=== PATIENT | male | born 1945 | race Caucasian/White ===

== ENCOUNTER → 2017-06-24 07:24 | Outpatient (CLI) | payer OTHER, SELFPAY ==
[2017-06-24 09:30] LABS: Hemoglobin A1c 5.9 % (4.2-6.3)
[2017-06-24 09:31] LABS: AST(SGOT) 21 U/L (15-37); Alanine Aminotransfer ALT/SGPT 24 U/L (16-61); Albumin, Serum 3.6 g/dL (3.2-5.0); Alkaline Phosphatase 69 U/L (45-117); Anion Gap 6 (5-15); BUN 27 mg/dL (7-18); BUN/Creat Ratio 20.6 RATIO (10-20); Calcium,Total 8.6 mg/dL (8.5-10.1); Chloride 108 mmol/L (98-107); Cholesterol 175 mg/dL (200); Creatinine, Serum 1.31 mg/dL (0.70-1.30); EST Glomerular Filtration Rate 57 mL/min (>60); Est Glom Filt Rate - Afr Amer 69 mL/min (>60); Globulin 3.6 g/dL (2.2-4.2); Glucose 92 mg/dL (74-106); High Density Lipoprotein 50 mg/dL; Potassium 3.6 mmol/L (3.5-5.1); Protein, Total 7.2 g/dL (6.4-8.2); Sodium Level 143 mmol/L (136-145); T4 Free Direct 0.94 ng/dL (0.76-1.46); Thyroid Stim Hormone (TSH) 1.84 uIU/mL (0.358-3.74); Triglycerides 101 mg/dL; Very Low Density Lipoprotein 20 mg/dL (5-40)
== END ==
PROVIDERS: Family Provider Family Medicine; PCP Family Medicine; Visit Provider Internal Medicine Endocrinology, Diabetes & Metabolism
DX: E03.9 Hypothyroidism, unspecified (principal); E11.9 Type 2 diabetes mellitus without complications
CPT/HCPCS: 36415; 80053; 80061; 83036; 84439; 84443

== ENCOUNTER → 2017-12-06 06:31 | Outpatient (CLI) | payer OTHER, SELFPAY ==
[2017-12-06 07:33] LABS: Microalbumin:Creatinine Ratio 84.1 mg/g CRE (<30 mg/g CRE)
[2017-12-06 07:38] LABS: Hemoglobin A1c 5.8 % (4.2-6.3)
[2017-12-06 07:45] LABS: ALB/GLOB Ratio 0.9 RATIO (0.9-2.4); AST(SGOT) 24 U/L (15-37); Alanine Aminotransfer ALT/SGPT 26 U/L (16-61); Albumin, Serum 3.4 g/dL (3.2-5.0); Alkaline Phosphatase 65 U/L (45-117); Anion Gap 11 (5-15); BUN 23 mg/dL (7-18); BUN/Creat Ratio 18.4 RATIO (10-20); Calcium,Total 8.8 mg/dL (8.5-10.1); Chloride 106 mmol/L (98-107); Cholesterol 169 mg/dL (200); Creatinine, Serum 1.25 mg/dL (0.70-1.30); EST Glomerular Filtration Rate 60 mL/min (>60); Est Glom Filt Rate - Afr Amer 73 mL/min (>60); Globulin 3.7 g/dL (2.2-4.2); Glucose 113 mg/dL (74-106); High Density Lipoprotein 55 mg/dL; Protein, Total 7.1 g/dL (6.4-8.2); Sodium Level 142 mmol/L (136-145); T4 Total, Thyroxin 10.4 ug/dL (4.5-12.1); Thyroid Stim Hormone (TSH) 2.35 uIU/mL (0.358-3.74); Triglycerides 134 mg/dL; Very Low Density Lipoprotein 27 mg/dL (5-40)
[2017-12-06 09:29] LABS: Vitamin D,25 Hydroxy 39.1 ng/mL (29.95-100.01)
[2017-12-06 19:41] LABS: T4 Free Direct 0.96 ng/dL (0.76-1.46)
== END ==
PROVIDERS: Family Provider Family Medicine; PCP Family Medicine; Visit Provider Internal Medicine Endocrinology, Diabetes & Metabolism
DX: E03.9 Hypothyroidism, unspecified (principal); E55.9 Vitamin D deficiency, unspecified; E11.9 Type 2 diabetes mellitus without complications
CPT/HCPCS: 36415; 80053; 80061; 82043; 82306; 82570; 83036; 84436; 84439; 84443

== ENCOUNTER → 2018-02-11 07:31 | Outpatient (CLI) | payer OTHER, SELFPAY ==
[2018-02-11 08:59] LABS: T4 Free Direct 0.96 ng/dL (0.76-1.46); Thyroid Stim Hormone (TSH) 2.53 uIU/mL (0.358-3.74)
== END ==
PROVIDERS: Family Provider Family Medicine; PCP Family Medicine; Referring Provider Internal Medicine Endocrinology, Diabetes & Metabolism; Visit Provider Internal Medicine Endocrinology, Diabetes & Metabolism
DX: E03.9 Hypothyroidism, unspecified (principal); E11.9 Type 2 diabetes mellitus without complications
CPT/HCPCS: 36415; 84439; 84443

== ENCOUNTER → 2018-04-16 16:48 | Outpatient (CLI) | payer OTHER, SELFPAY ==
[2017-04-26 10:15] VITALS: BMI 32.3
[2018-04-16 19:00] LABS: ALB/GLOB Ratio 0.9 RATIO (0.9-2.4); AST(SGOT) 28 U/L (15-37); Alanine Aminotransfer ALT/SGPT 33 U/L (16-61); Albumin, Serum 3.4 g/dL (3.2-5.0); Alkaline Phosphatase 81 U/L (45-117); Anion Gap 10 (5-15); BUN 25 mg/dL (7-18); BUN/Creat Ratio 21.6 RATIO (10-20); Calcium,Total 8.5 mg/dL (8.5-10.1); Chloride 104 mmol/L (98-107); Creatinine, Serum 1.16 mg/dL (0.70-1.30); EST Glomerular Filtration Rate 66 mL/min (>60); Est Glom Filt Rate - Afr Amer 79 mL/min (>60); Globulin 3.6 g/dL (2.2-4.2); Glucose 83 mg/dL (74-106); Potassium 4.1 mmol/L (3.5-5.1); Sodium Level 139 mmol/L (136-145); Thyroid Stim Hormone (TSH) 3.37 uIU/mL (0.358-3.74)
[2018-04-16 19:03] LABS: Hematocrit 40.1 % (40-54); Hemoglobin 13.1 g/dl (13.0-16.5); Mean Corp Hgb Conc 32.7 g/gl (32-36); Mean Corpuscular Hgb 29.3 pg (27.0-32.0); Mean Corpuscular Volume 89.7 fL (80-94); Mean Platelet Vol. 11.4 fl (6.2-12.0); POSITIVE COUNT NO; POSITIVE DIFFERENTIAL NO; POSITIVE MORPHOLOGY NO; Platelet Count 116 K/mm3 (150-450); RBC Distribution Width CV 13.8 % (11.6-14.6); RBC Distribution Width SD 44.5 fl (35.1-43.9); Red Blood Count 4.47 M/mm3 (4.6-6.2); White Blood Count 3.4 K/mm3 (4.4-11.0)
[2018-04-16 19:04] LABS: Absolute Lymphocyte Count 1.44 X10^3/ul (0.83-4.51); Absolute Neutrophil Count 1.3 X10^3/uL (2.0-7.7); Eosinophil# 0.06 X10^3/uL; Eosinophils% 1.8 % (0-5); Lymphocyte # 1.44 X10^3/ul (4.0); Lymphocyte % 42.7 % (19-41); Monocyte# 0.45 X10^3/uL; Monocyte% 13.4 % (0-10); Neutrophil % 38.5 % (47-70)
[2018-04-19 16:11] LABS: HEPATITIS B SURFACE AG Negative (Negative); Hepatitis B Core Ab Total Negative (Negative); Hepatitis Be Ab Negative (Negative); Hepatitis Be Ag Negative (Negative)
[2018-04-21 08:15] LABS: EBV Acute VCA IgM < 36.0 U/mL (0.0-35.9); EBV Early Antigen IgG <9.0 U/mL (0.0-8.9); EBV Nuclear Antigen IgG < 18.0 U/mL (0.0-17.9); EBV-VCA IgG < 18.0 U/mL (0.0-17.9); Hep B Surface Antibodies Reactive (.); Hep C Antibodies <0.1 s/co ratio (0.0-0.9); Hepatitis B Core AB IgM Negative (Negative)
== END ==
PROVIDERS: Family Provider Family Medicine; PCP Family Medicine; Visit Provider Family Medicine
DX: R53.83 Other fatigue (principal)
CPT/HCPCS: 36415; 80053; 84443; 85025; 86663; 86664; 86665; 86704; 86705; 86706; 86707; 86803; 87340; 87350

== ENCOUNTER → 2018-06-05 06:54 | Outpatient (CLI) | payer OTHER, SELFPAY ==
[2018-06-04 16:09] VITALS: BMI 32.6
[2018-06-05 07:56] LABS: ALB/GLOB Ratio 0.9 RATIO (0.9-2.4); AST(SGOT) 25 U/L (15-37); Alanine Aminotransfer ALT/SGPT 29 U/L (16-61); Albumin, Serum 3.6 g/dL (3.2-5.0); Alkaline Phosphatase 74 U/L (45-117); Anion Gap 7 (5-15); BUN 20 mg/dL (7-18); BUN/Creat Ratio 13.9 RATIO (10-20); Bilirubin, Direct 0.14 mg/dL (0.00-0.30); Calcium,Total 8.6 mg/dL (8.5-10.1); Chloride 106 mmol/L (98-107); Cholesterol 182 mg/dL (200); Creatinine, Serum 1.44 mg/dL (0.70-1.30); EST Glomerular Filtration Rate 51 mL/min (>60); Est Glom Filt Rate - Afr Amer 62 mL/min (>60); Globulin 3.8 g/dL (2.2-4.2); Glucose 111 mg/dL (74-106); High Density Lipoprotein 53 mg/dL; Potassium 4.3 mmol/L (3.5-5.1); Protein, Total 7.4 g/dL (6.4-8.2); Sodium Level 142 mmol/L (136-145); T4 Free Direct 1.02 ng/dL (0.76-1.46); Thyroid Stim Hormone (TSH) 2.18 uIU/mL (0.358-3.74); Triglycerides 139 mg/dL; Very Low Density Lipoprotein 28 mg/dL (5-40)
[2018-06-05 12:18] LABS: Hemoglobin A1c 5.9 % (4.2-6.3)
== END ==
PROVIDERS: Family Provider Family Medicine; PCP Family Medicine; Referring Provider Nurse Practitioner Family; Visit Provider Nurse Practitioner Family
DX: E11.9 Type 2 diabetes mellitus without complications (principal); E03.9 Hypothyroidism, unspecified; E78.5 Hyperlipidemia, unspecified
CPT/HCPCS: 36415; 80053; 80061; 82248; 83036; 84439; 84443

== ENCOUNTER → 2018-07-08 06:46 | Outpatient (CLI) | payer OTHER, SELFPAY ==
[2018-06-04 16:09] VITALS: BMI 32.6
--- NOTE | 2018-07-08 10:29 | STRESSREP_ITS ---
Stress Test Report Date: 07-08-18 Procedure: Pharmacologic stress nuclear imaging study Indications: Chest pain Consent: Per the patient Procedure: The patient underwent pharmacologic (Regadenoson) evaluation with a peak heart rate of 68 beats per minute (46% predicted maximal heart rate) and a peak blood pressure of 190/94 mmHg. The baseline ECG demonstrated is bradycardia; right bundle branch block. The peak pharmacologic ECG demonstrated no obvious ECG changes. There were occasional PVCs pretest, during infusion, and recovery. There was no complaint of chest discomfort during pharmacologic infusion or recovery. The examination was discontinued secondary to completion of protocol. Impression: 1. Pharmacologic (Regadenoson) evaluation 2. Peak pharmacologic ECG with no obvious ECG changes. 3. There were occasional PVCs pretest, during infusion, and recovery. 4. Nuclear images pending Myocardial perfusion imaging study: Technique: The patient was injected with 11.6 millicuries of technetium 99m Cardiolite and subsequently rest SPECT Cardiolite nuclear imaging was obtained in the horizontal long, vertical long, and short axis views. The patient underwent pharmacologic (Regadenoson) evaluation with a peak heart rate of 68 beats per minute (46 % percent predicted maximal heart rate) and a peak blood pressure of 190/94 mmHg. The patient was injected with 34.3 millicuries of technetium 99m Cardiolite and subsequently stress SPECT Cardiolite nuclear imaging was obtained in the horizontal long, vertical long, and short axis views. A gated Cardiolite study at peak stress was obtained. Interpretation: Rest and stress SPECT Cardiolite nuclear imaging status post realignment, normalization, and attenuation correction demonstrate relative uniform tracer uptake and myocardial perfusion appearing within normal limits. There is end systolic thickening and brightening. The gated Cardiolite study demonstrates myocardial thickening and inward wall motion. The reported LVEF is 69 %. Impression: 1. Rest and stress SPECT Cardiolite nuclear imaging demonstrate relative uniform tracer uptake and myocardial perfusion appearing within normal limits. 2. The gated Cardiolite study reports an LVEF of 69 %. This note was generated with [employer] software. It may contain incorrect words, spelling, and punctuation that were not noted in checking the note before signing.
== END ==
PROVIDERS: Family Provider Family Medicine; PCP Family Medicine; Referring Provider Nurse Practitioner Family; Visit Provider Nurse Practitioner Family
DX: R07.9 Chest pain, unspecified (principal); R53.83 Other fatigue; I10 Essential (primary) hypertension
CPT/HCPCS: 78452; 93017; A9500; A4216; J2785

== ENCOUNTER → 2018-08-12 09:53 | Outpatient (CLI) | payer OTHER, SELFPAY ==
[2018-06-04 16:09] VITALS: BMI 32.6
[2018-08-12 12:10] LABS: Absolute Lymphocyte Count 1.26 X10^3/ul (0.83-4.51); Absolute Neutrophil Count 2.9 X10^3/uL (2.0-7.7); Basophil# 0.03 X10^3/uL; Basophil% 0.6 % (0-1); Eosinophil# 0.08 X10^3/uL; Eosinophils% 1.7 % (0-5); Hematocrit 43.6 % (40-54); Hemoglobin 14.1 g/dl (13.0-16.5); Lymphocyte # 1.26 X10^3/ul (4.0); Lymphocyte % 26.3 % (19-41); Mean Corp Hgb Conc 32.3 g/gl (32-36); Mean Corpuscular Hgb 28.6 pg (27.0-32.0); Mean Corpuscular Volume 88.4 fL (80-94); Mean Platelet Vol. 11.7 fl (6.2-12.0); Monocyte# 0.47 X10^3/uL; Monocyte% 9.8 % (0-10); Neutrophil # 2.94 X10^3/uL (2.7-7.7); Neutrophil % 61.4 % (47-70); Platelet Count 154 K/mm3 (150-450); RBC Distribution Width CV 13.9 % (11.6-14.6); RBC Distribution Width SD 44.9 fl (35.1-43.9); Red Blood Count 4.93 M/mm3 (4.6-6.2); White Blood Count 4.8 K/mm3 (4.4-11.0)
[2018-08-12 12:13] LABS: POSITIVE COUNT NO; POSITIVE DIFFERENTIAL NO; POSITIVE MORPHOLOGY NO
[2018-08-12 12:22] LABS: Partial Thromboplast Time 27.2 Seconds (24.1-36.2); Prothrombin Time (Protime)PT. 13.2 SECONDS (11.7-14.9)
== END ==
PROVIDERS: Family Provider Family Medicine; PCP Family Medicine; Referring Provider Family Medicine; Visit Provider Nurse Practitioner Adult Health
DX: S30.1XXA Contusion of abdominal wall, initial encounter (principal); R53.83 Other fatigue
CPT/HCPCS: 36415; 85025; 85610; 85730

== ENCOUNTER → 2018-11-21 10:04 | Outpatient (CLI) | payer OTHER, SELFPAY ==
[2018-08-12 14:46] VITALS: BMI 32.5
--- NOTE | 2018-11-21 10:08 | RAD_ITS ---
STUDY: X-RAY - PELVIS AND RIGHT HIP REASON FOR EXAM: Male, 73 years old. Right hip pain for 2 weeks TECHNIQUE: 3 views of the pelvis and hip. COMPARISON: None. FINDINGS: There is expected appearance of total right hip arthroplasty in place. Hardware is intact with normal bone interface. There is prior ventral hernia repair. 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 The bones of the pelvis are intact and located. There are degenerative changes in the lower lumbar spine. There is no intestinal obstruction. RAD/HIP, UNI W/ Pelvis 2-3 Views IMPRESSION: Expected appearance of right total hip arthroplasty. Electronically Signed: Kush Means, at 20:00 EDT Tel , Service support ,
== END ==
PROVIDERS: Family Provider Family Medicine; PCP Family Medicine; Referring Provider Family Medicine; Visit Provider Family Medicine
DX: M25.551 Pain in right hip (principal); Z96.641 Presence of right artificial hip joint
CPT/HCPCS: 73502

== ENCOUNTER → 2018-11-25 17:50 | Outpatient (CLI) | payer OTHER, SELFPAY ==
[2018-08-12 14:46] VITALS: BMI 32.5
[2018-11-25 19:03] LABS: Vitamin D,25 Hydroxy 38.5 ng/mL (29.95-100.01)
[2018-11-25 19:05] LABS: ALB/GLOB Ratio 0.9 RATIO (0.9-2.4); AST(SGOT) 24 U/L (15-37); Alanine Aminotransfer ALT/SGPT 25 U/L (16-61); Albumin, Serum 3.6 g/dL (3.2-5.0); Alkaline Phosphatase 69 U/L (45-117); Anion Gap 5 (5-15); BUN 26 mg/dL (7-18); BUN/Creat Ratio 21.3 RATIO (10-20); Calcium,Total 8.9 mg/dL (8.5-10.1); Chloride 106 mmol/L (98-107); Creatinine, Serum 1.22 mg/dL (0.70-1.30); EST Glomerular Filtration Rate 62 mL/min (>60); Est Glom Filt Rate - Afr Amer 75 mL/min (>60); Globulin 3.9 g/dL (2.2-4.2); Glucose 91 mg/dL (74-106); Protein, Total 7.5 g/dL (6.4-8.2); Sodium Level 138 mmol/L (136-145); T4 Free Direct 1.08 ng/dL (0.76-1.46); Thyroid Stim Hormone (TSH) 1.47 uIU/mL (0.358-3.74)
== END ==
PROVIDERS: Family Provider Family Medicine; PCP Family Medicine; Referring Provider Internal Medicine Endocrinology, Diabetes & Metabolism; Visit Provider Internal Medicine Endocrinology, Diabetes & Metabolism
DX: E55.9 Vitamin D deficiency, unspecified (principal); E11.9 Type 2 diabetes mellitus without complications; E03.9 Hypothyroidism, unspecified
CPT/HCPCS: 36415; 80053; 82306; 83036; 84439; 84443

== ENCOUNTER 2019-02-01 14:07 | Emergency (ER) | payer OTHER, SELFPAY ==
[2018-08-12 14:46] VITALS: BMI 32.5
[2019-02-01 14:09] VITALS: BP 132/65; PULSE 50; RESP 16; TEMP 36.8; O2SAT 95; BMI 32.6
[2019-02-01 14:12] VITALS: RESP 16
[2019-02-01 15:26] LABS: Absolute Lymphocyte Count 1.29 X10^3/uL (0.83-4.51); Absolute Neutrophil Count 4.1 X10^3/uL (2.0-7.7); Basophil# 0.05 X10^3/uL; Basophil% 0.8 % (0-1); Eosinophil# 0.09 X10^3/uL; Eosinophils% 1.5 % (0-5); Hematocrit 41.9 % (40-54); Hemoglobin 13.4 g/dL (13.0-16.5); Lymphocyte # 1.29 X10^3/ul (4.0); Lymphocyte % 21.1 % (19-41); Mean Corpuscular Hgb 29.9 pg (27.0-32.0); Mean Corpuscular Volume 93.5 fL (80-94); Mean Platelet Vol. 11.3 fl (6.2-12.0); Monocyte# 0.53 X10^3/uL; Monocyte% 8.7 % (0-10); NRBC Flagged by Analyzer 0 % (0-5); Neutrophil # 4.13 X10^3/uL (2.7-7.7); Neutrophil % 67.4 % (47-70); Platelet Count 149 K/mm3 (150-450); RBC Distribution Width CV 12.5 % (11.6-14.6); RBC Distribution Width SD 43.2 fl (35.1-43.9); Red Blood Count 4.48 M/mm3 (4.6-6.2); White Blood Count 6.1 K/mm3 (4.4-11.0)
[2019-02-01] MEDS: Ondansetron 4 MG/2 ML Vial IV (15:30)
[2019-02-01] MEDS: Oxymetazoline 0.05% 1 SPRAY SPRAY.BTL NASAL (15:31)
[2019-02-01] MEDS: Mixture 30 ML Bottle TOPICAL (15:31)
[2019-02-01] MEDS: Morphine 4 MG/ML Syringe IV (15:32)
[2019-02-01 15:34] LABS: International Normalized Ratio 1.1
[2019-02-01 15:35] LABS: Partial Thromboplast Time 28.7 Seconds (24.1-36.2)
[2019-02-01 15:37] LABS: Anion Gap 7 (5-15); BUN 25 mg/dL (7-18); BUN/Creat Ratio 20.7 RATIO (10-20); Calcium,Total 9.1 mg/dL (8.5-10.1); Chloride 108 mmol/L (98-107); Creatinine, Serum 1.21 mg/dL (0.70-1.30); EST Glomerular Filtration Rate 62 mL/min (>60); Est Glom Filt Rate - Afr Amer 75 mL/min (>60); Glucose 84 mg/dL (74-106); Sodium Level 143 mmol/L (136-145)
--- NOTE | 2019-02-01 15:52 | ED.VISSUMM ---
- ER Visit Summary Date of Service: 02/01/19 Chief Complaint: Nosebleed History of Present Illness: The patient is a [address] Kohli. He takes a baby aspirin a day. He reports he had bleeding from the right side of his nose 4 days ago the last approximately 30 minutes. He had another episode 2 days ago lasted 45 minutes. Had an episode yesterday lasted 45 minutes. And states that it began to bleed again today approximately 7 hours ago and has not stopped. He is not on any anticoagulants. He denies any recent injury to his nose. Patient has never had anything like this before. He has seen both Dr. Fiore and Dr. Umer Shields in the distant past. Physical Examination: Vitals: Stable. Afebrile. General: Well-nourished and well-developed. Head: Normocephalic atraumatic. Nose: Active bleeding from the right nare. I am unable to visualize the source of this. Neck: Supple, no lymphadenopathy. No JVD. Nontender. Cardiovascular: Regular rate and rhythm. No murmurs. Respiratory: No respiratory distress. Clear to auscultation bilaterally. Abdominal: Soft, nontender, nondistended, normal bowel sounds. No guarding, rebound, or peritoneal signs. Back: Nontender. Extremities: Nontender, no edema. Skin: Normal color, no rash. Neurologic: Alert and oriented ?3. Cranial nerves II through XII are intact. Normal strength and sensation. Psych: Normal affect. Test Results: CBC shows platelets 149. Chem-7 shows a chloride 108 and BUN of 25. INR is 1.1. PTT is 20.7. Emergency Department Course and Treatment: Patient was given a dose of morphine and Zofran IV. He had Afrin instilled cotton balls placed in his nose. Bleeding actually increased with this. When he was were removed there was significant bleeding coming both anterior and posteriorly. I was unable to visualize a source of this. [place] mix instilled and had a 7.57 m rapid Rhino placed. This did control his bleeding. There is no further bleeding in the oropharynx. There is no clot in the oropharynx. He was able to ambulate without difficulty. Treatment Plan: Patient will be discharged with Keflex. He is also given prescription for 10 [place]. Instructed to follow-up Dr. Macarena in 3 to 5 days for another exam. Return to the emergency department for any worsening symptoms. Disposition: To home in improved and stable condition. Impression: 1. Epistaxis on right. This note was generated with [employer] dictation software. It may contain incorrect words, spelling, and punctuation that were not noted in review of the chart prior to signing ED Disposition - Plan for ED Patient: Instructions: Nosebleed Prescriptions: Cephalexin [Keflex] 500 mg PO TID #21 capsule Hydrocodone Bitart/Apap 5-325 [[place] 5MG-325MG] 1 tablet PO Q4H PRN PRN 2 Days #10 tablet PRN Reason: Pain Referrals: Niranjan Foire MD [STAFF PHYSICIAN] - 3-5 Days
--- NOTE | 2019-02-01 16:50 | RAD_ITS ---
STUDY: X-RAY - LEFT SHOULDER REASON FOR EXAM: Male, 73 years old. Pain. TECHNIQUE: 3 view(s) of the shoulder. COMPARISON: None. FINDINGS: There is moderate degenerative arthrosis of the glenohumeral articulation. There is degenerative arthrosis of the acromioclavicular joint without inferior osseous spur formation. Normal acromion. Normal humeral head and visualized proximal humerus. The soft tissue structures are unremarkable. Normal visualized pulmonary apex. RAD/Shoulder min 2 Views IMPRESSION: Glenohumeral and AC joint arthrosis with no evidence of acute osseous injury. Electronically Signed: Daniel Lambert DO at 17:11 EDT , Service support ,
[2019-02-01 17:32] VITALS: BP 144/61; PULSE 55; RESP 14; O2SAT 97
== END 2019-02-01 17:33 | disposition home or self-care (01) ==
PROVIDERS: Emergency Provider Emergency Medicine; Family Provider Family Medicine; PCP Family Medicine
DX: R04.0 Epistaxis (principal); I10 Essential (primary) hypertension; E03.9 Hypothyroidism, unspecified; I34.1 Nonrheumatic mitral (valve) prolapse; Z79.82 Long term (current) use of aspirin; Z79.899 Other long term (current) drug therapy
CPT/HCPCS: 30905; 73030; 80048; 85025; 85610; 85730; 96374; 96375; 99285; A4216; J2405

== ENCOUNTER → 2019-02-23 17:43 | Outpatient (CLI) | payer OTHER, SELFPAY ==
[2019-02-01 14:09] VITALS: BMI 32.6
[2019-02-23 17:49] LABS: Absolute Lymphocyte Count 1.23 X10^3/uL (0.83-4.51); Absolute Neutrophil Count 3.5 X10^3/uL (2.0-7.7); Basophil# 0.04 X10^3/uL; Basophil% 0.7 % (0-1); Eosinophil# 0.12 X10^3/uL; Eosinophils% 2.2 % (0-5); Hematocrit 40.6 % (40-54); Lymphocyte # 1.23 X10^3/ul (4.0); Lymphocyte % 22.8 % (19-41); Mean Corpuscular Hgb 29.8 pg (27.0-32.0); Mean Corpuscular Volume 93.1 fL (80-94); Mean Platelet Vol. 11.7 fl (6.2-12.0); Monocyte# 0.52 X10^3/uL; Monocyte% 9.6 % (0-10); NRBC Flagged by Analyzer 0 % (0-5); Neutrophil # 3.46 X10^3/uL (2.7-7.7); Neutrophil % 64.3 % (47-70); Platelet Count 154 K/mm3 (150-450); RBC Distribution Width CV 12.6 % (11.6-14.6); RBC Distribution Width SD 42.5 fl (35.1-43.9); Red Blood Count 4.36 M/mm3 (4.6-6.2); White Blood Count 5.4 K/mm3 (4.4-11.0)
[2019-02-23 18:16] LABS: Thyroid Stim Hormone (TSH) 1.94 uIU/mL (0.358-3.74)
== END ==
PROVIDERS: Family Provider Family Medicine; PCP Family Medicine; Referring Provider Family Medicine; Visit Provider Family Medicine
DX: R06.02 Shortness of breath (principal)
CPT/HCPCS: 84443; 85025

== ENCOUNTER → 2019-02-24 09:54 | Outpatient (CLI) | payer OTHER, SELFPAY ==
[2019-02-01 14:09] VITALS: BMI 32.6
--- NOTE | 2019-02-24 09:56 | VDLE_ITS ---
Reason For Study: Hx. DVT/ SOB RIGHT LEFT GSV is normal. GSV is normal. CFV is compressible, spontaneous, phasic, CFV is compressible, spontaneous, phasic, competent and demonstrates normal competent, and demonstrates normal augmentation. augmentation. FV is compressible, spontaneous, phasic, POP V is compressible, spontaneous, phasic, competent and demonstrates normal competent and demonstrates normal augmentation. augmentation. POP V is compressible, spontaneous, phasic, T/P Trunk is compressible. competent and demonstrates normal PTV is compressible. augmentation. Acute deep vein thrombosis is noted in the T/P Trunk is compressible. left FV prox with minimal flow noted. PTV is compressible. Remaining vessel is normal. Acute deep vein thrombosis is noted in the Acute superficial vein thrombosis is noted in right peroneal vein. the SSV with minimal flow noted. Acute deep vein thrombosis is noted in the Acute deep vein thrombosis is noted in the right soleus vein. left peroneal vein. Procedure Exam performed in department. A preliminary report was called and/or faxed to [facility]. Pt sent to ER for CAT scan for lungs. Interpretation Summary Acute deep vein thrombosis is noted in the right peroneal vein. Acute deep vein thrombosis is noted in the right soleus vein. The remainder of the right lower extremity deep venous system is patent and compressible. The proximal right lower extremity deep venous system is competent. Acute deep vein thrombosis is noted in the left proximal femoral vein. Acute deep vein thrombosis is noted in the left peroneal vein. The remainder of the left lower extremity deep venous system is patent and compressible. The left common femoral vein and popliteal vein are competent. The great saphenous veins appear bilaterally patent and compressible segmentally. Acute superficial thrombophlebitis is noted in the left small saphenous vein. Ordering Physician: Deanne Kohli Referring Physician: Deanne Kohli Performed By: Faviola Garcia RVT
== END ==
PROVIDERS: Family Provider Family Medicine; PCP Family Medicine; Referring Provider Family Medicine; Visit Provider Family Medicine
DX: Z86.718 Personal history of other venous thrombosis and embolism (principal)
CPT/HCPCS: 93970

== ENCOUNTER 2019-02-24 10:40 | Emergency (ER) | payer OTHER, SELFPAY ==
[2019-02-24 10:41] VITALS: BP 137/84; PULSE 51; RESP 18; TEMP 36.8; O2SAT 95; BMI 31.6
--- NOTE | 2019-02-24 11:02 | CT_ITS ---
STUDY: CTA CHEST REASON FOR EXAM: Male, 73 years old. RADIATION DOSAGE (If Supplied By Facility): CTDIvol = ( 14.31 ) mGy, DLP = ( 525.21 ) mGycm TECHNIQUE: The examination was performed with the intravenous administration of IV Isovue 300 100CC. Post-processing of the angiographic images was performed, with multiplanar reformation and 3D reconstruction. Individualized dose optimization techniques were used for this CT. COMPARISON: None. FINDINGS: Heterogeneous right thyroid. Normal enhancement of the main pulmonary artery and right and left pulmonary arteries. Normal enhancement of the bilateral peripheral pulmonary arteries. There are several pulmonary emboli within subsegmental branches of the right and left pulmonary arteries including right upper lobe anterior, right lower lobe posterior, left upper lobe anterior and left lower lobe posterior segments. There is atherosclerotic calcification of the aortic arch with tortuosity. There is no demonstrated aortic dissection. There are valvular calcifications. Normal mediastinum. Normal hilar regions. Normal visualized trachea and bronchi. The lungs are well expanded. Density at the left lung base measuring 1.3 cm is favored to represent atelectasis or scarring. No focal consolidation. Normal pleura. Normal chest wall structures. Portions of the left anterior chest wall and abdomen are excluded from the [id number]. There are degenerative changes of thoracic spine. Multiple incompletely characterized hepatic hypodensities most likely represent cysts. CT/CTA Chest W/WO Contrast IMPRESSION: Multiple subsegmental pulmonary emboli as above. Heterogeneous right thyroid. Recommend follow-up thyroid ultrasound. Findings discussed with Physician: Dmitry Burnette via telephone 10:16 AM 02/24/2019. N.B. : The above information has been verbally conveyed by Jacob Harrison to Dmitry Burnette MD, on 02/24/2019 13:19:20 (ET). Electronically Signed: Jacob Harrison, at 13:21 EST Tel , Service support ,
--- NOTE | 2019-02-24 11:02 | EKG12_ITS ---
Test Reason : SOB Blood Pressure : / mmHG Vent. Rate : 046 BPM Atrial Rate : 046 BPM P-R Int : 200 ms QRS Dur : 126 ms QT Int : 486 ms P-R-T Axes : 058 -24 015 degrees QTc Int : 425 ms Sinus bradycardia Right bundle branch block Abnormal ECG Confirmed by LIT STAFFORD ([id number]), development editor STEPHIE TOSCANO ([id number]) on 02/27/2019 11:23:14 AM Referred By: JAMILA Confirmed By:LIT STAFFORD
--- NOTE | 2019-02-24 11:05 | ED.DCSUM_ITS ---
History of Present Illness Chief Complaint: Shortness of Breath Informant: Patient Onset: Weeks - less than 1 Activity at onset: Light Activity Timing: Intermittent Quality: Dyspnea on exertion Current Severity: Gone - at rest Maximum Severity: Moderate Worsened by: Exertion Relieved by: Rest Associated Symptoms: Negative for: Cough, Fever Chest Pain: None Narrative: Patient has a history of a pulmonary embolism 21 years ago. He started having dyspnea with exertion in the past week and saw his doctor and had an outpatient ultrasound of his legs today, showing the following: Acute DVTs right peroneal vein, right soleus vein, left femoral vein proximally, and left peroneal vein. Also acute superficial thrombosis noted in the left SSV. Patient denies any pleuritic chest discomfort, syncope, pain or swelling in his legs. He has active prostate cancer that is being monitored at [facility] for now. No recent travel, immobilization, leg injuries. He did have a spontaneous epistaxis event that he was in the ER for a couple weeks ago, no recurrence since he got that taken care of. He takes baby aspirin daily but no anticoagulants. PE Risk Factors: Cancer, Prior DVT or PE. 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 (5) Nonrheumatic mitral (valve) prolapse Status: Chronic (6) Premature atrial contraction Status: Chronic (7) Premature ventricular contraction Status: Chronic Past Medical History - Allergies and Home Meds Allergies/Adverse Reactions: Allergies fosinopril [From Monopril] Allergy (Severe, Verified 02/24/19 10:41) unknown benazepril [From Lotensin] Adverse Reaction (Severe, Verified 02/24/19 10:41) unknown penicillin G Adverse Reaction (Severe, Verified 02/24/19 10:41) unknown apis mellifera venom Allergy (Severe, Uncoded 02/24/19 10:41) unknown Primary Care Physician: Deanne Kohli MD [Primary Care Provider] - Smoking Status: Former smoker Alcohol: None Drugs: None Review of Systems General: Reports: Malaise. Denies: Chills, Fever, Sweats Eyes: Denies: Visual changes - bilaterally, Diplopia ENT: Denies: Rhinorrhea, Sore throat Cardiovascular: Denies: Chest pain, Palpitations, Heart racing Respiratory: Reports: Dyspnea, Dyspnea on exertion. Denies: Cough, Orthopnea, Paroxysmal nocturnal dyspnea Gastrointestinal: Denies: Abdominal pain, Nausea, Vomiting, Diarrhea, Melena, Hematochezia Genitourinary: Denies: Dysuria, Hematuria, Frequency Musculoskeletal: Denies: Neck pain, Back pain, Swelling, Extremity Pain Skin: Denies: Rash, Wounds Neurological: Denies: Headache, Weakness, Numbness Physical Exam Vital Signs/Narrative: Vital Signs Temp Pulse Resp BP Pulse Ox 02/24/19 10:41 98.2 F 51 L 18 137/84 H 95 Inital Vital Signs reviewed: Yes General: Well nourished, Well developed, No Acute Distress - well-appearing, nad; conversive in full sentences Head: Normocephalic, Atraumatic Eyes: Perrl, EOMI ENT: Moist mucous membranes, No rhinorrhea Neck: Supple, Nontender, No JVD Cardiovascular: Regular rate, Regular rhythm, No murmurs, Normal S1, Normal S2. Negative for: Tachycardia Respiratory: No distress, CTA bilaterally, Chest nontender Abdomen: Soft, Nontender, Nondistended, Normal bowel sounds Back: Nontender, Normal Inspection Extremities: Nontender, Edema - trace BLE pretib distally. Negative for: Calf Tenderness Skin: Normal color, No rash, No Trauma Neurological: Alert, Oriented x3, Cranial nerves II-XII grossly intact, Normal Strength, Normal Sensation Psychological: Normal affect, Normal Mood Diagnostic/Tx/Re-eval Impressions Chest CTA 02/24/19 11:02 IMPRESSION: Multiple subsegmental pulmonary emboli as above. Heterogeneous right thyroid. Recommend follow-up thyroid ultrasound. Findings discussed with Physician: Dmitry Burnette via telephone 10:16 AM 02/24/2019. N.B. : The above information has been verbally conveyed by Jacob Harrison to Dmitry Burnette MD, on 02/24/2019 13:19:20 (ET). Electronically Signed: Jacob Harrison, at 13:21 EST Tel , Service support , ADDENDUM: 02/24/19 1328 IMPRESSION: Multiple subsegmental pulmonary emboli as above. Heterogeneous right thyroid. Recommend follow-up thyroid ultrasound. Findings discussed with Physician: Dmitry Burnette via telephone 10:16 AM 02/24/2019. N.B. : The above information has been verbally conveyed by Jacob Harrison to Dmitry Burnette MD, on 02/24/2019 13:19:20 (ET). Electronically Signed: Jacob Harrison, at 13:21 EST Tel , Service support , 02/24/19 11:02 CTA Chest W/WO Contrast [CT] Stat Laboratory Results 02/24/19 02/24/19 11:36 11:36 WBC 5.5 RBC 4.30 L Hgb 12.7 L Hct 40.0 MCV 93.0 MCH 29.5 MCHC 31.8 L RDW Std Deviation 42.7 RDW Coeff of Kelle 12.6 Plt Count 148 L MPV 11.3 Immature Gran % (Auto) 0.700 Neut % (Auto) 66.6 Lymph % (Auto) 19.0 Cassia % (Auto) 10.8 H Eos % (Auto) 2.0 Baso % (Auto) 0.9 Absolute Neuts (auto) 3.6 Absolute Lymphs (auto) 1.04 Nucleated RBC % 0 Sodium 140 Potassium 3.9 Chloride 106 Carbon Dioxide 29.0 Anion Gap 5 BUN 21 H Creatinine 1.25 Estim Creat Clear Calc 50.92 Est GFR (MDRD) Af Amer 73 Est GFR (MDRD) Non-Af 60 BUN/Creatinine Ratio 16.8 Glucose 110 H Calcium 8.8 Troponin I < 0.015 - Rhythm Strip Rhythm Strip: Sinus Rhythm Rate: 50 Ectopy: None - EKG Initial EKG Interpretation: Sinus Rhythm, No Acute Injury Pattern, RBBB - Medical Decision Making Work-up is as above showing bilateral pulmonary emboli, and subsegmental arteries. He is asymptomatic at rest, not hypoxic, and not tachycardic. He does have a history of cancer. His PESI score is 113, which places him in class IV, technically high risk for mortality/morbidity. However, I feel he can be treated as an outpatient since he only has symptoms with exertion, has had no high risk symptoms such as angina, syncope, dyspnea at rest and has normal resting vital signs. Discussed with his PCP Dr. Kohli who is comfortable with this, he will follow-up as an outpatient and advised to avoid any exertion or exercise until then but I am okay if he walks as long as he does not develop symptoms of dyspnea or chest pain. He was given Lovenox here prior to the CT angiography. He will be covered for 12 hours and advised to start the new Eliquis prescription tonight. We discussed reasons to return. ED Disposition - Plan for ED Patient: Disposition: Home or Assisted Living Diagnosis: DVT, bilateral lower limbs, Pulmonary embolism, bilateral Instructions: Pulmonary Embolism Prescriptions: Apixaban [Eliquis] 5 mg PO BID #60 tab Transmission Status: Pending to [id number] Referrals: Deanne Kohli MD [Primary Care Provider] - 3-5 Days
[2019-02-24] MEDS: Enoxaparin 100 MG/ML Syringe 95 MG SC (11:31)
[2019-02-24 11:42] VITALS: O2SAT 95
[2019-02-24 11:48] LABS: Absolute Lymphocyte Count 1.04 X10^3/uL (0.83-4.51); Absolute Neutrophil Count 3.6 X10^3/uL (2.0-7.7); Basophil# 0.05 X10^3/uL; Basophil% 0.9 % (0-1); Eosinophil# 0.11 X10^3/uL; Hemoglobin 12.7 g/dL (13.0-16.5); Lymphocyte # 1.04 X10^3/ul (4.0); Mean Corp Hgb Conc 31.8 g/dL (32-36); Mean Corpuscular Hgb 29.5 pg (27.0-32.0); Mean Platelet Vol. 11.3 fl (6.2-12.0); Monocyte# 0.59 X10^3/uL; Monocyte% 10.8 % (0-10); NRBC Flagged by Analyzer 0 % (0-5); Neutrophil # 3.64 X10^3/uL (2.7-7.7); Neutrophil % 66.6 % (47-70); Platelet Count 148 K/mm3 (150-450); RBC Distribution Width CV 12.6 % (11.6-14.6); RBC Distribution Width SD 42.7 fl (35.1-43.9); White Blood Count 5.5 K/mm3 (4.4-11.0)
[2019-02-24 12:04] LABS: Anion Gap 5 (5-15); BUN 21 mg/dL (7-18); BUN/Creat Ratio 16.8 RATIO (10-20); Calcium,Total 8.8 mg/dL (8.5-10.1); Chloride 106 mmol/L (98-107); Creatinine, Serum 1.25 mg/dL (0.70-1.30); EST Glomerular Filtration Rate 60 mL/min (>60); Est Glom Filt Rate - Afr Amer 73 mL/min (>60); Estimated Creatinine Clearance 50.92 ml/min; Glucose 110 mg/dL (74-106); Potassium 3.9 mmol/L (3.5-5.1); Sodium Level 140 mmol/L (136-145)
[2019-02-24 13:04] VITALS: BP 167/68; PULSE 48; RESP 20; O2SAT 93
[2019-02-24 15:14] VITALS: BP 138/97; PULSE 58; RESP 12; O2SAT 98
== END 2019-02-24 15:31 | disposition home or self-care (01) ==
PROVIDERS: Emergency Provider Emergency Medicine; Family Provider Family Medicine; PCP Family Medicine
DX: I26.94 Multiple subsegmental thrombotic pulmonary emboli without acute cor pulmonale (principal); I82.461 Acute embolism and thrombosis of right calf muscular vein; I82.411 Acute embolism and thrombosis of right femoral vein; I82.453 Acute embolism and thrombosis of peroneal vein, bilateral; I82.812 Embolism and thrombosis of superficial veins of left lower extremity; C61 Malignant neoplasm of prostate; I10 Essential (primary) hypertension; E78.5 Hyperlipidemia, unspecified; D47.2 Monoclonal gammopathy; I34.1 Nonrheumatic mitral (valve) prolapse; I49.1 Atrial premature depolarization; I49.3 Ventricular premature depolarization; Z86.711 Personal history of pulmonary embolism; Z86.718 Personal history of other venous thrombosis and embolism; Z79.82 Long term (current) use of aspirin; Z79.899 Other long term (current) drug therapy; Z87.891 Personal history of nicotine dependence
CPT/HCPCS: 71275; 80048; 84484; 85025; 93005; 96360; 96361; 96372; 99284; J7030; Q9967; A4216

== ENCOUNTER → 2019-05-16 09:47 | Outpatient (CLI) | payer OTHER, MEDICARE, SELFPAY ==
[2019-03-03 15:59] VITALS: BMI 32.6
[2019-05-16 10:54] LABS: Hemoglobin A1c 6.4 % (4.2-6.3)
[2019-05-16 10:59] LABS: ALB/GLOB Ratio 0.9 RATIO (0.9-2.4); AST(SGOT) 26 U/L (15-37); Alanine Aminotransfer ALT/SGPT 30 U/L (16-61); Albumin, Serum 3.4 g/dL (3.2-5.0); Alkaline Phosphatase 81 U/L (45-117); Anion Gap 3 (5-15); BUN 20 mg/dL (7-18); Calcium,Total 9.3 mg/dL (8.5-10.1); Chloride 107 mmol/L (98-107); Cholesterol 191 mg/dL (200); Creatinine, Serum 1.25 mg/dL (0.70-1.30); EST Glomerular Filtration Rate 60 mL/min (>60); Est Glom Filt Rate - Afr Amer 73 mL/min (>60); Globulin 3.8 g/dL (2.2-4.2); Glucose 109 mg/dL (74-106); High Density Lipoprotein 53 mg/dL; Potassium 4.2 mmol/L (3.5-5.1); Protein, Total 7.2 g/dL (6.4-8.2); Sodium Level 141 mmol/L (136-145); Triglycerides 165 mg/dL; Very Low Density Lipoprotein 33 mg/dL (5-40)
== END ==
LOC: LAB.FUTURE 09:50 → LAB 09:58
PROVIDERS: PCP Family Medicine; Referring Provider Internal Medicine Endocrinology, Diabetes & Metabolism; Visit Provider Internal Medicine Endocrinology, Diabetes & Metabolism
DX: E11.9 Type 2 diabetes mellitus without complications (principal); E03.9 Hypothyroidism, unspecified
CPT/HCPCS: 36415; 80053; 80061; 83036; 84439; 84443

== ENCOUNTER → 2019-11-19 16:15 | Outpatient (CLI) | payer OTHER, MEDICARE, SELFPAY ==
[2019-08-26 15:37] VITALS: BMI 32.9
[2019-11-19 18:37] LABS: Hemoglobin A1c 6.4 % (3.8-5.6)
[2019-11-19 18:40] LABS: Microalbumin:Creatinine Ratio 218.2 mg/g CRE (<30 mg/g CRE)
[2019-11-19 18:51] LABS: ALB/GLOB Ratio 0.9 RATIO (0.9-2.4); AST(SGOT) 20 U/L (15-37); Alanine Aminotransfer ALT/SGPT 27 U/L (16-61); Albumin, Serum 3.4 g/dL (3.2-5.0); Alkaline Phosphatase 88 U/L (45-117); Anion Gap 4 (5-15); BUN 19 mg/dL (7-18); BUN/Creat Ratio 14.3 RATIO (10-20); Calcium,Total 8.9 mg/dL (8.5-10.1); Chloride 107 mmol/L (98-107); Creatinine, Serum 1.33 mg/dL (0.70-1.30); EST Glomerular Filtration Rate 56 mL/min (>60); Est Glom Filt Rate - Afr Amer 68 mL/min (>60); Globulin 3.8 g/dL (2.2-4.2); Glucose 107 mg/dL (74-106); Protein, Total 7.2 g/dL (6.4-8.2); Sodium Level 139 mmol/L (136-145); Thyroid Stim Hormone (TSH) 1.42 uIU/mL (0.358-3.74)
== END ==
PROVIDERS: PCP Family Medicine; Referring Provider Internal Medicine Endocrinology, Diabetes & Metabolism; Visit Provider Internal Medicine Endocrinology, Diabetes & Metabolism
DX: E03.9 Hypothyroidism, unspecified (principal); E11.9 Type 2 diabetes mellitus without complications
CPT/HCPCS: 36415; 80053; 82043; 82570; 83036; 84439; 84443

== ENCOUNTER → 2020-05-20 08:17 | Outpatient (CLI) | payer MEDICARE, SELFPAY ==
[2020-02-17 15:16] VITALS: BMI 32.0
[2020-05-20 09:30] LABS: Hemoglobin A1c 6.6 % (3.8-5.6)
[2020-05-20 09:40] LABS: Vitamin D,25 Hydroxy 42.6 ng/mL
[2020-05-20 09:51] LABS: ALB/GLOB Ratio 0.8 RATIO (0.9-2.4); AST(SGOT) 19 U/L (15-37); Alanine Aminotransfer ALT/SGPT 29 U/L (16-61); Albumin, Serum 2.9 g/dL (3.2-5.0); Alkaline Phosphatase 88 U/L (45-117); Anion Gap 6 (5-15); BUN 18 mg/dL (7-18); BUN/Creat Ratio 14.4 RATIO (10-20); Calcium,Total 8.9 mg/dL (8.5-10.1); Chloride 108 mmol/L (98-107); Creatinine, Serum 1.25 mg/dL (0.70-1.30); EST Glomerular Filtration Rate 60 mL/min (>60); Est Glom Filt Rate - Afr Amer 72 mL/min (>60); Globulin 3.7 g/dL (2.2-4.2); Glucose 113 mg/dL (74-106); Potassium 3.8 mmol/L (3.5-5.1); Protein, Total 6.6 g/dL (6.4-8.2); Sodium Level 140 mmol/L (136-145); T4 Free Direct 0.99 ng/dL (0.76-1.46); Thyroid Stim Hormone (TSH) 2.16 uIU/mL (0.358-3.74)
== END ==
PROVIDERS: PCP Family Medicine; Referring Provider Internal Medicine Endocrinology, Diabetes & Metabolism; Visit Provider Internal Medicine Endocrinology, Diabetes & Metabolism
DX: E11.65 Type 2 diabetes mellitus with hyperglycemia (principal); E78.00 Pure hypercholesterolemia, unspecified; I10 Essential (primary) hypertension; R10.13 Epigastric pain
CPT/HCPCS: 36415; 80053; 82306; 83036; 84439; 84443

== ENCOUNTER 2020-09-22 05:13 | Emergency (ER) | payer MEDICARE, SELFPAY ==
[2020-08-17 15:09] VITALS: BMI 30.6
[2020-09-22 05:13] VITALS: BP 190/80; PULSE 84; RESP 16; TEMP 36.9; O2SAT 96; BMI 29.6
--- NOTE | 2020-09-22 05:29 | EDS_ITS ---
HPI History of Present Illness Chief Complaint: Complaint Informant: patient Narrative Narrative: Patient has acute urinary retention. 3 days ago he had a prostate embolization performed at the [facility] by interventional radiology. He states that he has been urinating fine until last night where he started to dribble urine. He then had complete urinary retention. He does have a history of BPH. He denies any fevers, dysuria or hematuria. [facility] Medical History Basal cell carcinoma (BCC) Essential hypertension GERD (gastroesophageal reflux disease) Graves disease Hepatic cyst History of pulmonary embolism History of thromboembolism Hyperlipidemia Hypertension Hypothyroidism IBS (irritable bowel syndrome) Mitral valve prolapse Nonrheumatic mitral (valve) prolapse NATHAN (obstructive sleep apnea) Other nonrheumatic mitral valve disorders Premature atrial contraction Premature ventricular contraction Prostate CA Renal cyst Sinus bradycardia SOB (shortness of breath) on exertion Venous insufficiency Home Medications ascorbic acid (vitamin C) 500 mg tablet 500 mg PO QDAY 04/25/17 [History Last Taken Unknown] esomeprazole magnesium 40 mg capsule,delayed release 40 mg PO QDAY cap 04/25/17 [History Last Taken Unknown] hydrochlorothiazide 25 mg tablet 12.5 mg PO QDAY 04/25/17 [History Last Taken Unknown] levothyroxine 50 mcg tablet 50 mcg PO QDAY tab 04/25/17 [History Last Taken Unknown] multivitamin 1 tab PO QDAY 04/25/17 [History Last Taken Unknown] oxybutynin chloride 5 mg tablet 10 mg PO QDAY tab 04/25/17 [History Last Taken Unknown] rosuvastatin 20 mg tablet 20 mg PO QDAY 04/25/17 [History Last Taken Unknown] tamsulosin 0.4 mg capsule 0.4 mg PO QDAY 04/25/17 [History Last Taken Unknown] metoprolol tartrate 25 mg tablet 12.5 mg PO BID tab 04/26/17 [History Last Taken Unknown] cholecalciferol (vitamin D3) 1,000 unit PO DAILY 02/01/19 [History Last Taken Unknown] desvenlafaxine succinate 25 mg tablet,extended release 24 hr 25 mg PO DAILY 06/17/19 [History Last Taken Unknown] losartan 25 mg tablet 50 mg PO DAILY tab 06/17/19 [History Last Taken Unknown] apixaban 2.5 mg PO BID #60 tab 02/22/20 [Rx Last Taken Unknown] lactase [Lactaid] 3,000 unit PO DAILY 09/22/20 [History Last Taken Unknown] Allergy/AdvReac Type Severity Reaction Status Date / Time fosinopril [From Monopril] Allergy Severe unknown Verified 09/22/20 05:17 benazepril [From Lotensin] AdvReac Severe unknown Verified 09/22/20 05:17 penicillin G AdvReac Severe unknown Verified 09/22/20 05:17 apis mellifera venom Allergy Severe unknown Uncoded 08/17/20 15:07 Family History Father Myositis Skin cancer Myocardial infarction Mother CVA (cerebral vascular accident) Colon cancer Hypertension Pacemaker Surgical History History of bilateral hip replacements History of endoscopy History of hernia surgery Status post Mohs surgery Social History Smoking Status: Former smoker alcohol intake: never substance use type: does not use ROS ROS ED Constitutional Constitutional ED: Denies chills or fever(s) Eyes Eyes: Denies blurry vision, change in vision or diplopia ENT ENT ED: Denies ear pain, rhinorrhea or sore throat Cardiovascular Cardiovascular: Denies chest pain or palpitations Respiratory/Chest Respiratory/Chest: Denies cough, dyspnea or sputum Gastrointestinal Gastrointestinal: Denies abdominal pain, diarrhea, nausea or vomiting Genitourinary Genitourinary ED: Reports other Details: Urinary retention Musculoskeletal Musculoskeletal: Denies back pain or neck pain Integumentary Denies change in pigmentation or rash Neurologic Neurologic: Denies headache(s), numbness or weakness Psychiatric Psychiatric: Denies anxiety or depression Endocrine Endocrinology: Denies polydipsia or polyuria EXAM Physical Exam Const Vital Signs: 09/22/20 05:13 Temperature 98.5 F Temperature Source Temporal Pulse Rate 84 Respiratory Rate 16 Blood Pressure 190/80 H Blood Pressure Mean 116 Pulse Ox 96 Oxygen Delivery Method Room Air Positive well nourished and well developed General Appearance ED: well developed and NAD HEENT Reports moist mucous membranes normocephalic and atraumatic; Negative for tenderness Eyes PERRL and EOMs intact bilaterally Neck supple and no JVD Chest Wall Chest: Negative for tenderness Resp normal respiratory effort and clear to auscultation bilaterally Effort and Inspection: Negative for respiratory distress Cardio regular rate, regular rhythm and no murmurs Rate: regular rate Rhythm: regular rhythm GI soft to palpation and non-distended Palpation: soft and tender suprapubic Back/Spine no CVA tenderness and no thoracic nor lumbar tenderness Cervical Spine: Negative for cervical spine tenderness Extremity normal to inspection and full ROM General Extremety ED: Negative for tenderness Neuro oriented x3, CN's II-XII intact bilaterally and no sensory deficits noted Sensorium / Orientation: awake and alert Motor Exam: strength 5/5 throughout Psych mental status grossly normal Skin no rashes or lesions noted MDM MDM MDM Narrative Medical decision making narrative: I performed a bedside ultrasound and it does show that the bladder is fairly full of urine. The patient wanted me to call his doctor who performed this procedure. However, it was an interventional radiologist. The phone number just leads to an office number. It is currently 5:30 in the morning. The patient needs a Cash catheter placed to drain his bladder. This was placed and he had almost 1000 mL of urine out. Urinalysis does reveal some nitrites but he tells me that he is on Cipro and he just started taking this. He will continue to take this antibiotic until its completion. He will have a leg bag placed and he will follow-up with his PCP for removal. Lab Data Labs: Laboratory Results - last 24 hr 09/22/20 05:48 Urine Color Yellow Urine Clarity Clear Urine pH 6.0 Ur Specific [place] 1.015 Urine Protein 30 H Urine Glucose (UA) Normal Urine Ketones Negative Urine Occult Blood Negative Urine Nitrite Positive H Urine Bilirubin 1 H Urine Urobilinogen 1 H Ur Leukocyte Esterase 25 H Discharge Plan Triage Chief Complaint: Complaint ED Provider: Mejia Galvan Dx/Rx/DC Orders Clinical Impression: Acute urinary retention Instructions: ED Urinary Retention, Male Prescriptions: No Action levothyroxine 50 mcg tablet 50 mcg PO QDAY RF: 0 oxybutynin chloride 5 mg tablet 10 mg PO QDAY RF: 0 tamsulosin 0.4 mg capsule,extended release 24hr 0.4 mg PO QDAY RF: 0 esomeprazole magnesium [Nexium] 40 mg capsule,delayed release(DR/EC) 40 mg PO QDAY RF: 0 hydrochlorothiazide 25 mg tablet 12.5 mg PO QDAY RF: 0 multivitamin tablet 1 tab PO QDAY RF: 0 ascorbic acid (vitamin C) 500 mg tablet 500 mg PO QDAY RF: 0 rosuvastatin [Crestor] 20 mg tablet 20 mg PO QDAY RF: 0 metoprolol tartrate 25 mg tablet 12.5 mg PO BID RF: 0 desvenlafaxine succinate [Pristiq] 25 mg tablet extended release 24 hr 25 mg PO DAILY RF: 0 losartan 25 mg tablet 50 mg PO DAILY RF: 0 apixaban 2.5 MG tablet 2.5 mg PO BID Qty: 60 RF: 11 cholecalciferol (vitamin D3) 1,000 UNIT capsule 1,000 unit PO DAILY RF: 0 lactase [Lactaid] 3,000 unit Tablet 3,000 unit PO DAILY RF: 0 Primary Care Provider: Deanne Kohli Referrals: Deanne Kohli MD [Primary Care Provider] - Disposition Disposition: Home, self care
[2020-09-22] MEDS: Lidocaine Jelly 2% 20 ML Syringe (URO-JET) 20 APPLIC TOPICAL (05:49)
[2020-09-22 05:54] LABS: Mucous, Urine 0 SEEN /hpf (<or=2+); Red Blood Cells-Urine 0 SEEN /hpf (0-5); Squamous Epithelial Cells - UA 0 SEEN /hpf (0-5)
[2020-09-22 05:55] LABS: Color, Urine Yellow (Yellow); Glucose, Dipstick Normal (Normal); Ketone-Dipstick Negative (Negative); Leukocyte Esterase-Dipstick 25 /ul (Negative); Nitrite-Dipstick Positive (Negative); Occult Blood-Urine Negative /ul (Negative); Protein-Dipstick 30 mg/dl (Negative); Specific Gravity, Urine 1.015 (1.002-1.030); Urine Clarity Clear (Clear); Urine Urobilinogen 1 mg/dl (Normal)
[2020-09-22 05:56] LABS: Urine Bilirubin Dipstick 1 mg/dL (Negative)
[2020-09-22 06:06] LABS: Bacteria RARE /hpf (None Seen); White Blood Cells 0-5 SEEN /hpf (0-5)
== END 2020-09-22 06:33 | disposition home or self-care (01) ==
PROVIDERS: Emergency Provider Emergency Medicine; PCP Family Medicine
DX: R33.9 Retention of urine, unspecified (principal); I10 Essential (primary) hypertension; E78.5 Hyperlipidemia, unspecified; N40.1 Benign prostatic hyperplasia with lower urinary tract symptoms; E03.9 Hypothyroidism, unspecified; Z87.891 Personal history of nicotine dependence; Z86.718 Personal history of other venous thrombosis and embolism; Z86.711 Personal history of pulmonary embolism; Z79.899 Other long term (current) drug therapy
CPT/HCPCS: 51702; 81001; 99285

== ENCOUNTER 2020-09-24 18:49 | Emergency (ER) | payer MEDICARE, SELFPAY ==
[2020-09-24 18:50] VITALS: BP 130/73; PULSE 59; RESP 16; TEMP 37.2; O2SAT 97; BMI 27.9
--- NOTE | 2020-09-24 19:21 | EX.ED.GUMALE ---
HPI History of Present Illness Chief Complaint: Complaint Informant: patient Narrative Narrative: Presents for evaluation concerning blood at the tip of his penis noted today. Cash catheter was placed 2 days ago for urine retention. He had a prostate embolization 5 days ago by IR at [facility]. He is on Eliquis. Currently on Cipro with 4-5 doses left. Denies fever. States he follow-up discussed with IR states Cash catheter to remain for 3 to 4 weeks before follow-up with his urologist at [facility], Dr. Hilton. [facility] Medical History Basal cell carcinoma (BCC) Essential hypertension GERD (gastroesophageal reflux disease) Graves disease Hepatic cyst History of pulmonary embolism History of thromboembolism Hyperlipidemia Hypertension Hypothyroidism IBS (irritable bowel syndrome) Mitral valve prolapse Nonrheumatic mitral (valve) prolapse NATHAN (obstructive sleep apnea) Other nonrheumatic mitral valve disorders Premature atrial contraction Premature ventricular contraction Prostate CA Renal cyst Sinus bradycardia SOB (shortness of breath) on exertion Venous insufficiency Home Medications ascorbic acid (vitamin C) 500 mg tablet 500 mg PO QDAY 04/25/17 [History Last Taken Unknown] esomeprazole magnesium 40 mg capsule,delayed release 40 mg PO QDAY cap 04/25/17 [History Last Taken Unknown] hydrochlorothiazide 25 mg tablet 12.5 mg PO QDAY 04/25/17 [History Last Taken Unknown] levothyroxine 50 mcg tablet 50 mcg PO QDAY tab 04/25/17 [History Last Taken Unknown] multivitamin 1 tab PO QDAY 04/25/17 [History Last Taken Unknown] oxybutynin chloride 5 mg tablet 10 mg PO QDAY tab 04/25/17 [History Last Taken Unknown] rosuvastatin 20 mg tablet 20 mg PO QDAY 04/25/17 [History Last Taken Unknown] tamsulosin 0.4 mg capsule 0.4 mg PO QDAY 04/25/17 [History Last Taken Unknown] metoprolol tartrate 25 mg tablet 12.5 mg PO BID tab 04/26/17 [History Last Taken Unknown] cholecalciferol (vitamin D3) 1,000 unit PO DAILY 02/01/19 [History Last Taken Unknown] desvenlafaxine succinate 25 mg tablet,extended release 24 hr 25 mg PO DAILY 06/17/19 [History Last Taken Unknown] losartan 25 mg tablet 50 mg PO DAILY tab 06/17/19 [History Last Taken Unknown] apixaban 2.5 mg PO BID #60 tab 02/22/20 [Rx Last Taken Unknown] lactase [Lactaid] 3,000 unit PO DAILY 09/22/20 [History Last Taken Unknown] Allergy/AdvReac Type Severity Reaction Status Date / Time fosinopril [From Monopril] Allergy Severe unknown Verified 09/24/20 18:50 benazepril [From Lotensin] AdvReac Severe unknown Verified 09/24/20 18:50 penicillin G AdvReac Severe unknown Verified 09/24/20 18:50 apis mellifera venom Allergy Severe unknown Uncoded 09/24/20 18:50 Family History Father Myositis Skin cancer Myocardial infarction Mother CVA (cerebral vascular accident) Colon cancer Hypertension Pacemaker Surgical History History of bilateral hip replacements History of endoscopy History of hernia surgery Status post Mohs surgery Social History Smoking Status: Former smoker alcohol intake: never substance use type: does not use ROS ROS ED Constitutional Constitutional ED: Denies chills, fever(s) or sweats Eyes Eyes: Denies change in vision ENT ENT ED: Denies dysphagia or sore throat Cardiovascular Cardiovascular: Denies chest pain, leg edema, palpitations or racing heartbeat Respiratory/Chest Respiratory/Chest: Denies cough, dyspnea or dyspnea on exertion Gastrointestinal Gastrointestinal: Denies abdominal pain, diarrhea, nausea or vomiting Genitourinary Genitourinary ED: Reports other Details: Blood noted at the penile tip. ; Denies dysuria, hematuria or urinary frequency Musculoskeletal Musculoskeletal: Denies back pain, extremity pain or neck pain Integumentary Denies rash or wounds Neurologic Neurologic: Denies headache(s), paresthesias or weakness EXAM Physical Exam Const Vital Signs: 09/24/20 18:50 Temperature 98.9 F Temperature Source Temporal Pulse Rate 59 L Respiratory Rate 16 Blood Pressure 130/73 H Blood Pressure Mean 92 Pulse Ox 97 Oxygen Delivery Method Room Air Positive well nourished and well developed General Appearance ED: well developed and NAD HEENT Reports moist mucous membranes normocephalic and atraumatic Eyes PERRL, EOMs intact bilaterally and conjunctivae normal General Eye ED: Yes normal appearance of both eyes Neck no lymphadenopathy and supple General: Negative for tenderness Chest Wall Chest: Negative for tenderness Resp normal respiratory effort and normal air movement Effort and Inspection: symmetric chest movement; Negative for respiratory distress Cardio regular rate, regular rhythm and no murmurs Peripheral Pulses: pulses 2+ throughout GI normal to inspection, nondistended, normoactive bowel sounds and non-tender Palpation: Negative for guarding or rebound tenderness present Narrative: Cash catheter with dark urine, no bloody urine. Examination of the penile tip, noted small ecchymosis noted at the inferior aspect of the os, there was no active bleeding. No clots. Back/Spine no CVA tenderness and no thoracic nor lumbar tenderness Extremity normal to inspection General Extremety ED: Negative for edema or tenderness General Extremity: Negative for edema Neuro oriented x3 and no sensory deficits noted Sensorium / Orientation: awake and alert Skin no rashes or lesions noted and no wounds MDM MDM MDM Narrative Medical decision making narrative: Examination concerns for small penile ecchymosis from friction from the Cash catheter. Cash catheter was adjusted. There is no bleeding from the Cash catheter. Cash care by nursing for patient. Follow-up as an outpatient. Monitor for rebleeding. Discharge Plan Triage Chief Complaint: Complaint ED Provider: Jeffrey Santiago Dx/Rx/DC Orders Clinical Impression: Bruising of penis, Complication of Cash catheter Instructions: ED Cash Catheter, Care Prescriptions: No Action levothyroxine 50 mcg tablet 50 mcg PO QDAY RF: 0 oxybutynin chloride 5 mg tablet 10 mg PO QDAY RF: 0 tamsulosin 0.4 mg capsule,extended release 24hr 0.4 mg PO QDAY RF: 0 esomeprazole magnesium [Nexium] 40 mg capsule,delayed release(DR/EC) 40 mg PO QDAY RF: 0 hydrochlorothiazide 25 mg tablet 12.5 mg PO QDAY RF: 0 multivitamin tablet 1 tab PO QDAY RF: 0 ascorbic acid (vitamin C) 500 mg tablet 500 mg PO QDAY RF: 0 rosuvastatin [Crestor] 20 mg tablet 20 mg PO QDAY RF: 0 metoprolol tartrate 25 mg tablet 12.5 mg PO BID RF: 0 desvenlafaxine succinate [Pristiq] 25 mg tablet extended release 24 hr 25 mg PO DAILY RF: 0 losartan 25 mg tablet 50 mg PO DAILY RF: 0 apixaban 2.5 MG tablet 2.5 mg PO BID Qty: 60 RF: 11 cholecalciferol (vitamin D3) 1,000 UNIT capsule 1,000 unit PO DAILY RF: 0 lactase [Lactaid] 3,000 unit Tablet 3,000 unit PO DAILY RF: 0 Primary Care Provider: Deanne Kohli Referrals: Deanne Kohli MD [Primary Care Provider] - Activity Restrictions/Additional Instructions: Small ecchymosis noted at the inferior os of your penis, likely from friction from Cash catheter. There is no active bleeding. Adjust your Cash to prevent pressure in this area. Follow-up with your urologist.
[2020-09-24 19:46] VITALS: RESP 18
== END 2020-09-24 19:51 | disposition home or self-care (01) ==
LOC: ED 19:21
PROVIDERS: Emergency Provider Emergency Medicine; PCP Family Medicine
DX: S30.21XA Contusion of penis, initial encounter (principal); T83.9XXA Unspecified complication of genitourinary prosthetic device, implant and graft, initial encounter; Z87.891 Personal history of nicotine dependence; X58.XXXA Exposure to other specified factors, initial encounter; Z86.718 Personal history of other venous thrombosis and embolism; Z86.711 Personal history of pulmonary embolism
CPT/HCPCS: 99282

== ENCOUNTER 2020-09-29 16:16 | Emergency (ER) | payer MEDICARE, SELFPAY ==
[2020-09-29 16:16] VITALS: BP 140/81; PULSE 60; RESP 16; TEMP 36.8; O2SAT 95; BMI 30.4
--- NOTE | 2020-09-29 16:48 | EX.ED.GUMALE ---
HPI History of Present Illness Chief Complaint: Complaint Informant: patient Pain Onset: Today Timing: Intermittent Maximum Severity: Mild Appearance Lesion(s): No Genital Edema: No Narrative Narrative: 75-year-old male status post recent prostate embolization procedure done at [facility] about 10 days ago. Patient states that the procedure the next day or so he developed urinary retention and needed a Cash catheter placed which she had done here. States otherwise has been doing well. Today noted that he he felt urine draining around the Cash catheter. He denies any gross hematuria. He denies any fever. He denies any pain. States that there is clear urine in his Cash bag. Prior similar symptoms: No Recent Illness/Hospitalization: No PFSH PFSH Medical History Basal cell carcinoma (BCC) Essential hypertension GERD (gastroesophageal reflux disease) Graves disease Hepatic cyst History of pulmonary embolism History of thromboembolism Hyperlipidemia Hypertension Hypothyroidism IBS (irritable bowel syndrome) Mitral valve prolapse Nonrheumatic mitral (valve) prolapse NATHAN (obstructive sleep apnea) Other nonrheumatic mitral valve disorders Premature atrial contraction Premature ventricular contraction Prostate CA Renal cyst Sinus bradycardia SOB (shortness of breath) on exertion Venous insufficiency Home Medications ascorbic acid (vitamin C) 500 mg tablet 500 mg PO QDAY 04/25/17 [History Last Taken Unknown] esomeprazole magnesium 40 mg capsule,delayed release 40 mg PO QDAY cap 04/25/17 [History Last Taken Unknown] hydrochlorothiazide 25 mg tablet 12.5 mg PO QDAY 04/25/17 [History Last Taken Unknown] levothyroxine 50 mcg tablet 50 mcg PO QDAY tab 04/25/17 [History Last Taken Unknown] multivitamin 1 tab PO QDAY 04/25/17 [History Last Taken Unknown] oxybutynin chloride 5 mg tablet 10 mg PO QDAY tab 04/25/17 [History Last Taken Unknown] rosuvastatin 20 mg tablet 20 mg PO QDAY 04/25/17 [History Last Taken Unknown] tamsulosin 0.4 mg capsule 0.4 mg PO QDAY 04/25/17 [History Last Taken Unknown] metoprolol tartrate 25 mg tablet 12.5 mg PO BID tab 04/26/17 [History Last Taken Unknown] cholecalciferol (vitamin D3) 1,000 unit PO DAILY 02/01/19 [History Last Taken Unknown] desvenlafaxine succinate 25 mg tablet,extended release 24 hr 25 mg PO DAILY 06/17/19 [History Last Taken Unknown] losartan 25 mg tablet 50 mg PO DAILY tab 06/17/19 [History Last Taken Unknown] apixaban 2.5 mg PO BID #60 tab 02/22/20 [Rx Last Taken Unknown] lactase [Lactaid] 3,000 unit PO DAILY 09/22/20 [History Last Taken Unknown] Allergy/AdvReac Type Severity Reaction Status Date / Time fosinopril [From Monopril] Allergy Severe unknown Verified 09/24/20 18:50 benazepril [From Lotensin] AdvReac Severe unknown Verified 09/24/20 18:50 penicillin G AdvReac Severe unknown Verified 09/24/20 18:50 apis mellifera venom Allergy Severe unknown Uncoded 09/24/20 18:50 Family History Father Myositis Skin cancer Myocardial infarction Mother CVA (cerebral vascular accident) Colon cancer Hypertension Pacemaker Surgical History History of bilateral hip replacements History of endoscopy History of hernia surgery Status post Mohs surgery Social History Smoking Status: Former smoker alcohol intake: never substance use type: does not use ROS ROS ED ROS Narrative Denies any recent illness. Review of Systems ROS Unobtainable: Denies due to encephalopathy Constitutional Constitutional ED: Denies chills or fever(s) Eyes Eyes: Denies change in vision ENT ENT ED: Denies ear pain or sore throat Cardiovascular Cardiovascular: Denies chest pain Respiratory/Chest Respiratory/Chest: Denies cough or dyspnea Gastrointestinal Gastrointestinal: Reports constipation; Denies abdominal pain, diarrhea, nausea or vomiting Genitourinary Genitourinary ED: Denies dysuria or hematuria Musculoskeletal Musculoskeletal: Denies myalgias Integumentary Denies rash Neurologic Neurologic: Denies headache(s) Psychiatric Psychiatric: Denies depression Endocrine Endocrinology: Denies polyuria Hematologic/Lymphatic Hematologic/Lymphatic: Denies easy bruising Allergic/Immunologic Allergic/Immunologic ED: Denies urticaria EXAM Physical Exam Narrative Exam Narrative: Older male no acute distress. Vital signs stable afebrile. Exam benign. Circumcised male. Cash catheter in place. Currently there is no leakage of urine. There is no hematuria. He has clear yellow urine in the Cash bag does not appear to be infected. Otherwise exam is unremarkable. There is no edema in the lower extremities. Abdomen is soft and nondistended. Bladder is nontender. Const Vital Signs: 09/29/20 16:16 Temperature 98.3 F Temperature Source Temporal Pulse Rate 60 Respiratory Rate 16 Blood Pressure 140/81 H Blood Pressure Mean 100 Pulse Ox 95 Oxygen Delivery Method Room Air Positive well nourished and well developed General Appearance ED: well developed HEENT Reports moist mucous membranes normocephalic and atraumatic; Negative for tenderness Eyes PERRL and EOMs intact bilaterally Neck no lymphadenopathy and supple Resp normal respiratory effort and clear to auscultation bilaterally Cardio regular rate, regular rhythm and no murmurs GI non-tender, non-distended and no masses Auscultation: normoactive bowel sounds Palpation: soft Rectal Exam: Negative for tenderness no CVA tenderness Penis: normal penis and circumcised; Negative for edematous or erythema Meatus: meatus normal; Negative for blood at meatus Back/Spine no CVA tenderness Extremity normal to inspection General Extremety ED: Negative for edema or tenderness General Extremity: Negative for edema Neuro oriented x3 and moves all extremities Sensorium / Orientation: alert, oriented to person, oriented to place and oriented to time Motor Exam: strength 5/5 throughout Psych mental status grossly normal Skin Rashes: no rashes MDM MDM MDM Narrative Medical decision making narrative: 75-year-old male who has what sounds like leakage of urine around his Cash catheter. Currently it appears to be functioning normally. There is no hematuria. I will have nurses irrigate and check the Cash catheter. We will also do a bladder scan. Nurse irrigated the Cash without any difficulty whatsoever. It seems to be flowing well. We also did a bladder scan it was only 71. Patient be discharged to home. I suspect he had transient obstruction of the Cash which is now resolved. Discharge Plan Triage Chief Complaint: Complaint ED Provider: Kai Welsh Dx/Rx/DC Orders Clinical Impression: Complication of Cash catheter Instructions: ED Cash Catheter, Care Prescriptions: No Action levothyroxine 50 mcg tablet 50 mcg PO QDAY RF: 0 oxybutynin chloride 5 mg tablet 10 mg PO QDAY RF: 0 tamsulosin 0.4 mg capsule,extended release 24hr 0.4 mg PO QDAY RF: 0 esomeprazole magnesium [Nexium] 40 mg capsule,delayed release(DR/EC) 40 mg PO QDAY RF: 0 hydrochlorothiazide 25 mg tablet 12.5 mg PO QDAY RF: 0 multivitamin tablet 1 tab PO QDAY RF: 0 ascorbic acid (vitamin C) 500 mg tablet 500 mg PO QDAY RF: 0 rosuvastatin [Crestor] 20 mg tablet 20 mg PO QDAY RF: 0 metoprolol tartrate 25 mg tablet 12.5 mg PO BID RF: 0 desvenlafaxine succinate [Pristiq] 25 mg tablet extended release 24 hr 25 mg PO DAILY RF: 0 losartan 25 mg tablet 50 mg PO DAILY RF: 0 apixaban 2.5 MG tablet 2.5 mg PO BID Qty: 60 RF: 11 cholecalciferol (vitamin D3) 1,000 UNIT capsule 1,000 unit PO DAILY RF: 0 lactase [Lactaid] 3,000 unit Tablet 3,000 unit PO DAILY RF: 0 Primary Care Provider: Deanne Kohli Referrals: Deanne Kohli MD [Primary Care Provider] - As Needed Activity Restrictions/Additional Instructions: Your Cash catheter seems to be working well now. Empty whenever three quarters full. If any further problems feel free to give us a call. Disposition Disposition: Home, self care
== END 2020-09-29 17:36 | disposition home or self-care (01) ==
PROVIDERS: Emergency Provider Emergency Medicine; PCP Family Medicine
DX: T83.038A Leakage of other urinary catheter, initial encounter (principal); Z87.891 Personal history of nicotine dependence; Z86.718 Personal history of other venous thrombosis and embolism; Z86.711 Personal history of pulmonary embolism
CPT/HCPCS: 99282

== ENCOUNTER 2020-10-04 14:41 | Emergency (ER) | payer MEDICARE, SELFPAY ==
[2020-10-04 14:44] VITALS: BP 157/69; PULSE 53; RESP 22; TEMP 36.9; O2SAT 99; BMI 30.4
[2020-10-04 15:35] LABS: Absolute Lymphocyte Count 0.85 X10^3/uL (0.83-4.51); Absolute Neutrophil Count 7.6 X10^3/uL (2.0-7.7); Basophil# 0.03 X10^3/uL; Basophil% 0.3 % (0-1); Eosinophil# 0.04 X10^3/uL; Eosinophils% 0.4 % (0-5); Hematocrit 40.5 % (40-54); Hemoglobin 12.9 g/dL (13.0-16.5); Lymphocyte # 0.85 X10^3/ul (0.83-4.51); Lymphocyte % 9.3 % (19-41); Mean Corp Hgb Conc 31.9 g/dL (32-36); Mean Corpuscular Hgb 28.2 pg (27.0-32.0); Mean Corpuscular Volume 88.4 fL (80-94); Mean Platelet Vol. 10.2 fl (6.2-12.0); Monocyte% 6.6 % (0-10); NRBC Flagged by Analyzer 0 % (0-5); Neutrophil # 7.59 X10^3/uL (2.7-7.7); Neutrophil % 82.9 % (47-70); Platelet Count 374 K/mm3 (150-450); RBC Distribution Width CV 12.7 % (11.6-14.6); Red Blood Count 4.58 M/mm3 (4.6-6.2); White Blood Count 9.2 K/mm3 (4.4-11.0)
[2020-10-04] MEDS: Morphine 4 MG/ML Syringe IV (15:37)
[2020-10-04 15:45] LABS: International Normalized Ratio 1.2; Prothrombin Time (Protime)PT. 14.5 SECONDS (11.7-14.9)
[2020-10-04 15:46] LABS: Partial Thromboplast Time 30.7 Seconds (24.1-36.2)
[2020-10-04 15:52] LABS: ALB/GLOB Ratio 0.8 RATIO (0.9-2.4); AST(SGOT) 41 U/L (15-37); Alanine Aminotransfer ALT/SGPT 53 U/L (16-61); Albumin, Serum 3.3 g/dL (3.2-5.0); Alkaline Phosphatase 94 U/L (45-117); Anion Gap 7 (5-15); BUN 23 mg/dL (7-18); BUN/Creat Ratio 17.2 RATIO (10-20); Calcium,Total 9.4 mg/dL (8.5-10.1); Chloride 104 mmol/L (98-107); Creatinine, Serum 1.34 mg/dL (0.70-1.30); EST Glomerular Filtration Rate 55 mL/min (>60); Est Glom Filt Rate - Afr Amer 67 mL/min (>60); Estimated Creatinine Clearance 46.08 ml/min; Globulin 4.2 g/dL (2.2-4.2); Glucose 99 mg/dL (74-106); Potassium 3.9 mmol/L (3.5-5.1); Protein, Total 7.5 g/dL (6.4-8.2); Sodium Level 138 mmol/L (136-145)
[2020-10-04 16:04] LABS: Bacteria 0 SEEN /hpf (None Seen); Mucous, Urine 0 SEEN /hpf (<or=2+); Squamous Epithelial Cells - UA 0 SEEN /hpf (0-5)
[2020-10-04 16:08] LABS: Color, Urine Yellow (Yellow); Glucose, Dipstick Normal (Normal); Ketone-Dipstick Negative (Negative); Leukocyte Esterase-Dipstick 100 /ul (Negative); Nitrite-Dipstick Negative (Negative); Occult Blood-Urine 250 /ul (Negative); Protein-Dipstick 30 mg/dl (Negative); Urine Bilirubin Dipstick Negative (Negative); Urine Clarity Sl. Cloudy (Clear); Urine Urobilinogen Normal (Normal)
[2020-10-04] MEDS: Phenazopyridine 95 MG Tablet 190 MG PO (16:14)
[2020-10-04 16:24] LABS: Red Blood Cells-Urine > 100 SEEN /hpf (0-5); White Blood Cells 5-10 SEEN /hpf (0-5)
[2020-10-04] MEDS: Ciprofloxacin 400 MG/200 ML BAG 200 MG IV (17:10)
[2020-10-04] MEDS: HYDROmorphone 0.5 MG/0.5 ML SYRINGE IV (17:10)
[2020-10-04 17:15] VITALS: BP 148/89; PULSE 91; RESP 20; O2SAT 99
[2020-10-04] MEDS: Oxybutynin 5 MG Tablet PO (18:24)
--- NOTE | 2020-10-04 18:34 | EX.ED.DYSGE1 ---
HPI History of Present Illness Chief Complaint: Cash C/O Informant: patient Onset/Context/Timing Onset: Yesterday Context: Gradual Onset Timing: Continuous Quality: Burning, urgency Location: Suprapubic area Worsened by: Urination Relieved by: Nothing Narrative Narrative: Patient presents with hematuria and burning with urination. Patient has an indwelling Cash catheter since his surgery. Patient had prostate embolization on 09 19 at the [facility]. Patient states he has pain whenever he urinates. Patient feels like he has to go frequently. Patient states that whenever he urinates he also feels like he has to have a bowel movement. Patient admits to a fever last week but denies any current fevers or chills. Patient denies any nausea or vomiting. Patient denies any back or flank pain. PFSH [facility] Medical History Basal cell carcinoma (BCC) Essential hypertension GERD (gastroesophageal reflux disease) Graves disease Hepatic cyst History of pulmonary embolism History of thromboembolism Hyperlipidemia Hypertension Hypothyroidism IBS (irritable bowel syndrome) Mitral valve prolapse Nonrheumatic mitral (valve) prolapse NATHAN (obstructive sleep apnea) Other nonrheumatic mitral valve disorders Premature atrial contraction Premature ventricular contraction Prostate CA Renal cyst Sinus bradycardia SOB (shortness of breath) on exertion Venous insufficiency Home Medications ascorbic acid (vitamin C) 500 mg tablet 500 mg PO QDAY 04/25/17 [History Last Taken Unknown] esomeprazole magnesium 40 mg capsule,delayed release 40 mg PO QDAY cap 04/25/17 [History Last Taken Unknown] hydrochlorothiazide 25 mg tablet 12.5 mg PO QDAY 04/25/17 [History Last Taken Unknown] levothyroxine 50 mcg tablet 50 mcg PO QDAY tab 04/25/17 [History Last Taken Unknown] multivitamin 1 tab PO QDAY 04/25/17 [History Last Taken Unknown] oxybutynin chloride 5 mg tablet 10 mg PO QDAY tab 04/25/17 [History Last Taken Unknown] rosuvastatin 20 mg tablet 20 mg PO QDAY 04/25/17 [History Last Taken Unknown] tamsulosin 0.4 mg capsule 0.4 mg PO QDAY 04/25/17 [History Last Taken Unknown] metoprolol tartrate 25 mg tablet 12.5 mg PO BID tab 04/26/17 [History Last Taken Unknown] cholecalciferol (vitamin D3) 1,000 unit PO DAILY 02/01/19 [History Last Taken Unknown] desvenlafaxine succinate 25 mg tablet,extended release 24 hr 25 mg PO DAILY 06/17/19 [History Last Taken Unknown] losartan 25 mg tablet 50 mg PO DAILY tab 06/17/19 [History Last Taken Unknown] apixaban 2.5 mg PO BID #60 tab 02/22/20 [Rx Last Taken Unknown] lactase [Lactaid] 3,000 unit PO DAILY 09/22/20 [History Last Taken Unknown] ciprofloxacin HCl 500 mg PO BID #14 tablet 10/04/20 [Rx Last Taken Unknown] oxycodone-acetaminophen 1 tab PO Q6H PRN PRN 3 Days #12 tablet 10/04/20 [Rx Last Taken Unknown] Allergy/AdvReac Type Severity Reaction Status Date / Time fosinopril [From Monopril] Allergy Severe unknown Verified 09/24/20 18:50 benazepril [From Lotensin] AdvReac Severe unknown Verified 09/24/20 18:50 penicillin G AdvReac Severe unknown Verified 09/24/20 18:50 apis mellifera venom Allergy Severe unknown Uncoded 09/24/20 18:50 Family History Father Myositis Skin cancer Myocardial infarction Mother CVA (cerebral vascular accident) Colon cancer Hypertension Pacemaker Surgical History History of bilateral hip replacements History of endoscopy History of hernia surgery Status post Mohs surgery Social History Smoking Status: Former smoker alcohol intake: never substance use type: does not use ROS ROS ED Constitutional Constitutional ED: Reports fever(s); Denies chills Eyes Eyes: Denies blurry vision or change in vision ENT ENT ED: Denies rhinorrhea or sore throat Cardiovascular Cardiovascular: Denies chest pain or palpitations Respiratory/Chest Respiratory/Chest: Denies cough or dyspnea Gastrointestinal Gastrointestinal: Denies nausea or vomiting Genitourinary Genitourinary ED: Denies dysuria or hematuria Musculoskeletal Musculoskeletal: Denies back pain or neck pain Integumentary Denies abscess or rash Neurologic Neurologic: Reports paresthesias; Denies headache(s) or weakness Allergic/Immunologic Allergic/Immunologic ED: Denies mouth swelling or urticaria EXAM Physical Exam Const Vital Signs: 10/04/20 14:44 10/04/20 17:15 Temperature 98.5 F Temperature Source Oral Pulse Rate 53 L 91 Respiratory Rate 22 H 20 H Blood Pressure 157/69 H 148/89 H Blood Pressure Mean 98 108 Pulse Ox 99 99 Oxygen Delivery Method Room Air Room Air Positive well nourished and well developed General Appearance ED: well developed HEENT Reports moist mucous membranes Neck supple and no JVD Resp normal respiratory effort and clear to auscultation bilaterally Cardio regular rate, regular rhythm and no murmurs GI normal to inspection, nondistended, normoactive bowel sounds Palpation: soft and tender suprapubic; Negative for guarding or rebound tenderness present Extremity normal to inspection General Extremety ED: Negative for edema or tenderness General Extremity: Negative for edema Neuro oriented x3, CN's II-XII intact bilaterally and no sensory deficits noted Sensorium / Orientation: alert Motor Exam: strength 5/5 throughout Psych mental status grossly normal Skin no rashes or lesions noted MDM MDM MDM Narrative Medical decision making narrative: Patient was given morphine initially. Patient was also given a dose of Pyridium. Patient had minimal relief with this. Patient was given a dose of Dilaudid and Ditropan. CBC was within normal limits. PT with INR and PTT were normal. Comprehensive metabolic profile was within normal limits. Urinalysis shows leukocyte esterase of 100 and occult blood of 250 with greater than 100 red blood cells and 5-10 white blood cells. Because of the pain, patient was covered with Cipro. Because of the recent surgery, I do not feel comfortable replacing the patient's Cash catheter at this time. Patient was given prescriptions for Cipro and Percocet. Patient was instructed to continue his other medications as previously prescribed. Patient was instructed to call his urologist tomorrow and schedule his follow-up appointment. Patient understood and was agreeable with the plan. All questions were answered. Lab Data Attestation: I reviewed the patient's lab results. Labs: Laboratory Results - last 24 hr 10/04/20 10/04/20 10/04/20 15:25 15:25 15:25 WBC 9.2 RBC 4.58 L Hgb 12.9 L Hct 40.5 MCV 88.4 MCH 28.2 MCHC 31.9 L RDW Std Deviation 41.0 RDW Coeff of Kelle 12.7 Plt Count 374 MPV 10.2 Immature Gran % (Auto) 0.500 Neut % (Auto) 82.9 H Lymph % (Auto) 9.3 L [place] % (Auto) 6.6 Eos % (Auto) 0.4 Baso % (Auto) 0.3 Absolute Neuts (auto) 7.6 Absolute Lymphs (auto) 0.85 Nucleated RBC % 0 PT 14.5 INR 1.2 APTT 30.7 Sodium 138 Potassium 3.9 Chloride 104 Carbon Dioxide 27.0 Anion Gap 7 BUN 23 H Creatinine 1.34 H Estim Creat Clear Calc 46.08 Est GFR (MDRD) Af Amer 67 Est GFR (MDRD) Non-Af 55 L BUN/Creatinine Ratio 17.2 Glucose 99 Calcium 9.4 Total Bilirubin 0.70 AST 41 H ALT 53 Alkaline Phosphatase 94 Total Protein 7.5 Albumin 3.3 Globulin 4.2 Albumin/Globulin Ratio 0.8 L Urine Color Urine Clarity Urine pH Ur Specific [place] Urine Protein Urine Glucose (UA) Urine Ketones Urine Occult Blood Urine Nitrite Urine Bilirubin Urine Urobilinogen Ur Leukocyte Esterase Urine RBC Urine WBC Ur Squamous Epith Cells Urine Bacteria Urine Mucus 10/04/20 15:58 WBC RBC Hgb Hct MCV MCH MCHC RDW Std Deviation RDW Coeff of Kelle Plt Count MPV Immature Gran % (Auto) Neut % (Auto) Lymph % (Auto) [place] % (Auto) Eos % (Auto) Baso % (Auto) Absolute Neuts (auto) Absolute Lymphs (auto) Nucleated RBC % PT INR APTT Sodium Potassium Chloride Carbon Dioxide Anion Gap BUN Creatinine Estim Creat Clear Calc Est GFR (MDRD) Af Amer Est GFR (MDRD) Non-Af BUN/Creatinine Ratio Glucose Calcium Total Bilirubin AST ALT Alkaline Phosphatase Total Protein Albumin Globulin Albumin/Globulin Ratio Urine Color Yellow Urine Clarity Sl. Cloudy Urine pH 8.0 Ur Specific [place] 1.010 Urine Protein 30 H Urine Glucose (UA) Normal Urine Ketones Negative Urine Occult Blood 250 H Urine Nitrite Negative Urine Bilirubin Negative Urine Urobilinogen Normal Ur Leukocyte Esterase 100 H Urine RBC > 100 SEEN Urine WBC 5-10 SEEN Ur Squamous Epith Cells 0 SEEN Urine Bacteria 0 SEEN Urine Mucus 0 SEEN Discharge Plan Triage Chief Complaint: Cash C/O ED Provider: Taqueria Herrera Dx/Rx/DC Orders Clinical Impression: Hematuria due to acute cystitis Instructions: ED Cash Catheter, Care Prescriptions: New ciprofloxacin HCl [ciprofloxacin HCl] 500 MG tablet 500 mg PO BID Qty: 14 RF: 0 oxycodone-acetaminophen [oxycodone-acetaminophen] 1 TABLET tablet 1 tab PO Q6H PRN PRN (Reason: Pain) 3 Days Qty: 12 RF: 0 No Action levothyroxine 50 mcg tablet 50 mcg PO QDAY RF: 0 oxybutynin chloride 5 mg tablet 10 mg PO QDAY RF: 0 tamsulosin 0.4 mg capsule,extended release 24hr 0.4 mg PO QDAY RF: 0 esomeprazole magnesium [Nexium] 40 mg capsule,delayed release(DR/EC) 40 mg PO QDAY RF: 0 hydrochlorothiazide 25 mg tablet 12.5 mg PO QDAY RF: 0 multivitamin tablet 1 tab PO QDAY RF: 0 ascorbic acid (vitamin C) 500 mg tablet 500 mg PO QDAY RF: 0 rosuvastatin [Crestor] 20 mg tablet 20 mg PO QDAY RF: 0 metoprolol tartrate 25 mg tablet 12.5 mg PO BID RF: 0 desvenlafaxine succinate [Pristiq] 25 mg tablet extended release 24 hr 25 mg PO DAILY RF: 0 losartan 25 mg tablet 50 mg PO DAILY RF: 0 apixaban 2.5 MG tablet 2.5 mg PO BID Qty: 60 RF: 11 cholecalciferol (vitamin D3) 1,000 UNIT capsule 1,000 unit PO DAILY RF: 0 lactase [Lactaid] 3,000 unit Tablet 3,000 unit PO DAILY RF: 0 Primary Care Provider: Deanne Kohli Referrals: Deanne Kohli MD [Primary Care Provider] - 3-5 Days Activity Restrictions/Additional Instructions: Call your urologist tomorrow to schedule follow-up appointment.
== END 2020-10-04 19:32 | disposition home or self-care (01) ==
PROVIDERS: Emergency Provider Emergency Medicine; PCP Family Medicine
DX: N30.01 Acute cystitis with hematuria (principal); Z87.891 Personal history of nicotine dependence
CPT/HCPCS: 80053; 81001; 85025; 85610; 85730; 87077; 87086; 87088; 87186; 96365; 96366; 96375; 99285; J7050; A4216; J0744

== ENCOUNTER 2020-10-17 09:26 | Emergency (ER) | payer MEDICARE, SELFPAY ==
[2020-10-17 09:27] VITALS: BP 143/70; PULSE 72; RESP 16; TEMP 36.6; O2SAT 95; BMI 29.9
--- NOTE | 2020-10-17 09:54 | EDS_ITS ---
HPI History of Present Illness Chief Complaint: Complaint Narrative Narrative: 75-year-old male presenting for evaluation of hematuria. He has a Cash catheter in place since previous surgery about a month ago which he states was a prostate embolization. He states he initially had this because he was having frequent urination. Patient states he was initially sent home without a Cash catheter but has had to use a Cash catheter since because he was unable to urinate. Patient states he was treated for UTI previously when he had hematuria and is concerned for UTI now. He states he does not feel ill. He does not have abdominal pain. Is not had fever or chills. [facility] Medical History Basal cell carcinoma (BCC) Essential hypertension GERD (gastroesophageal reflux disease) Graves disease Hepatic cyst History of pulmonary embolism History of thromboembolism Hyperlipidemia Hypertension Hypothyroidism IBS (irritable bowel syndrome) Mitral valve prolapse Nonrheumatic mitral (valve) prolapse NATHAN (obstructive sleep apnea) Other nonrheumatic mitral valve disorders Premature atrial contraction Premature ventricular contraction Prostate CA Renal cyst Sinus bradycardia SOB (shortness of breath) on exertion Venous insufficiency Home Medications ascorbic acid (vitamin C) 500 mg tablet 500 mg PO QDAY 04/25/17 [History Last Taken Unknown] esomeprazole magnesium 40 mg capsule,delayed release 40 mg PO QDAY cap 04/25/17 [History Last Taken Unknown] hydrochlorothiazide 25 mg tablet 12.5 mg PO QDAY 04/25/17 [History Last Taken Unknown] levothyroxine 50 mcg tablet 50 mcg PO QDAY tab 04/25/17 [History Last Taken Unknown] multivitamin 1 tab PO QDAY 04/25/17 [History Last Taken Unknown] oxybutynin chloride 5 mg tablet 10 mg PO QDAY tab 04/25/17 [History Last Taken Unknown] rosuvastatin 20 mg tablet 20 mg PO QDAY 04/25/17 [History Last Taken Unknown] tamsulosin 0.4 mg capsule 0.4 mg PO QDAY 04/25/17 [History Last Taken Unknown] metoprolol tartrate 25 mg tablet 12.5 mg PO BID tab 04/26/17 [History Last Taken Unknown] cholecalciferol (vitamin D3) 1,000 unit PO DAILY 02/01/19 [History Last Taken Unknown] desvenlafaxine succinate 25 mg tablet,extended release 24 hr 25 mg PO DAILY 06/17/19 [History Last Taken Unknown] losartan 25 mg tablet 50 mg PO DAILY tab 06/17/19 [History Last Taken Unknown] apixaban 2.5 mg PO BID #60 tab 02/22/20 [Rx Last Taken Unknown] lactase [Lactaid] 3,000 unit PO DAILY 09/22/20 [History Last Taken Unknown] ciprofloxacin HCl 500 mg PO BID #14 tablet 10/04/20 [Rx Last Taken Unknown] oxycodone-acetaminophen 1 tab PO Q6H PRN PRN 3 Days #12 tablet 10/04/20 [Rx Last Taken Unknown] ciprofloxacin HCl [Cipro] 500 mg PO Q12H #14 tab 10/17/20 [Rx Last Taken Unknown] Allergy/AdvReac Type Severity Reaction Status Date / Time fosinopril [From Monopril] Allergy Severe unknown Verified 09/24/20 18:50 benazepril [From Lotensin] AdvReac Severe unknown Verified 09/24/20 18:50 penicillin G AdvReac Severe unknown Verified 09/24/20 18:50 apis mellifera venom Allergy Severe unknown Uncoded 09/24/20 18:50 Family History Father Myositis Skin cancer Myocardial infarction Mother CVA (cerebral vascular accident) Colon cancer Hypertension Pacemaker Surgical History History of bilateral hip replacements History of endoscopy History of hernia surgery Status post Mohs surgery Social History Smoking Status: Former smoker alcohol intake: never substance use type: does not use ROS ROS ED Constitutional Constitutional ED: Denies chills, fever(s) or sweats Eyes Eyes: Denies blurry vision or change in vision ENT ENT ED: Denies rhinorrhea or sore throat Cardiovascular Cardiovascular: Denies chest pain or palpitations Respiratory/Chest Respiratory/Chest: Denies cough, dyspnea or sputum Gastrointestinal Gastrointestinal: Denies abdominal pain, nausea or vomiting Genitourinary Genitourinary ED: Reports hematuria; Denies dysuria Musculoskeletal Musculoskeletal: Denies arthralgias or myalgias Integumentary Denies abscess or rash Neurologic Neurologic: Denies headache(s), paresthesias or weakness Psychiatric Psychiatric: Denies anxiety or depression EXAM Physical Exam Const Vital Signs: 10/17/20 09:27 Temperature 98 F Temperature Source Temporal Pulse Rate 72 Respiratory Rate 16 Blood Pressure 143/70 H Blood Pressure Mean 94 Pulse Ox 95 Oxygen Delivery Method Room Air Positive well nourished General Appearance ED: NAD; Negative for pallor HEENT normocephalic and atraumatic Eyes PERRL Cardio regular rate and regular rhythm GI non-tender and non-distended Palpation: soft Neuro oriented x3 Sensorium / Orientation: alert Psych mental status grossly normal Thought Process: normal thought process Skin General Skin Exam: Negative for jaundice or pallor Lesions: no lesions Rashes: no rashes MDM MDM MDM Narrative Medical decision making narrative: Patient presenting with hematuria. He has indwelling Cash catheter. He denies any new pain. He does state that his Cash catheter is leaking. This will be adjusted. Urinalysis is sent for testing and shows leukocyte esterase of 500 with urine RBCs 50-1 101+ bacteria. Patient's urine will be sent for culture. Patient has no leukocytosis. Renal function at baseline. Hemoglobin macular stable. Since he is concerned for UTI I will start him on Cipro. Patient is given return precautions. Patient discharged home in stable condition. Impression: 1 UTI 2. Hematuria Lab Data Attestation: I reviewed the patient's lab results. Labs: Laboratory Results - last 24 hr 10/17/20 10/17/20 10/17/20 10:00 10:00 10:05 WBC 6.5 RBC 4.46 L Hgb 12.9 L Hct 40.1 MCV 89.9 MCH 28.9 MCHC 32.2 RDW Std Deviation 42.1 RDW Coeff of Kelle 12.9 Plt Count 150 MPV 11.3 Immature Gran % (Auto) 0.500 Neut % (Auto) 75.6 H Lymph % (Auto) 12.6 L [place] % (Auto) 8.3 Eos % (Auto) 2.5 Baso % (Auto) 0.5 Absolute Neuts (auto) 4.9 Absolute Lymphs (auto) 0.82 L Nucleated RBC % 0 Sodium 139 Potassium 3.8 Chloride 105 Carbon Dioxide 28.0 Anion Gap 6 BUN 22 H Creatinine 1.39 H Estim Creat Clear Calc 44.42 Est GFR (MDRD) Af Amer 64 Est GFR (MDRD) Non-Af 53 L BUN/Creatinine Ratio 15.8 Glucose 167 H Calcium 8.7 Urine Color [place] Urine Clarity Cloudy Urine pH 7.0 Ur Specific [place] 1.010 Urine Protein 100 H Urine Glucose (UA) Normal Urine Ketones 5 H Urine Occult Blood 250 H Urine Nitrite Negative Urine Bilirubin Negative Urine Urobilinogen Normal Ur Leukocyte Esterase 500 H Urine RBC 50-100 SEEN Urine WBC 5-10 SEEN Ur Squamous Epith Cells 0-5 SEEN Urine Bacteria 1+ Urine Mucus 0 SEEN Discharge Plan Triage Chief Complaint: Complaint ED Provider: Alfonso Arciniega Dx/Rx/DC Orders Instructions: ED Bladder Infection, Male (Adult) Prescriptions: New ciprofloxacin HCl [Cipro] 500 mg tablet 500 mg PO Q12H Qty: 14 RF: 0 No Action levothyroxine 50 mcg tablet 50 mcg PO QDAY RF: 0 oxybutynin chloride 5 mg tablet 10 mg PO QDAY RF: 0 tamsulosin 0.4 mg capsule,extended release 24hr 0.4 mg PO QDAY RF: 0 esomeprazole magnesium [Nexium] 40 mg capsule,delayed release(DR/EC) 40 mg PO QDAY RF: 0 hydrochlorothiazide 25 mg tablet 12.5 mg PO QDAY RF: 0 multivitamin tablet 1 tab PO QDAY RF: 0 ascorbic acid (vitamin C) 500 mg tablet 500 mg PO QDAY RF: 0 rosuvastatin [Crestor] 20 mg tablet 20 mg PO QDAY RF: 0 metoprolol tartrate 25 mg tablet 12.5 mg PO BID RF: 0 desvenlafaxine succinate [Pristiq] 25 mg tablet extended release 24 hr 25 mg PO DAILY RF: 0 losartan 25 mg tablet 50 mg PO DAILY RF: 0 apixaban 2.5 MG tablet 2.5 mg PO BID Qty: 60 RF: 11 cholecalciferol (vitamin D3) 1,000 UNIT capsule 1,000 unit PO DAILY RF: 0 lactase [Lactaid] 3,000 unit Tablet 3,000 unit PO DAILY RF: 0 ciprofloxacin HCl [ciprofloxacin HCl] 500 MG tablet 500 mg PO BID Qty: 14 RF: 0 oxycodone-acetaminophen [oxycodone-acetaminophen] 1 TABLET tablet 1 tab PO Q6H PRN PRN (Reason: Pain) 3 Days Qty: 12 RF: 0 Primary Care Provider: Deanne Kohli Referrals: Deanne Kohli MD [Primary Care Provider] - Disposition Disposition: Home, Self Care
[2020-10-17 10:10] LABS: Absolute Lymphocyte Count 0.82 X10^3/uL (0.83-4.51); Absolute Neutrophil Count 4.9 X10^3/uL (2.0-7.7); Basophil# 0.03 X10^3/uL; Basophil% 0.5 % (0-1); Eosinophil# 0.16 X10^3/uL; Eosinophils% 2.5 % (0-5); Hematocrit 40.1 % (40-54); Hemoglobin 12.9 g/dL (13.0-16.5); Lymphocyte # 0.82 X10^3/ul (0.83-4.51); Lymphocyte % 12.6 % (19-41); Mean Corp Hgb Conc 32.2 g/dL (32-36); Mean Corpuscular Hgb 28.9 pg (27.0-32.0); Mean Corpuscular Volume 89.9 fL (80-94); Mean Platelet Vol. 11.3 fl (6.2-12.0); Monocyte# 0.54 X10^3/uL; Monocyte% 8.3 % (0-10); NRBC Flagged by Analyzer 0 % (0-5); Neutrophil # 4.93 X10^3/uL (2.7-7.7); Neutrophil % 75.6 % (47-70); Platelet Count 150 K/mm3 (150-450); RBC Distribution Width CV 12.9 % (11.6-14.6); RBC Distribution Width SD 42.1 fl (35.1-43.9); Red Blood Count 4.46 M/mm3 (4.6-6.2); White Blood Count 6.5 K/mm3 (4.4-11.0)
[2020-10-17 10:13] LABS: Color, Urine Amber (Yellow); Glucose, Dipstick Normal (Normal); Ketone-Dipstick 5 mg/dl (Negative); Leukocyte Esterase-Dipstick 500 /ul (Negative); Mucous, Urine 0 SEEN /hpf (<or=2+); Nitrite-Dipstick Negative (Negative); Occult Blood-Urine 250 /ul (Negative); Protein-Dipstick 100 mg/dl (Negative); Urine Bilirubin Dipstick Negative (Negative); Urine Clarity Cloudy (Clear); Urine Urobilinogen Normal (Normal)
[2020-10-17 10:23] LABS: Anion Gap 6 (5-15); BUN 22 mg/dL (7-18); BUN/Creat Ratio 15.8 RATIO (10-20); Calcium,Total 8.7 mg/dL (8.5-10.1); Chloride 105 mmol/L (98-107); Creatinine, Serum 1.39 mg/dL (0.70-1.30); EST Glomerular Filtration Rate 53 mL/min (>60); Est Glom Filt Rate - Afr Amer 64 mL/min (>60); Estimated Creatinine Clearance 44.42 ml/min; Glucose 167 mg/dL (74-106); Potassium 3.8 mmol/L (3.5-5.1); Sodium Level 139 mmol/L (136-145)
[2020-10-17 10:26] LABS: Bacteria 1+ /hpf (None Seen); Red Blood Cells-Urine 50-100 SEEN /hpf (0-5); Squamous Epithelial Cells - UA 0-5 SEEN /hpf (0-5); White Blood Cells 5-10 SEEN /hpf (0-5)
[2020-10-17] MEDS: Ciprofloxacin 500 MG Tablet PO (11:28)
== END 2020-10-17 11:40 | disposition home or self-care (01) ==
PROVIDERS: Emergency Provider Student in an Organized Health Care Education/Training Program; PCP Family Medicine
DX: N39.0 Urinary tract infection, site not specified (principal); R31.9 Hematuria, unspecified; Z87.891 Personal history of nicotine dependence; Z87.440 Personal history of urinary (tract) infections; Z86.718 Personal history of other venous thrombosis and embolism; Z86.711 Personal history of pulmonary embolism
CPT/HCPCS: 80048; 81001; 85025; 87077; 87086; 87088; 87186; 99284

== ENCOUNTER 2020-10-18 15:30 | Emergency (ER) | payer MEDICARE, SELFPAY ==
[2020-10-17 09:27] VITALS: BMI 29.9
[2020-10-18 15:30] VITALS: BP 161/82; PULSE 64; RESP 16; TEMP 36.8; O2SAT 96; BMI 29.7
--- NOTE | 2020-10-18 16:55 | EDS_ITS ---
HPI History of Present Illness Chief Complaint: Complaint Narrative Narrative: Patient presents with urinary retention he has a indwelling Cash catheter which is a 16 Dive[address]. He has on Xarelto for anticoagulation for history of DVT. He did notice blood in his urine for the past few days. [facility] Medical History (Updated 10/18/20 @ 15:52 by Fabiana Rodriguez RN) Basal cell carcinoma (BCC) BPH (benign prostatic hyperplasia) Essential hypertension GERD (gastroesophageal reflux disease) Graves disease Hepatic cyst History of pulmonary embolism History of thromboembolism Hyperlipidemia Hypertension Hypothyroidism IBS (irritable bowel syndrome) Mitral valve prolapse Nonrheumatic mitral (valve) prolapse NATHAN (obstructive sleep apnea) Other nonrheumatic mitral valve disorders Premature atrial contraction Premature ventricular contraction Prostate CA Renal cyst Sinus bradycardia SOB (shortness of breath) on exertion Venous insufficiency Home Medications ascorbic acid (vitamin C) 500 mg tablet 500 mg PO QDAY 04/25/17 [History Last Taken Unknown] esomeprazole magnesium 40 mg capsule,delayed release 40 mg PO QDAY cap 04/25/17 [History Last Taken Unknown] hydrochlorothiazide 25 mg tablet 12.5 mg PO QDAY 04/25/17 [History Last Taken Unknown] levothyroxine 50 mcg tablet 50 mcg PO QDAY tab 04/25/17 [History Last Taken Unknown] multivitamin 1 tab PO QDAY 04/25/17 [History Last Taken Unknown] oxybutynin chloride 5 mg tablet 10 mg PO QDAY tab 04/25/17 [History Last Taken Unknown] rosuvastatin 20 mg tablet 20 mg PO QDAY 04/25/17 [History Last Taken Unknown] tamsulosin 0.4 mg capsule 0.4 mg PO QDAY 04/25/17 [History Last Taken Unknown] metoprolol tartrate 25 mg tablet 12.5 mg PO BID tab 04/26/17 [History Last Taken Unknown] cholecalciferol (vitamin D3) 1,000 unit PO DAILY 02/01/19 [History Last Taken Unknown] desvenlafaxine succinate 25 mg tablet,extended release 24 hr 25 mg PO DAILY 06/17/19 [History Last Taken Unknown] losartan 25 mg tablet 50 mg PO DAILY tab 06/17/19 [History Last Taken Unknown] apixaban 2.5 mg PO BID #60 tab 02/22/20 [Rx Last Taken Unknown] lactase [Lactaid] 3,000 unit PO DAILY 09/22/20 [History Last Taken Unknown] ciprofloxacin HCl 500 mg PO BID #14 tablet 10/04/20 [Rx Last Taken Unknown] oxycodone-acetaminophen 1 tab PO Q6H PRN PRN 3 Days #12 tablet 10/04/20 [Rx Last Taken Unknown] ciprofloxacin HCl [Cipro] 500 mg PO Q12H #14 tab 10/17/20 [Rx Last Taken Unknown] Allergy/AdvReac Type Severity Reaction Status Date / Time fosinopril [From Monopril] Allergy Severe unknown Verified 10/18/20 15:32 benazepril [From Lotensin] AdvReac Severe unknown Verified 10/18/20 15:32 penicillin G AdvReac Severe unknown Verified 10/18/20 15:32 apis mellifera venom Allergy Severe unknown Uncoded 10/18/20 15:32 Family History Father Myositis Skin cancer Myocardial infarction Mother CVA (cerebral vascular accident) Colon cancer Hypertension Pacemaker Surgical History History of bilateral hip replacements History of endoscopy History of hernia surgery Status post Mohs surgery Social History Smoking Status: Former smoker alcohol intake: never substance use type: does not use ROS ROS ED ROS Narrative Past medical history: Reviewed Medications: Reviewed, includes anticoagulation with Xarelto Social history: Noncontributory Review of systems: All systems negative except as indicated General: No fever Cardiovascular: No chest pain Respiratory: No shortness of breath or cough Gastrointestinal: Suprapubic pain Genitourinary: As in HPI Musculoskeletal: Denies myalgias no difficulty with ambulation Skin: No rash Neurological: No memory loss, confusion or any focal weakness Psych: No recent behavioral changes Hematologic: He is prone to easy bleeding secondary to Xarelto EXAM Physical Exam Narrative Exam Narrative: Physical exam General: Well nourished, Well developed, No Acute Distress Head: Normocephalic, Atraumatic Cardiovascular: Regular rate, Regular rhythm Respiratory: No distress, CTA bilaterally Abdomen: Soft, suprapubic pain and mass : Cash catheter appears intact is a 16 Divehi no output Back: Nontender, Normal Inspection. Negative for: CVA tenderness Extremities: Nontender, No edema Skin: Normal color, No rash Neurological: Alert, Normal Strength, Normal Sensation Const Vital Signs: 10/18/20 15:30 Temperature 98.2 F Temperature Source Temporal Pulse Rate 64 Respiratory Rate 16 Blood Pressure 161/82 H Blood Pressure Mean 108 Pulse Ox 96 Oxygen Delivery Method Room Air MDM MDM MDM Narrative Medical decision making narrative: Since patient had hematuria and only a 16 Divehi I asked the nurse to put a larger catheter in, urine is free-flowing now and he feels much better we irrigated and it is clearing up. I will discharge him, he has an appointment with [facility] urology tomorrow Discharge Plan Triage Chief Complaint: Complaint ED Provider: Fredy Tesfaye Dx/Rx/DC Orders Prescriptions: No Action levothyroxine 50 mcg tablet 50 mcg PO QDAY RF: 0 oxybutynin chloride 5 mg tablet 10 mg PO QDAY RF: 0 tamsulosin 0.4 mg capsule,extended release 24hr 0.4 mg PO QDAY RF: 0 esomeprazole magnesium [Nexium] 40 mg capsule,delayed release(DR/EC) 40 mg PO QDAY RF: 0 hydrochlorothiazide 25 mg tablet 12.5 mg PO QDAY RF: 0 multivitamin tablet 1 tab PO QDAY RF: 0 ascorbic acid (vitamin C) 500 mg tablet 500 mg PO QDAY RF: 0 rosuvastatin [Crestor] 20 mg tablet 20 mg PO QDAY RF: 0 metoprolol tartrate 25 mg tablet 12.5 mg PO BID RF: 0 desvenlafaxine succinate [Pristiq] 25 mg tablet extended release 24 hr 25 mg PO DAILY RF: 0 losartan 25 mg tablet 50 mg PO DAILY RF: 0 apixaban 2.5 MG tablet 2.5 mg PO BID Qty: 60 RF: 11 cholecalciferol (vitamin D3) 1,000 UNIT capsule 1,000 unit PO DAILY RF: 0 lactase [Lactaid] 3,000 unit Tablet 3,000 unit PO DAILY RF: 0 ciprofloxacin HCl [ciprofloxacin HCl] 500 MG tablet 500 mg PO BID Qty: 14 RF: 0 oxycodone-acetaminophen [oxycodone-acetaminophen] 1 TABLET tablet 1 tab PO Q6H PRN PRN (Reason: Pain) 3 Days Qty: 12 RF: 0 ciprofloxacin HCl [Cipro] 500 mg tablet 500 mg PO Q12H Qty: 14 RF: 0 Primary Care Provider: Deanne Kohli
[2020-10-18 17:21] VITALS: BP 140/89; PULSE 64; RESP 16; O2SAT 97
--- NOTE | 2020-10-18 17:22 | ED.RN ---
PT EDUCATED ON CATHETER CARE AND FOLLOW UP AT HOME. PT VERBALIZES UNDERSTANDING OF INSTRUCTIONS AND DENIES ANY FURTHER QUESTIONS. PT REQUESTS AND IS GIVEN LEGG BAG. PT DRESSES SELF AND AMBULATES OUT OF DEPT WITH SPOUSE.
== END 2020-10-18 17:27 | disposition home or self-care (01) ==
PROVIDERS: Emergency Provider Emergency Medicine; PCP Family Medicine
DX: R33.8 Other retention of urine (principal); Z87.891 Personal history of nicotine dependence; Z86.718 Personal history of other venous thrombosis and embolism; Z86.711 Personal history of pulmonary embolism
CPT/HCPCS: 51702; 99283; A4216

== ENCOUNTER → 2020-12-07 07:54 | Outpatient (CLI) | payer MEDICARE, SELFPAY ==
[2020-12-07 08:46] LABS: Hemoglobin A1c 6.2 % (3.8-5.6)
[2020-12-07 09:21] LABS: ALB/GLOB Ratio 0.9 RATIO (0.9-2.4); AST(SGOT) 20 U/L (15-37); Alanine Aminotransfer ALT/SGPT 27 U/L (16-61); Albumin, Serum 3.4 g/dL (3.2-5.0); Alkaline Phosphatase 78 U/L (45-117); Anion Gap 3 (5-15); BUN 32 mg/dL (7-18); BUN/Creat Ratio 22.1 RATIO (10-20); Calcium,Total 9.3 mg/dL (8.5-10.1); Chloride 109 mmol/L (98-107); Cholesterol 180 mg/dL (200); Creatinine, Serum 1.45 mg/dL (0.70-1.30); EST Glomerular Filtration Rate 50 mL/min (>60); Est Glom Filt Rate - Afr Amer 61 mL/min (>60); Globulin 3.8 g/dL (2.2-4.2); Glucose 108 mg/dL (74-106); High Density Lipoprotein 65 mg/dL; Protein, Total 7.2 g/dL (6.4-8.2); Sodium Level 141 mmol/L (136-145); Thyroid Stim Hormone (TSH) 1.18 uIU/mL (0.358-3.74); Triglycerides 85 mg/dL; Very Low Density Lipoprotein 17 mg/dL (5-40)
== END ==
PROVIDERS: PCP Family Medicine; Referring Provider Internal Medicine Endocrinology, Diabetes & Metabolism; Visit Provider Internal Medicine Endocrinology, Diabetes & Metabolism
DX: E11.65 Type 2 diabetes mellitus with hyperglycemia (principal); R79.89 Other specified abnormal findings of blood chemistry; I10 Essential (primary) hypertension; E78.00 Pure hypercholesterolemia, unspecified; E03.9 Hypothyroidism, unspecified
CPT/HCPCS: 36415; 80053; 80061; 82043; 83036; 84439; 84443

== ENCOUNTER → 2020-12-23 16:42 | Outpatient (CLI) | payer MEDICARE, SELFPAY ==
--- NOTE | 2020-12-23 16:44 | RAD_ITS ---
STUDY: X-RAY - LEFT SHOULDER REASON FOR EXAM: Male, 75 years old. Left shoulder pain following trauma TECHNIQUE: 4 radiographic view(s) of the shoulder. COMPARISON: 02/01/2019 FINDINGS: There is mild degenerative arthrosis of the glenohumeral articulation. There is degenerative arthrosis of the acromioclavicular joint without inferior osseous spur formation. Normal acromion. Normal humeral head and visualized proximal humerus. The soft tissue structures are unremarkable. There is no demonstrated fracture. Normal visualized pulmonary apex. RAD/Shoulder min 2 Views IMPRESSION: No acute fracture or dislocation. Electronically Signed: Fredy Piper MD at 2:57 EDT Tel , Service support ,
== END ==
PROVIDERS: PCP Family Medicine; Referring Provider Family Medicine; Visit Provider Family Medicine
DX: M25.512 Pain in left shoulder (principal)
CPT/HCPCS: 73030

== ENCOUNTER → 2021-04-11 14:48 | Outpatient (CLI) | payer MEDICARE, SELFPAY | PROVIDERS: PCP Family Medicine; Visit Provider Nurse Practitioner Family | DX: J06.9 Acute upper respiratory infection, unspecified (principal) | CPT/HCPCS: 87633; 87635; U0005; U0003 ==

== ENCOUNTER 2021-06-13 07:28 | Outpatient (CLI) | payer MEDICARE, SELFPAY ==
[2021-06-13 08:32] LABS: Vitamin D,25 Hydroxy 41.7 ng/mL
[2021-06-13 08:38] LABS: Hemoglobin A1c 6.2 % (3.8-5.6)
[2021-06-13 08:45] LABS: ALB/GLOB Ratio 0.9 RATIO (0.9-2.4); AST(SGOT) 22 U/L (15-37); Alanine Aminotransfer ALT/SGPT 26 U/L (16-61); Albumin, Serum 3.2 g/dL (3.2-5.0); Alkaline Phosphatase 86 U/L (45-117); Anion Gap 5 (5-15); BUN 18 mg/dL (7-18); BUN/Creat Ratio 11.8 RATIO (10-20); Calcium,Total 9.1 mg/dL (8.5-10.1); Chloride 109 mmol/L (98-107); Cholesterol 181 mg/dL (200); Creatinine, Serum 1.52 mg/dL (0.70-1.30); EST Glomerular Filtration Rate 48 mL/min (>60); Est Glom Filt Rate - Afr Amer 58 mL/min (>60); Globulin 3.7 g/dL (2.2-4.2); Glucose 129 mg/dL (74-106); High Density Lipoprotein 55 mg/dL; Protein, Total 6.9 g/dL (6.4-8.2); Sodium Level 141 mmol/L (136-145); T4 Free Direct 0.91 ng/dL (0.76-1.46); Thyroid Stim Hormone (TSH) 2.03 uIU/mL (0.358-3.74); Triglycerides 158 mg/dL; Very Low Density Lipoprotein 32 mg/dL (5-40)
[2021-06-13 08:49] LABS: Microalbumin:Creatinine Ratio 163.2 mg/g CRE (<30 mg/g CRE)
[2021-06-14 10:27] LABS: Protein, Urine (Random) 68.1 mg/dL (<11.9); Protein:Creat Ratio 339 mg/g CRE (0-200)
== END 2021-06-13 23:59 | disposition home or self-care (01) ==
LOC: LAB 07:31
PROVIDERS: PCP Family Medicine; Referring Provider Internal Medicine Endocrinology, Diabetes & Metabolism; Visit Provider Internal Medicine Endocrinology, Diabetes & Metabolism
DX: E11.65 Type 2 diabetes mellitus with hyperglycemia (principal); E03.9 Hypothyroidism, unspecified; I10 Essential (primary) hypertension; E78.00 Pure hypercholesterolemia, unspecified; R79.89 Other specified abnormal findings of blood chemistry; E55.9 Vitamin D deficiency, unspecified
CPT/HCPCS: 36415; 80053; 80061; 82043; 82306; 82570; 83036; 84156; 84439; 84443

== ENCOUNTER 2021-07-28 15:16 | Outpatient (CLI) | payer MEDICARE, SELFPAY ==
[2021-07-28 17:50] LABS: Absolute Lymphocyte Count 1.11 X10^3/uL (0.83-4.51); Absolute Neutrophil Count 2.7 X10^3/uL (2.0-7.7); Basophil# 0.03 X10^3/uL; Basophil% 0.7 % (0-1); Eosinophil# 0.08 X10^3/uL; Eosinophils% 1.8 % (0-5); Hematocrit 39.6 % (40-54); Hemoglobin 12.9 g/dL (13.0-16.5); Lymphocyte # 1.11 X10^3/ul (0.83-4.51); Lymphocyte % 25.1 % (19-41); Mean Corp Hgb Conc 32.6 g/dL (32-36); Mean Corpuscular Hgb 29.1 pg (27.0-32.0); Mean Corpuscular Volume 89.2 fL (80-94); Mean Platelet Vol. 12.2 fl (6.2-12.0); Monocyte# 0.48 X10^3/uL; Monocyte% 10.9 % (0-10); NRBC Flagged by Analyzer 0 % (0-5); Neutrophil # 2.71 X10^3/uL (2.7-7.7); Neutrophil % 61.3 % (47-70); Platelet Count 173 K/mm3 (150-450); RBC Distribution Width CV 12.7 % (11.6-14.6); RBC Distribution Width SD 41.1 fl (35.1-43.9); Red Blood Count 4.44 M/mm3 (4.6-6.2); White Blood Count 4.4 K/mm3 (4.4-11.0)
[2021-07-28 18:25] LABS: Internal QC Validated? YES +Cl - CLEAR BKGD; Monotest Negative (Negative)
== END 2021-07-28 23:59 | disposition home or self-care (01) ==
LOC: MFPLAB 15:17
PROVIDERS: PCP Family Medicine; Referring Provider Family Medicine; Visit Provider Family Medicine
DX: J32.9 Chronic sinusitis, unspecified (principal); R53.81 Other malaise; R53.83 Other fatigue
CPT/HCPCS: 36415; 85025; 86308

== ENCOUNTER → 2021-08-22 | Outpatient (CLI) | payer MEDICARE, SELFPAY ==
[2021-08-22 15:49] LABS: Troponin-I HS 9 pg/mL (3.0-78.0)
[2021-08-22 15:53] LABS: D-Dimer Quantitative (DVT/PE) 0.75 FEU/ug/m (0.27-0.49)
== END | disposition home or self-care (01) ==
LOC: MTLAB 12:46
PROVIDERS: PCP Family Medicine; Referring Provider Family Medicine; Visit Provider Family Medicine
DX: R00.2 Palpitations (principal)
CPT/HCPCS: 36415; 84484; 85379

== ENCOUNTER → 2021-08-23 | Outpatient (CLI) | payer MEDICARE, SELFPAY ==
--- NOTE | 2021-08-23 12:38 | CT_ITS ---
STUDY: CTA CHEST REASON FOR EXAM: Male, 76 years old. ELEVATED D-DIMER RADIATION DOSAGE (If Supplied By Facility): CTDIvol = ( 14.68 ) mGy, DLP = ( 549.42 ) mGycm TECHNIQUE: The examination was performed with the intravenous administration of IV 100mL Isovue-370. Post-processing of the angiographic images was performed, with multiplanar reformation and 3D reconstruction. Individualized dose optimization techniques were used for this CT. COMPARISON: None. FINDINGS: No filling defect in the pulmonary arteries to suggest pulmonary embolism. Mildly enlarged right and left main pulmonary arteries, compatible with pulmonary hypertension. Atherosclerosis of the thoracic aorta and coronary arteries noted. No adenopathy. No pleural or pericardial effusion. No pneumothorax. No biliary consolidation, mass, or suspicious nodule. Scattered linear scars versus plate like atelectasis in the bilateral lungs. Sections through the upper abdomen demonstrate multiple simple cysts in the liver measuring up to 4.9 cm. There is minimal pericholecystic fat stranding. Acute cholecystitis in the appropriate clinical setting should be considered. Colonic diverticulosis is noted. Multilevel thoracic spondylosis and mild thoracic dextroscoliosis are seen. CT/CTA Chest W/WO Contrast IMPRESSION: No acute finding in the chest with no evidence of pulmonary embolism. Minimal pericholecystic fat stranding. Acute cholecystitis in the appropriate clinical setting should be considered. Colonic diverticulosis. Electronically Signed: Mariano Eid MD at 13:08 EDT ,
== END | disposition home or self-care (01) ==
LOC: CT 12:30
PROVIDERS: PCP Family Medicine; Visit Provider Family Medicine
DX: R79.89 Other specified abnormal findings of blood chemistry (principal)
CPT/HCPCS: 71275; Q9967

== ENCOUNTER → 2021-09-05 | Outpatient (CLI) | payer MEDICARE, SELFPAY ==
--- NOTE | 2021-09-05 08:49 | STRESSREP ---
Stress Test Report Exercise perfusion stress test. 76-year-old male with a history of chest pain. Stress protocol demonstrates normal sinus rhythm with sinus bradycardia with a rate of 48 bpm normal intervals are noted resting blood pressure is 158/86 mmHg. The patient exercised according to regular Wolfgang protocol for total duration of 6 minutes and 31 seconds. The maximum heart rate attained was 129 bpm which was 89% of maximum predicted heart rate the maximum workload was 8.5 metabolic equivalents. At rest there were no ST or T wave changes noted to suggest ischemia and at peak exercise no ST or T wave changes were noted suggest ischemia. Right bundle branch block was noted frequent premature ventricular complexes were present. No chest pain was noted. The peak blood pressure was 174/82 mmHg. Myocardial perfusion protocol. 14.8 mCi of technetium 99m sestamibi was injected at rest. Patient exercised according to regular Wolfgang protocol. At peak exercise 44.5 mCi of technetium 99m sestamibi was injected stress images were obtained stress and rest images were reconstructed and compared in the short axis vertical long and horizontal long axis. Gated images were also obtained. Perfusion SPECT analysis: Review of the stress images demonstrate reduced perfusion noted involving the inferior wall especially the mid and basal inferior wall. There is mild perfusion reduction noted in the apical inferior wall. The resting images demonstrate improvement in the apical and mid inferior wall suggesting mid and apical inferior ischemia. Previous basal infarct is suggested. Gated SPECT analysis: The gated ejection fraction 62%. Conclusion: Abnormal exercise myocardial perfusion stress test with evidence of mid and apical inferior ischemia at a moderate workload. Previous basal inferior infarct noted. Preserved ejection fraction.
== END | disposition home or self-care (01) ==
LOC: CVS 06:45
PROVIDERS: PCP Family Medicine; Referring Provider Family Medicine; Visit Provider Family Medicine
DX: R07.9 Chest pain, unspecified (principal)
CPT/HCPCS: 78452; 93017; A9500; A4216; J2785

== ENCOUNTER → 2021-10-13 | Outpatient (CLI) | payer MEDICARE, SELFPAY ==
--- NOTE | 2021-10-13 10:15 | RAD_ITS ---
STUDY: X-RAY CHEST REASON FOR EXAM: Male, 76 years old. Cardiac Cathterization TECHNIQUE: PA and lateral views of the chest. COMPARISON: 11/19/2014 FINDINGS: The lungs are clear and expanded. There is no demonstrated pleural abnormality. Normal size heart. Normal mediastinum and curt. Normal visualized pulmonary arteries. Normal visualized aortic arch and descending thoracic aorta. There is a dextroscoliosis of the thoracic spine. Normal visualized ribs, clavicles, and shoulders. There is no demonstrated abnormality of the visualized soft tissue structures of the upper abdomen. RAD/Chest PA and Lateral IMPRESSION: Normal x-ray examination of the chest. Electronically Signed: Ritchie De Anda MD at 10:34 EDT ,
[2021-10-13 11:11] LABS: Absolute Lymphocyte Count 0.87 X10^3/uL (0.83-4.51); Absolute Neutrophil Count 2.7 X10^3/uL (2.0-7.7); Basophil# 0.04 X10^3/uL; Eosinophil# 0.11 X10^3/uL; Eosinophils% 2.6 % (0-5); Hematocrit 42.9 % (40-54); Hemoglobin 13.6 g/dL (13.0-16.5); Lymphocyte # 0.87 X10^3/ul (0.83-4.51); Lymphocyte % 20.9 % (19-41); Mean Corp Hgb Conc 31.7 g/dL (32-36); Mean Corpuscular Hgb 29.4 pg (27.0-32.0); Mean Corpuscular Volume 92.9 fL (80-94); Mean Platelet Vol. 11.9 fl (6.2-12.0); Monocyte# 0.45 X10^3/uL; Monocyte% 10.8 % (0-10); NRBC Flagged by Analyzer 0 % (0-5); Neutrophil # 2.67 X10^3/uL (2.7-7.7); Neutrophil % 64.2 % (47-70); Platelet Count 168 K/mm3 (150-450); RBC Distribution Width CV 13.1 % (11.6-14.6); RBC Distribution Width SD 44.3 fl (35.1-43.9); Red Blood Count 4.62 M/mm3 (4.6-6.2); White Blood Count 4.2 K/mm3 (4.4-11.0)
[2021-10-13 11:19] LABS: International Normalized Ratio 1.1; Prothrombin Time (Protime)PT. 14.2 SECONDS (11.7-14.9)
[2021-10-13 11:44] LABS: Anion Gap 3 (5-15); BUN 16 mg/dL (7-18); BUN/Creat Ratio 11.5 RATIO (10-20); Calcium,Total 9.1 mg/dL (8.5-10.1); Chloride 107 mmol/L (98-107); Creatinine, Serum 1.39 mg/dL (0.70-1.30); EST Glomerular Filtration Rate 53 mL/min (>60); Est Glom Filt Rate - Afr Amer 64 mL/min (>60); Glucose 111 mg/dL (74-106); Potassium 4.1 mmol/L (3.5-5.1); Sodium Level 141 mmol/L (136-145)
== END | disposition home or self-care (01) ==
PROVIDERS: PCP Family Medicine; Referring Provider Nurse Practitioner Gerontology; Visit Provider Nurse Practitioner Gerontology
DX: R94.39 Abnormal result of other cardiovascular function study (principal); R06.02 Shortness of breath
CPT/HCPCS: 36415; 71046; 80048; 85025; 85610; 85730

== ENCOUNTER → 2021-10-31 | Outpatient (CLI) | payer MEDICARE, SELFPAY ==
--- NOTE | 2021-10-31 09:57 | ECHOD_ITS ---
Reason For Study: ABNORMAL STRESS TEST Procedure This was a 2D Doppler, Color Flow transthoracic echocardiogram. The exam was of adequate technical quality. Exam performed in department. Left Ventricle Normal LV size. Left ventricular systolic function is normal. The estimated ejection fraction is 65 %. Diastolic function is indeterminate. No regional wall motion abnormalities noted. Right Ventricle Normal RV size. A moderator band is seen in the right ventricle. Normal systolic function. Atria Normal left atrium. Normal right atrium. No doppler evidence for ASD. Mitral Valve There is moderate mitral annular calcification. Moderate focal mitral valve calcification of the anterior leaflet. Trivial mitral valve insufficiency. Tricuspid Valve Normal tricuspid valve. Trivial tricuspid valve insufficiency. Right ventricular systolic pressure estimated to be 25 mmHg. Aortic Valve The aortic valve is not well visualized. Pulmonic Valve The pulmonic valve is not well visualized. Great Vessels Normal sized aortic root. Pericardium/Pleural No pericardial effusion. MMode/2D Measurements & Calculations LVIDd: 4.2 cm IVSd: 0.98 cm Ao root diam: 3.2 cm LVIDs: 2.7 cm LVPWd: 1.0 cm RVDd: 3.4 cm FS: 34.3 % LAV(MOD-bp): 44.2 ml LVAd ap4: 36.5 cm2 SV(MOD-sp4): 80.6 ml LAV(MOD-bp) Indexed: 21.1 ml/m2 LVLd ap4: 9.0 cm LAV(MOD-sp2): 45.5 ml EDV(MOD-sp4): 121.6 ml LAV(MOD-sp4): 43.0 ml EDV(sp4-el): 126.0 ml LVAs ap4: 18.9 cm2 LVLs ap4: 7.5 cm ESV(MOD-sp4): 41.0 ml ESV(sp4-el): 40.6 ml EF(MOD-sp4): 66.3 % EF(sp4-el): 67.8 % SV(sp4-el): 85.5 ml LA A4 area: 16.8 cm2 LA dimension(2D): 3.8 cm RA A4 area: 15.1 cm2 Time Measurements MV dec time: 0.28 sec Doppler Measurements & Calculations MV E max ryan: 99.6 cm/sec Lat Peak E' Ryan: 7.9 cm/sec Med Peak E' Ryan: 6.5 cm/sec MV A max ryan: 130.5 cm/sec E/E' lat: 12.6 E/E' med: 15.2 MV E/A: 0.76 Ao V2 max: 118.8 cm/sec LV V1 max: 120.9 cm/sec PA V2 max: 121.5 cm/sec Ao max P.6 mmHg LV V1 max P.8 mmHg TR max ryan: 232.2 cm/sec TR max P.6 mmHg ECHO/Echo Complete Interpretation Summary Left ventricular systolic function is normal. The estimated ejection fraction is 65 %. A moderator band is seen in the right ventricle. There is moderate mitral annular calcification. Moderate focal mitral valve calcification of the anterior leaflet. Trivial mitral valve insufficiency. Trivial tricuspid valve insufficiency. Right ventricular systolic pressure estimated to be 25 mmHg. Diastolic function is indeterminate. Echolucency c/w an hepatic cyst: consider further evaluation with RUQ U/S if cl inically indicated. Ordering Physician: Liliana Ferrera Referring Physician: LAYTON MATHUR Performed By: Brooke Vaz RDCS
== END | disposition home or self-care (01) ==
LOC: CVS 09:57
PROVIDERS: PCP Family Medicine; Referring Provider Nurse Practitioner Gerontology; Visit Provider Nurse Practitioner Gerontology
DX: I34.1 Nonrheumatic mitral (valve) prolapse (principal); R94.39 Abnormal result of other cardiovascular function study
CPT/HCPCS: 93306

== ENCOUNTER 2021-11-07 08:35 | Day surgery (SDC) | payer MEDICARE, SELFPAY ==
--- NOTE | 2021-11-03 16:40 | HP.PCM_ITS ---
History and Physical Date of Admission: 11/07/21 [facility] [address] [place], [place] [address] OFFICE VISIT Date of Service:? 10/13/21 MR#: [id number] Acct: [id number] Name:KAREN MAR Rep #: [id number] : 1945 ?Provider: ?SHIVANI Ferrera Age/Sex:? 76/M Location: [facility] [place].[facility] Status: Signed HPI HPI History of Present Illness Surgical H&P: Yes Details: KAREN ROBERT, is a 76 year old white male who presents to the office today for cardiovascular outpatient follow-up visit to review his recent stress test results ordered by his PCP. He has a history of sinus bradycardia, PACs, PVCs, mitral valve prolapse, hypertension, hyperlipidemia, NATHAN with CPAP therapy, DVT/PE. 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 His PCP monitors his lipids. His most recent lipid panel from 06/13/2021:? His total cholesterol was 181 with an LDL of 94 and an HDL of 55.? His triglycerides were 158. From a cardiac standpoint, the patient is doing well. He denies any palpitations. He states he had one episode of chest pain while push mowing his lawn a few months ago. He states the pain was across his chest, and described this as a dull sensation. He states this lasted for 15-20 minutes. He states that he also had increased fatigue, shortness of breath, and dizziness. He states since then, he has taken it easy.? His PCP ordered a stress test in August. He does have SOB with exertion.? He denies Orthopnea, and PND. He does not have bleeding issues; no blood in urine, stool or nosebleeds. He states he does have slight decrease in energy level. He denies myalgias, or claudication.? He does not have edema, or sudden weight gain. He states that he has had dizziness with exertion.? He denies? lightheadedness, syncopal or near syncopal episodes, and headaches. Intake Vital Signs ? 08/16/2214:15 10/14/2207:44 10/14/2207:48 Height 5 ft 8 in 5 ft 8 in 5 ft 8 in Weight: ? ? 212 lb 5 oz BMI ? ? 32.3 BP ? ? 122/70 H Blood Pressure Location ? ? Lt brachial Position ? ? Sitting Respiration ? ? 16 Pulse ? ? 64 Pulse Source ? ? 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 Accompanied by: Self Allergies fosinopril [From Monopril] Allergy (Severe, Verified 10/13/21 09:54) unknownbenazepril [From Lotensin] Adverse Reaction (Severe, Verified 10/13/21 09:54) unknownpenicillin G Adverse Reaction (Severe, Verified 10/13/21 09:54) unknownapis mellifera venom Allergy (Severe, Uncoded 10/13/21 09:54) unknown Medications ascorbic acid (vitamin C) 500 mg tablet 500 mg PO QDAY 04/25/17 [History Confirmed 10/13/21] esomeprazole magnesium 40 mg capsule,delayed release (Nexium) 40 mg PO QDAY 04/25/17 [History Confirmed 10/13/21] hydrochlorothiazide 25 mg tablet 12.5 mg PO QDAY 04/25/17 [History Confirmed 10/13/21] levothyroxine 50 mcg tablet 50 mcg PO QDAY 04/25/17 [History Confirmed 10/13/21] multivitamin 1 tab PO QDAY 04/25/17 [History Confirmed 10/13/21] oxybutynin chloride 5 mg tablet 10 mg PO QDAY 04/25/17 [History Confirmed 10/13/21] rosuvastatin 20 mg tablet (Crestor) 20 mg PO QDAY 04/25/17 [History Confirmed 10/13/21] tamsulosin 0.4 mg capsule 0.4 mg PO QDAY 04/25/17 [History Confirmed 10/13/21] metoprolol tartrate 25 mg tablet 12.5 mg PO BID 04/26/17 [History Confirmed 10/13/21] cholecalciferol (vitamin D3) 25 mcg (1,000 unit) capsule 1,000 unit PO DAILY 02/01/19 [History Confirmed 10/13/21] desvenlafaxine succinate 25 mg tablet,extended release 24 hr (Pristiq) 25 mg PO DAILY 06/17/19 [History Confirmed 10/13/21] losartan 25 mg tablet 50 mg PO DAILY 06/17/19 [History Confirmed 10/13/21] lactase 3,000 unit tablet (Lactaid) 3,000 unit PO DAILY 09/22/20 [History Confirmed 10/13/21] pyridoxine (vitamin B6) 50 mg capsule (Vitamin B-6) 50 mg PO DAILY 02/15/21 [History Confirmed 10/13/21] apixaban 2.5 mg tablet 2.5 mg PO BID #60 tabs 02/22/21 [Rx Confirmed 10/13/21] aspirin 81 mg capsule 81 mg PO DAILY #30 caps 10/13/21 [Rx Confirmed 10/13/21] betamethasone, augmented 0.05 % topical cream 1 applic topical DAILY PRN skin irritation 10/13/21 [History Confirmed 10/13/21] PFSH Medical History? Basal cell carcinoma (BCC) BPH (benign prostatic hyperplasia) CKD (chronic kidney disease) stage 3, GFR 30-59 ml/min Essential hypertension GERD (gastroesophageal reflux disease) Graves disease Hepatic cyst History of pulmonary embolism History of thromboembolism Hyperlipidemia Hypertension Hypothyroidism IBS (irritable bowel syndrome) Mitral valve prolapse Nonrheumatic mitral (valve) prolapse NATHAN (obstructive sleep apnea) Other nonrheumatic mitral valve disorders Premature atrial contraction Premature ventricular contraction Prostate CA Renal cyst Sinus bradycardia SOB (shortness of breath) on exertion Venous insufficiency Surgical History? History of bilateral hip replacements History of endoscopy History of hernia surgery Status post Mohs surgery Family History? Father Myositis Skin cancer Myocardial infarctionMother CVA (cerebral vascular accident) Colon cancer Hypertension Pacemaker Social History? Smoking Status:? Former smoker alcohol intake:? never substance use type:? does not use ROS Const Const: Positive for fatigue; Negative for weakness, body ache, fever(s), headache(s), chills, frequent falls, night sweats, daytime sleepiness, difficulty sleeping, excessive sweating, weight gain, weight loss, increased appetite, poor appetite, anorexia or other Eyes Eyes: Negative for blurry vision or double vision ENT ENT: Positive for dizziness (with exertion) and balance problems (slight); Negative for headache(s) Cardio Chest Pain: Yes Character: dull Onset: exercise Location: other (across chest) Duration: minutes Exacerbation: exercise Relieving: rest Palpitations: No Edema: None (wears compression socks) Muscle aches with walking: None Resp Respiratory: Positive for SOB with activity (slight); Negative for SOB at rest, SOB orthopnea\SOB lying down, Cough, Coughing up blood/hemoptysis, chest congestion, pain on inspiration, snoring, stridor, wheezing, crackles, paroxysmal nocturnal dyspnea or other Musc Musc: Positive for balance problems (slight); Negative for muscle aches/ myalgia, muscle weakness or joint pain Neuro Neuro: Positive for dizziness (with exertion); Negative for lightheadedness, near syncope, syncope, orthostatic symptoms, frequent falls, headache(s), weakness, confusion, memory loss, restless legs, blurry vision, double vision, vertigo, seizures, lack of coordination or other Endo Endo: Positive for fatigue; Negative for excessive sweating Cardiology Exam Const Appearance: cooperative and no acute distress Nutritional Appearance: obese Orientation: alert and oriented x3 Head Head: normal to inspection Ears: hearing grossly normal bilaterally Nose: external nose normal Face and Sinus: face symmetric Eyes General: appearance normal, both eyes and all related structures Eyelids: eyelids normal Conjunctivae: conjunctivae normal Pupils: PERRL and pupil size EOM: EOM intact bilaterally Neck Neck: normal visual inspection Carotids: Negative bruit Chest Chest inspection: normal inspection of the chest and normal respiratory effort Auscultation: Bilateral: Clear to Auscultation Cardio Palpation: normal PMI Rate: regular rate Rhythm: regular rhythm Heart sounds: S1 normal and S2 normal; Negative rub, gallop or murmur GI GI: normal to inspection, soft and obese; Negative no hepatosplenomegaly Neuro General: patient alert, patient oriented x3 and CN's II-XI intact bilaterally Skin Skin: no rashes or lesions noted Extremities Pulses: Normal: Right Posterior Tibial Pulse, Left Posterior Tibial Pulse, Right Radial Pulse and Left Radial Pulse Lower Extremity Edema: None: Bilateral Psych Psychological: normal affect Supplemental Info Supplemental Information Stress Test 09/05/2021: Exercise perfusion stress test. 76-year-old male with a history of chest pain. Stress protocol demonstrates normal sinus rhythm with sinus bradycardia with a rate of 48 bpm normal intervals are noted resting blood pressure is 158/86 mmHg.? The patient exercised according to regular Wolfgang protocol for total duration of 6 minutes and 31 seconds.? The maximum heart rate attained was 129 bpm which was 89% of maximum predicted heart rate the maximum workload was 8.5 metabolic equivalents.? At rest there were no ST or T wave changes noted to suggest ischemia and at peak exercise no ST or T wave changes were noted suggest ischemia.? Right bundle branch block was noted frequent premature ventricular complexes were present.? No chest pain was noted.? The peak blood pressure was 174/82 mmHg. Myocardial perfusion protocol. 14.8 mCi of technetium 99m sestamibi was injected at rest.? Patient exercised according to regular Wolfgang protocol.? At peak exercise 44.5 mCi of technetium 99m sestamibi was injected stress images were obtained stress and rest images were reconstructed and compared in the short axis vertical long and horizontal long axis.? Gated images were also obtained. Perfusion SPECT analysis: Review of the stress images demonstrate reduced perfusion noted involving the inferior wall especially the mid and basal inferior wall.? There is mild perfusion reduction noted in the apical inferior wall.? The resting images demonstrate improvement in the apical and mid inferior wall suggesting mid and apical inferior ischemia.? Previous basal infarct is suggested. Gated SPECT analysis: The gated ejection fraction 62%. Conclusion: Abnormal exercise myocardial perfusion stress test with evidence of mid and apical inferior ischemia at a moderate workload. Previous basal inferior infarct noted. Preserved ejection fraction. Echocardiogram from 02/21/17: Left ventricular systolic function is normal. The estimate ejection fraction is 60%. There is mild to moderate mitral annular calcification. Moderate focal mitral valve calcification of the anterior leaflet. Trivial mitral valve insufficiency. Trivial tricuspid valve insufficiency. Mild focal aortic valve thickening. Echolucency consistent with hepatic cyst: Consider further evaluation with right upper quadrant ultrasound if clinically indicated. Stress Test Report Date: 07-08-18 Procedure: Pharmacologic stress nuclear imaging study? Indications: Chest pain Consent: Per the patient Procedure: The patient underwent pharmacologic (Regadenoson) evaluation with a peak heart rate of 68 beats per minute (46% predicted maximal heart rate) and a peak blood pressure of 190/94 mmHg. The baseline ECG demonstrated is bradycardia; right bundle branch block.? The peak pharmacologic ECG demonstrated no obvious ECG changes. There were occasional PVCs pretest, during infusion, and recovery. There was no complaint of chest discomfort during pharmacologic infusion or recovery. The examination was discontinued secondary to completion of protocol. Impression: 1.? Pharmacologic (Regadenoson) evaluation 2.? Peak pharmacologic ECG with no obvious ECG changes. 3.? There were occasional PVCs pretest, during infusion, and recovery. 4.? Nuclear images pending Myocardial perfusion imaging study: Technique: The patient was injected with 11.6 millicuries of technetium 99m Cardiolite and subsequently rest SPECT Cardiolite nuclear imaging was obtained in the horizontal long, vertical long, and short axis views. The patient underwent pharmacologic (Regadenoson) evaluation with a peak heart rate of 68 beats per minute (46 % percent predicted maximal heart rate) and a peak blood pressure of 190/94 mmHg. The patient was injected with 34.3 millicuries of technetium 99m Cardiolite and subsequently stress SPECT Cardiolite nuclear imaging was obtained in the horizontal long, vertical long, and short axis views.? A gated Cardiolite study at peak stress was obtained. Interpretation: Rest and stress SPECT Cardiolite nuclear imaging status post realignment, normalization, and attenuation correction demonstrate relative uniform tracer uptake and myocardial perfusion appearing within normal limits.? There is end systolic thickening and brightening.? The gated Cardiolite study demonstrates myocardial thickening and inward wall motion.? The reported LVEF is 69 %. Impression: 1.? Rest and stress SPECT Cardiolite nuclear imaging demonstrate relative uniform tracer uptake and myocardial perfusion appearing within normal limits. 2.? The gated Cardiolite study reports an LVEF of 69 %. Labs: ?? ? LDL Cholesterol 94 mg/dL (0-130) ?? ? HDL Cholesterol 55 mg/dL (40-) ?? ? Triglycerides 158 mg/dL (-199) ?? ? VLDL Cholesterol 32 mg/dL (5-40) Diagnostics: ?? ? Electrocardiogram ? Stress Test NM ? Stress Test ? Chest X-Ray ? Pulmonary: ?? ? No Data to Display Assessment and Plan Assessment and Plan (1) Abnormal stress test: ?Status:?Acute ?Plan: Patient underwent a stress test in August, the results demonstrated an abnormal exercise myocardial perfusion stress test with evidence of mid and apical inferior ischemia at a moderate workload. He does have complaints of chest pain, fatigue, dyspnea and dizziness with exertion. We will obtain an echocardiogram to evaluate his left ventricular systolic function prior to his cardiac cathterization. He will be scheduled for a left cardiac catheterization on November [address]. Patient is agreeable to this. (2) Sinus bradycardia: ?Status:?Acute ?Plan: Patient has a history of sinus bradycardia. His EKG from today demonstrates sinus bradycardia, right bundle branch block, heart rate 55. He appears stable at this time. He will continue with his current medical therapy, along with monitoring his heart rate at home. (3) Premature ventricular contraction: ?Status:?Chronic ?Plan: Patient has a history of PVC's. He denies any recent symptoms or events. He will continue with his current medical therapy, along with monitoring for any concerning symptoms. (4) Premature atrial contraction: ?Status:?Chronic ?Plan: Patient has a history of PAC's. He denies any recent symptoms or events. He will continue with his current medical therapy, along with monitoring for any concerning symptoms. (5) Nonrheumatic mitral (valve) prolapse: ?Status:?Chronic ?Plan: Patient has a history of nonrheumatic mitral valve prolapse.? We will obtain an echocardiogram to evaluate this. (6) Essential hypertension: ?Status:?Chronic ?Plan: Patient has a history of hypertension.? His blood pressure is well controlled at this time.? He will continue with his current medical therapy, along with monitoring blood pressures at home. (7) Hyperlipidemia: ?Status:?Chronic ?Qualifiers: ?Hyperlipidemia type:?unspecified? Qualified Code(s):?E78.5 - Hyperlipidemia, unspecified ?Plan: Has a history of hyperlipidemia.? His PCP monitors this.? His most recent lipid panel from 06/2021: Cholesterol 181, HDL 55, LDL 94, triglycerides 158.? He will continue with rosuvastatin 20 mg daily, along with aggressive risk factor and lifestyle modifications. (8) History of thromboembolism: ?Status:?Acute ?Plan: Patient has a history of thromboembolism.? 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 He is currently on Eliquis 2.5 mg twice daily.? Patient will have to bridge off of Eliquis to Lovenox prior to his cardiac catheterization.? Patient will come in for a nurse visit on October 24 to review these instructions prior to his cardiac catheterization. ? ? ? Orders: Orders 12 Lead EKG performed by [facility] Today I49.1 - Atrial premature depolarization, I49.3 - Ventricular premature depolarization, R00.1 - Bradycardia, unspecified ? Left Heart Cath/COR/LV Percut 11/07/21 R94.39 - Abnormal result of oth er cardiovascular function study ? Basic Metabolic Profile (BMP) Today R94.39 - Abnormal result of other cardiovascular function study ? Partial Thromboplast Time Today R06.02 - Shortness of breath, R94.39 - Abnormal result of other cardiovascular function study ? Prothrombin Time w/INR Today R06.02 - Shortness of breath, R94.39 - Abnormal result of other cardiovascular function study ? Echo Complete Today I34.1 - Nonrheumatic mitral (valve) prolapse, R94.39 - Abnormal result of other cardiovascular function study ? CBC W/Diff, Automated Today R94.39 - Abnormal result of other cardiovascular fu nction study ? Chest PA and Lateral Today R94.39 - Abnormal result of other cardiovascular function study ? Medications: New aspirin 81 mg PO DAILY 30 caps 0RF ?Patient Instructions: You will be scheduled for a Nurse visit on October 24 to review cardiac catheterization instructions, and bridging instructions from Eliquis to Lovenox. Plan Details Additional Comments: Patient will follow-up in 3 months, or sooner if needed. Thank you for allowing me to participate in the care of your patient. Please don't hesitate to call if any issues arise. This note was generated using a voice recognition system and there may be incorrect words, spelling, or punctuation that were not noted when reviewing the office note prior to saving. Follow Up: ? ? 3 Months ([facility]/PA) ? ? October 24? (Nurse Visit with Kiera García ) JAMILA (Procedure Consent) Procedure Criteria Procedure Criteria: Yes Elective The surgeon/proceduralist and patient have discussed in detail the risk of exposure to and/or potential harm posed by the COVID-19 virus with having a surgery/procedure at this time versus the risk of? delaying the surgery/procedure. It is not possible to know either the risk of delaying the surgery or procedure or chance of getting an infection with perfect accuracy, but a joint decision was made between the patient and the surgeon/proceduralist ?to proceed at this time with the scheduled surgery/procedure as indicated on the consent form. Coding Level of Care Code Off vis,est,level 4 Diagnoses Abnormal stress test? R94.39 Sinus bradycardia? R00.1 Premature ventricular contraction? I49.3 Premature atrial contraction? I49.1 Nonrheumatic mitral (valve) prolapse? I34.1 Essential hypertension? I10 Hyperlipidemia? E78.5 ? ? ? Hyperlipidemia type: unspecified History of thromboembolism? Z86.718 Coding Level of Care Code Off vis,est,level 4 Diagnoses Abnormal stress test? R94.39 Sinus bradycardia? R00.1 Premature ventricular contraction? I49.3 Premature atrial contraction? I49.1 Nonrheumatic mitral (valve) prolapse? I34.1 Essential hypertension? I10 Hyperlipidemia? E78.5 ? ? ? Hyperlipidemia type: unspecified History of thromboembolism? Z86.718 10/13/21 1545 <Electronically signed by Liliana Ferrera NP [facility]> Date Liliana Ferrera NP [facility] 10/13/21 1801<Electronically signed by Fredy Jose MD> Cosigner Signature: Date (if applicable) Fredy Jose MD CC:? Dr. Deanne Kohli MD ~ Assessment & Plan Addt'l Comments The patient has subsequently undergone additional cardiovascular evaluation with a transthoracic echocardiogram on 10-31-2021. The results are noted below. Interpretation Summary Left ventricular systolic function is normal. The estimated ejection fraction is 65 %. A moderator band is seen in the right ventricle. There is moderate mitral annular calcification. Moderate focal mitral valve calcification of the anterior leaflet. Trivial mitral valve insufficiency. Trivial tricuspid valve insufficiency. Right ventricular systolic pressure estimated to be 25 mmHg. Diastolic function is indeterminate. Echolucency c/w an hepatic cyst: consider further evaluation with RUQ U/S if clinically indicated. The patient has subsequently undergone additional gastrointestinal evaluation by without report of cardiovascular compromise. The patient has been without oral anticoagulant therapy but with bridging anticoagulant therapy with enoxaparin/Lovenox for his noncardiac and his cardiovascular procedures (cardiac catheterization). Cardiac catheterization procedure was discussed and reviewed with the patient. He was agreeable to this approach. I have re-examined the patient. There are no clinical changes since date of exam
[2021-11-06 15:46] VITALS: BMI 32.2
--- NOTE | 2021-11-07 11:06 | CL.D_ITS ---
Patient Name: KAREN ROBERT Study Date: 11/07/2021 Performing: Fredy Jose MD Ht: 68.11 inches 173 cm : 1945 Wt: 211.64 lbs 96 kg Age: 76 Gender: male BSA: 2.1 PROCEDURE(S) PERFORMED DC01-(45671)LHC/COR/LV CLINICAL PROFILE AND INDICATIONS Indications: Suspected CAD Heart Failure: None Stress/Imaging Date: 09/05/2021tress Test with SPECT MPI: Positive Intermediate Risk Angina Classification Anginal Classification w/in 2 Weeks: CCS II CAD Presentations: Other: chest pain; abnormal stress nuclear imaging study CONCLUSIONS Elevated Left Ventricular End Diastolic Pressure Normal LV size, wall motion,and systolic function LVEF: by LV gram 60 % RECOMMENDATIONS Risk factor modification Medical therapy DESCRIPTION OF PROCEDURE The patient arrived to the procedure lab. The risks and benefits of the procedure as well as a full d escription of our services here and current unavailability of surgical backup were fully explained to the patient and/or their significant other prior to the catheterization. The Timeout was completed, verifying the correct patient and procedure. The patient's procedural site was prepped and draped in the usual fashion. Local anesthetic was given subcutaneously to right radial region with Lidocaine 2% . Using a modified Seldinger technique, arterial access was obtained via the right radial artery, a 6 Fr sheath was inserted. Right Coronary Artery selective angiography was then performed in multiple v iews using a 5 Fr. 4.0 [place] catheter. Left Coronary Artery selective angiography was performed in mu ltiple views using a 5 Fr. 4.0 [place] catheter. Left Ventriculography was performed in DILLARD projection using a 5 Fr. [place] catheter. LV to AO pullback pressures were then recorded.The arterial sheath was pulled and a TR Band was applied for hemostasis CORONARY ANGIOGRAPHY DOMINANCE: Right Dominant LEFT HEART ASSESSMENT Left Ventricular Ejection Fraction: by LV Gram 60 % Normal LV wall motion Elevated Left Ventricular End Diastolic Pressure LVEDP: 26 mmHg LEFT ANTERIOR DESCENDING ARTERY: Angiographically normal CIRCUMFLEX ARTERY: PROX CIRC: Mild luminal irregularities MID CIRC: Mild luminal irregularities RIGHT CORONARY ARTERY: MID RCA: Mild luminal irregularities AORTIC ROOT: Angiographically normal Angiographically normal COMPLICATIONS No Complications PROCEDURE MEDICATIONS Fentanyl 50 mcg IV Versed 1 mg IV Fentanyl 50 mcg IV Versed 1 mg IV Oxygen: 2 L/min via nasal cannula Heparin given IA 11/07/2021 10:32:49 Verapamil 2.5mg, Ntg 100mcgs, 3000 units of Heparin given IA 11/07/2021 10:32:49 SUMMARY OF HEMODYNAMIC DATA Time AIR REST ECG 09:07:20 Art 162/73 (104) 10:23:48 AO 132/79 (102) SA 10:34:50 LV 144/3, 27 10:43:50 LV 141/3, 26 10:43:58 LV 145/2, 27 10:44:59 LVp 145/2, 27 10:45:03 AOp 134/65 (92) 10:45:10 AO 136/65 (92) 10:45:11 Signed By Fredy Jose MD On 11/07/2021 11:06:03 Fredy Jose MD
== END 2021-11-07 12:35 | disposition home or self-care (01) ==
LOC: CLSP 08:36
PROVIDERS: PCP Family Medicine; Referring Provider Internal Medicine Cardiovascular Disease; Visit Provider Internal Medicine Cardiovascular Disease
DX: I25.118 Atherosclerotic heart disease of native coronary artery with other forms of angina pectoris (principal); N18.30 Chronic kidney disease, stage 3 unspecified; I12.9 Hypertensive chronic kidney disease with stage 1 through stage 4 chronic kidney disease, or unspecified chronic kidney disease; R94.39 Abnormal result of other cardiovascular function study; E78.5 Hyperlipidemia, unspecified; G47.33 Obstructive sleep apnea (adult) (pediatric); E66.9 Obesity, unspecified; N40.0 Benign prostatic hyperplasia without lower urinary tract symptoms; E03.9 Hypothyroidism, unspecified; K21.9 Gastro-esophageal reflux disease without esophagitis; Z79.82 Long term (current) use of aspirin; Z79.899 Other long term (current) drug therapy; Z86.718 Personal history of other venous thrombosis and embolism; Z86.711 Personal history of pulmonary embolism; Z87.891 Personal history of nicotine dependence
CPT/HCPCS: 93458; 99152; 99153; J7040; C1769; C1887; C1894; Q9967

== ENCOUNTER → 2021-12-16 | Outpatient (CLI) | payer MEDICARE, SELFPAY ==
[2021-12-16 09:19] LABS: Hemoglobin A1c 6.3 % (3.8-5.6)
[2021-12-16 09:36] LABS: ALB/GLOB Ratio 0.8 RATIO (0.9-2.4); AST(SGOT) 20 U/L (15-37); Alanine Aminotransfer ALT/SGPT 25 U/L (16-61); Albumin, Serum 3.3 g/dL (3.2-5.0); Alkaline Phosphatase 84 U/L (45-117); Anion Gap 9 (5-15); BUN 23 mg/dL (7-18); BUN/Creat Ratio 14.6 RATIO (10-20); Calcium,Total 8.9 mg/dL (8.5-10.1); Chloride 106 mmol/L (98-107); Creatinine, Serum 1.58 mg/dL (0.70-1.30); EST Glomerular Filtration Rate 46 mL/min (>60); Est Glom Filt Rate - Afr Amer 55 mL/min (>60); Glucose 104 mg/dL (74-106); Potassium 3.8 mmol/L (3.5-5.1); Protein, Total 7.3 g/dL (6.4-8.2); Sodium Level 140 mmol/L (136-145); T4 Free Direct 0.95 ng/dL (0.76-1.46); Thyroid Stim Hormone (TSH) 2.43 uIU/mL (0.358-3.74)
[2021-12-16 09:44] LABS: Microalbumin,Random Urine 86.7 mg/L (NO RANGE EST.); Microalbumin:Creatinine Ratio 61.1 mg/g CRE (<30 mg/g CRE)
== END | disposition home or self-care (01) ==
LOC: LAB 08:00
PROVIDERS: PCP Family Medicine; Referring Provider Internal Medicine Endocrinology, Diabetes & Metabolism; Visit Provider Internal Medicine Endocrinology, Diabetes & Metabolism
DX: E11.65 Type 2 diabetes mellitus with hyperglycemia (principal); E11.22 Type 2 diabetes mellitus with diabetic chronic kidney disease; I12.9 Hypertensive chronic kidney disease with stage 1 through stage 4 chronic kidney disease, or unspecified chronic kidney disease; E03.9 Hypothyroidism, unspecified; E78.00 Pure hypercholesterolemia, unspecified; N18.9 Chronic kidney disease, unspecified
CPT/HCPCS: 36415; 80053; 82043; 82306; 82570; 83036; 84439; 84443

== ENCOUNTER → 2022-06-15 | Outpatient (CLI) | payer MEDICARE, SELFPAY ==
[2022-06-15 09:12] LABS: Vitamin D,25 Hydroxy 47.8 ng/mL
[2022-06-15 09:25] LABS: ALB/GLOB Ratio 0.9 RATIO (0.9-2.4); AST(SGOT) 21 U/L (15-37); Alanine Aminotransfer ALT/SGPT 25 U/L (16-61); Albumin, Serum 3.4 g/dL (3.2-5.0); Alkaline Phosphatase 84 U/L (45-117); Anion Gap 7 (5-15); BUN 21 mg/dL (7-18); BUN/Creat Ratio 13.4 RATIO (10-20); Calcium,Total 9.2 mg/dL (8.5-10.1); Chloride 103 mmol/L (98-107); Cholesterol 176 mg/dL (200); Creatinine, Serum 1.57 mg/dL (0.70-1.30); EST Glomerular Filtration Rate 46 mL/min (>60); Est Glom Filt Rate - Afr Amer 55 mL/min (>60); Globulin 3.7 g/dL (2.2-4.2); Glucose 116 mg/dL (74-106); High Density Lipoprotein 52 mg/dL; Potassium 3.9 mmol/L (3.5-5.1); Protein, Total 7.1 g/dL (6.4-8.2); Sodium Level 140 mmol/L (136-145); T4 Free Direct 0.91 ng/dL (0.76-1.46); Thyroid Stim Hormone (TSH) 2.34 uIU/mL (0.358-3.74); Triglycerides 204 mg/dL; Very Low Density Lipoprotein 41 mg/dL (5-40)
[2022-06-15 10:22] LABS: Hemoglobin A1c 6.2 % (3.8-5.6)
== END | disposition home or self-care (01) ==
PROVIDERS: PCP Family Medicine; Referring Provider Internal Medicine Endocrinology, Diabetes & Metabolism; Visit Provider Internal Medicine Endocrinology, Diabetes & Metabolism
DX: E11.65 Type 2 diabetes mellitus with hyperglycemia (principal); E11.22 Type 2 diabetes mellitus with diabetic chronic kidney disease; N18.30 Chronic kidney disease, stage 3 unspecified; I12.9 Hypertensive chronic kidney disease with stage 1 through stage 4 chronic kidney disease, or unspecified chronic kidney disease; E03.9 Hypothyroidism, unspecified; E78.00 Pure hypercholesterolemia, unspecified
CPT/HCPCS: 36415; 80053; 80061; 82043; 82306; 83036; 84439; 84443

== ENCOUNTER → 2022-07-06 | Outpatient (CLI) | payer MEDICARE, SELFPAY | END | disposition home or self-care (01) | LOC: MFPLAB 14:00 → LABSPEC 14:00 | PROVIDERS: PCP Family Medicine; Visit Provider Family Medicine | DX: R81 Glycosuria (principal) | CPT/HCPCS: 87086; 87088 ==

== ENCOUNTER → 2022-07-27 | Outpatient (CLI) | payer MEDICARE, SELFPAY ==
[2022-07-27 10:25] LABS: Color, Urine Yellow (Yellow); Glucose, Dipstick 1000 mg/dl (Normal); Ketone-Dipstick Negative (Negative); Leukocyte Esterase-Dipstick Negative /ul (Negative); Nitrite-Dipstick Negative (Negative); Occult Blood-Urine Negative /ul (Negative); Protein-Dipstick 15 mg/dl (Negative); Urine Bilirubin Dipstick Negative (Negative); Urine Clarity Clear (Clear); Urine Urobilinogen Normal (Normal)
== END | disposition home or self-care (01) ==
LOC: LAB 10:02
PROVIDERS: PCP Family Medicine; Referring Provider Internal Medicine Endocrinology, Diabetes & Metabolism; Visit Provider Internal Medicine Endocrinology, Diabetes & Metabolism
DX: R30.9 Painful micturition, unspecified (principal)
CPT/HCPCS: 81002; 87086; 87088

== ENCOUNTER → 2022-08-10 | Outpatient (CLI) | payer MEDICARE, SELFPAY ==
--- NOTE | 2022-08-10 14:15 | RAD_ITS ---
STUDY: XR Chest 2 Views 08/10/2022 2:26 PM REASON FOR EXAM: Male, 77 years old. CHEST PAIN SHORTNESS OF BREATH COMPARISON: 7.1.22 TECHNIQUE: XR Chest 2 Views FINDINGS: There is no demonstrated pleural abnormality. Normal heart size. Normal mediastinum. Normal curt. Prominent appearing increased interstitial lung markings. Normal visualized pulmonary arteries. There is atherosclerotic calcification of the aortic arch with tortuosity. There are diffuse degenerative changes of the visualized thoracic spine. There is degenerative osteoarthritis of the bilateral shoulders. There is no demonstrated abnormality of the visualized soft tissue structures of the upper abdomen. RAD/Chest PA and Lateral IMPRESSION: There are no acute findings. Electronically Signed: Bunny Jensen MD at 15:40 EDT ,
[2022-08-10 16:08] LABS: Absolute Lymphocyte Count 1.05 X10^3/uL (0.83-4.51); Absolute Neutrophil Count 3.1 X10^3/uL (2.0-7.7); Basophil# 0.05 X10^3/uL; Eosinophil# 0.12 X10^3/uL; Eosinophils% 2.5 % (0-5); Hematocrit 45.1 % (40-54); Hemoglobin 13.9 g/dL (13.0-16.5); Lymphocyte # 1.05 X10^3/ul (0.83-4.51); Lymphocyte % 21.7 % (19-41); Mean Corp Hgb Conc 30.8 g/dL (32-36); Mean Corpuscular Hgb 28.7 pg (27.0-32.0); Mean Platelet Vol. 12.2 fl (6.2-12.0); Monocyte% 10.4 % (0-10); NRBC Flagged by Analyzer 0 % (0-5); Neutrophil # 3.09 X10^3/uL (2.7-7.7); Platelet Count 170 K/mm3 (150-450); RBC Distribution Width CV 13.9 % (11.6-14.6); Red Blood Count 4.85 M/mm3 (4.6-6.2); White Blood Count 4.8 K/mm3 (4.4-11.0)
[2022-08-10 16:23] LABS: Anion Gap 3 (5-15); BUN 27 mg/dL (7-18); BUN/Creat Ratio 16.5 RATIO (10-20); Calcium,Total 9.4 mg/dL (8.5-10.1); Chloride 106 mmol/L (98-107); Creatinine, Serum 1.64 mg/dL (0.70-1.30); EST Glomerular Filtration Rate 44 mL/min (>60); Est Glom Filt Rate - Afr Amer 53 mL/min (>60); Glucose 108 mg/dL (74-106); Potassium 3.8 mmol/L (3.5-5.1); Sodium Level 137 mmol/L (136-145)
== END | disposition home or self-care (01) ==
LOC: MTLAB 14:04
PROVIDERS: PCP Family Medicine; Referring Provider Family Medicine; Visit Provider Family Medicine
DX: R06.02 Shortness of breath (principal)
CPT/HCPCS: 36415; 71046; 80048; 85025

== ENCOUNTER → 2022-09-18 | Outpatient (CLI) | payer MEDICARE, SELFPAY ==
[2022-09-18 13:06] LABS: Hemoglobin A1c 6.2 % (3.8-5.6)
[2022-09-18 13:07] LABS: ALB/GLOB Ratio 0.9 RATIO (0.9-2.4); AST(SGOT) 31 U/L (15-37); Alanine Aminotransfer ALT/SGPT 28 U/L (16-61); Albumin, Serum 3.5 g/dL (3.2-5.0); Alkaline Phosphatase 86 U/L (45-117); Anion Gap 6 (5-15); BUN 26 mg/dL (7-18); BUN/Creat Ratio 17.6 RATIO (10-20); Calcium,Total 9.1 mg/dL (8.5-10.1); Chloride 108 mmol/L (98-107); Cholesterol 176 mg/dL (200); Creatinine, Serum 1.48 mg/dL (0.70-1.30); EST Glomerular Filtration Rate 49 mL/min (>60); Est Glom Filt Rate - Afr Amer 59 mL/min (>60); Globulin 3.9 g/dL (2.2-4.2); Glucose 114 mg/dL (74-106); High Density Lipoprotein 56 mg/dL; Potassium 3.8 mmol/L (3.5-5.1); Protein, Total 7.4 g/dL (6.4-8.2); Sodium Level 139 mmol/L (136-145); T4 Free Direct 0.99 ng/dL (0.76-1.46); Thyroid Stim Hormone (TSH) 1.39 uIU/mL (0.358-3.74); Triglycerides 217 mg/dL; Very Low Density Lipoprotein 43 mg/dL (5-40)
[2022-09-18 13:11] LABS: Microalbumin,Random Urine 77.5 mg/L (NO RANGE EST.)
== END | disposition home or self-care (01) ==
LOC: LAB 11:32
PROVIDERS: PCP Family Medicine; Referring Provider Internal Medicine Endocrinology, Diabetes & Metabolism; Visit Provider Internal Medicine Endocrinology, Diabetes & Metabolism
DX: E11.65 Type 2 diabetes mellitus with hyperglycemia (principal); E11.22 Type 2 diabetes mellitus with diabetic chronic kidney disease; I12.9 Hypertensive chronic kidney disease with stage 1 through stage 4 chronic kidney disease, or unspecified chronic kidney disease; E78.00 Pure hypercholesterolemia, unspecified; E03.9 Hypothyroidism, unspecified; N18.9 Chronic kidney disease, unspecified
CPT/HCPCS: 36415; 80053; 80061; 82043; 83036; 84439; 84443

== ENCOUNTER 2022-10-03 09:31 | Day surgery (SDC) | payer MEDICARE, SELFPAY ==
[2022-10-03 09:54] VITALS: BP 132/61; PULSE 52; RESP 18; TEMP 35.7; O2SAT 97; BMI 31.5
[2022-10-03] MEDS: Lactated Ringers 1,000 ML 15 ML IV (10:03)
--- NOTE | 2022-10-03 10:17 | HP.PCM_ITS ---
History and Physical Date of Admission: 10/03/22 77 M who presents to the office today to establish care. PCP OV 1.10. with recommendation for colon cancer screening. Due to his age of 76 years he is no eligible for open access screening services.? ? ROS Const Constitutional: No anorexia, fatigue, fever(s), weight change or sleep problems Eyes Eyes: No change in vision ENT ENT: No abnormal hearing, difficulty swallowing, mouth lesions, tongue swelling or throat swelling Resp Respiratory: No cough or shortness of breath Cardio Cardiology: No chest pain at rest, chest pain with exertion, shortness of breath or dyspnea on exertion Gastro GI: No difficulty swallowing Genitourinary Male: No difficulty urinating or burning urination Musc Musculoskeletal: No joint pain, joint swelling, muscle weakness or decreased muscle mass Skin Skin: No hair loss in leg, yellowing of the eye, itchy eyes, rash, skin ulcer or skin swelling Neuro Neurology: No abnormal hearing, abnormal movements, confusion, unsteady gait/balance or memory loss Psych Psychiatric: No anxiety, No confusion and No memory loss Endo Endocrine: No fatigue or weight change Aller/Imm Allergy/Immunologic: No itchy eyes, throat swelling or tongue swelling Wilbert/Lymp Hematologic/Lymphatic: No easy bleeding, easy bruising or enlarged lymph nodes Exam Const General: cooperative and comfortable Nutritional Appearance: average body habitus and well nourished [facility] Head: normal to inspection Ears: hearing grossly normal bilaterally Nose: external nose normal Face and sinus: normal facial exam Mouth: oral mucosae normal Throat: posterior oropharynx normal Eyes General: appearance normal, both eyes and all related structures Neck Neck: normal visual inspection Chest Chest palpation & inspection: normal inspection of the chest and normal palpation of entire chest wall Resp Effort & Inspection: normal respiratory effort Auscultation: Bilateral: Clear to Auscultation Cardio Palpation: normal PMI Rate: regular rate Rhythm: regular rhythm GI Inspection: normal to inspection Auscultation: normal bowel sounds Percussion: normal to percussion Palpation: no hepatosplenomegaly Skin General: no rashes or lesions noted Neuro General: patient alert Extrem General: normal to inspection Psych Affect: normal affect Quality Reporting Tobacco Screening ([facility] 138) Smoking Status: Former smoker Assessment and Plan Assessment and Plan (1) Duodenal adenoma: ?Status:?Acute ?Plan: He has a history of gastroesophageal reflux disease.? Duodenal adenoma.? He will get an upper endoscopy to evaluate his upper GI tract. (2) Colon polyps: ?Status:?Acute ?Plan: ? He has personal history of adenomatous polyps with his last colonoscopy for very poor prep.? SPECT because of his diabetes.? We will give.? MiraLAX solution plus stool softeners.? Hopefully he will be clean For the procedure. I have examined the patient and the H&P has been reviewed. There are no clinical changes since date of exam.
--- NOTE | 2022-10-03 10:30 | COLBX_PTH ---
PATIENT: KAREN ROBERT LOC: EN U#:[id number] AGE/SX: 77/M ROOM: RE10/03/[address]: Dr. Russell Das DO : 1945 BED: DIS: 10/03/2022 SPEC #: [id number] RECD: 10/03/22 13:23 STATUS: TERI REJolene #: [id number] YEIMY: 10/03/22 10:[address]: Russell Das DEPT: SURGICAL PATHOLOGY RECD BY: Yesica Garcia ENTERED: 10/04/22 08:43 SP TYPE: COLON BX OTHR DR: Dr. Deanne Kohli MD Tissues: COLON BIOPSY Procedures: Surgery Specimen Level IV HEADER OPERATION: [place]oscopy with biopsies[place] [place] DIAGNOSIS: Duodenal adenoma, colon polyps TISSUE SUBMITTED: Hepatic flexure MICROSCOPIC DIAGNOSIS Colon at hepatic flexure, biopsy: Fragments of tubular adenoma. AM:jewels 10/05/2022 MICROSCOPIC DESCRIPTION Slides are reviewed. GROSS DESCRIPTION Received in fixative is one container labeled with the patient's name and designated hepatic flexure. The specimen consists of multiple irregular fragments of light bond soft tissue that in aggregate measure 0.6 x 0.5 x 0.1 cm. The specimen is totally submitted in one cassette. / AM:jewels 10/04/2022 TC:5 CPT: 70301
[2022-10-03 11:37] VITALS: BP 118/61; BP 132/61; PULSE 66; RESP 16; TEMP 36.3; O2SAT 100
[2022-10-03 11:38] LABS: Bedside Glucose 106 mg/dL (74-106)
--- NOTE | 2022-10-03 11:40 | OP.EGD_ITS ---
Patient Name: Suleman Vazquez Procedure Date: 10/03/2022 10:54 AM Date of : 1945 Age: 77 Procedure: Upper GI endoscopy Indications: Functional Dyspepsia Providers: Russell Das DO Medicines: Monitored Anesthesia Care Patient Profile: This is a 77 year old male. Refer to note in patient chart for documentation of history and physical. Patient has symptoms of chronic dyspepsia. Complications: No immediate complications. Procedure: Pre-Anesthesia Assessment: - Prior to the procedure, a History and Physical was performed, and patient medications and allergies were reviewed. The patient is competent. The risks and benefits of the procedure and the sedation options and risks were discussed with the patient. All questions were answered and informed consent was obtained. Patient identification and proposed procedure were verified by the physician. Mental Status Examination: normal. Prophylactic Antibiotics: The patient does not require prophylactic antibiotics. Prior Anticoagulants: The patient has taken no previous anticoagulant or antiplatelet agents. ASA Grade Assessment: II - A patient with mild systemic disease. After reviewing the risks and benefits, the patient was deemed in satisfactory condition to undergo the procedure. The anesthesia plan was to use monitored anesthesia care (MAC). Immediately prior to administration of medications, the patient was re-assessed for adequacy to receive sedatives. The heart rate, respiratory rate, oxygen saturations, blood pressure, adequacy of pulmonary ventilation, and response to care were monitored throughout the procedure. The physical status of the patient was re-assessed after the procedure. After obtaining informed consent, the endoscope was passed under direct vision. Throughout the procedure, the patient's blood pressure, pulse, and oxygen saturations were monitored continuously. The pediatric colonoscope was introduced through the mouth, and advanced to the second part of duodenum. The upper GI endoscopy was accomplished without difficulty. The patient tolerated the procedure well. Scope In: 11:03:34 AM Scope Out: 11:06:27 AM Total Procedure Duration Time 0 hours 2 minutes 53 seconds Findings: The examined esophagus was normal. A small hiatal hernia was present. The exam of the stomach was otherwise normal. The second portion of the duodenum was normal. Impression: - Normal esophagus. - Small hiatal hernia. - Normal second portion of the duodenum. - No specimens collected. Recommendation: - Discharge patient to home. - Resume previous diet. - Continue present medications. Procedure Code(s): --- Professional --- 46571, Esophagogastroduodenoscopy, flexible, transoral; diagnostic, including collection of specimen(s) by brushing or washing, when performed (separate procedure) CPT copyright 2017 [employer]. All rights reserved. The codes documented in this report are preliminary and upon butter maker review may be revised to meet current compliance requirements. Russell Das DO 10/03/2022 11:39:50 AM This report has been signed electronically. Number of Addenda: 0 Note Initiated On: 10/03/2022 10:54 AM
--- NOTE | 2022-10-03 11:41 | OP.CCLET_ITS ---
10/03/2022 Deanne Kohli [address] [place] [address] Re : Upper GI endoscopy procedure for Suleman Vazquez Dear Dr. Kohli This procedure was performed on Monday, October 03, 2022. My impressions and recommendations are as follows: Impressions : - Normal esophagus. - Small hiatal hernia. - Normal second portion of the duodenum. - No specimens collected. Recommendations : - Discharge patient to home. - Resume previous diet. - Continue present medications. My findings are described in the full procedure note, which is enclosed. If I can be of further assistance, please feel free to contact me at . Sincerely, Russell Das DO 10/03/2022 11:39:50 AM This report has been signed electronically.
[2022-10-03 11:45] VITALS: BP 118/61; BP 132/61; PULSE 70; RESP 12; O2SAT 99
--- NOTE | 2022-10-03 11:45 | OP.COLON_ITS ---
Patient Name: Suleman Vazquez Procedure Date: 10/03/2022 11:07 AM Date of : 1945 Age: 77 Procedure: Colonoscopy Indications: Screening for colorectal malignant neoplasm Providers: Russell Das DO Medicines: Monitored Anesthesia Care Patient Profile: This is a 77 year old male. Refer to note in patient chart for documentation of history and physical. Patient has symptoms of chronic dyspepsia. Last Colonoscopy: more than 3 years ago. Complications: No immediate complications. Procedure: Pre-Anesthesia Assessment: - Prior to the procedure, a History and Physical was performed, and patient medications and allergies were reviewed. The patient is competent. The risks and benefits of the procedure and the sedation options and risks were discussed with the patient. All questions were answered and informed consent was obtained. Patient identification and proposed procedure were verified by the physician. Mental Status Examination: normal. Prophylactic Antibiotics: The patient does not require prophylactic antibiotics. Prior Anticoagulants: The patient has taken no previous anticoagulant or antiplatelet agents. ASA Grade Assessment: II - A patient with mild systemic disease. After reviewing the risks and benefits, the patient was deemed in satisfactory condition to undergo the procedure. The anesthesia plan was to use monitored anesthesia care (MAC). Immediately prior to administration of medications, the patient was re-assessed for adequacy to receive sedatives. The heart rate, respiratory rate, oxygen saturations, blood pressure, adequacy of pulmonary ventilation, and response to care were monitored throughout the procedure. The physical status of the patient was re-assessed after the procedure. After I obtained informed consent, the scope was passed under direct vision. Throughout the procedure, the patient's blood pressure, pulse, and oxygen saturations were monitored continuously. The pediatric colonoscope was introduced through the anus and advanced to the cecum, identified by appendiceal orifice and ileocecal valve. The colonoscopy was performed without difficulty. The patient tolerated the procedure well. The quality of the bowel preparation was fair. Moderate Sedation: Moderate (conscious) sedation was personally administered by an anesthesia professional. The following parameters were monitored: oxygen saturation, heart rate, blood pressure, respiratory rate, EKG, adequacy of pulmonary ventilation, and response to care. Scope In: 11:09:04 AM Scope Withdrawal Time 0 hours 10 minutes 10 seconds Scope Out: 11:33:17 AM Total Procedure Duration Time 0 hours 24 minutes 13 seconds Findings: The perianal and digital rectal examinations were normal. Multiple large-mouthed diverticula were found in the recto-sigmoid colon, sigmoid colon, descending colon, splenic flexure and hepatic flexure. Stool was found in the rectum, in the recto-sigmoid colon, in the sigmoid colon, in the descending colon and in the cecum. A 7 mm polyp was found in the hepatic flexure. The polyp was sessile. The polyp was removed with a cold snare. Resection and retrieval were complete. Verification of patient identification for the specimen was done. Estimated blood loss was minimal. Impression: - Preparation of the colon was fair. - Diverticulosis in the recto-sigmoid colon, in the sigmoid colon, in the descending colon, at the splenic flexure and at the hepatic flexure. - Stool in the rectum, in the recto-sigmoid colon, in the sigmoid colon, in the descending colon and in the cecum. - One 7 mm polyp at the hepatic flexure, removed with a cold snare. Resected and retrieved. Recommendation: - Repeat colonoscopy in 3 years for surveillance. - Continue present medications. Procedure Code(s): --- Professional --- 53454, Colonoscopy, flexible; with removal of tumor(s), polyp(s), or other lesion(s) by snare technique CPT copyright 2017 [employer]. All rights reserved. The codes documented in this report are preliminary and upon hcc coders review may be revised to meet current compliance requirements. Russell Das DO 10/03/2022 11:44:50 AM This report has been signed electronically. Number of Addenda: 0 Note Initiated On: 10/03/2022 11:07 AM
--- NOTE | 2022-10-03 11:46 | OP.CCLET_ITS ---
10/03/2022 Deanne Kohli [address] [place] [address] Re : Colonoscopy procedure for Suleman Vazquez Dear Dr. Kohli This procedure was performed on Monday, October 03, 2022. My impressions and recommendations are as follows: Impressions : - Preparation of the colon was fair. - Diverticulosis in the recto-sigmoid colon, in the sigmoid colon, in the descending colon, at the splenic flexure and at the hepatic flexure. - Stool in the rectum, in the recto-sigmoid colon, in the sigmoid colon, in the descending colon and in the cecum. - One 7 mm polyp at the hepatic flexure, removed with a cold snare. Resected and retrieved. Recommendations : - Repeat colonoscopy in 3 years for surveillance. - Continue present medications. My findings are described in the full procedure note, which is enclosed. If I can be of further assistance, please feel free to contact me at . Sincerely, Russell Das DO 10/03/2022 11:44:50 AM This report has been signed electronically.
[2022-10-03 11:50] VITALS: BP 124/65; BP 132/61; PULSE 71; RESP 16; O2SAT 100
[2022-10-03 11:55] VITALS: BP 127/74; BP 132/61; PULSE 67; RESP 16; TEMP 36.4; O2SAT 96
[2022-10-03 12:12] VITALS: BP 132/61
== END 2022-10-03 12:38 | disposition home or self-care (01) ==
LOC: EN 09:32 → AC 09:33
PROVIDERS: PCP Family Medicine; Referring Provider Family Medicine; Visit Provider Internal Medicine Gastroenterology
PROC: 0DJD8ZZ Inspection of Lower Intestinal Tract, Via Natural or Artificial Opening Endoscopic (ICD-10-PCS; CPT 45378; principal; 2022-10-03 10:25)
DX: Z12.11 Encounter for screening for malignant neoplasm of colon (principal); E11.22 Type 2 diabetes mellitus with diabetic chronic kidney disease; N18.30 Chronic kidney disease, stage 3 unspecified; D12.3 Benign neoplasm of transverse colon; K44.9 Diaphragmatic hernia without obstruction or gangrene; K57.30 Diverticulosis of large intestine without perforation or abscess without bleeding; I12.9 Hypertensive chronic kidney disease with stage 1 through stage 4 chronic kidney disease, or unspecified chronic kidney disease; K21.9 Gastro-esophageal reflux disease without esophagitis; E03.9 Hypothyroidism, unspecified; Z87.891 Personal history of nicotine dependence; Z86.010 Personal history of colon polyps; Z86.718 Personal history of other venous thrombosis and embolism; Z99.81 Dependence on supplemental oxygen; Z79.899 Other long term (current) drug therapy; Z79.01 Long term (current) use of anticoagulants; Z86.711 Personal history of pulmonary embolism
CPT/HCPCS: 45385; 43235; 82962; 88305; J7120; J2405

== ENCOUNTER → 2022-11-21 | Outpatient (CLI) | payer MEDICARE, SELFPAY ==
[2022-11-21 14:57] LABS: Troponin-I HS 9 pg/mL (3.0-78.0)
== END | disposition home or self-care (01) ==
LOC: LAB 13:50
PROVIDERS: PCP Family Medicine; Referring Provider Family Medicine; Visit Provider Family Medicine
DX: R07.9 Chest pain, unspecified (principal)
CPT/HCPCS: 36415; 84484

== ENCOUNTER → 2023-01-29 | Outpatient (CLI) | payer MEDICARE, SELFPAY ==
[2023-01-29 10:10] LABS: Microalbumin:Creatinine Ratio 58.7 mg/g CRE (<30 mg/g CRE)
[2023-01-29 10:39] LABS: Vitamin D,25 Hydroxy 50.9 ng/mL
[2023-01-29 11:33] LABS: ALB/GLOB Ratio 0.8 RATIO (0.9-2.4); AST(SGOT) 23 U/L (15-37); Alanine Aminotransfer ALT/SGPT 27 U/L (16-61); Albumin, Serum 3.2 g/dL (3.2-5.0); Alkaline Phosphatase 91 U/L (45-117); Anion Gap 5 (5-15); BUN 23 mg/dL (7-18); BUN/Creat Ratio 14.8 RATIO (10-20); Calcium,Total 8.7 mg/dL (8.5-10.1); Chloride 109 mmol/L (98-107); Creatinine, Serum 1.55 mg/dL (0.70-1.30); EST Glomerular Filtration Rate 46 mL/min (>60); Est Glom Filt Rate - Afr Amer 56 mL/min (>60); Globulin 4.1 g/dL (2.2-4.2); Glucose 113 mg/dL (74-106); Potassium 3.9 mmol/L (3.5-5.1); Protein, Total 7.3 g/dL (6.4-8.2); Sodium Level 141 mmol/L (136-145); T4 Free Direct 0.94 ng/dL (0.76-1.46); Thyroid Stim Hormone (TSH) 1.99 uIU/mL (0.358-3.74)
[2023-01-29 11:59] LABS: Hemoglobin A1c 6.3 % (3.8-5.6)
== END | disposition home or self-care (01) ==
PROVIDERS: PCP Family Medicine; Referring Provider Internal Medicine Endocrinology, Diabetes & Metabolism; Visit Provider Internal Medicine Endocrinology, Diabetes & Metabolism
DX: E11.22 Type 2 diabetes mellitus with diabetic chronic kidney disease (principal); E11.65 Type 2 diabetes mellitus with hyperglycemia; I12.9 Hypertensive chronic kidney disease with stage 1 through stage 4 chronic kidney disease, or unspecified chronic kidney disease; E03.9 Hypothyroidism, unspecified; E55.9 Vitamin D deficiency, unspecified; N18.9 Chronic kidney disease, unspecified
CPT/HCPCS: 36415; 80053; 82043; 82306; 82570; 83036; 84439; 84443; 84481

== ENCOUNTER → 2023-04-19 | Outpatient (CLI) | payer MEDICARE, SELFPAY ==
--- OUTSIDE RECORDS SUMMARY | 2023-04-19 08:56 | XMS RPT_ITS | CCD ---
Author Name Unknown Address [address] [place] [address] Organization [facility] Care Team Providers Care Field Health Officer Name Role Phone Deanne Kohli Primary Care Provider KEVAN RUSSELL, DR TRAYLOR Primary Care Physician Deanne Kohli Primary Care Provider DEANNE KOHLI Primary Care Unavailable MADITZ, ARIS Referring Unavailable JOLLADRIEL, DEANNE YUNG Primary Care Unavailable RANDI, EVELIO Referring Unavailable Deanne Kohli Primary Care Provider [phone] MADITZ, ARIS Referring Unavailable MADITZ, ARIS Attending Unavailable JOLLIFF, DEANNE YUNG Primary Care Unavailable RANDI, EVELIO Referring Unavailable JOLLIFF, DEANNE YUNG Primary Care Unavailable JOLLIFF, DEANNE YUNG Primary Care Unavailable RANDI, EVELIO Referring Unavailable RANDI, EVELIO Attending Unavailable JOLLIFF, DEANNE YUNG Primary Care Unavailable RANDI, EVELIO Referring Unavailable JOLLIFF, DEANNE YUNG Primary Care Unavailable Allergies Allergy Classification Reported Allergen(s) Allergy Type Date of Onset Reaction(s) Facility (15 sources) benazepril; Translations: [benazepril] Drug Allergy 7 Unknown [facility] (15 sources) Fosinopril; Translations: [fosinopril] Drug Allergy 7 Unknown [facility] (6 sources) Penicillins; Translations: [PENICILLINS] Drug Allergy 7 Unknown [facility] (14 sources) Bee Venom Protein (Honey Bee); Translations: [BEE VENOM PROTEIN (HONEY BEE)] Drug Allergy 7 Other: See Comments [facility] (8 sources) Penicillins Drug Allergy 7 Unknown [facility] (1 source) Amoxicillin; Translations: [amoxicillin] Drug Allergy [facility] (1 source) Bee/Wasp/Ant venom Allergy to substance [facility] Medications Current Medications Medication Drug Class(es) Dates Sig (Normalized) Sig (Original) apixaban 5 mg oral tablet (13 sources) Factor Xa Inhibitor Start: 10-06-2021 End: 10-06-2022 take 0.5 tablet by mouth twice daily ELIQUIS 5 mg tab(s) Take 0.5 tablets by mouth twice daily. 30 tablet 11 10/06/2021 10/06/2022 Active Completed/Discontinued Medications Medication Drug Class(es) Dates Sig (Normalized) Sig (Original) ascorbic acid 500 mg oral tablet (12 sources) Vitamin C take 1 tablet by prince th once daily ascorbic acid, vitamin C, (VITAMIN C) 500 mg tablet Take 500 mg by mouth once daily. 0 Active Problems Active Problems Problem Classification Problem Date Documented Da te Episodic/Chronic Anxiety disorders (1 source) Anxiety disorder 10-29-2014 Chronic Aortic and peripheral arteri al embolism or thrombosis (1 source) Embolism 10-29-2014 Chronic Past or Other Problems Problem Classification Problem Date Documented Da te Episodic/Chronic Other connective tissue disease (12 sources) Full thickness rotator cuff tear; Translations: [Complete rotator cuff tear or rupture of right shoulder, not specified as traumatic] Onset: 06-16-2018 06-16-2018 Episodic Results Test Name Value Interpretation Reference Range Facil ity Vital Signs Date Time Vital Sign Value Performing Clinician Facility 04-10-2022 14:15-0500 Body height 172.7 cm Conject DO Work Phone: [facility] 04-10-2022 14:15-0500 Body weight 94.8 kg Conject DO Work Phone: [facility] 04-10-2022 14:15-0500 Diastolic blood pressure 75 mm[Hg] Conject DO Work Phone: [facility] 04-10-2022 14:15-0500 Heart rate 65 /min Conject DO Work Phone: [facility] 04-10-2022 14:15-0500 Systolic blood pressure 147 mm[Hg] Conject DO Work Phone: [facility] 11-03-2021 10:51-0400 Diastolic Blood Pressure NBP [address] JV LILLY MD [facility] 11-03-2021 10:51-0400 Heart rate 59 /min DR JV LILLY MD [facility] 11-03-2021 10:51-0400 Respiratory rate 18 /min DR JV LILLY MD [facility] 11-03-2021 10:51-0400 Systolic Blood Pressure NBP [address] JV LILLY MD [facility] 11-03-2021 10:34-0400 Diastolic Blood Pressure NBP [address] JV LILLY MD [facility] 11-03-2021 10:34-0400 Heart rate 60 /min DR JV LILLY MD [facility] 11-03-2021 10:34-0400 Respiratory rate 17 /min DR JV LILLY MD [facility] 11-03-2021 10:34-0400 Systolic Blood Pressure NBP [address] JV LILLY MD [facility] 11-03-2021 10:28-0400 Diastolic Blood Pressure NBP [address] JV LILLY MD [facility] 11-03-2021 10:28-0400 Heart rate 53 /min DR JV LILLY MD [facility] 11-03-2021 10:28-0400 Respiratory rate 18 /min DR JV LILLY MD [facility] 11-03-2021 10:28-0400 Systolic Blood Pressure NBP [address] JV LILLY MD [facility] 11-03-2021 10:11-0400 Body temperature 97.34 [degF] DR JV LILLY MD [facility] 11-03-2021 08:04-0400 Body height 172.[address] JV LILLY MD [facility] 11-03-2021 08:04-0400 Body temperature 97.88 [degF] DR JV LILLY MD [facility] 11-03-2021 08:04-0400 Body weight 92.[address] JV LILLY MD [facility] 11-03-2021 08:04-0400 Heart rate 46 /min DR JV LILLY MD [facility] 10-06-2021 13:17-0400 Body height 172.7 cm Aris Maditz DO Work Phone: [facility] 10-06-2021 13:17-0400 Body weight 94.8 kg Aris Maditz DO Work Phone: [facility] 10-06-2021 13:17-0400 Diastolic blood pressure 79 mm[Hg] Aris Maditz DO Work Phone: [facility] 10-06-2021 13:17-0400 Heart rate 55 /min Aris Maditz DO Work Phone: [facility] 10-06-2021 13:17-0400 Systolic blood pressure 160 mm[Hg] Aris Maditz DO Work Phone: [facility] Encounters Encounter Date Encounter Type Care Provider Facility Start: 04-03-2023 End: 04-04-2023 ambulatory EVELIO BRYAN Facility:[facility] Start: 01-26-2023 End: 01-26-2023 ambulatory DEANNE KOHLI Facility:[facility] Start: 01-26-2023 End: 01-26-2023 ambulatory Immun[facility] Nurse [facility] Work Phone: [facility] Start: 10-02-2022 End: 10-02-2022 ambulatory Evelio Bryan MD Work Phone: Urology Procedures Date Procedure Procedure Detail Performing Clinician Start: 01-26-2023 PFIZER-BIONTECH COVI D-19 VACCINE ( SEASON) AGE 12+ YR Luis Daniel Hankins MD Work Phone: Start: 01-26-2023 INFLUENZA VACCINE, P RSV FREE, AGE 65+ YR, HIGH DOSE, QUADRIVALENT (FLUZONE HIGH-DOSE) Anyg Avitia MD Work Phone: Start: 10-20-2021 Us retroperitoneal r eal time w/image complete Aris Bakari SANCHEZ Work Phone: Start: 04-15-2020 Prostatic structure (body structure) DR JV LILLY MD Plan of Treatment Date Care Activity Detail Author Start: 09-14-2023 DIABETES SCREEN DIABETES SCREEN [facility] Start: 09-14-2023 Diabetes Screening Diabetes Screenin g [facility] Start: 04-10-2023 SERUM CREATININE SERUM CREATININE [facility] Start: 04-03-2023 End: 06-03-2023 Prostate Specific Ag Free [Mass/volume] in Serum or Plasma PSA FREE Lab Routine Malignant neoplasm of prostate (HCC) Expected: 04/03/2023 (Approximate), Expires: 06/03/2023 [facility] Work Phone: Immunizations Immunization Date Immunization Notes Care Provider Fa josué 01-26-2023 COVID-19 vaccine, ag e 12+ yr, season (PFIZER-BIONTECH) Immunization [place] Work Phone: [facility] Work Phone: 01-26-2023 influenza (HD-IIV4) vaccine, age 65+ yr, high dose, quadrivalent, PF (FLUZONE HIGH-DOSE) Immunization [place] Work Phone: [facility] 01-21-2021 influenza, high-dose , quadrivalent vaccine (FLUZONE HIGH DOSE QUADRIVALENT) Evelio Bryan MD Work Phone: [facility] Work Phone: Payers Date Payer Category Payer Medicare MMO MEDICARE MMO MEDADVANTAGE HMO [id number] 2020-Present [phone] [address] [place] [address] HMO [id number] 2020 Medicare MMO MEDICARE MMO MEDADVANTAGE HMO [id number] 2020-Present [phone] [address] [place] [address] HMO [id number] 2020 Unknown [id number] Social History Date Type Detail Facility Start: 10-26-2011 End: 04-10-2022 Tobacco smoking status NHIS Ex-smoker [facility] in Medical Equipment Procedure Code Equipment Code Equipment Origin al Text Equipment Identifier Dates Coil Concerto Latticefx 2mm Helical Nylon Polypropylene 4cm Embolization - [id number] Start: 09-19-2020 Coil Vortx 3mm . 18mm Torres Martinez Fiber 22mm 20.5mm Embolization Occlusion - [id number] Start: 09-19-2020 Coil Tornado 3-2 mm .018in Torres Martinez 2cm Embolization Microcoil Malformation - [id number] Start: 09-19-2020 Coil Concerto Latticefx 2mm Helical Nylon Polypropylene 4cm Embolization - [id number] Start: 09-19-2020 Coil Concerto Latticefx 2mm Helical Nylon Polypropylene 4cm Embolization - [id number] Start: 09-19-2020 Coil Concerto Latticefx 2mm Helical Nylon Polypropylene 4cm Embolization - [id number] Start: 09-19-2020 Sphere Embospher e 100-300um Microsphere Round Yellow Normal Saline - [id number] Start: 09-19-2020 Coil Vortx 3mm . 18mm Torres Martinez Fiber 22mm 20.5mm Embolization Occlusion - [id number] Start: 09-19-2020 Device Angio-Sea l Vip 6fr .035in Collagen 70cm Closure Valuelink Guidewire - [id number] Start: 09-19-2020 Coil Tornado 3-2 mm .018in Torres Martinez 2cm Embolization Microcoil Malformation - [id number] Start: 09-19-2020 Coil Tornado 3-2 mm .018in Torres Martinez 2cm Embolization Microcoil Malformation - [id number] Start: 09-19-2020 See Instructions , onetouch delica lancets, 1 lancet daily and as needed #100 for 90 days 3 refills., # 1 EA, 0 Refill(s), Pharmacy: [facility]/pharmacy #[id number], Diabetes type 2, controlled, 172.7, cm, 06/22/21 8:36:00 EST, Height, 96.8, kg, 06/22/21 8:36:00 ES... Start: 06-22-2021 See Instructions , one touch ultra blue test strips, one strip daily and as needed #150strips/90days, # 1 EA, 3 Refill(s), Pharmacy: [facility]/pharmacy #[id number], Controlled type 2 diabetes mellitus, 172.72, cm, 06/01/19 9:08:00 EST, Height, 94.55, kg, 06/01/19... Start: 11-17-2019 Functional Status Date Assessment Result Facility 11-03-2021 Functional Status Awake [facility] [place] 11-03-2021 [facility] [place] Mental Status Date Assessment Result Facility 11-03-2021 [facility] Clinical Notes 08-01-2021 to 10-02-2022 Evelio Bryan MD - 10/02/2022 8:00 AM EDTTelephone Encounter - Kate Childs Addictions Counselor II - 08/14/2022 12:27 PM EDT Note Date & Type Note Facility 10-02-2022 Note HNO ID: [id number] Author: Evelio Bryan MD Service: ? Author Type: Physician Type: Progress Notes Filed: 10/02/2022 8:40 AM Note Text: VIRTUAL VISIT PROGRESS NOTE This is a virtual visit using Simplesurance video visit. It required patient-provider interaction for the medical decision making as documented below. I have communicated my name and active licensure. The patient's identity and physical location were verified at the time of this visit. Either the patient or their legal major account representative has been informed of the risks and benefits of -- and alternatives to -- treatment through a remote evaluation and consents to proceed with the evaluation remotely. Persons Present: patient Chief Complaint:followup prostate cancer HPI: Karen Vazquez is a 77 year old male seen in follow up for prostate cancer. 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 He has had repeat biopsies in 2011 (GG1), 2013 (GG1), and 2016 (benign) He underwent PAE 09/[address] Quispe MRI 01/23/2022 - PI-RADS 2, volume 152 cc He was last seen 04/03/2022 - plan for PSA 6 months PSA (ng/mL) Date Value 09/26/2022 11.68 03/27/2022 12.23 10/03/2021 9.26 05/30/2021 12.14 04/04/2021 6.84 05/12/2020 22.95 11/19/2019 16.99 Interval hx: No issues since last visit Concerned about PSA trends Started on jardiance in June - was warned to watch for dysuria Reports soreness at tip of penis Stopped jardiance given the soreness but this has not improved. No skin changes or redness. Reports urinalysis was done recently without sign of infection HISTORY REVIEWED (electronic chart updated): PAST MEDICAL HISTORY Diagnosis Date Basal cell carcinoma Nose and Right cheek Depressive disorder, not elsewhere classified DVT (deep venous thrombosis) (HCC) Esophageal reflux Essential hypertension, benign Osteoarthrosis, unspecified whether generalized or localized, other specified sites Other and unspecified hyperlipidemia Pulmonary embolism (HCC) 02/2019 PAST SURGICAL HISTORY Procedure Laterality Date BIOPSY OF SKIN LESION RPR INGUN HERNIA SLIDING ANY AGE No family history on file. Social History Tobacco Use Smoking status: Former Types: Cigarettes Quit date: 04/15/1982 Years since quittin.4 Smokeless tobacco: Never Tobacco comments: pt stopped smoking 35yers ago Substance Use Topics Alcohol use: No Drug use: No Current Outpatient Medications Medication Sig oxybutynin ER (DITROPAN XL) 10 mg 24 hr tablet Take 1 tablet by mouth once daily. tamsulosin (FLOMAX) 0.4 mg Take 1 capsule by mouth once daily. ELIQUIS 5 mg tab(s) Take 0.5 tablets by mouth twice daily. desvenlafaxine ER (PRISTIQ) 50 mg 24 hr tablet Take 50 mg by mouth once daily. losartan (COZAAR) 25 mg tablet 50 mg once daily. multivitamin (MULTIPLE VITAMINS ORAL) MULTIVITAMIN ADULT TABS sildenafil (VIAGRA) 100 mg tablet Take one tablet by mouth 1 hour prior to sexual activity. levothyroxine (SYNTHROID) 25 mcg tablet Take 1 tablet by mouth daily before breakfast. esomeprazole (NEXIUM) 40 mg capsule Take 40 mg by mouth once daily. LACTASE (LACTAID ORAL) Take by mouth once daily. rosuvastatin (CRESTOR) 20 mg tablet Take 20 mg by mouth once daily. Hydrochlorothiazide 12.5 mg ORAL capsule Take 12.5 mg by mouth once daily. metoprolol tartrate, short acting, 50 mg ORAL tablet Take 25 mg by mouth twice daily. ascorbic acid, vitamin C, (VITAMIN C) 500 mg tablet Take 500 mg by mouth once daily. MULTIVITAMIN/IRON/FOLIC ACID (CENTRUM COMPLETE ORAL) Take by mouth once daily. No current facility-administered medications for this visit. ALLERGIES Allergen Reactions Bee Venom Protein (* Other: See Comments Benazepril Unknown Fosinopril Unknown Penicillins Unknown REVIEW OF SYSTEMS: GENERAL: feeling well without fatigue, no recent change in weight : as per HPI ENDOCRINE: recently started on jardiance PHYSICAL EXAMINATION: VIDEO EXAM: (if completed, performed via video enabled technology) GENERAL: alert and appropriate, in no distress and well-hydrated, well nourished SKIN: no rash noted HEAD: normocephalic EYES: anicteric sclerae EARS: normal external ears NOSE: normal external nose RESPIRATORY: breathing non-labored ASSESSMENT: (C61) Malignant neoplasm of prostate (HCC) (primary encounter diagnosis) (N40.1, N13.8) 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 It required patient-provider interaction for the medical decision making as documented below. I have communicated my name and active licensure. The patient's identity and physical location were verified at the time of this visit. Either the patient or their legal major account representative has been informed of the risks and benefits of -- and alternatives to -- treatment through a remote evaluation and consents to proceed with the evaluation remotely. Persons Present: patient Chief Complaint:followup prostate cancer HPI: Karen Vazquez is a 77 year old male seen in follow up for prostate cancer. 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 He has had repeat biopsies in 2011 (GG1), 2013 (GG1), and 2017 (benign) He underwent PAE 09/[address] Quispe MRI 01/23/2022 - PI-RADS 2, volume 152 cc He was last seen 04/03/2022 - plan for PSA 6 months PSA (ng/mL) Date Value 09/26/2022 11.68 03/27/2022 12.23 10/03/2021 9.26 05/30/2021 12.14 04/04/2021 6.84 05/12/2020 22.95 11/19/2019 16.99 Interval hx: No issues since last visit Concerned about PSA trends Started on jardiance in June - was warned to watch for dysuria Reports soreness at tip of penis Stopped jardiance given the soreness but this has not improved. No skin changes or redness. Reports urinalysis was done recently without sign of infection HISTORY REVIEWED (electronic chart updated): PAST MEDICAL HISTORY Diagnosis Date Basal cell carcinoma Nose and Right cheek Depressive disorder, not elsewhere classified DVT (deep venous thrombosis) (HCC) Esophageal reflux Essential hypertension, benign Osteoarthrosis, unspecified whether generalized or localized, other specified sites Other and unspecified hyperlipidemia Pulmonary embolism (HCC) 02/2019 PAST SURGICAL HISTORY Procedure Laterality Date BIOPSY OF SKIN LESION RPR INGUN HERNIA SLIDING ANY AGE No family history on file. Social History Tobacco Use Smoking status: Former Types: Cigarettes Quit date: 04/15/1982 Years since quittin.4 Smokeless tobacco: Never Tobacco comments: pt stopped smoking 35yers ago Substance Use Topics Alcohol use: No Drug use: No Current Outpatient Medications Medication Sig oxybutynin ER (DITROPAN XL) 10 mg 24 hr tablet Take 1 tablet by mouth once daily. tamsulosin (FLOMAX) 0.4 mg Take 1 capsule by mouth once daily. ELIQUIS 5 mg tab(s) Take 0.5 tablets by mouth twice daily. desvenlafaxine ER (PRISTIQ) 50 mg 24 hr tablet Take 50 mg by mouth once daily. losartan (COZAAR) 25 mg tablet 50 mg once daily. multivitamin (MULTIPLE VITAMINS ORAL) MULTIVITAMIN ADULT TABS sildenafil (VIAGRA) 100 mg tablet Take one tablet by mouth 1 hour prior to sexual activity. levothyroxine (SYNTHROID) 25 mcg tablet Take 1 tablet by mouth daily before breakfast. esomeprazole (NEXIUM) 40 mg capsule Take 40 mg by mouth once daily. LACTASE (LACTAID ORAL) Take by mouth once daily. rosuvastatin (CRESTOR) 20 mg tablet Take 20 mg by mouth once daily. Hydrochlorothiazide 12.5 mg ORAL capsule Take 12.5 mg by mouth once daily. metoprolol tartrate, short acting, 50 mg ORAL tablet Take 25 mg by mouth twice daily. ascorbic acid, vitamin C, (VITAMIN C) 500 mg tablet Take 500 mg by mouth once daily. MULTIVITAMIN/IRON/FOLIC ACID (CENTRUM COMPLETE ORAL) Take by mouth once daily. No current facility-administered medications for this visit. ALLERGIES Allergen Reactions Bee Venom Protein (* Other: See Comments Benazepril Unknown Fosinopril Unknown Penicillins Unknown REVIEW OF SYSTEMS: GENERAL: feeling well without fatigue, no recent change in weight : as per HPI ENDOCRINE: recently started on jardiance PHYSICAL EXAMINATION: VIDEO EXAM: (if completed, performed via video enabled technology) GENERAL: alert and appropriate, in no distress and well-hydrated, well nourished SKIN: no rash noted HEAD: normocephalic EYES: anicteric sclerae EARS: normal external ears NOSE: normal external nose RESPIRATORY: breathing non-labored ASSESSMENT: (C61) Malignant neoplasm of prostate (HCC) (primary encounter diagnosis) (N40.1, N13.8) 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 Patient phones requesting refills as follows: Requested Prescriptions Pending Prescriptions Disp Refills oxybutynin ER (DITROPAN XL) 10 mg 24 hr tablet 90 tablet 5 Sig: Take 1 tablet by mouth once daily. Please review and advise. Kate Childs Addictions Counselor II documented in this encounter [facility] documented in this encounter [facility]12-28-2022 Miscellaneous Notes* Addendum Note - Aris Ball DO - 04/11/2022 9:30 AM ESTAddended by: ARIS BALL on: 04/11/2022 09:30 AM Modules accepted: [facility] NoteHNO ID: [id number] Author: Aris Ball DO Service: ? Author Type: Physician Type: Progress Notes Filed: 04/10/2022 2:43 PM Note Text: [facility]PH[facility]YPERTENSION [facility] SERVICE DATE: 04/10/2022 SERVICE TIME: 8:18 AM CHIEF COMPLAINT: Chronic kidney disease stage IIIa HPI: Mr. Vazquez is a 76 year old male with a PMHx of DVT/PE, hypertension, osteoarthrosis, and hyperlipidemia who presents with chronic kidney disease stage IIIa. 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 No labs after last visit. Ultrasound obtained which returned with a tiny right upper pole septated cyst. Duration (when): Years Location (where): Kidneys Severity (ex: creat 4.5, BP 200/100): CKD IIIa Quality (ex: sharp, dull): Chronic Context (ex: activity at onset or related to condition): NSAIDs, surgery Timing (ex: continuous, intermittent): Continuous Modifying factors (ex: medications, interventions): Blood pressure medications Associated signs AND symptoms (ex: edema, SOB): N/A PAST MEDICAL HISTORY: ACTIVE PROBLEM LIST Malignant Neoplasm of Prostate (Hcc) Complete Tear of Right Rotator Cuff Bph With Urinary Obstruction Stage 3a Chronic Kidney Disease (Hcc) MEDICATIONS: tamsulosin (FLOMAX) 0.4 mg Take 1 capsule by mouth once daily. ELIQUIS 5 mg tab(s) Take 0.5 tablets by mouth twice daily. oxybutynin ER (DITROPAN XL) 10 mg 24 hr tablet Take 1 tablet by mouth once daily. desvenlafaxine ER (PRISTIQ) 50 mg 24 hr tablet Take 50 mg by mouth once daily. losartan (COZAAR) 25 mg tablet 50 mg once daily. multivitamin (MULTIPLE VITAMINS ORAL) MULTIVITAMIN ADULT TABS sildenafil (VIAGRA) 100 mg tablet Take one tablet by mouth 1 hour prior to sexual activity. levothyroxine (SYNTHROID) 25 mcg tablet Take 1 tablet by mouth daily before breakfast. esomeprazole (NEXIUM) 40 mg capsule Take 40 mg by mouth once daily. LACTASE (LACTAID ORAL) Take by mouth once daily. rosuvastatin (CRESTOR) 20 mg ORAL tablet Take 20 mg by mouth once daily. Hydrochlorothiazide 12.5 mg ORAL capsule Take 12.5 mg by mouth once daily. metoprolol tartrate, short acting, 50 mg ORAL tablet Take 25 mg by mouth twice daily. ascorbic acid (VITAMIN C) 500 mg ORAL tablet Take 500 mg by mouth once daily. MULTIVITAMIN/IRON/FOLIC ACID (CENTRUM COMPLETE ORAL) Take by mouth once daily. ALLERGIES: ALLERGIES Allergen Reactions Bee Venom Protein (* Other: See Comments Benazepril Unknown Fosinopril Unknown Penicillins Unknown REVIEW OF SYSTEMS: Constitutional: No complaints Cardiovascular: No complaints Genitourinary: No complaints PHYSICAL EXAM: BP 147/75 Pulse 65 Ht 172.7 cm (5' 8 ) Wt 94.8 kg (209 lb) BMI 31.78 kg/m? Constitutional:No acute distress, Responsive, Normal habitus, and Well-nourished Neck:Trachea midline No jugular venous distension Cardiovascular:No peripheral edema Regular rate and ryhthm, normal S1 and S2, no murmurs, rubs, or gallops Respiratory:Normal respiratory effort. Lungs clear bilaterally. Abdomen:Soft, non-tender, non-distended. Normal bowel sounds. No hepatosplenomegaly. Psychiatric: Alert and oriented x self, place, time, and setting Normal mood/affect DATA: Diagnostic tests reviewed for today's visit: Glucose (mg/dL) Date Value 09/13/2020 101 Potassium (mmol/L) Date Value 09/13/2020 4.1 Sodium (mmol/L) Date Value 09/13/2020 140 Chloride (mmol/L) Date Value 09/13/2020 104 CO2 (mmol/L) Date Value 09/13/2020 26 Creatinine (mg/dL) Date Value 09/13/2020 1.23 BUN (mg/dL) Date Value 09/13/2020 16 Anion Gap (mmol/L) Date Value 09/13/2020 10 Calcium (mg/dL) Date Value 09/13/2020 9.4 Protein, Total (g/dL) Date Value 05/30/2021 7.3 Albumin (g/dL) Date Value 05/30/2021 4.2 Bilirubin, Total (mg/dL) Date Value 05/30/2021 0.4 Alkaline Phosphatase (U/L) Date Value 05/30/2021 90 AST (U/L) Date Value 05/30/2021 21 ALT (U/L) Date Value 05/30/2021 19 ASSESSMENT: Mr. Vazquez is a 76 year old male with a PMHx of DVT/PE, hypertension, osteoarthrosis, and hyperlipidemia who presents with chronic kidney disease stage IIIa. Chronic kidney disease stage IIIa - Etiology secondary to NSAID use and hypertensive nephrosclerosis Baseline creatinine 1.2 since 2010 UA with trace protein and otherwise bland (2720-1115) Etodolac prescribed 2021 ultrasound with a tiny right upper pole septated cyst. 2. Persistent proteinuria 3. Primary hypertension: Decent control on losartan 50 mg daily PLAN: - Renal labs today - Avoid NSAIDs - Follow up based on results In addition, I recommend the following: o Goal BP < 130/90 mm Hg o Tight glycemic control with A1C < 7.0 o Treat proteinuria with goal urine protein excretion < 500mg/dl o Treat metabolic a (more content not included)...[facility] 04-10-2022 Instructions* Patient Instructions* Aris Ball DO - 04/10/2022 2:38 PM EST Your renal disease is likely secondary to hypertension. Obtain lab work today. Two options for gastroenterology: [email or web address] [facility] Continue to follow closely with your PCP. You can increase the losartan dose to 100 mg daily if needed for blood pressure control Avoid Advil, Motrin (Ibuprofen), Aleve (Naproxen), Mobic (Meloxicam), Voltaren (Diclofenac) and other pain/arthritis medications called NSAIDS. Tylenol or topical voltaren gel if necessary for pain Lab work today Follow up with Dr. Ball as needed General nephrology recommendations: o Tight glycemic control with A1C < 7.0 o Treat proteinuria with goal urine protein excretion < 500mg/dl o Treat metabolic acidosis and keep serum bicarbonate (CO2) > 20 o Keep serum phosphorus between 3.5-5.5mg/dl o Treat hyperlipidemia with Goal LDL <100mg/dl o Maintain a 2 gram sodium restricted diet o Avoid all nephrotoxic agents including NSAIDs, as above o MRI with gadolinium contrast is safe o Hydration advised prior to CT with iodinated contrast Please bring a complete list of your medications, the dosage and times taken - to every visit. We want to know that ALL of your concerns/needs relevant to this visit- were met today and that we have hopefully exceeded your expectations. You may receive a survey regarding your care today. If you do, please take a few minutes to fill itout and send it back. It will be greatly appreciated. documented in this encounterUniversity Hospitals [facility]12-27-2022 History of Present illness Narrative* Aris Ball DO - 04/10/2022 2:00 PM EST [facility] SERVICE DATE: 04/10/2022 SERVICE TIME: 8:18 AM CHIEF COMPLAINT: Chronic kidney disease stage IIIa HPI: Mr. Vazquez is a 76 year old male with a PMHx of DVT/PE, hypertension, osteoarthrosis, and hyperlipidemia who presents with chronic kidney disease stage IIIa. 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 No labs after last visit. Ultrasound obtained which returned with a tiny right upper pole septated cyst. 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 ELIQUIS 5 mg tab(s) Take 0.5 tablets by mouth twice daily. oxybutynin ER (DITROPAN XL) 10 mg 24 hr tablet Take 1 tablet by mouth once daily. desvenlafaxine ER (PRISTIQ) 50 mg 24 hr tablet Take 50 mg by mouth once daily. losartan (COZAAR) 25 mg tablet 50 mg once daily. multivitamin (MULTIPLE VITAMINS ORAL) MULTIVITAMIN ADULT TABS sildenafil (VIAGRA) 100 mg tablet Take one tablet by mouth 1 hour prior to sexual activity. levothyroxine (SYNTHROID) 25 mcg tablet Take 1 tablet by mouth daily before breakfast. esomeprazole (NEXIUM) 40 mg capsule Take 40 mg by mouth once daily. LACTASE (LACTAID ORAL) Take by mouth once daily. rosuvastatin (CRESTOR) 20 mg ORAL tablet Take 20 mg by mouth once daily. Hydrochlorothiazide 12.5 mg ORAL capsule Take 12.5 mg by mouth once daily. metoprolol tartrate, short acting, 50 mg ORAL tablet Take 25 mg by mouth twice daily. ascorbic acid (VITAMIN C) 500 mg ORAL tablet Take 500 mg by mouth once daily. MULTIVITAMIN/IRON/FOLIC ACID (CENTRUM COMPLETE ORAL) Take by mouth once daily. ALLERGIES: ALLERGIES Allergen Reactions Bee Venom Protein (* Other: See Comments Benazepril Unknown Fosinopril Unknown Penicillins Unknown REVIEW OF SYSTEMS: Constitutional: No complaints Cardiovascular: No complaints Genitourinary: No complaints PHYSICAL EXAM: BP 147/75 Pulse 65 Ht 172.7 cm (5' 8 ) Wt 94.8 kg (209 lb) BMI 31.78 kg/m Constitutional:No acute distress, Responsive, Normal habitus, and Well-nourished Neck:Trachea midline No jugular venous distension Cardiovascular:No peripheral edema Regular rate and ryhthm, normal S1 and S2, no murmurs, rubs, or gallops Respiratory:Normal respiratory effort. Lungs clear bilaterally. Abdomen:Soft, non-tender, non-distended. Normal bowel sounds. No hepatosplenomegaly. Psychiatric: Alert and oriented x self, place, time, and setting Normal mood/affect DATA: Diagnostic tests reviewed for today's visit: Glucose (mg/dL) Date Value 09/13/2020 101 Potassium (mmol/L) Date Value 09/13/2020 4.1 Sodium (mmol/L) Date Value 09/13/2020 140 Chloride (mmol/L) Date Value 09/13/2020 104 CO2 (mmol/L) Date Value 09/13/2020 26 Creatinine (mg/dL) Date Value 09/13/2020 1.23 BUN (mg/dL) Date Value 09/13/2020 16 Anion Gap (mmol/L) Date Value 09/13/2020 10 Calcium (mg/dL) Date Value 09/13/2020 9.4 Protein, Total (g/dL) Date Value 05/30/2021 7.3 Albumin (g/dL) Date Value 05/30/2021 4.2 Bilirubin, Total (mg/dL) Date Value 05/30/2021 0.4 Alkaline Phosphatase (U/L) Date Value 05/30/2021 90 AST (U/L) Date Value 05/30/2021 21 ALT (U/L) Date Value 05/30/2021 19 ASSESSMENT: Mr. Vazquez is a 76 year old male with a PMHx of DVT/PE, hypertension, osteoarthrosis, and hyperlipidemia who presents with chronic kidney disease stage IIIa. Chronic kidney disease stage IIIa - Etiology secondary to NSAID use and hypertensive nephrosclerosis Baseline creatinine 1.2 since 2010 UA with trace protein and otherwise bland (4513-5396) Etodolac prescribed - 2021 ultrasound with a tiny right upper pole septated cyst. 2. Persistent proteinuria 3. Primary hypertension: Decent control on losartan 50 mg daily PLAN: - Renal labs today - Avoid NSAIDs - Follow up based on results In addition, I recommend the following: o Goal BP < 130/90 mm Hg o Tight glycemic control with A1C < 7.0 o Treat proteinuria with goal urine protein excretion < 500mg/dl o Treat metabolic acidosis and keep serum Bicarbonate > 20 o Keep Serum PO4 between 3.5-5.5mg/dl o Treat hyperlipidemia with Goal LDL <100mg/dl o Maintain a 2 gram sodium restricted diet o Avoid all nephrotoxic agents including NSAIDs o MRI with gadolinium contrast is safe o oral hydration advised prior to CT with iodinated contrast SIGNATURE: Aris Ball DO PATIENT NAME: Karen Vazquez DATE: April 10, 2022 TIME: 2:42 PM OFFICE NUMBER: [phone] CC: PRIMARY CARE PHYSICIAN: Deanne Kohli MD documented in this encounterUniversity Hospitals Lake West [facility] Center10-18-2022 History of Present illness Narrative* Evelio Bryan MD - 01/30/2022 3:00 PM EDT DISTANCE HEALTH VISIT This Team Access Model visit is a virtual encounter. It required patient- provider interaction for the medical decision making as documented below. Karen Vazquez is a 76 year old male seen for followup of prostate cancer. Karen Vazquez is a 76 year old male seen for followup prostate cancer. This was diagnosed in 2010 - GG1 CaP. Repeat biopsies in 2011, 2013 - GG1 CaP. Most recent biopsy 2017 - benign He had PAE 09/2020 - Dr. Quispe PSA (ng/mL) Date Value 10/03/2021 9.26 05/30/2021 12.14 04/04/2021 6.84 05/12/2020 22.95 11/19/2019 16.99 MRI Prostate 01/23/2022 IMPRESSION: No focal prostatic lesions concerning for clinically significant prostate cancer (PI-RADS 2). No pelvic david or osseous metastasis. Transition zone hypertrophy with overall decrease in prostate volume since 08/08/2020. Size 152cc Interval Hx: No issues since last visit Overall feeling well Urine stream is good No hematuria or dysuria HISTORY REVIEWED (electronic chart updated): - medical history - medications - allergies REVIEW OF SYSTEMS: GENERAL: feeling well without fatigue, no recent change in weight RESPIRATORY: no cough, no wheezing or shortness of breath CARDIOVASCULAR: no chest pain, no palpitations GI: normal appetite, tolerating PO well, BMs normal, and no abdominal pain : as per HPI PHYSICAL EXAMINATION: VIDEO EXAM: (if done, performed via video enabled technology) GENERAL: alert and appropriate, in no distress and well-hydrated, well nourished SKIN: no rash noted HEAD: normocephalic EYES: anicteric sclerae EARS: normal external ears NOSE: normal external nose RESPIRATORY: breathing non-labored ASSESSMENT: (C61) Malignant neoplasm of prostate (HCC) (primary encounter diagnosis) (N40.1, N13.8) BPH with urinary obstruction PLAN: PSA q6 months - next schedule Mar 2022 Virtual visit March 2022 After March, will plan followup q6 months I spent a total of 15 minutes on the date of the service which included preparing to see the patient, [id number] patient care, and completing clinical documentation. Evelio Bryan MD documented in this encounterUniversity Hospitals Lake West Medical Center10-12-2022 Miscellaneous Notes* Telephone Encounter - Lola Mercedes - 01/24/2022 3:34 PM EDT Patient phones requesting refills as follows: Requested Prescriptions Pending Prescriptions Disp Refills tamsulosin (FLOMAX) 0.4 mg 90 capsule 1 Sig: Take 1 capsule by mouth once daily. Please review and advise. Lola Mercedes documented in this encounterUniversity Hospitals Lake West Medical Center10-11-2022 NoteHNO ID: [id number] Author: JOEL Tavarez Service: Radiology Author Type: Lead Sharepoint Developer Type: Progress Notes Filed: 01/23/2022 10:32 AM Note Text: Radiology Service Progress Note PATIENT NAME: Karen Vazquez DATE OF SERVICE: January 23, 2022 TIME: 10:31 AM PATIENT IDENTITY VERIFICATION COMPLETED USING TWO (2) IDENTIFIERS: Name and Date of confirmed by patient verbally. FALL SCREENING: Has the patient had 2 falls in the last year or 1 fall with injury or currently using an Ambulatory Assistive Device (Walker, Cane, Wheelchair, Crutches, etc.)? No PATIENT GENDER DATA: Male PATIENT RELEVANT IMPLANT DATA REVIEWED: Yes RADIOLOGY DEPARTMENT: MR; Exam(s) Completed: Body: Prostate PERIPHERAL IV DATA: Site assessment: Clean,Dry and Intact, Site disposition Discontinued SIGNED BY: Ollie Jackson Numerate January 23, 2022 10:31 [facility]07-22-2022 Evaluation + Plan note Extracted from: Title:Clinical Document Author:JV LILLY Date:11/03/21 [place] ADMISSION HISTORY AN D PHYSICIAL CHIEF COMPLAINT: HISTORY OF PRESENT ILLNESS: REVIEW OF SYSTEMS: ACTIVE PROBLEMS: (18) Abdominal pain (08530013) Anxiety disorder (962517738) Change in bowel habits (288630432) CKD stage 3 secondary to diabetes (0772615408) Diabetes mellitus type 2, uncontrolled (8092621026) Dyspepsia (453759790) Embolism (2780972199) Epigastric pain (094842014) GERD (gastroesophageal reflux disease) ([id number]) High serum creatine (574730) Hypercholesterolemia ([id number]) Hypertension (52002308) Hypothyroid (32989433) NATHAN (obstructive sleep apnea) ([id number]) PE (pulmonary thromboembolism) (201837486) Prostate cancer (5279319271) Urinary frequency ([id number]) Vitamin D deficiency (87937100) MEDICATIONS: Active Inpt Meds: None Active PRN Meds: None One Time Meds: None Active IV Meds: Lactated Ringers Infusion 1,000 mL (LR 1,000 mL) Start: 11/03/21 8:06:00 EDT, Rate: 50 mL/hr, 11/03/21 8:06:00 EDT ALLERGIES: (4) Amoxil Bee Stings Lotensin Monopril FAMILY HISTORY: SOCIAL HISTORY: PHYSICAL EXAM: VITALS: JukjwvKgjrFNGwmdxQAJfF6MFK8HdqaEi(kg) 11/03 08:0436.6141/45293847XK19/22 92.7 24 Hr Tmax: 36.6 at 11/03 08:04 36 Hr Tmax: 36.6 at 11/03 08:04 Vital Signs are the last 5 in the past 48 hours. Weights display the last 5 within 7 days. Initial Wt: 11/03 92.7 kg 204 lb Current Wt: 11/03 92.7 kg 204 lb GENERAL: HEENT: CARDIOVASCULAR: RESPIRATORY: ABDOMEN: EXREMETIES: NEUROLOGICAL: PSYCHIATRIC: LABS: No 36hr Lab Data DIAGNOSTICS: IMPRESSION: PLAN: History and Physical Update I have examined the patient; reviewed the H&P and there are no changes to the H&P unless noted below. Future Appointments Appointment Date:12/21/2021 08:45:00 AM Scheduled Provider:EMIR COX MD Location:[facility] Appointment Type:[facility] Future Scheduled Tests Laboratory* Thyroid Stimulating Hormone 12/23/21 * Free T4 12/23/21 * A1C Hemoglobin 12/23/21 * Microalbumin Level Urine 12/23/21 * Vitamin D Level 12/23/21 * Complete Metabolic Panel 12/23/21 [facility] 07-22-2022 Hospital Discharge instructions Patient Education 11/03/2021 10:42:47 Monitored Anesthesia Care, Care After Monitored Anesthesia Care, Care After These instructions provide you with information about caring for yourself after your procedure. Your health care provider may also give you more specific instructions. Your treatment has been plannedaccording to current medical practices, but problems sometimes occur. Call your health care provider if you have any problems or questions after your procedure. What can I expect after the procedure? After your procedure, you may: Feel sleepy for several hours. Feel clumsy and have poor balance for several hours. Feel forgetful about what happened after the procedure. Have poor judgment for several hours. Feel nauseous or vomit. Have a sore throat if you had a breathing tube during the procedure. Follow these instructions at home: For at least 24 hours after the procedure: Have a responsible adult stay with you. It is important to have someone help care for you until youare awake and alert. Rest as needed. Do not: ?Participate in activities in which you could fall or become injured. ?Drive. ?Use heavy machinery. ?Drink alcohol. ?Take sleeping pills or medicines that cause drowsiness. ?Make important decisions or sign legal documents. ?Take care of children on your own. Eating and drinking Follow the diet that is recommended by your health care provider. If you vomit, drink water, juice, or soup when you can drink without vomiting. Make sure you have little or no nausea before eating solid foods. General instructions Take xlrt-sba-ajlnbph and prescription medicines only as told by your health care provider. If you have sleep apnea, surgery and certain medicines can increase your risk for breathing problems. Follow instructions from your health care provider about wearing your sleep device: ?Anytime you are sleeping, including during daytime naps. ?While taking prescription pain medicines, sleeping medicines, or medicines that make you drowsy. If you smoke, do not smoke without supervision. Keep all follow-up visits as told by your health care provider. This is important. Contact a health care provider if: You keep feeling nauseous or you keep vomiting. You feel light-headed. You develop a rash. You have a fever. Get help right away if: You have trouble breathing. Summary For several hours after your procedure, you may feel sleepy and have poor judgment. Have a responsible adult stay with you for at least 24 hours or until you are awake and alert. This information is not intended to replace advice given to you by your health care provider. Make sure you discuss any questions you have with your health care provider. Document Released: 07/22/2016 Document Revised: 06/30/2018 Document Reviewed: 07/22/2016 [employer] Patient Education 2020 [employer]. 11/03/2021 10:42:31 9 - AO Minor Esophagogastroduodenoscopy (06/26)(CUSTOM) Esophagogastroduodenoscopy This is an endoscopic procedure (a procedure that uses a device like a flexible telescope) that allows your caregiver to view the upper stomach and small bowel. This test allows your caregiver to look at the esophagus. The esophagus carries food from your mouth to your stomach. They can also look at your duodenum. This is the first part of the small intestine that attaches to the stomach. This melvin t is used to detect problems in the bowel such as ulcers and inflammation. MEANING OF TEST Your caregiver will go over the test results with you and discuss the importance and meaning of your results, as well as treatment options and the need for additional tests if necessary. OBTAINING THE TEST RESULTS Your caregiver s office will call you with the results of the test. POST SEDATION INSTRUCTIONS Rest at home today. Since your coordination may be impaired, be cautious on stairways, do not drive any vehicle or operate any heavy machinery, or use any sharp instruments for the remainder of the day. Do not drink any alcoholic beverages or make any major decisions for 24 hours. POST PROCEDURE INSTRUCTIONS Progress slowly with full liquids then resume previous diet and medications. Belching or passing of gas is to be expected. Notify the physician if you have severe chest pain, fever, or if difficulty when swallowing persists. 06/23/13 Custom Follow Up Care 10/04/2021 09:46:30 With:JV LILLY MD Address: [address] [phone] When: Unknown Comments:YOU WILL BE CALLED BY THE OFFICE WITH YOUR RESULTS. IF YOU GO NOT HEAR FROM THE OFFICE PLEASE CALL THE OFFICE. IF YOU HAVE ANY QUESTIONS PLEASE CALL THE OFFICE. GO TO THE EMERGENCY ROOM WITH ANY URGENT ISSUES. [facility] 07-22-2022 Summary of episode note Discharge Instructions Thank you for allowing [facility] to assist you with your healthcare needs. The following is importantdischarge information regarding your hospital visit. Your Care Team DEANNE KOHLI MD, DR. Your Diagnosis DR LILLY THOUGHTT [facility] MAY HAVE BEEN COMING BACK, SO HE TOOK CARE OF THAT SITE. HE TOOK [facility]. HE WILL CALL YOU WITH THOSE RESUTS ABOUT SATURDAY. IF YOU DO NOT HEAR FROM HIM PLEASE CALLTHE OFFICE. CALL DR LILLY WITH ANY QUESTIONS OR CONCERNS. GO TO THE EMERGENCY ROOM WITH ANY URGENT CONCERNS. What to do next Scheduled Follow-Up Appointments Appointment Type When With Where Contact JON PIZARRO 12/21/2021 08:45 AM EMIR DUGGAN MD AM Endocrinology [place] Follow Up Appointments Follow Up with JV LILLY MD When Why: YOU WILL BE CALLED BY THE OFFICE WITH YOUR RESULTS. IF YOU GO NOT HEAR FROM THE OFFICE PLEASE CALL THE OFFICE. IF YOU HAVE ANY QUESTIONS PLEASE CALL THE OFFICE. GO TO THE EMERGENCY ROOM WITH ANYURGENT ISSUES. Where: [address] [place] [address] [phone] Allergies Amoxil Bee Stings Lotensin Monopril Medications Please ask your primary doctor or pharmacist before taking any other medication not listed, including over the counter drugs, herbal medications, vitamins and or supplements as they may interact withyour home medications. What How Much When Why Instructions Last Dose Unchanged apixaban (Eliquis 2.5 mg oral tablet) TAKE 1 TABLET BY MOUTH TWICE A DAY Unchanged ascorbic acid (Vitamin C 500 mg oral tablet) 1 tab(s) by mouth Once a day Unchanged betamethasone topical (betamethasone dipropionate 0.05% topical lotion) 1 application Topical Two (2) times a day Unchanged cholecalciferol (Vitamin D3 1000 intl units (25 mcg) oral tablet) 1 tab(s) by mouth Once a day Unchanged desvenlafaxine (Pristiq 50 mg oral tablet, extended release) 1 tab(s) by mouth Once a day Unchanged DME (DME MISCellaneous) See instructions Diabetes type 2, controlled onetouch delica lancets, 1 lancet daily and as needed #100 for 90 days 3 refills. Unchanged DME (DME MISCellaneous) See instructions Controlled type 2 diabetes mellitus one touch ultra blue test strips, one strip daily and as needed #150strips/ 90days Unchanged esomeprazole (esomeprazole 40 mg oral delayed release capsule) TAKE 1 CAPSULE BY MOUTH EVERY DAY WITH YOUR MORNING MEAL Unchanged hydrochlorothiazide (hydrochlorothiazide 25 mg oral tablet) 1 tab(s) by mouth Every day Unchanged lactase 500 Milligram by mouth Once Unchanged levothyroxine (levothyroxine 25 mcg (0.025 mg) oral tablet) See instructions TAKE 3 TABS BY MOUTH ON SATURDAY AND SATURDAY THEN 2 TABS ON ALL OTHER DAYS Unchanged losartan (losartan 100 mg oral tablet) TAKE 2 TABLETS BY MOUTH EVERY DAY Unchanged metoprolol (metoprolol tartrate 50 mg oral tablet) 0.5 tab(s) by mouth Two (2) times a day Unchanged multivitamin (Multivitamin) 1 tab(s) by mouth Every day Unchanged oxybutynin (oxybutynin 5 mg/ 24 hours oral tablet, extended release) 1 tab(s) by mouth Once a day Unchanged pyridoxine (Vitamin B6) Once a day Unchanged rosuvastatin (Crestor 20 mg oral tablet (NF)) 1 tab(s) by mouth Every day Unchanged tamsulosin (Flomax 0.4 mg oral capsule) 1 cap by mouth Once a day after a meal Please take this list to your next doctor s visit. Bring all medications you take, including over the counter medications, herbals and other supplements with you to your doctor s visit. Patients and families are reminded to discard old lists and to update any records with all medication providers or retail pharmacies. Education Materials Monitored Anesthesia Care, Care After These instructions provide you with information about caring for yourself after your procedure. Your health care provider may also give you more specific instructions. Your treatment has been plannedaccording to current medical practices, but problems sometimes occur. Call your health care provider if you have any problems or questions after your procedure. What can I expect after the procedure? After your procedure, you may: Feel sleepy for several hours. Feel clumsy and have poor balance for several hours. Feel forgetful about what happened after the procedure. Have poor judgment for several hours. Feel nauseous or vomit. Have a sore throat if you had a breathing tube during the procedure. Follow these instructions at home: For at least 24 hours after the procedure: Have a responsible adult stay with you. It is important to have someone help care for you until youare awake and alert. Rest as needed. Do not: ? Participate in activities in which you could fall or become injured. ? Drive. ? Use heavy machinery. ? Drink alcohol. ? Take sleeping pills or medicines that cause drowsiness. ? Make important decisions or sign legal documents. ? Take care of children on your own. Eating and drinking Follow the diet that is recommended by your health care provider. If you vomit, drink water, juice, or soup when you can drink without vomiting. Make sure you have little or no nausea before eating solid foods. General instructions Take rssz-xqc-cighvqd and prescription medicines only as told by your health care provider. If you have sleep apnea, surgery and certain medicines can increase your risk for breathing problems. Follow instructions from your health care provider about wearing your sleep device: ? Anytime you are sleeping, including during daytime naps. ? While taking prescription pain medicines, sleeping medicines, or medicines that make you drowsy. If you smoke, do not smoke without supervision. Keep all follow-up visits as told by your health care provider. This is important. Contact a health care provider if: You keep feeling nauseous or you keep vomiting. You feel light-headed. You develop a rash. You have a fever. Get help right away if: You have trouble breathing. Summary For several hours after your procedure, you may feel sleepy and have poor judgment. Have a responsible adult stay with you for at least 24 hours or until you are awake and alert. This information is not intended to replace advice given to you by your health care provider. Make sure you discuss any questions you have with your health care provider. Document Released: 07/22/2016 Document Revised: 06/30/2018 Document Reviewed: 07/22/2016 [facility] [facility] Patient Education 2020 [employer]. Esophagogastroduodenoscopy This is an endoscopic procedure (a procedure that uses a device like a flexible telescope) that allows your caregiver to view the upper stomach and small bowel. This test allows your caregiver to look at the esophagus. The esophagus carries food from your mouth to your stomach. They can also look at your duodenum. This is the first part of the small intestine that attaches to the stomach. This melvin t is used to detect problems in the bowel such as ulcers and inflammation. MEANING OF TEST Your caregiver will go over the test results with you and discuss the importance and meaning of your results, as well as treatment options and the need for additional tests if necessary. OBTAINING THE TEST RESULTS Your caregiver s office will call you with the results of the test. POST SEDATION INSTRUCTIONS Rest at home today. Since your coordination may be impaired, be cautious on stairways, do not drive any vehicle or operate any heavy machinery, or use any sharp instruments for the remainder of the day. Do not drink any alcoholic beverages or make any major decisions for 24 hours. POST PROCEDURE INSTRUCTIONS Progress slowly with full liquids then resume previous diet and medications. Belching or passing of gas is to be expected. Notify the physician if you have severe chest pain, fever, or if difficulty when swallowing persists. 06/23/13 Custom Additional Information VACCINATE! IT SAVES LIVES! Members of the community who have not yet received the COVID-19 vaccine and would like to receive it can visit one of [facility] vaccine clinics. There are many vaccine clinic locations within the [facility]. For locations and available times, please visit [email or web address] It is important to note that some COVID mobile vaccine clinics are held outdoors and may be canceled in rainy or stormy conditions. To learn more about pediatric vaccinations (ages 5-11), we invite you to visit the [facility] webpage. [email or web address] [email or web address].htmlTo learn more about the COVID-19 vaccine, we invite you to visit the [employer] website for a list of frequently asked questions. [email or web address].pdf [facility] Patient Portal Access Instructions: Stay connected with your healthcare team and access your personal medical information anytime with the [facility] Patient Portal.If you would like a full copy of your medical records, please contact the [facility] Medical Records Department, Saturday through Saturday between 8a.m. and 4:30p.m. Please follow the directions below to access the portal: 1.Access the email account you provided upon registration to the hospital.2.Look for an invitation email from [facility].3.Open the email and access the invitation link: Accept Invitation to [facility]4.Fill in the required galvan to create your account. Sign into www.[employer] with your username and password that you created in the above steps to stay up to date. You can then view a summary of results, a summary of your visits, and the ability to download your summaries to your computer or send the information securely to a physician. Remember that your healthcare information is confidential, so carefully consider who you will allow to register on the [facility] Patient Portal for access to your information. You can also access the [employer] Patient Portal on the [employer] lindsay. Simply click on Health Records under [employer] and then click on the [facility] logo. HOW TO SAFELY DISPOSE OF PRESCRIPTION MEDICATIONS Please use one of the following methods to safely dispose of your unused medications. 1.Use a drug disposal kit: the drug disposal pouch allows you to safely discard your old and unuseddrugs. Ask your nurse to give you one when you are discharged.2.Visit a local take-back location: Many local pharmacies and police departments have programs that collect old and unwanted prescriptiondrugs. Call your local pharmacy or go to http://[employer].Reply.io/9S4Rb4o to find one close to you.3.Make use of household items: Use cat litter or old coffee grounds to dispose medications if other options arenot available. Mix your drugs with these household products, seal them in an airtight container andthrow it into the garbage. Call [facility]: [phone] to be sure your drugs can be disposed of in this way. Some medicines may require a different approach.4.Never flush your medications down the toilet. IF YOU HAVE BEEN PRESCRIBED AN OPIOID FOR PAIN If you have been prescribed an opioid (such as hydrocodone, oxycodone or morphine), it is critical to understand the possible side effects and risks of opioid pain medications. Even when taken as directed, opioids can have several side effects including: Tolerance, meaning you might need to take more of a medication for the same pain relief. Nausea, vomiting and/or constipation. Sleepiness, dizziness, dry mouth, confusion, depression or itching. Physical dependence, meaning you have withdrawal symptoms when a medication is stopped, can develop within a few days. KNOW YOUR RESPONSIBILITIES It is important to know exactly how much and how often to take the opioid pain medications you are prescribed. Never take opioids in higher amounts or more often than prescribed. Do not combine opioids with alcohol or other drugs that cause drowsiness, such as benzodiazepines, also known as benzos, including diazepam and alprazolam, muscle relaxants or sleep aids. Never sell or share prescription opioids. This is illegal. Store opioids in a secure place and out of reach of others (including children, family, friends and visitors). The last page of this document has been signed and retained as a CHART COPY. Signatures Patient Education Materials Monitored Anesthesia Care, Care After 9 - AO Minor Esophagogastroduodenoscopy (06/26)(CUSTOM) Medication Leaflets My discharge plan and instructions have been reviewed and explained to me and I,KAREN VAZQUEZ understand my current condition and have read and understand these discharge instructions. I have received a written copy of the plan/instructions. If I have questions, I am aware that I should contactmy doctor. Patient/Title Investigator Signature: Date/Time: Relationship to Patient: Witness Name/Signature: Date/Time: [facility]07-22-2022 Anesthesiology Consult note Patient: KAREN VAZQUEZ Age: 76 years Sex: Male : 1945 Associated Diagnoses: None Author: EMILIO RYAN Assessment Postanesthesia assessment Mental status: alert & oriented x 4. Respiratory function: lungs are clear to auscultation. Respiratory support: none. CV function: Normal rate. Cardiovascular support: none. Pain. Nausea status: denies nausea. Postoperative hydration status: within normal limits. Digitally Signed by EMILIO RYAN on 11/03/2021 10:14 AM [facility]07-22-2022 Anesthesiology Consult note Patient: KAREN VAZQUEZ Age: 76 years Sex: Male : 1945 Associated Diagnoses: None Author: EMILIO RYAN Preoperative Information Time of last food or liquid consumption: 11/03/2021 00:00:00 Anesthesia history Patient's history: negative. Family's history: negative. Review of Systems Ear/Nose/Mouth/Throat: Negative. Respiratory: Sleep apnea, hx PE. Cardiovascular: HTN, SB 42. Gastrointestinal: Reflux, obese. Genitourinary: CKD. Endocrine: DM2, hypothyroid. Musculoskeletal: Negative. Integumentary: Negative. Neurologic: Negative. Health Status Allergies: Allergic Reactions (Selected) Severity Not Documented Amoxil- No reactions were documented. Bee Stings- No reactions were documented. Lotensin- No reactions were documented. Monopril- No reactions were documented., Allergies (4) ActiveReaction AmoxilNone Documented Bee StingsNone Documented LotensinNone Documented MonoprilNone Documented Current medications: (Selected) Inpatient Medications Ordered LR 1,000 mL: 50 mL/hr, Intravenous Prescriptions Prescribed DME [facility]: See Instructions, one touch ultra blue test strips, one strip daily and as needed #150strips/90days, 1 EA, 3 Refill(s) DME [employer]: See Instructions, onetouch delica lancets, 1 lancet daily and as needed #100 for90 days 3 refills., 1 EA, 0 Refill(s) levothyroxine 25 mcg (0.025 mg) oral tablet: See Instructions, TAKE 3 TABS BY MOUTH ON SATURDAY AND SATURDAY THEN 2 TABS ON ALL OTHER DAYS, 64 tab(s), 5 Refill(s) Documented Medications Documented Crestor 20 mg oral tablet (NF): 20 mg, 1 tab(s), Oral, Daily Eliquis 2.5 mg oral tablet: TAKE 1 TABLET BY MOUTH TWICE A DAY Flomax 0.4 mg oral capsule: 0.4 mg, 1 cap(s), Oral, qDayPC Multivitamin: 1 tab(s), Oral, Daily, 0 Refill(s) Pristiq 50 mg oral tablet, extended release: 50 mg, 1 tab(s), Oral, qDay Vitamin B6: qDay, 0 Refill(s) Vitamin C 500 mg oral tablet: 500 mg, 1 tab(s), Oral, qDay, 30 tab(s), 0 Refill(s) Vitamin D3 1000 intl units (25 mcg) oral tablet: 1,000 International_Unit, 1 tab(s), Oral, qDay, 30tab(s), 0 Refill(s) betamethasone dipropionate 0.05% topical lotion: 1 lindsay, Topical, BID, 60 mL, 0 Refill(s) esomeprazole 40 mg oral delayed release capsule: TAKE 1 CAPSULE BY MOUTH EVERY DAY WITH YOUR MORNING MEAL hydrochlorothiazide 25 mg oral tablet: 25 mg, 1 tab(s), Oral, Daily lactase: 500 mg, Oral, Once losartan 100 mg oral tablet: TAKE 2 TABLETS BY MOUTH EVERY DAY metoprolol tartrate 50 mg oral tablet: 25 mg, 0.5 tab(s), Oral, BID, 0 Refill(s) oxybutynin 5 mg/24 hours oral tablet, extended release: 5 mg, 1 tab(s), Oral, qDay, 30 tab(s), Medications (1) Active Scheduled: (0) Continuous: (1) Lactated Ringers 1,000 mL 1,000 mL, Intravenous, 50 mL/hr PRN: (0) Problem list: Medical High serum creatine / SNOMED CT 286885 / Confirmed Anxiety disorder / SNOMED CT 827760551 / Confirmed CKD stage 3 secondary to diabetes / SNOMED CT 9289053467 / Confirmed Embolism / SNOMED CT 2514412756 / Confirmed GERD (gastroesophageal reflux disease) / SNOMED CT [id number] / Confirmed Hypercholesterolemia / SNOMED CT [id number] / Confirmed Hypertension / SNOMED CT 55578437 / Confirmed Hypothyroid / SNOMED CT 91234486 / Confirmed Dyspepsia / SNOMED CT 994738951 / Confirmed NATHAN (obstructive sleep apnea) / SNOMED CT [id number] / Confirmed Diabetes mellitus type 2, uncontrolled / SNOMED CT 2050682142 / Confirmed Urinary frequency / SNOMED CT [id number] / Confirmed Vitamin D deficiency / SNOMED CT 48309114 / Confirmed, Active Problems (18) Abdominal pain Anxiety disorder Change in bowel habits CKD stage 3 secondary to diabetes Diabetes mellitus type 2, uncontrolled Dyspepsia Embolism Epigastric pain GERD (gastroesophageal reflux disease) High serum creatine Hypercholesterolemia Hypertension Hypothyroid NATHAN (obstructive sleep apnea) PE (pulmonary thromboembolism) Prostate cancer Urinary frequency Vitamin D deficiency Histories Past Medical History: Active Hypercholesterolemia ([id number]) Urinary frequency ([id number]) Hypertension (02544413) GERD (gastroesophageal reflux disease) ([id number]) Anxiety disorder (312077400) Embolism (2097405839) Comments: 10/29/2014 EDT 12:58 MARIANNE JOSHI RN pulmonary embolism 1998 NATHAN (obstructive sleep apnea) ([id number]) Family History: Heart disease Mother Father Malignant tumor of colon Mother Procedure history: Prostate (44359499) in 2020 at 75 Years. Comments: 11/03/2021 8:28 Vera Cooper RN PROSTATE EMPOLIZATION. Esophagogastroduodenoscopy ([id number]) on 06/01/2019 at 74 Years. Comments: 06/01/2019 9:43 HANSEL BARRAGAN RN with argon plasma coagulation Upper GI endoscopy ([id number]) on 05/09/2015 at 69 Years. Comments: 05/09/2015 9:53 PHIL ARIAS WITH APC AND BIOPSY Hernia, inguinal, bilateral ([id number]). Hip replacement ([id number]). Comments: 10/29/2014 13:00 PHIL JOSHI bilateral Upper gastrointestinal endoscopy (765192848). Colonoscopy (996922745). Social History Social & Psychosocial Habits Alcohol 12/28/2019 Use: Never Substance Abuse 12/28/2019 Use: Never Tobacco 12/28/2019 Tobacco Use: Former smoker, quit more Exposure to Tobacco Smoke Lives in non-smoking home Comment: pt states he quit 37 years ago - 12/28/2019 08:17 - Vera Doshi RN Home/Environment 06/01/2019 Domestic Concerns None Living situation: Home/Independent Marital Status of Patient if Patient Independent Adult: Nutrition/Health 06/01/2019 Type of diet: Regular . Physical Examination Vital Signs 11/03/2021 8:04 EDT Temperature Oral 36.6 DegC Peripheral Pulse Rate 46 bpm Respiratory Rate 18 br/min Systolic Blood Pressure NBP 141 mmHg HI Diastolic Blood Pressure NBP 84 mmHg Vital Signs(last 24 hrs) Last Charted Temp Oral36.6 DegC (NOV 03 08:04) Resp Rate 18 br/min (NOV 03 08:04) SBPH 141mmHg (NOV 03 08:04) DBP84 mmHg (NOV 03 08:04) Measurements from flowsheet : Measurements 11/03/2021 8:04 EDT Height 172.7 cm Admission Weight 92.7 kg Weight Method Stated [place] Body Weight 68.38 kg Admission Body Mass Index 31.08 m2 Pain assessment: Pain Assessment 11/03/2021 8:04 EDT Primary Pain Intensity 0 Pain Scale Type 0-10 Pain scale . General: Alert and oriented. Airway: Normal temporomandibular joint mobility. Mallampati classification: III (soft palate, base of uvula visible). Head: Normocephalic. Dentition Evaluation: Own teeth. Neck: Supple. Respiratory: Lungs are clear to auscultation. Cardiovascular: sb. Heart Sounds: Normal. Gastrointestinal: Soft. Musculoskeletal Normal range of motion. Integumentary: Intact. Neurologic: Alert. Review / Management Results review: No qualifying data available , Lab results 11/03/2021 10:00 EDT SN - Cul - Culture Type Tissue in Formalin SN - Cul - Kind Specimen 11/03/2021 9:53 EDT [place] History and Physical 11/03/2021 9:49 EDT Lactated Ringers Injection Begin Bag 1,000 mL mL 11/03/2021 9:45 EDT SN - Proc - Anesthesia Type MAC SN - Proc - EBL 0 mL SN - Proc - Actual Procedure ESOPHAGOGASTRODUODENOSCOPY 11/03/2021 9:45 EDT SN - PP - Body Position Lateral Right Side-up Standard Intra-op 11/03/2021 9:45 EDT SN - GCD - Post-operative Diagnosis DUODENAL POLYP; CONSTIPATION SN - GCD - Case Level OPD Level 3 11/03/2021 9:45 EDT SN - CAt - Case Attendee SN - CAt - Case Attendee SN - CAt - Case Attendee SN - CAt - Case Attendee SN - CAt - Case Attendee SN - CAt - Case Attendee SN - CAt - Case Attendee SN - CAt - Case Attendee SN - CAt - Role Performed Primary Surgeon SN - CAt - Role Performed GENERAL SCIENCE TEACHER SN - CAt - Role Performed Animal Impersonator 1 SN - CAt - Role Performed Electric Screw Driver Operator 11/03/2021 8:04 EDT Designated Person #1 We May Share NOAH MARIE [phone] Designated Person #1 Relationship Spouse Privacy Restrictions Requested None Height 172.7 cm Admission Weight 92.7 kg Weight Method Stated [place] Body Weight 68.38 kg Admission Body Mass Index 31.08 m2 Temperature Oral 36.6 DegC Peripheral Pulse Rate 46 bpm Respiratory Rate 18 br/min Systolic Blood Pressure NBP 141 mmHg HI Diastolic Blood Pressure NBP 84 mmHg Primary Pain Intensity 0 Pain Scale Type 0-10 Pain scale Nail Bed Color [place] Capillary Refill < 2 seconds All Lobes Breath Sounds Clear Oxygen Therapy Room air Oxygen Saturation 94 % Abdomen Description Rounded Bowel Sounds All Quadrants Hyperactive Urinary Elimination Voiding, no difficulties Status N/A Skin Temperature Warm Skin Description [place], Normal for ethnicity, Dry Skin Moisture General Dry IV Present Present Neurological Symptoms Patient denies Level of Consciousness Alert Strength All Extremities Strong Tone All Extremities Normal Affect/Behavior Appropriate, Calm, Cooperative Orientation Oriented x 4 Sensory Deficits Hearing deficit, left ear, Hearing deficit, right ear Sleep Apnea Age Yes Sleep Apnea Gender Yes Diagnosed With Sleep Apnea Yes Advanced Directives Yes Advance Directive Location Family instructed to bring in copy Infectious Disease Symptoms Patient states no symptoms Infectious Disease Recent Exposure No Alcohol and Drug Use No Employee of Institutional Living No Health Care Employee No History of Exposure to TB No History of Positive Chest X-Ray for TB No History of Positive TB Skin Test No Homeless No Known Immunosuppression No Recent Immigrant No Resident of Institutional Living No Bloody Sputum No Fatigue No Fever No Loss of Appetite No Night Sweats No Persistent Cough > 3 Weeks No Weight Loss No Allergies Yes Placement Secretary On Yes Consent Form Signed Yes Patient Dressed In Hospital gown Pre-op Preparation Glasses removed History & Physical Update On Chart Yes History & Physical On Chart Yes Obstructive Sleep Apnea Assess Completed Yes Arrival Mode Ambulatory Position Supine Glasses Yes Dentures N/A Accompanied By On Arrival Family Orientation Assessment Oriented x 4 Safety Brochure Information Reviewed Unable to complete [facility] Video Viewed No Barriers to Learning None evident Teaching Method Explanation Teaching Evaluation No further teaching needed Preferred Written Language Mosotho Preferred Spoken Language Mosotho Information Given by Patient Patient's Current Physicians Patient's Current Physicians Belongings At Bedside Glasses, Shirt, Shoes, Shorts Discharge To, Anticipated Home with family care Activity Status ADL Ambulating in shafer, Ambulating in room, Awake Standard Safety ID band on, Allergy Band on, Call device within reach, Bed in low position, Wheels locked, Visitor at bedside Prev Test Positive/Diagnosis w/COVID-19 No Current Quarantine/Isolated any Illness No Any Contact with Sick Animals/Birds No Traveled Anywhere in Last 30 Days No Allergy Band on and Verified Yes Patient ID Band on and Verified Yes Implants Verified Yes Pacemaker/AICD Verified Yes Last Fluid Intake 11/02/2021 18:00 Last Food Intake 11/02/2021 18:00 Last Void 11/03/2021 7:00 Lost Weight Unintentionally Recently No Eat Poorly Due to Decreased Appetite No Total MST Score 0 N/A Personal Devices, Patient Valuables Glasses Admission Note-Nursing Same Day Patient History . Assessment and Plan [place] Society of Anesthesiologists (ASA) physical status classification: Class III. Anesthetic Preoperative Plan Anesthetic technique: MAC. Postoperative pain management: Per surgeon. Informed consent: signed by patient. Digitally Signed by EMILIO RYAN on 11/03/2021 10:02 AM [facility]07-22-2022 Note [place] ADMISSION HISTORY AND PHYSICIAL CHIEF COMPLAINT: HISTORY OF PRESENT ILLNESS: REVIEW OF SYSTEMS: ACTIVE PROBLEMS: (18) Abdominal pain (62244080) Anxiety disorder (666612011) Change in bowel habits (017201139) CKD stage 3 secondary to diabetes (0722639657) Diabetes mellitus type 2, uncontrolled (9291221097) Dyspepsia (009740987) Embolism (0513312812) Epigastric pain (952512372) GERD (gastroesophageal reflux disease) ([id number]) High serum creatine (794244) Hypercholesterolemia ([id number]) Hypertension (10761723) Hypothyroid (12275011) NATHAN (obstructive sleep apnea) ([id number]) PE (pulmonary thromboembolism) (141474282) Prostate cancer (1857923519) Urinary frequency ([id number]) Vitamin D deficiency (34342727) MEDICATIONS: Active Inpt Meds: None Active PRN Meds: None One Time Meds: None Active IV Meds: Lactated Ringers Infusion 1,000 mL (LR 1,000 mL) Start: 11/03/21 8:06:00 EDT, Rate: 50 mL/hr, 11/03/21 8:06:00 EDT ALLERGIES: (4) Amoxil Bee Stings Lotensin Monopril FAMILY HISTORY: SOCIAL HISTORY: PHYSICAL EXAM: VITALS: AhrrcfLamhBCEuheqARXaT3QHU0QjlhHy(kg) 11/03 08:0436.6141/76527267MV31/22 92.7 24 Hr Tmax: 36.6 at 11/03 08:04 36 Hr Tmax: 36.6 at 11/03 08:04 Vital Signs are the last 5 in the past 48 hours. Weights display the last 5 within 7 days. Initial Wt: 11/03 92.7 kg 204 lb Current Wt: 11/03 92.7 kg 204 lb GENERAL: HEENT: CARDIOVASCULAR: RESPIRATORY: ABDOMEN: EXREMETIES: NEUROLOGICAL: PSYCHIATRIC: LABS: No 36hr Lab Data DIAGNOSTICS: IMPRESSION: PLAN: History and Physical Update I have examined the patient; reviewed the H&P and there are no changes to the H&P unless noted below. Digitally Signed by JV LILLY MD on 11/03/2021 09:55 AM [facility]07-09-2022 Evaluation note* Diagnosis Stage 3a chronic kidney disease (HCC) documented in this encounter [facility]07-09-2022 Reason for referral (narrative)* Diagnostic Procedure Only (Routine) - Closed Specialty Diagnoses / Procedures Referred By Herson kinney Referred To Contact US IMAGING Diagnoses Stage 3a chronic kidney disease (HCC) Procedures US KIDNEY/BLADDER US RETROPERITONEAL REAL TIME W/IMAGE COMPLETE Aris Ball DO [address] [place] [address] Us Imaging Referral ID Status Reason Start Date Expiration Date V isits Requested Visits Authorized [id number] Closed Auto-Generate d Referral 10/06/2021 11/05/2022 1 1 [facility]07-08-2022 History of Present illness Narrative* RT Vidal(R) - 10/20/2021 10:00 AM EDT Radiology Service Progress Note PATIENT NAME: Karen Vazquez DATE OF SERVICE: October 20, 2021 TIME: 10:32 AM PATIENT IDENTITY VERIFICATION COMPLETED USING TWO (2) IDENTIFIERS: Name and Date of confirmedby patient verbally. FALL SCREENING: Has the patient had 2 falls in the last year or 1 fall with injury or currently using an Ambulatory Assistive Device (Walker, Cane, Wheelchair, Crutches, etc.)? No PATIENT GENDER DATA: Male PATIENT RELEVANT IMPLANT DATA REVIEWED: Not Applicable RADIOLOGY DEPARTMENT: Ultrasound PERIPHERAL IV DATA: Not applicable SIGNED BY: RT Vidal(R) October 20, 2021 10:32 AM [facility] History of Present illness Narrative* Evelio Bryan MD - 10/10/2021 2:53 PM EDT DISTANCE HEALTH VISIT This Team Access Model visit is a virtual encounter. It required patient- provider interaction for the medical decision making as documented below. Karen Vazquez is a 76 year old male seen for followup prostate cancer. This was diagnosed in 2010 - GG1 CaP. Repeat biopsies in 2011, 2013 - GG1 CaP. Most recent biopsy 2017 - benign Last MRI 08/08/2020 He had PAE with Dr. Quispe in 09/2020. PSA (ng/mL) Date Value 10/03/2021 9.26 05/30/2021 12.14 04/04/2021 6.84 05/12/2020 22.95 11/19/2019 16.99 Interval Hx: No issues since last visit. Overall voiding well Urine stream is good Remains on oxybutynin Wakes 1/night to urinate Saw Dr. Ball in nephrology last week for CKD - planned for renal US HISTORY REVIEWED (electronic chart updated): - medical history - medications - allergies REVIEW OF SYSTEMS: GENERAL: feeling well without fatigue, no recent change in weight RESPIRATORY: no cough, no wheezing or shortness of breath CARDIOVASCULAR: no chest pain, no palpitations GI: normal appetite, tolerating PO well, BMs normal and no abdominal pain : as per HPI PHYSICAL EXAMINATION: VIDEO EXAM: (if done, performed via video enabled technology) GENERAL: alert and appropriate, in no distress and well-hydrated, well nourished SKIN: no rash noted HEAD: normocephalic EYES: anicteric sclerae EARS: normal external ears NOSE: normal external nose RESPIRATORY: breathing non-labored ASSESSMENT: (C61) Malignant neoplasm of prostate (HCC) (primary encounter diagnosis) (N40.1, N13.8) BPH with urinary obstruction PLAN: - f/u renal US - Pt requests MRI in 2nd or 3rd week of January. He is very concerned that no biopsy done in several years. Prefers [facility] for location - He is unsure if he needs medication refills - he will call the office if he needs any. I spent a total of 20 minutes on the date of the service which included preparing to see the patient, ahav-ma-rqti patient care and completing clinical documentation. Evelio Bryan MD documented in this encounterUniversity [facility]als [facility]06-24-2022 Instructions* Patient Instructions* Aris Ball DO - 10/06/2021 1:48 PM EDT Avoid Advil, Ibuprofen(Motrin), Aleve(Naproxen), Meloxicam(Mobic) and other pain/arthritis medications called NSAIDS. Tylenol if necessary for pain Follow low salt diet. (1/2 tsp salt) <2 grams Lab work today and in 2 days before next visit Follow up with Dr. Ball in 6 months. Please bring a complete list of your medications, the dosage and times taken - to every visit. We want to know that ALL of your concerns/needs relevant to this visit- were met today and that we have hopefully exceeded your expectations. You may receive a survey regarding your care today. If you do, please take a few minutes to fill itout and send it back. It will be greatly appreciated. documented in this encounterUniversity Hospitals Lake [facility]06-24-2022 History of Present illness Narrative* Aris Ball DO - 10/06/2021 1:00 PM EDT [facility] NEPH[facility]OLOG[facility]YPERTENSION [facility] SERVICE DATE: 10/06/2021 SERVICE TIME: 1:53 PM REASON FOR CONSULT: I am asked to see this patient in consultation for my opinion regarding kidney failure. My recommendations will be communicated by way of shared medical record, fax, or mail. REQUESTING PHYSICIAN: Self PRIMARY CARE PHYSICIAN: Deanne Kohli MD CHIEF COMPLAINT: Kidney failure HPI: Mr. Vazquez is a 76 year old male with a PMHx of DVT/PE, hypertension, osteoarthrosis, and hyperlipidemia who presents with chronic kidney disease stage IIIa. Baseline creatinine 1.2 since 2010 UA with trace protein and otherwise bland ([id number]) No kidney imaging Etodolac prescribed historically NSAIDs in the past Bilateral hip surgery Bilateral hernia surgery Used to wake up 4 times at night to urinate but now only once after ablation Duration (when): Years Location (where): Kidneys Severity (ex: creat 4.5, BP 200/100): CKD IIIa Quality (ex: sharp, dull): Chronic Context (ex: activity at onset or related to condition): NSAIDs, surgery Timing (ex: continuous, intermittent): Continuous Modifying factors (ex: medications, interventions): Blood pressure medications Associated signs & symptoms (ex: edema, SOB): N/A PAST MEDICAL HISTORY: PAST MEDICAL HISTORY Diagnosis Date Basal cell carcinoma Nose and Right cheek Depressive disorder, not elsewhere classified DVT (deep venous thrombosis) (HCC) Esophageal reflux Essential hypertension, benign Osteoarthrosis, unspecified whether generalized or localized, other specified sites Other and unspecified hyperlipidemia Pulmonary embolism (HCC) 02/2019 PAST SURGICAL HISTORY: PAST SURGICAL HISTORY Procedure Laterality Date BIOPSY OF SKIN LESION REPAIR SLIDING INGUINAL HERNIA FAMILY HISTORY: No family history on file. SOCIAL HISTORY: Social History Tobacco Use Smoking status: Former Smoker Quit date: 04/15/1982 Years since quittin.5 Smokeless tobacco: Never Used Tobacco comment: pt stopped smoking 35yers ago Substance Use Topics Alcohol use: No Drug use: No MEDICATIONS: tamsulosin (FLOMAX) 0.4 mg Take 1 capsule by mouth once daily. oxybutynin ER (DITROPAN XL) 10 mg 24 hr tablet Take 1 tablet by mouth once daily. desvenlafaxine ER (PRISTIQ) 50 mg 24 hr tablet Take 50 mg by mouth once daily. ELIQUIS 5 mg tab(s) Take 5 mg by mouth twice daily. losartan (COZAAR) 25 mg tablet 50 mg once daily. SF 1.1 % gel multivitamin (MULTIPLE VITAMINS ORAL) MULTIVITAMIN ADULT TABS sildenafil (VIAGRA) 100 mg tablet Take one tablet by mouth 1 hour prior to sexual activity. levothyroxine (SYNTHROID) 25 mcg tablet Take 1 tablet by mouth daily before breakfast. esomeprazole (NEXIUM) 40 mg capsule Take 40 mg by mouth once daily. LACTASE (LACTAID ORAL) Take by mouth once daily. rosuvastatin (CRESTOR) 20 mg ORAL tablet Take 20 mg by mouth once daily. Hydrochlorothiazide 12.5 mg ORAL capsule Take 12.5 mg by mouth once daily. metoprolol tartrate, short acting, 50 mg ORAL tablet Take 25 mg by mouth twice daily. ascorbic acid (VITAMIN C) 500 mg ORAL tablet Take 500 mg by mouth once daily. MULTIVITAMIN/IRON/FOLIC ACID (CENTRUM COMPLETE ORAL) Take by mouth once daily. ALLERGIES: ALLERGIES Allergen Reactions Bee Venom Protein (* Other: See Comments Benazepril Unknown Fosinopril Unknown Penicillins Unknown REVIEW OF SYSTEMS: Constitutional: No fevers, chills, weight loss Eyes: No loss in vision, photophobia Ear, Nose, and Throat: No epistaxis, nasal congestion Cardiovascular: No chest pain, KULKARNI, SOB, palpitations Respiratory: No cough, hemoptysis Gastrointestinal: No diarrhea, constipation Genitourinary: No dysuria, polyuria Musculoskeletal: No joint pain, morning stiffness Skin: No rash, no ulcers Neurological: No headaches, seizures, paresthesias Psychiatric: No depression, anxiety Endocrine: No hair loss, no heat intolerance Hematologic:No easy bruising, easy bleeding PHYSICAL EXAM: BP 160/79 Pulse (!) 55 Ht 172.7 cm (5' 8 ) Wt 94.8 kg (209 lb) BMI 31.78 kg/m Constitutional: No acute distress, Responsive, Normal habitus and Well-nourished Eyes: Conjunctiva clear and PERRL Ear, Nose, and Throat: Hearing normal, Lips normal and Dentition normal Neck:Trachea midline No jugular venous distension Cardiovascular:No peripheral edema Regular rate and ryhthm, normal S1 and S2, no murmurs, rubs, or gallops Respiratory: Normal respiratory effort. Lungs clear bilaterally. Abdomen:Soft, non-tender, non-distended. Normal bowel sounds. No hepatosplenomegaly. Musculoskeletal: No clubbing or cyanosis of digits., Normocephalic. and No muscle weakness, joint tenderness, or joint effusions. Neurologic:CN II-XII intact and Normal sensation Psychiatric: Alert and oriented x self, place, time, and setting Normal mood/affect DATA: Diagnostic tests reviewed for today's visit: Glucose (mg/dL) Date Value 09/13/2020 101 Potassium (mmol/L) Date Value 09/13/2020 4.1 Sodium (mmol/L) Date Value 09/13/2020 140 Chloride (mmol/L) Date Value 09/13/2020 104 CO2 (mmol/L) Date Value 09/13/2020 26 Creatinine (mg/dL) Date Value 09/13/2020 1.23 BUN (mg/dL) Date Value 09/13/2020 16 Anion Gap (mmol/L) Date Value 09/13/2020 10 Calcium (mg/dL) Date Value 09/13/2020 9.4 Protein, Total (g/dL) Date Value 05/30/2021 7.3 Albumin (g/dL) Date Value 05/30/2021 4.2 Bilirubin, Total (mg/dL) Date Value 05/30/2021 0.4 Alkaline Phosphatase (U/L) Date Value 05/30/2021 90 AST (U/L) Date Value 05/30/2021 21 ALT (U/L) Date Value 05/30/2021 19 ASSESSMENT: Mr. Vazquez is a 76 year old male with a PMHx of DVT/PE, hypertension, osteoarthrosis, and hyperlipidemia who presents with chronic kidney disease stage IIIa. Chronic kidney disease stage IIIa - Etiology secondary to NSAID use vs obstruction vs hypertensive nephrosclerosis Baseline creatinine 1.2 since 2010 UA with trace protein and otherwise bland ([id number]) No kidney imaging Etodolac prescribed historically 2. Persistent proteinuria PLAN: - Renal labs today - US kidney/bladder - Avoid NSAIDs - Follow up based on results SIGNATURE: Aris Ball DO PATIENT NAME: Karen Vazquez DATE: October 06, 2021 TIME: 1:52 PM OFFICE NUMBER: [phone] CC: REFERRING PROVIDER: Self PRIMARY CARE PHYSICIAN: Deanne Kohli MD documented in this encounterUniversity Hospitals Lake [facility]06-24-2022 Evaluation note* Diagnosis Stage 3a chronic kidney disease (HCC)- Primary Persistent proteinuria Proteinuria documented in this encounter [facility]06[facility]22 Reason for referral (narrative)* Diagnostic Procedure Only (Routine) - Authorized Specialty Diagnoses / Procedures Referred By Contac t Referred To Contact US IMAGING Diagnoses Stage 3a chronic kidney disease (HCC) Procedures US KIDNEY/BLADDER US RETROPERITONEAL REAL TIME W/[place] [address] [place] [address] Us Imaging Referral ID Status Reason Start Date Expiration Date Visits Requested Visits Authorized [id number] Authorized Auto-Generat ed Referral 10/06/2021 11/05/2022 1 1 [facility]06-21-2022 Miscellaneous Notes* Telephone Encounter - Marce Sutton PA-C - 10/03/2021 5:14 PM EDT Telephone Encounter~ Person of Contact: Karen Vazquez Reason for Call: follow up s/p PAE 09/19/2020 and successful voiding trial on 10/19/2020 Outcome of Call: Patient reports that he is doing well, needs to follow up for recently diagnosed CKD. He states he has some infrequent urinary leakage however if he empties his bladder completely does not seem to have the problem Preprocedure IPSS score: 15 Post procedure IPSS score today: 2 (4 03/10/21) (4 on 12/05/2020) (8 on 10/28/20) 1. Incomplete Emptying How often have you had the sensation of not emptying your bladder? 0 2. Frequency How often have you had to urinate less than every two hours? 1 3. Intermittency How often have you found you stopped and started again several times when you urinated? 0 4. Urgency How often have you found it difficult to postpone urination? 0 5. Weak Stream How often have you had a weak urinary stream? 0 6. Straining How often have you had to strain to start urination? 0 7. Nocturia How many times did you typically get up at night to urinate? 1 Quality of life due to symptoms ? Pleased Contact Number Given: Yes Number of minutes: A total of (15) minutes was spent on this encounter Marce Sutton PA-C documented in this encounterUniversity Hospitals Lake [facility] Center04-19-2022 Miscellaneous Notes* Telephone Encounter - ADM Royer - 08/01/2021 11:22 AM EDT Patient phones requesting refills as follows: Pending Prescriptions Disp Refills TAMSULOSIN 0.4 MG CAPSULE 90 capsule 1 Sig: Take 1 capsule by mouth once daily. KATE: No Please review and advise. ADM Royer documented in this encounterUniversity Hospitals Lake West Medical CenterEvalutrinity health note* Diagnosis Malignant neoplasm of prostate (HCC)- Primary 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 and other lower urinary tract symptoms (LUTS) documented in this encounter [facility]* Diagnosis Malignant neoplasm of prostate (HCC)- Primary 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 and other lower urinary tract symptoms (LUTS) documented in this encounter [facility]* Diagnosis Malignant neoplasm of prostate (HCC)- Primary 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 and other lower urinary tract symptoms (LUTS) Penile pain Unspecified disorder of penis [facility] N[facility] No data available for this section [facility] Advance Directives No Advanced Directives Records FoundDocuments on File Type Date Recorded Patient Title Investigator Expl anation Advance Directive(s) 09/07/2020 4:10 PM Documents on File Type Date Recorded Patient Title Investigator Expl anation Advance Directive(s) 09/07/2020 4:10 PM Reason for Referral Specialty Diagnoses / Procedures Referred By Contac t Referred To Contact MR IMAGING Diagnoses Malignant neoplasm of prostate (HCC) Procedures MRI PROSTATE WO/W IVCON MRI PELVIS W/O & W/CONTRAST MATERIAL Evelio Bryan MD [address] [place] [address] Mr Imaging Referral ID Status Reason Start Date Expiration Date Visits Requested Visits Authorized [id number] Pending Review Auto-Generat ed Referral 01/10/2022 11/09/2022 1 1 Summary Purpose Family History No Family History Records FoundNo Family History Records FoundNo Family History Records Found Additional Source Comments Source Comments (unrecognize d section and content) In the event this informatio n is protected by the Federal Confidentiality of Alcohol and Drug Abuse Patient Records regulations: The Federal rules restrict any use of the information to criminally investigate or prosecute any alcohol or drug abuse patient.[facility] CenterIn the event this information is protected by the Federal Confidentiality of Alcohol and Drug Abuse Patient Records regulations: The Federal rules restrict any use of the information to criminally investigate or prosecute any alcohol or drug abuse patient.[facility] CenterIn the event this information is protected by the Federal Confidentiality of Alcohol and Drug Abuse Patient Records regulations: The Federal rules restrict any use of the information to criminally investigate or prosecute any alcohol or drug abuse patient.[facility] CenterIn the event this information is protected by the Federal Confidentiality of Alcohol and Drug Abuse Patient Records regulations: The Federal rules restrict any use of the information to criminally investigate or prosecute any alcohol or drug abuse patient.[facility] CenterIn the event this information is protected by the Federal Confidentiality of Alcohol and Drug Abuse Patient Records regulations: The Federal rules restrict any use of the information to criminally investigate or prosecute any alcohol or drug abuse patient.[facility] CenterIn the event this information is protected by the Federal Confidentiality of Alcohol and Drug Abuse Patient Records regulations: The Federal rules restrict any use of the information to criminally investigate or prosecute any alcohol or drug abuse patient.[facility] CenterIn the event this information is protected by the Federal Confidentiality of Alcohol and Drug Abuse Patient Records regulations: The Federal rules restrict any use of the information to criminally investigate or prosecute any alcohol or drug abuse patient.[facility] CenterIn the event this information is protected by the Federal Confidentiality of Alcohol and Drug Abuse Patient Records regulations: The Federal rules restrict any use of the information to criminally investigate or prosecute any alcohol or drug abuse patient.[facility] CenterIn the event this information is protected by the Federal Confidentiality of Alcohol and Drug Abuse Patient Records regulations: The Federal rules restrict any use of the information to criminally investigate or prosecute any alcohol or drug abuse patient.[facility] CenterIn the event this information is protected by the Federal Confidentiality of Alcohol and Drug Abuse Patient Records regulations: The Federal rules restrict any use of the information to criminally investigate or prosecute any alcohol or drug abuse patient.[facility] CenterIn the event this information is protected by the Federal Confidentiality of Alcohol and Drug Abuse Patient Records regulations: The Federal rules restrict any use of the information to criminally investigate or prosecute any alcohol or drug abuse patient.[facility] CenterIn the event this information is protected by the Federal Confidentiality of Alcohol and Drug Abuse Patient Records regulations: The Federal rules restrict any use of the information to criminally investigate or prosecute any alcohol or drug abuse patient.[facility] Reason for Visit (unrecogniz ed section and content) Reason Comments Follow Up Reason Comments New Patient Reason Comments Follow Up Reason Comments Radiology US Specialty Diagnoses / Procedures Referred By Contac t Referred To Contact US IMAGING Diagnoses Stage 3a chronic kidney disease (HCC) Procedures US KIDNEY/BLADDER US RETROPERITONEAL REAL TIME W/IMAGE COMPLETE Aris Ball DO [address] [place] [address] Us Imaging Referral ID Status Reason Start Date Expiration Date V isits Requested Visits Authorized [id number] Closed Auto-Generate d Referral 10/06/2021 11/05/2022 1 1 Reason Onset Date Comments Refill Request 01/24/2022 Reason Onset Date Comments Refill Request 08/14/2022 Care Teams (unrecognized sec tion and content) Field Health Officer Relationship Specialty Start Date End Date Deanne Kohli PCP - General 12/06/04 Field Health Officer Relationship Specialty Start Date End Date Deanne Kohli PCP - General 12/06/04 Field Health Officer Relationship Specialty Start Date End Date Deanne Kohli PCP - General 12/06/04 Field Health Officer Relationship Specialty Start Date End Date Deanne Kohli PCP - General 12/06/04 Field Health Officer Relationship Specialty Start Date End Date Deanne Kohli PCP - General 12/06/04 Field Health Officer Relationship Specialty Start Date End Date Deanne Kohli PCP - General 12/06/04 Field Health Officer Relationship Specialty Start Date End Date Deanne Kohli PCP - General 12/06/04 Field Health Officer Relationship Specialty Start Date End Date Deanne Kohli PCP - General 12/06/04 Field Health Officer Relationship Specialty Start Date End Date Deanne Kohli PCP - General 12/06/04 Field Health Officer Relationship Specialty Start Date End Date Deanne Kohli PCP - General 12/06/04 Care Team (unrecognized sect ion and content) Care Team Personnel Name: DEANNE KOHLI MD Member Role: Primary Care Physician Address: Address: [address] [place] [id number]- Care Team Related Persons Name: CYNTHIA VAZQUEZ Address: Home [address] [place], [place] [id number] (unrecognized sect ion and content) No Status Records FoundNo Status Records FoundNo Status Records Found INFORMATION SOURCE (unrecogn ized section and content) DATE CREATED AUTHOR AUTHOR'S ORGANFIDEL ATION 04/11/2022 [facility] DATE CREATED AUTHOR AUTHOR'S ORGANIZ ATION 04/04/2023 [facility] FOR RECORDS PERTAINING TO PATIENTS WHO ARE OR HAVE BEEN ENROLLED IN A CHEMICAL DEPENDENCY/SUBSTANCEABUSE PROGRAM, SOME INFORMATION MAY BE OMITTED. This clinical summary was aggregated from multiple sources. Caution should be exercised in using it in the provision of clinical care. This summary normalizes information from multiple sources, and as a consequence, information in this document may materially change the coding, format and clinical context of patient data. In addition, data may be omitted in some cases. CLINICAL DECISIONS SHOULD BE BASED ON THE PRIMARY CLINICAL RECORDS. [facility] [employer] provides no warranty or guarantee of the accuracy or completeness of information in this document.
== END | disposition home or self-care (01) ==
LOC: PSN 08:35
PROVIDERS: PCP Family Medicine; Referring Provider Nurse Practitioner Gerontology; Visit Provider Nurse Practitioner Gerontology
DX: R00.1 Bradycardia, unspecified (principal); I49.1 Atrial premature depolarization; I49.3 Ventricular premature depolarization
CPT/HCPCS: 93225; 93226

== ENCOUNTER → 2023-05-14 | Outpatient (CLI) | payer MEDICARE, SELFPAY ==
[2023-05-14 17:05] LABS: Anion Gap 6 (5-15); BUN 35 mg/dL (7-18); BUN/Creat Ratio 18.1 RATIO (10-20); Calcium,Total 9.1 mg/dL (8.5-10.1); Chloride 106 mmol/L (98-107); Creatinine, Serum 1.93 mg/dL (0.70-1.30); EST Glomerular Filtration Rate 36 mL/min (>60); Est Glom Filt Rate - Afr Amer 44 mL/min (>60); Glucose 122 mg/dL (74-106); Potassium 3.7 mmol/L (3.5-5.1); Sodium Level 138 mmol/L (136-145)
== END | disposition home or self-care (01) ==
PROVIDERS: PCP Family Medicine; Referring Provider Nurse Practitioner Gerontology; Visit Provider Nurse Practitioner Gerontology
DX: N18.30 Chronic kidney disease, stage 3 unspecified (principal)
CPT/HCPCS: 36415; 80048

== ENCOUNTER → 2023-05-21 | Outpatient (CLI) | payer MEDICARE, SELFPAY ==
--- OUTSIDE RECORDS SUMMARY | 2023-05-21 11:45 | XMS RPT_ITS | CCD ---
Author Name Unknown Address [address] [place] [address] Organization [facility] Care Team Providers Care Gold Nib Grinder Name Role Phone Deanne Kohli Primary Care Provider [phone] KEVAN RUSSELL, DR TRAYLOR Primary Care Physician [phone] Deanne Kohli Primary Care Provider [phone] DEANNE KOHLI Primary Care Unavailable MADITZ, ARIS Referring Unavailable JOLLADRIEL, DEANNE YUNG Primary Care Unavailable RANDI, EVELIO Referring Unavailable Deanne Kohli Primary Care Provider MADITZ, ARIS Referring Unavailable MADITZ, ARIS Attending [...] benazepril; Translations: [benazepril] Drug Allergy [address] [facility] (15 sources) Fosinopril; Translations: [fosinopril] Drug Allergy [address] [facility] (6 sources) Penicillins; Translations: [PENICILLINS] Drug Allergy [address] [facility] (14 sources) Bee Venom Protein (Honey Bee); Translations: [BEE VENOM PROTEIN (HONEY BEE)] Drug Allergy 7 Other: See Comments [facility] (8 sources) Penicillins Drug Allergy [address] [facility] (1 source) Amoxicillin; Translations: [amoxicillin] Drug Allergy [facility] (1 source) Bee/Wasp/Ant venom Allergy to substance [facility] Medications Current Medications Medication Drug Class(es) Dates [...] Facility 04-10-2022 14:15-0500 Body height 172.7 cm XunLight DO Work Phone: [facility] 04-10-2022 14:15-0500 Body weight 94.8 kg XunLight DO Work Phone: [facility] 04-10-2022 14:15-0500 Diastolic blood pressure 75 mm[Hg] XunLight DO Work Phone: [facility] 04-10-2022 14:15-0500 Heart rate 65 /min XunLight DO Work Phone: [facility] 04-10-2022 14:15-0500 Systolic blood pressure 147 mm[Hg] XunLight DO Work Phone: [facility] 11-03-2021 10:51-0400 Diastolic Blood Pressure NBP [address] JV LILLY MD [facility] 11-03-2021 10:51-0400 Heart rate 59 /min DR JV LILLY MD [facility] 11-03-2021 10:51-0400 Respiratory rate 18 /min DR JV LILLY MD [facility] 11-03-2021 10:51-0400 Systolic Blood Pressure NBP [address] JV LILLY MD [facility] 11-03-2021 10:34-0400 Diastolic Blood Pressure NBP [address] JV LILLY MD [facility] 11-03-2021 10:34-0400 Heart rate 60 /min DR JV LILLY MD [facility] 11-03-2021 10:34-0400 Respiratory rate 17 /min DR JV LILLY MD [facility] 11-03-2021 10:34-0400 Systolic Blood Pressure NBP [address] JV LILLY MD [facility] 11-03-2021 10:28-0400 Diastolic Blood Pressure NBP [address] JV LILLY MD [facility] 11-03-2021 10:28-0400 Heart rate 53 /min DR JV LILLY MD [facility] 11-03-2021 10:28-0400 Respiratory rate 18 /min DR JV LILLY MD [facility] 11-03-2021 10:28-0400 Systolic Blood Pressure NBP [address] JV LILLY MD [facility] 11-03-2021 10:11-0400 Body temperature 97.34 [degF] DR JV LILLY MD [facility] 11-03-2021 08:04-0400 Body height 172.[address] JV LILLY MD [facility] 11-03-2021 08:04-0400 Body temperature 97.88 [degF] DR JV LILLY MD [facility] 11-03-2021 08:04-0400 Body weight 92.[address] JV LILLY MD [facility] 11-03-2021 08:04-0400 Heart rate 46 /min DR JV LILLY MD [facility] 10-06-2021 13:17-0400 Body height 172.7 cm Aris Maditz DO Work Phone: [facility] 10-06-2021 13:17-0400 Body weight 94.8 kg Aris Maditz DO Work Phone: [facility] 10-06-2021 13:17-0400 Diastolic blood pressure 79 mm[Hg] Aris Maditz DO Work Phone: [facility] 10-06-2021 13:17-0400 Heart rate 55 /min Aris Maditz DO Work Phone: [facility] 10-06-2021 13:17-0400 Systolic blood pressure 160 mm[Hg] Aris Maditz DO Work Phone: [facility] Encounters Encounter Date Encounter Type Care Provider Facility Start: 04-03-2023 End: 04-04-2023 ambulatory EVELIO BRYAN Facility:[facility] Start: 01-26-2023 End: 01-26-2023 ambulatory DEANNE KOHLI Facility:[facility] Start: 01-26-2023 End: 01-26-2023 ambulatory Immunization Clinic [...] 65+ YR, HIGH DOSE, QUADRIVALENT (FLUZONE HIGH-DOSE) Angy Avitia MD Work Phone: Start: 10-20-2021 Us retroperitoneal r eal time w/image complete Aris Bakari SANCHEZ Work Phone: Start: 04-15-2020 Prostatic structure (body structure) DR JV LILLY MD Plan of Treatment Date Care Activity Detail Author Start: 09-14-2023 DIABETES SCREEN DIABETES SCREEN [facility] Start: 09-14-2023 Diabetes Screening Diabetes Screenin g [facility] Start: 04-10-2023 SERUM CREATININE SERUM CREATININE [facility] Start: 04-03-2023 End: 06-03-2023 Prostate Specific Ag Free [Mass/volume] in Serum or Plasma PSA FREE Lab Routine Malignant neoplasm of prostate (HCC) Expected: 04/03/2023 (Approximate), Expires: 06/03/2023 [facility] Work Phone: Immunizations Immunization Date Immunization Notes Care Provider Fa josué 01-26-2023 COVID-19 vaccine, ag e 12+ yr, season (PFIZER-BIONTECH) Immunization [place] Work Phone: [facility] Work Phone: 01-26-2023 influenza (HD-IIV4) vaccine, age 65+ yr, high dose, quadrivalent, PF (FLUZONE HIGH-DOSE) Immunization [place] Work Phone: [facility] 01-21-2021 influenza, high-dose , quadrivalent vaccine (FLUZONE HIGH DOSE QUADRIVALENT) Evelio Bryan MD Work Phone: [facility] Work Phone: Payers Date Payer Category Payer Medicare MMO MEDICARE MMO MEDADVANTAGE HMO [id number] 2020-Present [phone] [address] [place] [address] HMO [id number] 2020 Medicare MMO MEDICARE MMO MEDADVANTAGE HMO [id number] 2020-Present [phone] [address] [place] [address] HMO [id number] 2020 Unknown [id number] Social History Date Type Detail Facility Start: 10-26-2011 End: 04-10-2022 Tobacco smoking status NHIS Ex-smoker [facility] in Medical Equipment Procedure Code Equipment Code Equipment Origin al Text Equipment Identifier Dates Coil Concerto Latticefx 2mm Helical Nylon Polypropylene 4cm Embolization - [id number] Start: 09-19-2020 Coil Vortx 3mm . 18mm [place] Fiber 22mm 20.5mm Embolization Occlusion - [id number] Start: 09-19-2020 Coil Tornado 3-2 mm .018in [place] 2cm Embolization Microcoil Malformation - [id number] Start: 09-19-2020 Coil Concerto Latticefx 2mm Helical Nylon Polypropylene 4cm Embolization - [id number] Start: 09-19-2020 Coil Concerto Latticefx 2mm Helical Nylon Polypropylene 4cm Embolization - [id number] Start: 09-19-2020 Coil Concerto Latticefx 2mm Helical Nylon Polypropylene 4cm Embolization - [id number] Start: 09-19-2020 Sphere Embospher e 100-300um Microsphere Round Yellow Normal Saline - [id number] Start: 09-19-2020 Coil Vortx 3mm . 18mm [place] Fiber 22mm 20.5mm Embolization Occlusion - [id number] Start: 09-19-2020 Device Angio-Sea l Vip 6fr .035in Collagen 70cm Closure Valuelink Guidewire - [id number] Start: 09-19-2020 Coil [place]ornado 3-2 mm .018in [place] 2cm Embolization Microcoil Malformation - [id number] Start: 09-19-2020 Coil Tornado 3-2 mm .018in [place] 2cm Embolization Microcoil Malformation - [id number] Start: 09-19-2020 See Instructions , onetouch delica lancets, 1 lancet daily and as needed #100 for 90 days 3 refills., # 1 EA, 0 Refill(s), Pharmacy: [facility]/pharmacy #[id number], Diabetes type 2, controlled, 172.7, cm, 06/22/21 8:36:00 EST, Height, 96.8, kg, 06/22/21 8:36:00 ES... Start: 06-22-2021 See Instructions , one touch ultra blue test strips, one strip daily and as needed #150strips/90days, # 1 EA, 3 Refill(s), Pharmacy: [facility]/pharmacy #[id number], Controlled type 2 diabetes mellitus, 172.72, cm, 06/01/19 9:08:00 EST, Height, 94.55, kg, 06/01/19... Start: 11-17-2019 Functional Status Date Assessment Result Facility 11-03-2021 Functional Status Awake [facility] 11-03-2021 [facility] Mental Status Date Assessment Result Facility 11-03-2021 [facility] Clinical Notes 08-01-2021 to 10-02-2022 Evelio Bryan MD - 10/02/2022 8:00 AM EDTTelephone Encounter - Kate Childs Reactor Fueling Supervisor II - 08/14/2022 12:27 PM EDT Note Date & Type Note Facility 10-02-2022 Note HNO ID: [id number] Author: Evelio Bryan MD Service: ? Author Type: Physician Type: Progress Notes Filed: 10/02/2022 8:40 AM Note Text: VIRTUAL VISIT PROGRESS NOTE This is a virtual visit using DataKraft video visit. It required patient-provider interaction for the medical decision making as documented below. I have communicated my name and active licensure. The patient's identity and physical location were verified at the time of this visit. Either the patient or their legal textile designs sales representative has been informed of the risks [...] which included preparing to see the patient, hffm-cy-jxwf patient care, and completing clinical documentation Evelio Bryan MD [facility] 10-02-2022 History of Presen t illness Narrative VIRTUAL VISIT PROGRESS NOTE This is a virtual visit using DataKraft video visit. It required patient-provider interaction for the medical decision making as documented below. I have communicated my name and active licensure. The patient's identity and physical location were verified at the time of this visit. Either the patient or their legal textile designs sales representative has been informed of the risks [...] which included preparing to see the patient, wzwy-em-tpiz patient care, and completing clinical documentation Evelio Bryan MD documented in this encounter [facility] 08-14-2022 Miscellaneous Notes Formattin g of this note is different from the original. Patient phones requesting refills as follows: Requested Prescriptions Pending Prescriptions Disp Refills oxybutynin ER (DITROPAN XL) 10 mg 24 hr tablet 90 tablet 5 Sig: Take 1 tablet by mouth once daily. Please review and advise. Kate Childs Reactor Fueling Supervisor II documented in this encounter [facility] documented in this encounter [facility]12-28-2022 Miscellaneous Notes* Addendum Note - Aris Ball DO - 04/11/2022 9:30 AM ESTAddended by: ARIS BALL on: 04/11/2022 09:30 AM Modules accepted: [facility] NoteHNO ID: [id number] Author: Aris Ball DO Service: ? Author Type: Physician Type: Progress Notes Filed: 04/10/2022 2:43 PM Note Text: [facility] SERVICE DATE: 04/10/2022 [...] UA with trace protein and otherwise bland (4955-1979) Etodolac prescribed 2021 ultrasound with a tiny [...] o Treat metabolic a (more content not included)...[facility] 04-10-2022 Instructions* Patient Instructions* Aris Ball DO - 04/10/2022 2:38 PM EST Your renal disease is likely secondary to hypertension. Obtain lab work today. Two options for gastroenterology: [email or web address] [facility] Continue to follow closely with [...] will be greatly appreciated. [facility] History of Present illness Narrative* Aris Ball DO - 04/10/2022 2:00 PM EST [facility] SERVICE DATE: 04/10/2022 [...] UA with trace protein and otherwise bland (2901-4144) Etodolac prescribed - 2021 ultrasound with a [...] 10, 2022 TIME: 2:42 PM OFFICE NUMBER: [phone] CC: PRIMARY CARE PHYSICIAN: Deanne Kohli MD [facility] History of Present illness Narrative* Evelio Bryan [...] which included preparing to see the patient, jgsj-we-snmy patient care, and completing clinical documentation. Evelio Bryan MD [facility] Miscellaneous Notes* Telephone Encounter - Lola Mercedes - 01/24/2022 3:34 PM EDT Patient phones requesting refills as follows: Requested Prescriptions Pending Prescriptions Disp Refills tamsulosin (FLOMAX) 0.4 mg 90 capsule 1 Sig: Take 1 capsule by mouth once daily. Please review and advise. Lola Mercedes [facility]22 NoteHNO ID: [id number] Author: JOEL Tavarez Service: Radiology Author Type: Soil Engineer Type: Progress Notes Filed: 01/23/2022 10:32 AM [...] Site disposition Discontinued SIGNED BY: [facility] January 23, 2022 10:31 [facility]07-22-2022 Evaluation + Plan note Extracted from: Title:Clinical Document Author:JV LILLY Date:11/03/21 [place] ADMISSION HISTORY AN D PHYSICIAL CHIEF COMPLAINT: HISTORY OF PRESENT ILLNESS: REVIEW OF SYSTEMS: ACTIVE PROBLEMS: (18) Abdominal pain (88194509) Anxiety disorder (204060159) Change in bowel habits (658736480) CKD stage 3 secondary to diabetes (8893662647) Diabetes mellitus type 2, uncontrolled (0344949894) Dyspepsia (212426734) Embolism (8961117347) Epigastric pain (815978665) GERD (gastroesophageal reflux disease) ([id number]) High serum creatine (943126) Hypercholesterolemia (7SE6RE2N-5VH6-2537-8I3J-97SH8GJWT70V) Hypertension (68880811) Hypothyroid (19926778) NATHAN (obstructive sleep apnea) (0QC09691-[id number]) PE (pulmonary thromboembolism) (533906006) Prostate cancer (2310759580) Urinary frequency ([id number]) Vitamin D deficiency (30362205) MEDICATIONS: Active Inpt Meds: None Active PRN Meds: None One Time Meds: None Active IV Meds: Lactated Ringers Infusion 1,000 mL (LR 1,000 mL) Start: 11/03/21 8:06:00 EDT, Rate: 50 mL/hr, 11/03/21 8:06:00 EDT ALLERGIES: (4) Amoxil Bee Stings Lotensin Monopril FAMILY HISTORY: SOCIAL HISTORY: PHYSICAL EXAM: VITALS: MqvtauUcmtMLUnrvpVQZiJ9WRU8DolmPq(kg) 11/03 08:0436.6141/58440079OL28/22 92.7 24 Hr Tmax: 36.6 at 11/03 [...] Date:12/21/2021 08:45:00 AM Scheduled Provider:EMIR COX MD Location:[facility] Appointment Type:[facility] Future Scheduled Tests Laboratory* Thyroid Stimulating Hormone 12/23/21 * Free T4 12/23/21 * A1C Hemoglobin 12/23/21 * Microalbumin Level Urine 12/23/21 * Vitamin D Level 12/23/21 * Complete Metabolic Panel 12/23/21 [facility] 07-22-2022 Hospital Discharge instructions Patient Education 11/03/2021 [...] before eating solid foods. General instructions Take aiyu-hlg-tjuonyx and prescription medicines only as told by [...] 07/22/2016 Document Revised: 06/30/2018 Document Reviewed: 07/22/2016 [employer] Patient Education 2020 userfox. 11/03/2021 10:42:31 9 - AO Minor Esophagogastroduodenoscopy [...] 09:46:30 With:JV LILLY MD Address: [address] [phone] When: Unknown Comments:YOU WILL BE CALLED BY THE OFFICE WITH YOUR RESULTS. IF YOU GO NOT HEAR FROM THE OFFICE PLEASE CALL THE OFFICE. IF YOU HAVE ANY QUESTIONS PLEASE CALL THE OFFICE. GO TO THE EMERGENCY ROOM WITH ANY URGENT ISSUES. [facility] 07-22-2022 Summary of episode note Discharge Instructions Thank you for allowing [facility] to assist you with your healthcare needs. [...] 08:45 AM EMIR DUGGAN MD AM Endocrinology [facility] Follow Up Appointments Follow Up with JV LILLY MD When Why: YOU WILL BE CALLED BY THE OFFICE WITH YOUR RESULTS. IF YOU GO NOT HEAR FROM THE OFFICE PLEASE CALL THE OFFICE. IF YOU HAVE ANY QUESTIONS PLEASE CALL THE OFFICE. GO TO THE EMERGENCY ROOM WITH ANYURGENT ISSUES. Where: [address] [place] [address]- [phone] Allergies Amoxil Bee Stings Lotensin Monopril Medications [...] before eating solid foods. General instructions Take ynbm-ldy-qhscczi and prescription medicines only as told by [...] 07/22/2016 Document Revised: 06/30/2018 Document Reviewed: 07/22/2016 TrewCap Patient Education 2020 userfox. Esophagogastroduodenoscopy This is an endoscopic procedure (a [...] to receive it can visit one of [facility] vaccine clinics. There are many vaccine clinic locations within the [facility]. For locations and available times, please visit [email or web address] It is important to note that some COVID mobile vaccine clinics are held outdoors and may be canceled in rainy or stormy conditions. To learn more about pediatric vaccinations (ages 5-11), we invite you to visit the [facility] webpage. [email or web address]://[email or web address]/[email or web address] stions.htmlTo learn more about the COVID-19 vaccine, we invite you to visit the [employer] website for a list of frequently asked questions. [email or web address]://[email or web address]-[email or web address]/yvfpk-[email or web address]-Yueedjashu _[email or web address]-Questions.pdf [facility] Patient Portal Access Instructions: Stay connected with your healthcare team and access your personal medical information anytime with the [facility] Patient Portal.If you would like a full copy of your medical records, please contact the [facility] Medical Records Department, Saturday through Saturday between 8a.m. and 4:30p.m. Please follow the directions below to access the portal: 1.Access the email account you provided upon registration to the hospital.2.Look for an invitation email from [facility].3.Open the email and access the invitation link: Accept Invitation to [facility].Fill in the required galvan to create your account. Sign into www.[employer] with your username and password that you [...] you will allow to register on the [facility] Patient Portal for access to your information. You can also access the [facility] Patient Portal on the Tripwire lindsay. Simply click on Health Records under Medium and then click on the [employer] logo. HOW TO SAFELY DISPOSE OF PRESCRIPTION [...] Call your local pharmacy or go to [email or web address] to find one close to you.3.Make use of household items: Use cat litter or old coffee grounds to dispose medications if other options arenot available. Mix your drugs with these household products, seal them in an airtight container andthrow it into the garbage. Call [facility]: [phone] to be sure your drugs can be [...] am aware that I should contactmy doctor. Patient/Hair Salon Manager Signature: Date/Time: Relationship to Patient: Witness Name/Signature: Date/Time: [facility]07-22-2022 Anesthesiology Consult note Patient: KAREN VAZQUEZ Age: [...] by EMILIO RYAN on 11/03/2021 10:14 AM [facility]07-22-2022 Anesthesiology Consult note Patient: KAREN VAZQUEZ Age: [...] Medical High serum creatine / SNOMED CT 374472 / Confirmed Anxiety disorder / SNOMED CT 904686013 / Confirmed CKD stage 3 secondary to diabetes / SNOMED CT 0724940154 / Confirmed Embolism / SNOMED CT 3528791122 / Confirmed GERD (gastroesophageal reflux disease) / SNOMED CT 48GIA8L4-38R9-4419-GP7D-LR084LR24LD2 / Confirmed Hypercholesterolemia / SNOMED CT 6SQ4US4J-[id number]-20KM0MYET53Z / Confirmed Hypertension / SNOMED CT 28925567 / Confirmed Hypothyroid / SNOMED CT 69034005 / Confirmed Dyspepsia / SNOMED CT 330144636 / Confirmed NATHAN (obstructive sleep apnea) / SNOMED CT 2QL21316-[id number] / Confirmed Diabetes mellitus type 2, uncontrolled / SNOMED CT 7185338427 / Confirmed Urinary frequency / SNOMED CT UTRY40T0-[id number] / Confirmed Vitamin D deficiency / SNOMED CT 42999024 / Confirmed, Active Problems (18) Abdominal pain Anxiety disorder Change in bowel habits CKD stage 3 secondary to diabetes Diabetes mellitus type 2, uncontrolled Dyspepsia Embolism Epigastric pain GERD (gastroesophageal reflux disease) High serum creatine Hypercholesterolemia Hypertension Hypothyroid NATHAN (obstructive sleep apnea) PE (pulmonary thromboembolism) Prostate cancer Urinary frequency Vitamin D deficiency Histories Past Medical History: Active Hypercholesterolemia (3EZ5CK5V-4LE7-5963-5E6I-99LY3RGVJ97J) Urinary frequency ([id number]) Hypertension (25854231) GERD (gastroesophageal reflux disease) (98UCA8W6-07A2-0569-NZ1Q-BH681EX79ZC7) Anxiety disorder (742606824) Embolism (7585690093) Comments: 10/29/2014 EDT 12:58 MARIANNE JOSHI RN pulmonary embolism 1998 NATHAN (obstructive sleep apnea) (7MV86166-G8T3-323P-[id number]) Family History: Heart disease Mother Father Malignant tumor of colon Mother Procedure history: Prostate (06699081) in 2020 at 75 Years. Comments: 11/03/2021 8:28 Vera Cooper RN PROSTATE EMPOLIZATION. Esophagogastroduodenoscopy (025404791) on 06/01/2019 at 74 Years. Comments: 06/01/2019 9:43 HANSEL BARRAGAN RN with argon plasma coagulation Upper GI endoscopy (3463107558) on 05/09/2015 at 69 Years. Comments: 05/09/2015 9:53 PHIL ARIAS WITH APC AND BIOPSY Hernia, inguinal, bilateral ([id number]). Hip replacement (9297450088). Comments: 10/29/2014 13:00 PHIL JOSHI bilateral Upper gastrointestinal endoscopy (886240033). Colonoscopy (267309470). Social History Social & Psychosocial Habits Alcohol [...] Admission Weight 92.7 kg Weight Method Stated [place] Body Weight 68.38 kg Admission Body Mass [...] Cul - Kind Specimen 11/03/2021 9:53 EDT [facility] History and Physical 11/03/2021 9:49 EDT Lactated [...] Surgeon SN - CAt - Role Performed HEAD SCHOOL CUSTODIAN SN - CAt - Role Performed Sounding Device Operator 1 SN - CAt - Role Performed Diagrammer And Seamer 11/03/2021 8:04 EDT Designated Person #1 We May Share NOAH MARIE [phone] Designated Person #1 Relationship Spouse Privacy Restrictions Requested None Height 172.7 cm Admission Weight 92.7 kg Weight Method Stated [place] Body Weight 68.38 kg Admission Body Mass Index 31.08 m2 Temperature Oral 36.6 DegC Peripheral Pulse Rate 46 bpm Respiratory Rate 18 br/min Systolic Blood Pressure NBP 141 mmHg HI Diastolic Blood Pressure NBP 84 mmHg Primary Pain Intensity 0 Pain Scale Type 0-10 Pain scale Nail Bed Color [place] Capillary Refill < 2 seconds All Lobes Breath Sounds Clear Oxygen Therapy Room air Oxygen Saturation 94 % Abdomen Description Rounded Bowel Sounds All Quadrants Hyperactive Urinary Elimination Voiding, no difficulties Status N/A Skin Temperature Warm Skin Description [place], Normal for ethnicity, Dry Skin Moisture General [...] Weeks No Weight Loss No Allergies Yes Embossing Machine Operator On Yes Consent Form Signed Yes Patient [...] No further teaching needed Preferred Written Language Cypriot Preferred Spoken Language Cypriot Information Given by Patient Patient's Current Physicians [...] Day Patient History . Assessment and Plan [place] Society of Anesthesiologists (ASA) physical status classification: Class III. Anesthetic Preoperative Plan Anesthetic technique: MAC. Postoperative pain management: Per surgeon. Informed consent: signed by patient. Digitally Signed by EMILIO RYAN on 11/03/2021 10:02 AM [facility]07-22-2022 Note [place] ADMISSION HISTORY AND PHYSICIAL CHIEF COMPLAINT: HISTORY OF PRESENT ILLNESS: REVIEW OF SYSTEMS: ACTIVE PROBLEMS: (18) Abdominal pain (07051846) Anxiety disorder (199731031) Change in bowel habits (779592525) CKD stage 3 secondary to diabetes (0010678750) Diabetes mellitus type 2, uncontrolled (8161719092) Dyspepsia (612490885) Embolism (2911347769) Epigastric pain (765763912) GERD (gastroesophageal reflux disease) (26UFG5D3-38S3-2034-TH2G-YU851TX61CA1) High serum creatine (072070) Hypercholesterolemia (8ON7ZO4Q-[id number]-53ON5ICFT22J) Hypertension (24096286) Hypothyroid (83120470) NATHAN (obstructive sleep apnea) (6CL96312-A4D0-689X-FIWN-9072IYA8Q506) PE (pulmonary thromboembolism) (265548837) Prostate cancer (8657307750) Urinary frequency (GQMD37S9-[id number]) Vitamin D deficiency ([id number]) MEDICATIONS: Active Inpt Meds: None Active PRN Meds: None One Time Meds: None Active IV Meds: Lactated Ringers Infusion 1,000 mL (LR 1,000 mL) Start: 11/03/21 8:06:00 EDT, Rate: 50 mL/hr, 11/03/21 8:06:00 EDT ALLERGIES: (4) Amoxil Bee Stings Lotensin Monopril FAMILY HISTORY: SOCIAL HISTORY: PHYSICAL EXAM: VITALS: [id number](kg) 11/03 08:0436.6141/[id number]/22 92.7 24 Hr Tmax: 36.6 at 11/03 [...] JV LILLY MD on 11/03/2021 09:55 AM [facility]07-09-2022 Evaluation note* Diagnosis Stage 3a chronic kidney disease (HCC) documented in this encounter [facility]07-09-2022 Reason for referral (narrative)* Diagnostic Procedure Only (Routine) - Closed Specialty Diagnoses / Procedures Referred By Herson kinney Referred To Contact US IMAGING Diagnoses Stage 3a chronic kidney disease (HCC) Procedures US KIDNEY/BLADDER US RETROPERITONEAL REAL TIME W/IMAGE COMPLETE Aris Ball DO [address] [place] [address] Us Imaging Referral ID Status Reason Start Date Expiration Date V isits Requested Visits Authorized [id number] Closed Auto-Generate d Referral 10/06/2021 11/05/[address] [facility]07-08-2022 History of Present illness Narrative* RT Vidal(R) [...] 20, 2021 10:32 AM [facility] History of Present illness Narrative* Evelio Bryan [...] which included preparing to see the patient, [id number] patient care and completing clinical documentation. Evelio Bryan MD [facility] Instructions* Patient Instructions* Aris Ball DO - [...] will be greatly appreciated. [facility] History of Present illness Narrative* Aris Ball DO - 10/06/2021 1:00 PM EDT [facility] SERVICE DATE: 10/06/2021 [...] UA with trace protein and otherwise bland ([id number]) No kidney imaging Etodolac prescribed historically NSAIDs [...] UA with trace protein and otherwise bland ([id number]) No kidney imaging Etodolac prescribed historically 2. Persistent proteinuria PLAN: - Renal labs today - US kidney/bladder - Avoid NSAIDs - Follow up based on results SIGNATURE: Aris Ball DO PATIENT NAME: Karen Vazquez DATE: October 06, 2021 TIME: 1:52 PM OFFICE NUMBER: [id number] CC: REFERRING PROVIDER: Self PRIMARY CARE PHYSICIAN: Deanne Kohli MD [facility] note* Diagnosis Stage 3a chronic kidney disease (HCC)- Primary Persistent proteinuria Proteinuria documented in this encounter [facility]06-24-2022 Reason for referral (narrative)* Diagnostic Procedure Only (Routine) - Authorized Specialty Diagnoses / Procedures Referred By Contac t Referred To Contact US IMAGING Diagnoses Stage 3a chronic kidney disease (HCC) Procedures US KIDNEY/BLADDER US RETROPERITONEAL REAL TIME W/[place] [address] [place] [address] Us Imaging Referral ID Status Reason Start Date Expiration Date Visits Requested Visits Authorized [id number] Authorized Auto-Generat ed Referral 10/06/2021 11/05/[address] [facility]06-21-2022 Miscellaneous Notes* Telephone Encounter - Marce Sutton [...] encounter Marce Sutton PA-C [facility] Miscellaneous Notes* Telephone Encounter - ADM Royer - 08/01/2021 11:22 AM EDT Patient phones requesting refills as follows: Pending Prescriptions Disp Refills TAMSULOSIN 0.4 MG CAPSULE 90 capsule 1 Sig: Take 1 capsule by mouth once daily. KATE: No Please review and advise. 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 and other lower urinary tract symptoms (LUTS) [facility] Diagnosis Malignant neoplasm of prostate (HCC)- Primary 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 and other lower urinary tract symptoms (LUTS) Penile pain Unspecified disorder of penis [facility] N[facility] No data available for this section [facility] Advance Directives No Advanced Directives Records FoundDocuments on File Type Date Recorded 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 Advance Directive(s) 09/07/2020 4:10 PM Documents on File Type Date Recorded 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 Advance Directive(s) 09/07/2020 4:10 PM Reason for Referral Specialty Diagnoses / Procedures Referred By Contac t Referred To Contact MR IMAGING Diagnoses Malignant neoplasm of prostate (HCC) Procedures MRI PROSTATE WO/W IVCON MRI PELVIS W/O & W/CONTRAST MATERIAL Evelio Bryan MD [address] [place] [address] Mr Imaging Referral ID Status Reason Start Date Expiration Date Visits Requested Visits Authorized [id number] Pending Review Auto-Generat ed Referral 01/10/2022 11/09/2022 [...] or prosecute any alcohol or drug abuse patient.[facility] the event this information is protected by the Federal Confidentiality of Alcohol and Drug Abuse Patient Records regulations: The Federal rules restrict any use of the information to criminally investigate or prosecute any alcohol or drug abuse patient.[facility] the event this information is protected by the Federal Confidentiality of Alcohol and Drug Abuse Patient Records regulations: The Federal rules restrict any use of the information to criminally investigate or prosecute any alcohol or drug abuse patient.[facility] HospitalIn the event this information is protected by the Federal Confidentiality of Alcohol and Drug Abuse Patient Records regulations: The Federal rules restrict any use of the information to criminally investigate or prosecute any alcohol or drug abuse patient.[facility] HospitalIn the event this information is protected by the Federal Confidentiality of Alcohol and Drug Abuse Patient Records regulations: The Federal rules restrict any use of the information to criminally investigate or prosecute any alcohol or drug abuse patient.[facility] HospitalIn the event this information is protected by the Federal Confidentiality of Alcohol and Drug Abuse Patient Records regulations: The Federal rules restrict any use of the information to criminally investigate or prosecute any alcohol or drug abuse patient.[facility] HospitalIn the event this information is protected by the Federal Confidentiality of Alcohol and Drug Abuse Patient Records regulations: The Federal rules restrict any use of the information to criminally investigate or prosecute any alcohol or drug abuse patient.[facility] HospitalIn the event this information is protected by the Federal Confidentiality of Alcohol and Drug Abuse Patient Records regulations: The Federal rules restrict any use of the information to criminally investigate or prosecute any alcohol or drug abuse patient.[facility] HospitalIn the event this information is protected by the Federal Confidentiality of Alcohol and Drug Abuse Patient Records regulations: The Federal rules restrict any use of the information to criminally investigate or prosecute any alcohol or drug abuse patient.[facility] HospitalIn the event this information is protected by the Federal Confidentiality of Alcohol and Drug Abuse Patient Records regulations: The Federal rules restrict any use of the information to criminally investigate or prosecute any alcohol or drug abuse patient.[facility] HospitalIn the event this information is protected by the Federal Confidentiality of Alcohol and Drug Abuse Patient Records regulations: The Federal rules restrict any use of the information to criminally investigate or prosecute any alcohol or drug abuse patient.[facility] HospitalIn the event this information is protected by the Federal Confidentiality of Alcohol and Drug Abuse Patient Records regulations: The Federal rules restrict any use of the information to criminally investigate or prosecute any alcohol or drug abuse patient.[facility] Reason for Visit (unrecogniz ed section and content) Reason Comments Follow Up Reason Comments New Patient Reason Comments Follow Up Reason Comments Radiology US Specialty Diagnoses / Procedures Referred By Contac t Referred To Contact US IMAGING Diagnoses Stage 3a chronic kidney disease (HCC) Procedures US KIDNEY/BLADDER US RETROPERITONEAL REAL TIME W/IMAGE COMPLETE Aris Ball DO [address] [place] [address] Us Imaging Referral ID Status Reason Start Date Expiration Date V isits Requested Visits Authorized [id number] Closed Auto-Generate d Referral 10/06/2021 11/05/2022 1 1 Reason Onset Date Comments Refill Request 01/24/2022 Reason Onset Date Comments Refill Request 08/14/2022 Care Teams (unrecognized sec tion and content) Gold Nib Grinder Relationship Specialty Start Date End Date Deanne Kohli PCP - General 12/06/04 Gold Nib Grinder Relationship Specialty Start Date End Date Deanne Kohli PCP - General 12/06/04 Gold Nib Grinder Relationship Specialty Start Date End Date Deanne Kohli PCP - General 12/06/04 Gold Nib Grinder Relationship Specialty Start Date End Date Deanne Kohli PCP - General 12/06/04 Gold Nib Grinder Relationship Specialty Start Date End Date Deanne Kohli PCP - General 12/06/04 Gold Nib Grinder Relationship Specialty Start Date End Date Deanne Kohli PCP - General 12/06/04 Gold Nib Grinder Relationship Specialty Start Date End Date Deanne Kohli PCP - General 12/06/04 Gold Nib Grinder Relationship Specialty Start Date End Date Deanne Kohli PCP - General 12/06/04 Gold Nib Grinder Relationship Specialty Start Date End Date Deanne Kohli PCP - General 12/06/04 Gold Nib Grinder Relationship Specialty Start Date End Date Deanne Kohli PCP - General 12/06/04 Care Team (unrecognized sect ion and content) Care Team Personnel Name: DEANNE KOHLI MD Member Role: Primary Care Physician Address: Address: [address] [place] [id number]- Care Team Related Persons Name: CYNTHIA VAQZUEZ Address: Home [address] [place], [place] [id number] (unrecognized sect ion and content) No Status Records FoundNo Status Records FoundNo Status Records Found INFORMATION SOURCE (unrecogn ized section and content) DATE CREATED AUTHOR AUTHOR'S ORGANFIDEL ATION 04/11/2022 [facility] DATE CREATED AUTHOR AUTHOR'S ORGANIZ ATION 04/04/2023 [facility] FOR RECORDS PERTAINING TO PATIENTS WHO ARE [...] BE BASED ON THE PRIMARY CLINICAL RECORDS. [facility] [employer] provides no warranty or guarantee of the accuracy or completeness of information in this document.
[2023-05-21 12:11] LABS: Hemoglobin A1c 6.6 % (3.8-5.6)
[2023-05-21 12:14] LABS: ALB/GLOB Ratio 0.9 RATIO (0.9-2.4); AST(SGOT) 19 U/L (15-37); Alanine Aminotransfer ALT/SGPT 35 U/L (16-61); Albumin, Serum 3.3 g/dL (3.2-5.0); Alkaline Phosphatase 85 U/L (45-117); Anion Gap 0 (5-15); BUN 25 mg/dL (7-18); BUN/Creat Ratio 16.8 RATIO (10-20); Calcium,Total 8.9 mg/dL (8.5-10.1); Chloride 104 mmol/L (98-107); Cholesterol 179 mg/dL (200); Creatinine, Serum 1.49 mg/dL (0.70-1.30); EST Glomerular Filtration Rate 49 mL/min (>60); Est Glom Filt Rate - Afr Amer 59 mL/min (>60); Free T3 1.7 pg/mL (2.18-3.98); Globulin 3.8 g/dL (2.2-4.2); Glucose 108 mg/dL (74-106); High Density Lipoprotein 64 mg/dL; Potassium 4.1 mmol/L (3.5-5.1); Protein, Total 7.1 g/dL (6.4-8.2); Sodium Level 136 mmol/L (136-145); Thyroid Stim Hormone (TSH) 1.07 uIU/mL (0.358-3.74); Triglycerides 111 mg/dL; Very Low Density Lipoprotein 22 mg/dL (5-40)
[2023-05-21 13:35] LABS: Microalbumin:Creatinine Ratio 140.1 mg/g CRE (<30 mg/g CRE)
== END | disposition home or self-care (01) ==
LOC: LAB 10:26
PROVIDERS: PCP Family Medicine; Referring Provider Internal Medicine Endocrinology, Diabetes & Metabolism; Visit Provider Internal Medicine Endocrinology, Diabetes & Metabolism
DX: E11.65 Type 2 diabetes mellitus with hyperglycemia (principal); E11.22 Type 2 diabetes mellitus with diabetic chronic kidney disease; N18.30 Chronic kidney disease, stage 3 unspecified; I12.9 Hypertensive chronic kidney disease with stage 1 through stage 4 chronic kidney disease, or unspecified chronic kidney disease; E03.9 Hypothyroidism, unspecified; E55.9 Vitamin D deficiency, unspecified
CPT/HCPCS: 36415; 80053; 80061; 82043; 82570; 83036; 84439; 84443; 84481

== ENCOUNTER → 2023-10-22 | Outpatient (CLI) | payer MEDICARE, SELFPAY | END | disposition home or self-care (01) | LOC: PSN 09:30 | PROVIDERS: PCP Family Medicine; Referring Provider Internal Medicine Cardiovascular Disease; Visit Provider Internal Medicine Cardiovascular Disease | DX: I49.3 Ventricular premature depolarization (principal) | CPT/HCPCS: 93225; 93226 ==

== ENCOUNTER → 2023-11-08 | Outpatient (CLI) | payer MEDICARE, SELFPAY ==
[2023-11-08 10:53] LABS: Vitamin D,25 Hydroxy 61.9 ng/mL
[2023-11-08 10:58] LABS: Hemoglobin A1c 6.3 % (3.8-5.6)
[2023-11-08 11:00] LABS: ALB/GLOB Ratio 0.9 RATIO (0.9-2.4); AST(SGOT) 21 U/L (15-37); Alanine Aminotransfer ALT/SGPT 23 U/L (16-61); Albumin, Serum 3.3 g/dL (3.2-5.0); Alkaline Phosphatase 83 U/L (45-117); Anion Gap 5 (5-15); BUN 21 mg/dL (7-18); BUN/Creat Ratio 12.5 RATIO (10-20); Calcium,Total 8.9 mg/dL (8.5-10.1); Chloride 107 mmol/L (98-107); Cholesterol 158 mg/dL (200); Creatinine, Serum 1.68 mg/dL (0.70-1.30); EST Glomerular Filtration Rate 42 mL/min (>60); Est Glom Filt Rate - Afr Amer 51 mL/min (>60); Free T3 2.1 pg/mL (2.18-3.98); Globulin 3.8 g/dL (2.2-4.2); Glucose 148 mg/dL (74-106); High Density Lipoprotein 55 mg/dL; Potassium 3.8 mmol/L (3.5-5.1); Protein, Total 7.1 g/dL (6.4-8.2); Sodium Level 140 mmol/L (136-145); T4 Free Direct 1.02 ng/dL (0.76-1.46); Thyroid Stim Hormone (TSH) 2.13 uIU/mL (0.358-3.74); Triglycerides 173 mg/dL; Very Low Density Lipoprotein 35 mg/dL (5-40)
[2023-11-08 11:04] LABS: Microalbumin:Creatinine Ratio 91.6 mg/g CRE (<30 mg/g CRE)
== END | disposition home or self-care (01) ==
LOC: LAB 09:55
PROVIDERS: PCP Family Medicine; Referring Provider Internal Medicine Endocrinology, Diabetes & Metabolism; Visit Provider Internal Medicine Endocrinology, Diabetes & Metabolism
DX: E11.65 Type 2 diabetes mellitus with hyperglycemia (principal); E11.22 Type 2 diabetes mellitus with diabetic chronic kidney disease; I10 Essential (primary) hypertension; E03.9 Hypothyroidism, unspecified; E55.9 Vitamin D deficiency, unspecified
CPT/HCPCS: 36415; 80053; 80061; 82043; 82306; 82570; 83036; 84439; 84443; 84481

== ENCOUNTER → 2024-05-19 | Outpatient (CLI) | payer MEDICARE, SELFPAY ==
[2024-05-19 11:21] LABS: Microalbumin:Creatinine Ratio 117.9 mg/g CRE (<30 mg/g CRE)
[2024-05-19 11:25] LABS: ALB/GLOB Ratio 0.9 RATIO (0.9-2.4); AST(SGOT) 19 U/L (15-37); Alanine Aminotransfer ALT/SGPT 25 U/L (16-61); Albumin, Serum 3.4 g/dL (3.2-5.0); Alkaline Phosphatase 73 U/L (45-117); Anion Gap 8 (5-15); BUN 24 mg/dL (7-18); Calcium,Total 9.6 mg/dL (8.5-10.1); Chloride 107 mmol/L (98-107); Cholesterol 173 mg/dL (200); EST Glomerular Filtration Rate 48 mL/min (>60); Est Glom Filt Rate - Afr Amer 58 mL/min (>60); Free T3 2.3 pg/mL (2.18-3.98); Globulin 3.9 g/dL (2.2-4.2); Glucose 111 mg/dL (74-106); High Density Lipoprotein 65 mg/dL; Potassium 3.8 mmol/L (3.5-5.1); Protein, Total 7.3 g/dL (6.4-8.2); Sodium Level 142 mmol/L (136-145); T4 Free Direct 1.03 ng/dL (0.76-1.46); Triglycerides 126 mg/dL; Very Low Density Lipoprotein 25 mg/dL (5-40)
[2024-05-19 12:04] LABS: Hemoglobin A1c 5.9 % (3.8-5.6)
== END | disposition home or self-care (01) ==
LOC: LAB 09:09
PROVIDERS: PCP Family Medicine; Referring Provider Internal Medicine Endocrinology, Diabetes & Metabolism; Visit Provider Internal Medicine Endocrinology, Diabetes & Metabolism
DX: E11.65 Type 2 diabetes mellitus with hyperglycemia (principal); E11.22 Type 2 diabetes mellitus with diabetic chronic kidney disease; N18.30 Chronic kidney disease, stage 3 unspecified; I12.9 Hypertensive chronic kidney disease with stage 1 through stage 4 chronic kidney disease, or unspecified chronic kidney disease; E03.9 Hypothyroidism, unspecified; E55.9 Vitamin D deficiency, unspecified
CPT/HCPCS: 36415; 80053; 80061; 82043; 82570; 83036; 84439; 84443; 84481

== ENCOUNTER → 2024-06-02 | Outpatient (CLI) | payer MEDICARE, SELFPAY | END | disposition home or self-care (01) | LOC: PSN 11:05 | PROVIDERS: PCP Family Medicine; Referring Provider Nurse Practitioner Family; Visit Provider Nurse Practitioner Family | DX: Z98.890 Other specified postprocedural states (principal); I49.3 Ventricular premature depolarization; I49.1 Atrial premature depolarization; I34.1 Nonrheumatic mitral (valve) prolapse | CPT/HCPCS: 93225; 93226 ==

== ENCOUNTER → 2024-06-26 | Outpatient (CLI) | payer MEDICARE, SELFPAY ==
--- NOTE | 2024-06-26 10:08 | ECHOD_ITS ---
Reason For Study Reason For Study: PVC Procedure This was a 2D Doppler, Color Flow transthoracic echocardiogram. Exam performed in department. Left Ventricle Normal LV size. The estimated ejection fraction is 65 %. No evidence for diastolic dysfunction. No regional wall motion abnormalities noted. Right Ventricle Normal RV size. Normal systolic function. Atria The left and right atria are normal. No doppler evidence for ASD. Mitral Valve There is moderate mitral annular calcification. There is no mitral valve stenosis. No mitral valve insufficiency. Tricuspid Valve There is no tricuspid stenosis. Trivial tricuspid valve insufficiency. Unable to estimate RV systolic pressure due to insufficient tricuspid regurgitant envelope. Aortic Valve Trisinus/trileaflet aortic valve. There is no aortic stenosis. No aortic valve insufficiency. Pulmonic Valve There is no pulmonic valvular stenosis. No pulmonic valve insufficiency. Great Vessels Normal sized aortic root. Pericardium/Pleural No pericardial effusion. MMode/2D Measurements & Calculations LVIDd: 4.8 cm IVSd: 0.99 cm LAV(MOD- bp): 51.2 ml LVIDs: 3.6 cm LVPWd: 1.4 cm LAV(MOD- bp) Indexed: 24.5 ml/m2 RVDd: 3.4 cm FS: 23.6 % LAV(MOD- sp2): 47.2 ml LAV(MOD- sp4): 48.7 ml SV(MOD-sp4): 44.9 ml SV(sp4- el): 50.3 ml LVAd ap4: 26.4 cm2 LVLd ap4: 8.1 cm SI(MOD-sp4): 21.5 ml/m2 EDV(MOD-sp4): 69.1 ml EDV(sp4-el): 73.4 ml LVAs ap4: 13.6 cm2 LVLs ap4: 6.8 cm ESV(MOD-sp4): 24.3 ml ESV(sp4-el): 23.2 ml EF(MOD-sp4): 64.9 % EF(sp4-el): 68.5 % LA A4 area: 18.3 cm2 LA dimension(2D): 3.3 cm RA A4 area: 15.1 cm2 Time Measurements MV dec time: 0.19 sec Doppler Measurements & Calculations MV E max ryan: 114.0 cm/sec Lat Peak E' Ryan: 9.7 cm/sec Med Peak E' Ryan: 9.4 cm/sec MV A max ryan: 118.8 cm/sec E/E' lat: 11.8 E/E' med: 12.2 MV E/A: 0.96 MV V2 max: 132.7 cm/sec MV dec slope: 595.9 cm/sec2 Ao V2 max: 175.6 cm/sec MV max P.0 mmHg Ao max P.3 mmHg MV V2 mean: 79.1 cm/sec Ao V2 mean: 115.4 cm/sec MV mean P.9 mmHg Ao mean P.2 mmHg MV V2 VTI: 42.6 cm Ao V2 VTI: 41.2 cm AV (velocity ratio): 0.64 LV V1 max: 119.1 cm/sec LV V1 max P.7 mmHg LV V1 mean P.7 mmHg LV V1 mean: 71.9 cm/sec LV V1 VTI: 26.3 cm ECHO/Echo Complete Interpretation Summary The estimated ejection fraction is 65 %. No evidence for diastolic dysfunction. Ordering Physician: Blaine Pizarro Referring Physician: Blaine Pizarro Performed By: Jojo Faye RCS
== END | disposition home or self-care (01) ==
LOC: CVS 10:08
PROVIDERS: PCP Family Medicine; Referring Provider Nurse Practitioner Family; Visit Provider Nurse Practitioner Family
DX: I49.3 Ventricular premature depolarization (principal); Z98.890 Other specified postprocedural states
CPT/HCPCS: 93306

== ENCOUNTER → 2024-11-20 | Outpatient (CLI) | payer MEDICARE, SELFPAY | END | disposition home or self-care (01) | LOC: CVS 13:34 | PROVIDERS: PCP Family Medicine; Referring Provider Internal Medicine Cardiovascular Disease; Visit Provider Internal Medicine Cardiovascular Disease | DX: Z00.00 Encounter for general adult medical examination without abnormal findings (principal) | CPT/HCPCS: Q9957; A4216 ==

== ENCOUNTER → 2024-12-18 | Outpatient (CLI) | payer MEDICARE, SELFPAY ==
[2024-12-18 09:19] LABS: Hematocrit 45.1 % (40-54); Hemoglobin 14.5 g/dL (13.0-16.5); Mean Corp Hgb Conc 32.2 g/dL (32-36); Mean Corpuscular Volume 90.4 fL (80-94); Mean Platelet Vol. 11.4 fl (6.2-12.0); Platelet Count 159 K/mm3 (150-450); RBC Distribution Width CV 13.1 % (11.6-14.6); RBC Distribution Width SD 43.2 fl (35.1-43.9); Red Blood Count 4.99 M/mm3 (4.6-6.2); White Blood Count 5.6 K/mm3 (4.4-11.0)
[2024-12-18 09:37] LABS: Creatinine, Urine (random) 131.00 mg/dL (39.00-259.00); Microalbumin,Random Urine 302.0 mg/L (<20 mg/L)
[2024-12-18 09:55] LABS: AST(SGOT) 22 U/L (<=37); Alanine Aminotransfer ALT/SGPT 22 U/L (<=46); Albumin, Serum 3.8 g/dL (3.4-4.8); Alkaline Phosphatase 77 U/L (40-129); Anion Gap 11 (5-15); BUN 25 mg/dL (4-19); BUN/Creat Ratio 17.9 RATIO (10-20); Calcium,Total 9.3 mg/dL (7.6-11.0); Carbon Dioxide 25.6 mmol/L (21.0-32.0); Chloride 104 mmol/L (98-108); Cholesterol 160 mg/dL (<=200); Globulin 3.0 g/dL (2.2-4.2); Glucose 107 mg/dL (70-99); Low Density Lipoprotein Calc. 74 mg/dL; Potassium 4.1 mmol/L (3.3-5.1); Triglycerides 133 mg/dL; Very Low Density Lipoprotein 27 mg/dL (5-40); Vitamin D,25 Hydroxy 43.9 ng/mL (30-100); cholesterol:hdl ratio screen 2.67
== END | disposition home or self-care (01) ==
LOC: LAB 07:43
PROVIDERS: PCP Family Medicine; Referring Provider Internal Medicine Endocrinology, Diabetes & Metabolism; Visit Provider Internal Medicine Endocrinology, Diabetes & Metabolism
DX: E11.65 Type 2 diabetes mellitus with hyperglycemia (principal); E11.22 Type 2 diabetes mellitus with diabetic chronic kidney disease; N18.30 Chronic kidney disease, stage 3 unspecified; I12.9 Hypertensive chronic kidney disease with stage 1 through stage 4 chronic kidney disease, or unspecified chronic kidney disease; E03.9 Hypothyroidism, unspecified; E55.9 Vitamin D deficiency, unspecified
CPT/HCPCS: 36415; 80053; 80061; 82043; 82306; 82570; 84439; 84443; 85027

== ENCOUNTER → 2024-12-23 | Outpatient (CLI) | payer MEDICARE, SELFPAY ==
--- OUTSIDE RECORDS SUMMARY | 2024-12-23 06:49 | XMS RPT_ITS | CCD ---
Author Organization [facility] CliniSyct Care Team Providers Care Boat Master Name Role Phone Deanne Kohli Primary Care Provider Dr. Deanne Kohli Primary Care Provider 1([facility])[phone] Dr. Deanne Kohli Referring Provider 1([facility])[phone] Dr. Paulino Mitchell Attending Provider 1([facility])[phone] Deanne Kohli Other Provider 1([facility])[phone] Dr. Luis Alcazar Attending Provider 1([facility])-[phone] Iban ARNOLD, SHIVANI Ford Attending Provider Dr. Fredy Jose Attending Provider 1([facility])[phone] DR DEANNE KOHLI MD Primary Care Physician ([facility])[phone] Dr. Fredy Jose Referring Provider 1([facility])[phone] Dr. Fredy Jose Other Provider 1([facility])[phone] Deanne Kohli Primary Care Provider 1([facility])[phone] Dr. Deanne Kohli Referring Provider 1([facility])[phone] Deanne Kohli Primary Care Provider 1([facility] )[phone] DEANNE KOHLI Primary Care Unavailable DAISHA VILLEGAS Referring Unavailable DEANNE KOHLI Primary Care Unavailable EVELIO BRYAN Referring Unavailable Deanne Kohli Primary Care Provider [phone] Dr. Deanne Kohli Primary Care Provider Dr. Deanne Kohli Referring Provider 1([facility])[phone] Russell Das Attending Provider 1([facility])[phone] Dr. Paulino Mitchell Attending Provider 1([facility])[phone] Russell Das Other Provider Dr. Deanne Kohli Primary Care Provider Dr. Deanne Kohli Referring Provider Dr. Russell Das Attending Provider Dr. Deanne Kohli Primary Care Provider Kamilla, Dr. Deanne Floyd Referring Provider Pippa, Dr. Wells Attending Provider Dr. Deanne Kohli Primary Care Provider Kamilla, Dr. Deanne Floyd Referring Provider Dr. Paulino Mitchell Attending Provider Iban REPEAT PHOTOCOMPOSING MACHINE OPERATOR, REPEAT PHOTOCOMPOSING MACHINE OPERATOR-C Liliana Attending Provider Denane Kohli Primary Care Provider [phone] Kamilla RUSSELL, Dr. Deanne Floyd Primary Care Provider [phone] Marco RUSSELL, Dr. Lesa Castro Attending Provide r Marco RUSSELL, Dr. Lesa Castro Referring Provide r Kamilla RUSSELL, Dr. Deanne Floyd Referring Provider Moira REPEAT PHOTOCOMPOSING MACHINE OPERATOR-CBlaine Attending Provider Moira REPEAT PHOTOCOMPOSING MACHINE OPERATOR-CBlaine Referring Provider Dr. Obed Scott MD Attending Provider Leida RUSSELL, Dr. Petty Attending Provider EVELIO BRYAN Referring Unavailable KAMILLA, DEANNE YUNG Primary Care Unavailable EVELIO BRYAN Attending Unavailable KAMILLA, DEANNE YUNG Primary Care Unavailable EVELIO BRYAN Attending Unavailable KAMILLA, DEANNE YUNG Primary Care Unavailable NICOLAIFF, DEANNE YUNG Primary Care Unavailable EVELIO BRYAN Referring Unavailable Kamilla RUSSELL, Dr. Deanne Floyd Referring Provider Dr. Obed Scott MD Attending Provider Dr. Dre Martinez MD Primary Care Provider Dr. Obed Scott MD Referring Provider Obed Scott Attending Unavailable Roof REPEAT PHOTOCOMPOSING MACHINE OPERATOR, Blaine Dejesus Referring Unavailable Jolliff, Deanne S Primary Care Unavailable Jolliff, Deanne S Referring Unavailable Jolliff, Deanne S Primary Care Unavailable Paulino Mitchell Attending Unavailable Raghunathan, Lesa Na Referring Unavaila ble Raghunathan, Lesa Na Attending Unavaila ble Michelle, [place] Primary Care Unavailable Roof REPEAT PHOTOCOMPOSING MACHINE OPERATOR, Blaine H Referring Unavailable Roof REPEAT PHOTOCOMPOSING MACHINE OPERATOR, Blaine Dejesus Attending Unavailable Jolliff, Deanne S Primary Care Unavailable Roof REPEAT PHOTOCOMPOSING MACHINE OPERATOR, Blaine H Referring Unavailable Roof REPEAT PHOTOCOMPOSING MACHINE OPERATOR, Blaine Dejesus Attending Unavailable Jolliff, Deanne S Primary Care Unavailable Raghunathan, Lesa Na Referring Unavaila ble Raghunathan, Lesa Na Attending Unavaila ble Jolliff, Deanne S Primary Care Unavailable Obed Scott [facility] Obed Scott Referring Unavailable Obed Scott Attending Unavailable Michelle [place] Primary Care Unavailable Jolliff, Deanne S Referring Unavailable Jolliff, Deanne S Primary Care Unavailable Malinda Casarez Attending Unavailabl e Obed Scott Attending Unavailable Jolliff, Deanne S Primary Care Unavailable Jolliff, Deanne S Referring Unavailable Roof REPEAT PHOTOCOMPOSING MACHINE OPERATOR, Blaine Dejesus Attending Unavailable Jolliff, Deanne S Referring Unavailable Jolliff, Deanne S Primary Care Unavailable Jolliff, Deanne S Referring Unavailable Jolliff, Deanne S Primary Care Unavailable Paulino Mitchell Attending Unavailable Obed Scott [facility] Obed Scott Referring Unavailable Allergies Allergy Classification Reported Allergen(s) Allergy Type Date of Onset Reaction(s) Facility (20 sources) benazepril; Translations: [benazepril] Drug Allergy 7 Unknown [facility] (20 sources) Fosinopril; Translations: [fosinopril] Drug Allergy 7 Unknown [facility] (6 sources) Penicillins; Translations: [PENICILLINS] Drug Allergy 7 Unknown [facility] (20 sources) Bee Venom Protein (Honey Bee); Translations: [BEE VENOM PROTEIN (HONEY BEE)] Drug Allergy 7 Other: See Comments [facility] (13 sources) apis mellifera venom Allergy to substance 1 unknown [facility] (20 sources) Penicillin G Drug Allergy 1 unknown [facility] (12 sources) Penicillins Drug Allergy 7 Unknown [facility] (13 sources) Amoxicillin; Translations: [amoxicillin] Drug Allergy 3 Other [facility] (1 source) Bee/Wasp/Ant venom Allergy to substance [facility] (8 sources) insect venom; Translations: [insect venom] Allergy to substance 3 PT UNSURE OF REACTION [facility] Comment on above: apis mellifera venom (4 sources) Penicillins Drug Allergy 7 Unknown [facility] (1 source) Amoxicillin Drug Allergy 5 [facility] Rep[facility] (1 source) benazepril Drug Allergy 5 [facility] (1 source) Fosinopril Drug Allergy 5 [facility] (1 source) Penicillin Drug Allergy 5 [facility] Repository Medications Current Medications Medication Drug Class(es) Dates Sig (Normalized) Sig (Original) amLODIPine 5 mg oral tablet (15 sources) Dihydropyridine Calcium Channel Herlinda Start: 04-19-2023 End: 12-10-2023 take 1 tablet by mouth once daily Amlodipine 5 mg tablet Active 5 mg PO DAILY 90 3 December 10, 2023 8:07am ascorbic acid 500 mg oral tablet (20 sources) Vitamin C Start: 04-25-2017 take 1 tablet by mouth once daily Ascorbic Acid (Vitamin C) 500 mg tablet Active 500 mg PO daily April 25, 2017 1:00am Comment on above: Take 500 mg by mouth once daily. augmented betamethasone 0.5 mg/ml topical cream (20 sources) Corticosteroid Start: 02-15-2021 End: 10-13-2021 Betamethasone, Augmented 0.05 % cream Active 1 NMA TOPICAL DAILY as needed for skin irritation October 13, 2021 8:48am Start: 12-28-2019 betamethasone dipropionate 0.05% topical lotion Apply 1 ivy, Topical, BID, # 60 mL, 0 Refill(s), Lotion, 90.9 Start Date: 12/28/19 Status: Ordered cholecalciferol 0.025 mg oral capsule (20 sources) Vitamin D Start: 02-01-2019 take 1 capsule by mouth once daily Cholecalciferol (Vitamin D3) 1,000 UNIT capsule Active 1000 U PO DAILY February 01, 2019 12:00am cholecalciferol, vitamin D3, 62.5 mcg (2,500 unit) cap (6 sources) cholecalciferol, vitamin D3, 62.5 mcg (2,500 unit) cap Take by mouth as directed. Active 24 hr desvenlafaxine succinate 25 mg extended release oral tablet (20 sources) Serotonin and Norepinephrine Reuptake Inhibitor Start: 06-17-2019 take 1 tablet by mouth once daily, then take 1 tablet by mouth every twenty-four hours Desvenlafaxine Succinate (Pristiq) 25 mg tablet extended release 24 hr Active 25 mg PO DAILY June 17, 2019 1:00am Start: 11-01-2014 Pristiq 50 mg oral tablet, extended release Dose : 50 mg = 1 tab(s), Oral, qDay, 0 Refill(s) Start Date: 11/01/14 Status: Ordered Comment on above: Take 50 mg by mouth once daily. hydroCHLOROthiazide 25 mg oral tablet (20 sources) Thiazide Diuretic Start: End: take 1 tablet by mouth once daily Hydrochlorothiazide 25 mg tablet Active 25 mg PO DAILY April 19, 2023 1:00am Start: 04-17-2023 End: 04-19-2023 take 1 tablet by mouth once daily Hydrochlorothiazide 50 mg tablet Discontinued 50 mg PO DAILY April 17, 2023 1:00am April 19, 2023 9:54am Start: 04-25-2017 take 12.5 mg by mout h once daily Hydrochlorothiazide Active 12.5 MG PO daily April 25, 2017 1:00am Start: 11-01-2014 End: 04-17-2023 take 1 tablet by mouth once daily Hydrochlorothiazide 25 mg tablet Discontinued 25 mg PO daily April 25, 2017 1:00am April 17, 2023 12:46pm take 1 capsule by mo uth once daily Hydrochlorothiazide 12.5 mg ORAL capsule Take 12.5 mg by mouth once daily. Active Comment on above: Take 12.5 mg by mout h once daily. iv contrast (will be provided with radiology test) (1 source) Start: 10-11-19 End: 10-12-19 iv contrast (will be provided with radiology test) MRI Prostate Inject, intravenously, once for 1 dose. No IV access, insert saline lock prior to the beginning of sedation, infusion, injection of imaging exam. Discontinue saline lock post exam. If Pt. has a central line or IVAD, may access for administration according to line specific nursing protocol. Once exam is complete flush line and de-access according to line specific nursing protocol in the MR contrast administration guidelines link. 1 Each 0 10/10/2021 10/11/2021 Active Comment on above: MRI Prostate Inject, intravenously, once for 1 dose. No IV access, insert saline lock prior to the beginning of sedation, infusion, injection of imaging exam. Discontinue saline lock post exam. If Pt. has a central line or IVAD, may access for administration according to line specific nursing protocol. Once exam is complete flush line and de-access according to line specific nursing protocol in the MR contrast administration guidelines link. lactase 3000 unt chewable tablet (20 sources) Start: 09-23-19 take 1 tablet by mouth once daily Lactase (Lactaid) 3,000 unit Tablet Active 3000 U PO DAILY September 22, 2020 12:00am Start: 09-22-2020 take 1 tablet by prince th once daily Lactase (Lactaid) 3,000 unit Tablet Active 3000 UNIT PO DAILY September 22, 2020 12:00am Start: 11-01-2014 take 1 dose by mouth once lact ase Dose : 500 mg =, Oral, Once, 0 Refill(s) Start Date: 11/01/14 Status: Ordered LACTASE (LACTAID ORAL) Take by mouth once daily. Active LACTASE (LACTAID ORAL) Take by mouth once daily. 0 Active Comment on above: Take by mouth once d aily. levothyroxine sodium 0.025 mg oral tablet (20 sources) l-Thyroxine Start: 07-17-2021 levothyroxine 25 mcg (0.025 mg) oral tablet See Instructions, TAKE 3 TABS BY MOUTH ON SATURDAY AND SATURDAY THEN 2 TABS ON ALL OTHER DAYS, # 64 tab(s), 5 Refill(s), Pharmacy: [facility]/pharmacy #[id number], 172.7, cm, 06/22/21 8:36:00 EST, Height, kg, 06/22/21 8:36:00 EST, Dosing Weight Start Date: 07/17/21 Status: Ordered Start: 08-07-2017 take 1 tablet by prince th once daily before breakfast levothyroxine (SYNTHROID) 25 mcg tablet Indications: Malignant neoplasm of prostate (HCC) Take 1 tablet by mouth daily before breakfast. 08/07/2017 Active Start: 04-25-2017 take 1 tablet by prince th once daily Levothyroxine 50 mcg tablet Active 50 ug PO daily 0 April 25, 2017 1:00am Comment on above: Take 1 tablet by prince th daily before breakfast. metoprolol tartrate 25 mg oral tablet (20 sources) beta-Adrenergic Herlinda Start: 08-15-2023 End: 10-06-2024 Metoprolol Tartrate 25 mg tablet Active 12.5 mg PO TWICE A DAY 45 October 06, 2024 10:11am Start: 04-22-2023 End: 08-15-2023 take 1 tablet by mouth twice daily Metoprolol Tartrate 25 mg tablet Discontinued 25 mg PO TWICE A DAY 60 April 22, 2023 2:29pm August 15, 2023 8:57am Start: 04-26-2017 End: 07-27-2022 Metoprolol Tartrate 25 mg ta blet Discontinued 12.5 mg PO TWICE A DAY April 26, 2017 11:17am July 27, 2022 9:07am Start: 04-26-2017 End: 07-27-2022 take 12.5 mg by mouth twice daily Metoprolol Tartrate Discontinued 12.5 MG PO TWICE A DAY April 26, 2017 10:17am July 27, 2022 8:07am Start: 04-25-2017 End: 04-26-2017 take 1 tablet by mouth twice daily Metoprolol Tartrate 25 mg tablet Discontinued 25 mg PO TWICE A DAY April 25, 2017 1:00am April 26, 2017 11:17am Start: 11-01-2014 metoprolol tar trate 50 mg oral tablet Dose : 25 mg = 0.5 tab(s), Oral, BID, 0 Refill(s) Start Date: 11/01/14 Status: Ordered metoprolol tartr ate, short acting, 50 mg ORAL tablet Take 25 mg by mouth twice daily. Active Comment on above: Take 25 mg by mouth twice daily. Multivitamin preparation (20 sources) Start: 11-26-2019 take 1 tablet by mouth once daily Multivitamin Dose = 1 tab(s), Oral, Daily, 0 Refill(s) Start Date: 11/26/19 Status: Ordered Start: 04-25-2017 take 1 tablet by prince th once daily Multivitamin Active 1 TABLET PO daily April 25, 2017 9:10am Start: 04-25-2017 take 1 tablet by prince th once daily Multivitamin Active 1 TABLET PO daily April 25, 2017 12:00am Start: 04-25-2017 take 1 tablet by prince th once daily Multivitamin Active 1 TABLET PO daily April 25, 2017 1:00am Start: 12-28-2016 multivitamin ( MULTIPLE VITAMINS ORAL) MULTIVITAMIN ADULT TABS 12/28/2016 Active Start: 12-28-2016 multivitamin ( MULTIPLE VITAMINS ORAL) MULTIVITAMIN ADULT TABS 0 12/28/2016 Active Comment on above: MULTIVITAMIN ADULT T ABS Multivitamin tablet (3 sources) Start: 04-25-2017 Multivitamin tablet Active 1 {tbl} PO daily April 25, 2017 1:00am MULTIVITAMIN/IRON/FOLIC ACID (CENTRUM COMPLETE ORAL) (20 sources) Start: 05-21-2014 MULTIVITAMIN/IRON/FOLIC ACID (CENTRUM COMPLETE ORAL) Take by mouth once daily. 05/21/2014 Active Start: 05-21-2014 MULTIVITAMIN/I LISA/FOLIC ACID (CENTRUM COMPLETE ORAL) Take by mouth once daily. 0 05/21/2014 Active Comment on above: Take by mouth once d aily. oxybutynin chloride 5 mg oral tablet (20 sources) Cholinergic Muscarinic Antagonist Start: take 3 tablets by mouth once daily Oxybutynin Chloride 5 mg tablet Active 15 mg PO daily October 27, 2024 11:05am Start: 08-25-2024 take 1 tablet by prince th once daily oxybutynin ER (DITROPAN XL) 15 mg 24 hr Extended Rel Tab Take 1 tablet by mouth once daily. 90 tablet 3 08/25/2024 Active Start: 06-07-2021 End: 08-25-2024 take 1 tablet by mouth once daily oxybutynin ER (DITROPAN XL) 10 mg 24 hr tablet Take 1 tablet by mouth once daily. 90 tablet 5 11/19/2023 08/25/2024 Discontinued Start: 04-25-2017 End: 10-27-2024 take 2 tablets by mouth once daily Oxybutynin Chloride 5 mg tablet Discontinued 10 mg PO daily April 25, 2017 1:00am October 27, 2024 11:06am Start: 04-25-2017 take 10 mg by mouth once daily Oxybutynin Chloride Active 10 MG PO daily April 25, 2017 12:00am Start: 11-01-2014 take 1 tablet by prince th every hour, then take 1 tablet by mouth once daily oxybutynin 5 mg/24 hours oral tablet, extended release Dose : 5 mg = 1 tab(s), Oral, qDay, # 30 tab(s), 0 Refill(s) Start Date: 11/01/14 Status: Ordered Comment on above: Take 1 tablet by prince once daily. pyridoxine HCl, vitamin B6, (VITAMIN B-6 ORAL) (6 sources) pyridoxine HCl, vitamin B6, (VITAMIN B-6 ORAL) Take by mouth. Active rosuvastatin calcium 20 mg oral tablet (20 sources) HMG-CoA Reductase Inhibitor Start: take 1 tablet by mouth once daily Rosuvastatin (Crestor) 20 mg tablet Active 20 mg PO daily April 25, 2017 1:00am Comment on above: Take 20 mg by mouth once daily. sildenafil 100 mg oral tablet (20 sources) Phosphodiesterase 5 Inhibitor Start: take 1 tablet by mouth every hour sildenafil (VIAGRA) 100 mg tablet Take one tablet by mouth 1 hour prior to sexual activity. 3 tablet 5 05/14/2018 Active Comment on above: Take one tablet by [facility] 1 hour prior to sexual activity. tamsulosin hydrochloride 0.4 mg oral capsule (20 sources) alpha-Adrenergic Herlinda Start: End: take 1 capsule by mouth once daily Tamsulosin 0.4 mg capsule,extended release 24hr Active 0.4 mg PO daily April 25, 2017 1:00am Comment on above: Take 1 capsule by mo [facility] once daily. vitamin b6 50 mg oral capsule (20 sources) Start: take 1 capsule by mouth once daily Pyridoxine (Vitamin B6) (Vitamin B-6) 50 mg capsule Active 50 mg PO DAILY February 15, 2021 12:00am Start: 12-15-2020 Vitamin B6 qDa y, 0 Refill(s) Start Date: 12/15/20 Status: Ordered Vitamin C 500 mg oral tablet (1 source) Start: 11-26-2019 Vitamin C 500 mg oral tablet Dose : 500 mg = 1 tab(s), Oral, qDay, # 30 tab(s), 0 Refill(s) Start Date: 11/26/19 Status: Ordered Vitamin D3 1000 intl units ( 25 mcg) oral tablet (1 source) Start: 11-26-2019 Vitamin D3 100 0 intl units (25 mcg) oral tablet Dose : 1,000 International_Unit = 1 tab(s), Oral, qDay, # 30 tab(s), 0 Refill(s) Start Date: 11/26/19 Status: Ordered Completed/Discontinued Medications Medication Drug Class(es) Dates Sig (Normalized) Sig (Original) acetaminophen 325 mg / HYDROcodone bitartrate 5 mg oral tablet (20 sources) Opioid Agonist Start: 02-01-2019 End: 02-12-2019 Hydrocodone-Acetami nophen 1 TABLET tablet Discontinued 1 {tbl} PO EVERY 4 HOURS NEEDED as needed for Pain 10 2 0 February 01, 2019 February 02, 2019 12:00am February 12, 2019 12:09am Biceps strain Start: 02-01-2019 End: 02-12-2019 take 1 tablet by mouth every four hours as needed Hydrocodone-Acetaminophen Discontinued 1 TABLET PO EVERY 4 HOURS NEEDED 10 2 February 01, 2019 February 11, 2019 11:09pm acetaminophen 325 mg / oxyCODONE hydrochloride 5 mg oral tablet (20 sources) Opioid Agonist Start: 10-04-2020 End: 10-13-2021 Oxycodone-Acetaminophen 1 TABLET tablet Discontinued 1 {tbl} PO EVERY 6 HOURS NEEDED as needed for Pain 12 3 0 October 04, 2020 October 13, 2021 8:50am Complication of Cash catheter Start: 10-04-2020 End: 10-13-2021 take 1 tablet by mouth every six hours as needed Oxycodone-Acetaminophen Discontinued 1 TABLET PO EVERY 6 HOURS NEEDED 12 3 October 04, 2020 October 13, 2021 7:50am apixaban 2.5 mg oral tablet (20 sources) Factor Xa Inhibitor Start: 10-06-2021 End: 10-06-2022 take 0.5 tablet by mouth twice daily ELIQUIS 5 mg tab(s) Take 0.5 tablets by mouth twice daily. 30 tablet 11 10/06/2021 10/06/2022 Active Start: 02-22-2020 End: 02-18-2024 take 1 tablet by mouth twice daily Apixaban (Eliquis) 2.5 mg tablet Discontinued 2.5 mg PO TWICE A DAY 60 30 March 25, 2023 12:55pm February 18, 2024 3:58pm Start: 02-17-2020 End: 02-17-2020 take 1 tablet by mouth twice daily Apixaban 2.5 MG tablet Discontinued 2.5 mg PO TWICE A DAY 60 February 17, 2020 1:00am February 17, 2020 4:36pm Start: 03-25-2019 End: 10-06-2021 take 1 tablet by mouth twice daily ELIQUIS 5 mg tab(s) Take 5 mg by mouth twice daily. 0 03/25/2019 10/06/2021 Discontinued Comment on above: Take 5 mg by mouth t wice daily. Take 0.5 tablets by mouth twice daily. aspirin 81 mg oral tablet (20 sources) Platelet Aggregation Inhibitor, Nonsteroidal Anti-inflammatory Drug Start: End: take 1 capsule by mouth once daily Aspirin 81 mg capsule Discontinued 81 mg PO DAILY 30 October 13, 2021 12:00am August 15, 2022 3:51pm Start: 04-25-2017 End: 06-17-2019 Aspirin (Ecotrin) 325 mg tab let,delayed release (DR/EC) Discontinued 81 mg PO daily April 25, 2017 1:00am June 17, 2019 5:11pm ciprofloxacin 500 mg oral tablet (20 sources) Quinolone Antimicrobial Start: 10-17-2020 End: 10-13-2021 take 1 tablet by mouth every twelve hours Ciprofloxacin Hcl (Cipro) 500 mg tablet Discontinued 500 mg PO Q12H 14 October 17, 2020 12:00am October 13, 2021 8:49am Start: 10-04-2020 End: 10-13-2021 take 1 tablet by mouth twice daily Ciprofloxacin Hcl 500 MG tablet Discontinued 500 mg PO TWICE A DAY 14 October 04, 2020 12:00am October 13, 2021 8:49am citalopram 40 mg oral tablet (20 sources) Serotonin Reuptake Inhibitor Start: 04-25-2017 End: 06-17-2019 take 1 tablet by mouth once daily Citalopram 40 mg tablet Discontinued 40 mg PO daily April 25, 2017 1:00am June 17, 2019 5:12pm empagliflozin 10 mg oral tablet (13 sources) Sodium-Glucose Cotransporter 2 Inhibitor Start: 10-15-2023 End: 05-29-2024 take 1 tablet by mouth once daily Empagliflozin (Jardiance) 10 mg tablet Discontinued 10 mg PO daily October 15, 2023 12:00am May 29, 2024 10:45am Start: 07-27-2022 End: 02-20-2023 take 1 tablet by mouth once daily Empagliflozin (Jardiance) 10 mg tablet Discontinued 10 mg PO DAILY July 27, 2022 12:00am February 20, 2023 4:56pm 0.8 ml enoxaparin sodium 100 mg/ml prefilled syringe (20 sources) Low Molecular Weight Heparin Start: 10-17-2021 End: 11-09-2021 Enoxaparin (Lovenox) 80 mg/0.8 mL syringe Discontinued 80 mg SC Q12H 8 0 October 24, 2021 9:45am November 09, 2021 10:22am For cardiac cath bridging esomeprazole 40 mg delayed release oral capsule (20 sources) Proton Pump Inhibitor Start: 04-25-2017 End: 08-25-2024 take 1 capsule by mouth once daily Esomeprazole Magnesium (Nexium) 40 mg capsule,delayed release(DR/EC) Discontinued 40 mg PO daily 90 3 October 24, 2022 1:14pm April 23, 2023 3:49pm Comment on above: Take 40 mg by mouth once daily. losartan potassium 100 mg oral tablet (20 sources) Angiotensin 2 Receptor Herlinda Start: 04-19-2023 End: 04-19-2023 take 1 tablet by mouth once daily Losartan 100 mg tablet Discontinued 100 mg PO DAILY 90 3 April 19, 2023 9:55am April 19, 2023 10:33am this is a dose DECREASE, pt was on 200 mg daily Start: 04-17-2023 End: 04-19-2023 take 1 tablet by mouth twice daily Losartan 100 mg tablet Discontinued 100 mg PO TWICE A DAY April 17, 2023 1:00am April 19, 2023 9:54am Start: 11-26-2019 take 2 tablets by mo [facility] once daily losartan 100 mg oral tablet TAKE 2 TABLETS BY MOUTH EVERY DAY Start Date: 11/26/19 Status: Ordered Start: 06-17-2019 End: 04-17-2023 Losartan 25 mg tablet Discon tinued 200 mg PO DAILY June 17, 2019 5:13pm April 17, 2023 12:45pm Start: 06-17-2019 End: 04-17-2023 take 200 mg by mouth once daily Losartan Discontinued 200 MG PO DAILY June 17, 2019 4:13pm April 17, 2023 11:45am Start: 06-17-2019 take 50 mg by mouth once daily Losartan Active 50 MG PO DAILY June 17, 2019 5:13pm Start: 04-29-2018 End: 06-17-2019 take 1 tablet by mouth once daily Losartan 25 mg tablet Discontinued 25 mg PO DAILY 90 3 June 04, 2018 5:36pm June 17, 2019 5:13pm Start: 04-04-2018 losartan (COZA AR) 25 mg tablet 50 mg once daily. 04/04/2018 Active Comment on above: 50 mg once daily. omega-3 acid ethyl esters (fdc) 1000 mg oral capsule (20 sources) Start: 8 End: 0 [place] 2-Ogj-Smv-Fish Oil (Fish Oil) 1,000 mg (120 mg-180 mg) capsule Discontinued 1 NMA PO TWICE A DAY 0 April 25, 2017 1:00am June 17, 2019 5:13pm pantoprazole 40 mg delayed release oral tablet (11 sources) Proton Pump Inhibitor Start: 4 End: 5 take 1 tablet by mouth once daily Pantoprazole 40 mg tablet,delayed release (DR/EC) Discontinued 40 mg PO DAILY 90 3 September 02, 2023 7:47am September 17, 2024 9:35am sodium fluoride 0.011 mg/mg toothpaste (4 sources) Start: 9 End: 2 SF 1.1 % gel Problems Active Problems Problem Classification Problem Date Documented Da te Episodic/Chronic Anxiety disorders (1 source) Anxiety disorder 10-29-2014 Chronic Aortic and peripheral arterial embolism or thrombosis (1 source) Embolism 10-29-2014 Chronic Comment on above: pulmonary embolism 1 998 Cancer of prostate (20 sources) Malignant tumor of prostate; Translations: [Malignant neoplasm of prostate] Onset: 2 04-25-2011 Chronic Cardiac dysrhythmias (20 sources) Ventricular premature beats; Translations: [Ventricular premature depolarization] Onset: 5 Chronic Cardiac dysrhythmias (20 sources) Sinus bradycardia; Translations: [Bradycardia, unspecified] Onset: 5 Episodic Chronic kidney disease (20 sources) Chronic kidney disease stage 3A ; Translations: [Stage 3a chronic kidney disease (HCC)] Onset: 2 Chronic Chronic kidney disease (1 source) Chronic kidney disease; Translations: [Stage 3a chronic kidney disease (HCC)] Onset: 2 Coagulation and hemorrhagic disorders (17 sources) Factor V deficiency; 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-2021 Chronic Complication of device; implant or graft (20 sources) Complication of urinary catheter; Translations: [Unspecified complication of genitourinary prosthetic device, implant and graft, initial encounter] 09-29-2020 Episodic Diabetes mellitus with complications (4 sources) Type II diabetes mellitus uncontrolled; Translations: [Type 2 diabetes mellitus with diabetic chronic kidney disease] Onset: 5 11-26-2019 Chronic Diseases of white blood cells (20 sources) Leukopenia; Translations: [Decreased white blood cell count, unspecified] Chronic Disorders of lipid metabolism (20 sources) Hyperlipidemia; Translations: [Hyperlipidemia, unspecified] Chronic Esophageal disorders (4 sources) Gastroesophageal reflux disease; Translations: [Gastro-esophageal reflux disease without esophagitis] 10-29-2014 Chronic Essential hypertension (20 sources) Essential hypertension; Translations: [Essential (primary) hypertension] Onset: 5 Chronic Comment on above: CONTROLLED ON MED Genitourinary symptoms and ill-defined conditions (20 sources) Acute retention of urine ; Translations: [Other retention of urine] Onset: 5 Episodic Heart valve disorders (20 sources) Mitral valve prolapse; Translations: [Nonrheumatic mitral (valve) prolapse] Onset: 5 Chronic Hyperplasia of prostate (20 sources) Benign prostatic hypertrophy with outflow obstruction; Translations: [Benign prostatic hyperplasia with lower urinary tract symptoms] Onset: 0 07-09-2019 Chronic Neoplasms of unspecified nature or uncertain behavior (20 sources) Monoclonal gammopathy of uncertain significance; Translations: [Monoclonal gammopathy] Chronic Nonspecific chest pain (20 sources) Chest pain; Translations: [Chest pain, unspecified] Onset: 5 08-12-2018 Episodic Nutritional deficiencies (2 sources) Vitamin D deficiency; Translations: [Vitamin D deficiency, unspecified] Onset: 5 05-26-2020 Chronic Other and unspecified benign neoplasm (10 sources) Adenoma of duodenum; Translations: [Benign neoplasm of duodenum] 07-27-2022 Episodic Other and unspecified benign neoplasm (10 sources) Polyp of colon; Translations: [Polyp of colon] 07-27-2022 Episodic Other and unspecified benign neoplasm (4 sources) Polyp of colon; Translations: [Benign neoplasm of colon] 07-27-2022 Episodic Other and unspecified benign neoplasm (2 sources) Benign neoplasm of duodenum; Translations: [Benign neoplasm of duodenum, jejunum, and ileum] 07-27-2022 Episodic Other disorders of stomach and duodenum (1 source) Indigestion 11-26-2019 Episodic Other gastrointestinal disorders (3 sources) Constipation; Translations: [Constipation, unspecified] 10-25-2023 Episodic Other lower respiratory disease (20 sources) Dyspnea on exertion; Translations: [Shortness of breath] 08-12-2018 Episodic Other lower respiratory disease (9 sources) Dyspnea; Translations: [Shortness of breath] 08-15-2022 Episodic Comment on above: On exertion when he is mowing grass. Other lower respiratory disease (2 sources) Shortness of breath; Translations: [Shortness of breath] 08-15-2022 Episodic Other male genital disorders (3 sources) Pain in penis; Translations: [Other specified disorders of penis] Chronic Other male genital disorders (1 source) Other specified disorders of penis; Translations: [Penile pain] Onset: 5 Chronic Other screening for suspected conditions (not mental disorders or infectious disease) (20 sources) Cardiovascular stress test abnormal; Translations: [Abnormal result of other cardiovascular function study] Onset: 5 Episodic Pulmonary heart disease (20 sources) Pulmonary embolism; Translations: [Other pulmonary embolism without acute cor pulmonale] Episodic Residual codes; unclassified (1 source) Obstructive sleep apnea syndrome 11-01-2014 Chronic Superficial injury; contusion (20 sources) Contusion of penis; Translations: [Contusion of penis, initial encounter] 09-24-2020 Episodic Thyroid disorders (2 sources) Hypothyroidism; Translations: [Hypothyroidism, unspecified] Onset: 5 11-26-2019 Chronic Urinary tract infections (20 sources) Hematuria co-occurrent and due to acute cystitis; Translations: [Acute cystitis with hematuria] 10-04-2020 Episodic Past or Other Problems Problem Classification Problem Date Documented Da te Episodic/Chronic Malaise and fatigue (17 sources) Fatigue; Translations: [Other fatigue] Onset: 5 10-17-2021 Episodic Other connective tissue disease (20 sources) Full thickness rotator cuff tear; Translations: [Complete rotator cuff tear or rupture of right shoulder, not specified as traumatic] Onset: 9 06-16-2018 Episodic Other diseases of kidney and ureters (1 source) Other obstructive and reflux uropathy; Translations: [BPH with urinary obstruction] Onset: 0 Episodic Phlebitis; thrombophlebitis and thromboembolism (20 sources) History of thromboembolism of vein; Translations: [Personal history of other venous thrombosis and embolism] Onset: 4 Episodic Comment on above: clinically stable, n o new episodes. Residual codes; unclassified (14 sources) History of cardiac catheterization; Translations: [Other specified postprocedural states] Onset: 2 11-09-2021 Episodic Comment on above: LEFT ANTERIOR DESCEN DING ARTERY: Angiographically normal; CIRCUMFLEX ARTERY:PROX CIRC: Mild luminal irregularities, MID CIRC: Mild luminal irregularities; RIGHT CORONARY ARTERY: MID RCA: Mild luminal irregularities; AORTIC ROOT:Angiographically normal per cardiac cath Dr. Jose 11/07/21 Residual codes; unclassified (1 source) Other specified postprocedural states; Translations: [Other specified postprocedural states] Onset: 5 Episodic Unclassified (20 sources) Other nonrheumatic mitral valve disorders 08-12-2018 Results Test Name Value Interpretation Reference Range Facility CBC-Complete Blood Cnt No Di ffon 12-18-2024 Erythrocyte distribution width (RBC) [Ratio] 13.1 % Normal 11.6-14.6 [facility] Comment on above: Performed By: #### L 506.1001, L100.0500, L500.4050, L500.4100, L501.9520, L502.0250, L506.0400 #### [facility] Laboratory [address] [place], [address] Hematocrit (Bld) [Volume fraction] 45.1 % Normal 40-54 [facility] Comment on above: Performed By: #### L 506.1001, L100.0500, L500.4050, L500.4100, L501.9520, L502.0250, L506.0400 #### [facility] [address] [place], [address] Hemoglobin (Bld) [Mass/Vol] 14.5 g/dL Normal 13.0-16.5 [facility] Comment on above: Performed By: #### L 506.1001, L100.0500, L500.4050, L500.4100, L501.9520, L502.0250, L506.0400 #### [facility] [address] [place], [address] MCH (RBC) [Entitic mass] 29.1 pg Normal 27.0-32.0 [facility] Comment on above: Performed By: #### L 506.1001, L100.0500, L500.4050, L500.4100, L501.9520, L502.0250, L506.0400 #### [facility] [address] [place], [address] MCHC (RBC) [Mass/Vol] 32.2 g/dL Normal 32-36 [facility] Comment on above: Performed By: #### L 506.1001, L100.0500, L500.4050, L500.4100, L501.9520, L502.0250, L506.0400 #### [facility] [address] [place], [address] MCV (RBC) [Entitic vol] 90.4 fL Normal 80-94 [facility] Comment on above: Performed By: #### L 506.1001, L100.0500, L500.4050, L500.4100, L501.9520, L502.0250, L506.0400 #### [facility] [address] [place], [address] Platelet mean volume (Bld) [Entitic vol] 11.4 fL Normal 6.2-12.0 [facility] Comment on above: Performed By: #### L 506.1001, L100.0500, L500.4050, L500.4100, L501.9520, L502.0250, L506.0400 #### [facility] [address] [place], [address] Platelets (Bld) [#/Vol] 159 10*3/uL Normal 150-450 [facility] Comment on above: Performed By: #### L 506.1001, L100.0500, L500.4050, L500.4100, L501.9520, L502.0250, L506.0400 #### [facility] [address] [place], [address] RBC (Bld) [#/Vol] 4.99 10*6/uL Normal 4.6-6.[address] [facility] Comment on above: Performed By: #### L 506.1001, L100.0500, L500.4050, L500.4100, L501.9520, L502.0250, L506.0400 #### [facility] [address] [place], [address] RDW SD 43.2 fl Normal 35.1-43.9 [facility] Comment on above: Performed By: #### L 506.1001, L100.0500, L500.4050, L500.4100, L501.9520, L502.0250, L506.0400 #### [facility] [address] [place], [address] WBC (Bld) [#/Vol] 5.6 10*3/uL Normal 4.4-11.0 [facility] Comment on above: Performed By: #### L 506.1001, L100.0500, L500.4050, L500.4100, L501.9520, L502.0250, L506.0400 #### [facility] [address] [place], [address] Comprehensive Metabolic Prof okon 12-18-2024 Albumin [Mass/Vol] 3.8 g/dL Normal 3.4-4.8 [facility] Comment on above: Performed By: #### L 506.1001, L100.0500, L500.4050, L500.4100, L501.9520, L502.0250, L506.0400 ####[facility] [address] [place], [address] Albumin/Globulin [Mass ratio] 1.3 {ratio} Normal 0.9-2.4 [facility] Comment on above: Performed By: #### L 506.1001, L100.0500, L500.4050, L500.4100, L501.9520, L502.0250, L506.0400 ####[facility] [address] [place], [address] ALK PHOS 77 U/L Normal 40-129 [facility] Comment on above: Performed By: #### L 506.1001, L100.0500, L500.4050, L500.4100, L501.9520, L502.0250, L506.0400 ####[facility] [address] [place], [address] ALT [Catalytic activity/Vol] 22 U/L Normal <=46 [facility] Comment on above: Performed By: #### L 506.1001, L100.0500, L500.4050, L500.4100, L501.9520, L502.0250, L506.0400 ####[facility] [address] [place], [address] AST [Catalytic activity/Vol] 22 U/L Normal <=37 [facility] Comment on above: Performed By: #### L 506.1001, L100.0500, L500.4050, L500.4100, L501.9520, L502.0250, L506.0400 ####[facility] [address] [place], [address] Bilirubin [Mass/Vol] 0.52 mg/dL Normal 0.00-1.30 [facility] Comment on above: Performed By: #### L 506.1001, L100.0500, L500.4050, L500.4100, L501.9520, L502.0250, L506.0400 ####[facility] [address] [place], [address] BUN/CRE 17.9 RATIO Normal 10-20 [facility] Comment on above: Performed By: #### L 506.1001, L100.0500, L500.4050, L500.4100, L501.9520, L502.0250, L506.0400 ####[facility] [address] [place], [address] Calcium [Mass/Vol] 9.3 mg/dL Normal 7.6-11.0 [facility] Comment on above: Performed By: #### L 506.1001, L100.0500, L500.4050, L500.4100, L501.9520, L502.0250, L506.0400 ####[facility] [address] [place], [address] Chloride [Moles/Vol] 104 mmol/L Normal 98-108 [facility] Comment on above: Performed By: #### L 506.1001, L100.0500, L500.4050, L500.4100, L501.9520, L502.0250, L506.0400 ####[facility] [address] [place], [address] CO2 [Moles/Vol] 25.6 mmol/L Normal 21.0-32.0 [facility] Comment on above: Performed By: #### L 506.1001, L100.0500, L500.4050, L500.4100, L501.9520, L502.0250, L506.0400 ####[facility] [address] [place], [address] Creatinine [Mass/Vol] 1.41 mg/dL High 0.70-1.20 [facility] Comment on above: Performed By: #### L 506.1001, L100.0500, L500.4050, L500.4100, L501.9520, L502.0250, L506.0400 ####[facility] [address] [place], [address] GAP 11 Normal 5-15 [facility] Comment on above: Performed By: #### L 506.1001, L100.0500, L500.4050, L500.4100, L501.9520, L502.0250, L506.0400 ####[facility] [address] [place], [address] GFR/1.73 sq M.predicted among non-blacks MDRD (S/P/Bld) [Vol rate/Area] 51 mL/min/{1.73_m2} Low >60 [facility] Comment on above: Result Comment: mL/m in/1.73m2 CKD-EPI Creatinine Equation (2020) Performed By: #### L 506.1001, L100.0500, L500.4050, L500.4100, L501.9520, L502.0250, L506.0400 ####[facility] [address] [place], [address] Globulin (S) [Mass/Vol] 3.0 g/dL Normal 2.2-4.2 [facility] Comment on above: Performed By: #### L 506.1001, L100.0500, L500.4050, L500.4100, L501.9520, L502.0250, L506.0400 ####[facility] [address] [place], [address] Glucose [Mass/Vol] 107 mg/dL High 70-99 [facility] Comment on above: Performed By: #### L 506.1001, L100.0500, L500.4050, L500.4100, L501.9520, L502.0250, L506.0400 ####[facility] [address] [place], [address] Potassium [Moles/Vol] 4.1 mmol/L Normal 3.3-5.1 [facility] Comment on above: Performed By: #### L 506.1001, L100.0500, L500.4050, L500.4100, L501.9520, L502.0250, L506.0400 ####[facility] [address] [place], [address] Sodium [Moles/Vol] 141 mmol/L Normal 133-145 [facility] Comment on above: Performed By: #### L 506.1001, L100.0500, L500.4050, L500.4100, L501.9520, L502.0250, L506.0400 ####[facility] [address] [place], [address] T PROT 6.8 g/dL Normal 5.9-8.4 [facility] Comment on above: Performed By: #### L 506.1001, L100.0500, L500.4050, L500.4100, L501.9520, L502.0250, L506.0400 ####[facility] [address] [place], [address] Urea nitrogen [Mass/Vol] 25 mg/dL High 4-19 [facility] Comment on above: Performed By: #### L 506.1001, L100.0500, L500.4050, L500.4100, L501.9520, L502.0250, L506.0400 ####[facility] [address] [place], [place], [id number] Lipid Profileon 12-18-2024 CHOL:HDL 2.67 Normal [facility] Comment on above: Performed By: #### L 506.1001, L100.0500, L500.4050, L500.4100, L501.9520, L502.0250, L506.0400 ####[facility] [address] [place], [place], [phone] Cholesterol [Mass/Vol] 160 mg/dL Normal <=200 [facility] Comment on above: Result Comment: Chol esterol level, Desirable <200 mg/dL Borderline high cholesterol 200-239 mg/dL High cholesterol >=240 mg/dL Recommendations of the NCEP Adult Treatment Panel for the following risk-cutoff thresholds for the [place] population. Performed By: #### L 506.1001, L100.0500, L500.4050, L500.4100, L501.9520, L502.0250, L506.0400 ####[facility] [address] [place], [place], [id number] Cholesterol in HDL [Mass/Vol] 60 mg/dL Normal [facility] Comment on above: Result Comment: Zamzam onal Cholesterol Education Program (NCEP) guidelines: <40 mg/dL: Low HDL-cholesterol (major risk factor for CHD) >= 60 mg/dL: High HDL-cholesterol (negative risk factor for CHD) HDL-cholesterol is affected by a number of factors, e.g. smoking, exercise, hormones, sex and age. Performed By: #### L 506.1001, L100.0500, L500.4050, L500.4100, L501.9520, L502.0250, L506.0400 ####[facility] [address] [place], [address] Cholesterol in LDL [Mass/Vol] 74 mg/dL Normal [facility] Comment on above: Result Comment: Bord ugeoyu=493-719 mg/dL Higher Hlcc=512 mg/dL or greater Friedwald Equation for LDL-C Performed By: #### L 506.1001, L100.0500, L500.4050, L500.4100, L501.9520, L502.0250, L506.0400 ####[facility] [address] [place], [address] Cholesterol in VLDL [Mass/Vol] 27 mg/dL Normal 5-40 [facility] Comment on above: Performed By: #### L 506.1001, L100.0500, L500.4050, L500.4100, L501.9520, L502.0250, L506.0400 ####[facility] [address] [place], [address] Triglyceride [Mass/Vol] 133 mg/dL Normal [facility] Comment on above: Result Comment: The drugs N-Acetylcysteine and Metamizole may falsely depress this assay. Normal range: <150 mg/dL Borderline High: 150-199 mg/dL High: 200-499 mg/dL Very High: >500 mg/dL Performed By: #### L 506.1001, L100.0500, L500.4050, L500.4100, L501.9520, L502.0250, L506.0400 ####[facility] [address] [place], [address] Microalb:Creat Ratio,Random URon 12-18-2024 Creatinine [Mass/Vol] 131.00 mg/dL Normal 39.00- 259. 00 [facility] Comment on above: Performed By: #### L 506.1001, L100.0500, L500.4050, L500.4100, L501.9520, L502.0250, L506.0400 #### [facility] Laboratory [address] [place], [address] MALB:CREAT 230.5 mg/g CRE High <30 mg/g CRE [facility] Comment on above: Performed By: #### L 506.1001, L100.0500, L500.4050, L500.4100, L501.9520, L502.0250, L506.0400 #### [facility] [address] [place], [place], [id number] MICROALBUMIN,UR 302.0 mg/L Normal <20 mg/L [facility] Comment on above: Performed By: #### L 506.1001, L100.0500, L500.4050, L500.4100, L501.9520, L502.0250, L506.0400 #### [facility] [address] [place], [address] T4 Free Directon 12-18-2024 T4 FREE DIRECT 1.40 ng/dL Normal 0.76-1.46 [facility] Comment on above: Performed By: #### L 506.1001, L100.0500, L500.4050, L500.4100, L501.9520, L502.0250, L506.0400 ####[facility] [address] [place], [address] Thyroid Stim Hormone (TSH)on 12-18-2024 TSH 1.240 uIU/mL Normal 0.300-4.20 0 [facility] Comment on above: Performed By: #### L 506.1001, L100.0500, L500.4050, L500.4100, L501.9520, L502.0250, L506.0400 ####[facility] [address] [place], [address] Vitamin D,25 Hydroxyon 12-18 Vitamin D 25-OH 43.9 ng/mL Normal 30-100 [facility] Comment on above: Result Comment: Angi min D Status Deficiency: <20 ng/mL (50nmol/L) Insufficiency: 20-30 ng/mL (50-75 nmol/L) Sufficiency: 30-100 ng/mL (75-250 nmol/L) Toxicity: >100 ng/mL (>250 nmol/L) Performed By: #### L 506.1001, L100.0500, L500.4050, L500.4100, L501.9520, L502.0250, L506.0400 ####[facility] [address] [place], [address] Cardiology Visit Reporton Cardiology Visit Report [facility] [address] [place], [place] [address] OFFICE VISIT Date of Service: 10/27/24 MR#: [id number] Acct: [id number] Name: SULEMAN VAZQUEZ Rep #: [id number] 1 : 1945 Provider: Dr. Obed chung MD Age/Sex: 79/M Location: [facility] [place] Status: Signed with Addenda ADDENDUM by Dr. Obed Scott MD on 10/27/24 at 1142 HPI History of Present Illness Details: ECG in the office shows sinus rhythm at 65 bpm with frequent premature ventricular complexes right bundle branch block and is abnormal. The patient's right bundle branch block is chronic. Assessment and Plan Assessment and Plan (1) Chest pain: Status: Acute Qualifiers: Chest pain type: unspecified Qualified Code(s): R07.9 - Chest pain, unspecified (2) Premature ventricular contraction: Status: Chronic (3) Factor V deficiency: Status: Acute (4) Nonrheumatic mitral (valve) prolapse: Status: Chronic (5) Essential hypertension: Status: Chronic (6) Hyperlipidemia: Status: Chronic Qualifiers: Hyperlipidemia type: unspecified Qualified Code(s): E78.5 - Hyperlipidemia, unspecified (7) Sinus bradycardia: Status: Acute Orders: Orders 12 Lead EKG performed by [facility] Today R00.1 - Bradycardia, unspecified Stress Test Echo w/o Contrast 2 Weeks I49.3 - Ventricular premature depolarization, R07.9 - Chest pain, unspecified Plan Details Follow Up: 6 Months (With IVY and as needed) 10/27/24 1142 Date Obed Scott MD cc: Dr. Dre Martinez MD * Signed HPI HPI History of Present Illness Details: Patient 79-year-old white male that comes in today for monitoring of his cardiovascular status. Patient gives a history of sinus bradycardia with frequent PVCs. Initial Holter monitor showed that he had 33% PVCs in October 2023. He was placed on metoprolol 50 mg twice daily and was intolerant of it and was decreased to 12.5 mg twice daily. Repeat Holter monitor done May 2024 showed a minimum heart rate of 41 maximum heart rate of 92 and an average heart rate of 58. His ventricular ectopy had decreased to 4% there were no ventricular runs or short burst of VT as noted on his old monitor. A subsequent echocardiogram showed an EF of 65% with no evidence of diastolic dysfunction and no significant valve disease. The patient has historically undergone a catheterization in 2021 where he had normal LV function EF of 60% and minimal luminal irregularities in his circumflex and right coronary artery the LAD was normal. This was done after an abnormal nuclear treadmill stress test which had showed evidence of mid and apical and Fery or ischemia at a moderate workload and a basal inferior infarct that turned out to be a false positive. Patient also has a history of hypertension which is well-controlled today in the office he has a history of hyperlipidemia on rosuvastatin 20 mg daily he has a history of obstructive sleep apnea treated with his CPAP religiously. The patient also has factor V Leiden deficiency with multiple DVTs and is maintained on Eliquis 2.5 mg twice daily. Patient reports that his heart rate has been as low as 30s at home on his blood pressure machine but EKG in the office today shows frequent premature ventricular ectopy with a right bundle branch block and sinus rhythm at 65 bpm. But given the ventricular ectopy I suspect his blood pressure machine is not picking up every beat. The patient denies any syncope or near syncope. He does report that for the last 2 weeks he has had almost a constant left upper chest left upper arm soreness. This does not change with activity he cuts his grass with a push mower and riding lawn more. He has been careful to stay hydrated. 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 Accompanied by: Self Is patient in pain?: No Allergies fosinopril (From Monopril) Allergy (Severe, Verified 10/27/24 11:01) unknown insect venom Allergy (Severe, Verified 10/27/24 11:01) PT UNSURE OF REACTION amoxicillin Allergy (Intermediate, Verified 10/27/24 11:01) Other benazepril (From Lotensin) Adverse Reaction (Severe, Verified 10/27/24 11:01) unknown penicillin G Adverse Reaction (Severe, Verified 10/27/24 11:01) unknown Medications ???Medication ???Instructions ???Recorded ???Confirmed ???Type ascorbic acid (vitamin C) 500 mg 500 mg PO QDAY 04/25/17 10/27/24 H istory tablet levothyroxine 50 mcg tablet 50 mcg PO QDAY 04/25/17 10/27/24 H (more content not included)... Normal [facility] [facility] 08-25-2024 [facility] Office Visit (URON ) ----- SULEMAN VAZQUEZ ([id number]) 1945 M Date Time Provider Department 08/25/24 11:15 AM EVELIO BRYAN During your visit today, we recorded the following information about you: Pulse Blood pressure Weight Height 59/minute 126/65 99 kg 1.715 m Evelio Bryan MD 08/25/2024 11:55 AM Signed [facility] MALE PATIENT - FOLLOWUP EXAMINATION PATIENT: Suleman Vazquez (79 year old) PCP: Deanne Kohli MD CHIEF COMPLAINT: f/u prostate cancer and penile pain HISTORY OF PRESENT ILLNESS: Suleman Vazquez is a 69 year old male who presents in follow up for prostate cancer He was diagnosed in 2010 with GG1 CaP. He has had repeat biopsies in 2011 (GG1), 2013 (GG1), and 2016 (benign) He underwent PAE 09/[address] Quispe (prostate 229 g) MRI 01/23/2022 - PI-RADS 2, volume 152 cc Notably, he has c/o penile pain for at least 2-3 years Has previously been recommended bacitracin ointement and fluconazole He was last seen PSA (ng/mL) Date Value 01/29/2024 11.22 04/03/2023 11.72 09/26/2022 11.68 03/27/2022 12.23 05/30/2021 12.14 04/04/2021 6.84 05/12/2020 22.95 11/19/2019 16.99 Interval hx: Patient overall feeling well today. He endorses weekly intermittent soreness at tip of the penis, not specific to urination. Endorses recent increase of urgency with occasional small amount of incontinence that he is concerned about. Continues to take oxybutynin and flomax REVIEW OF SYSTEMS: CONSTITUTIONAL: no recent illnesses, normal energy levels, endorses penile pain, see HPI GASTROINTESTINAL: no constipation, no diarrhea, no bloody stool GENITOURINARY: see history of present illness [place] RN UROLOGY ATTENDING ATTESTATION: The patient was personally seen and evaluated. The nurse's history and ROS were reviewed. I repeated the significant and relevant portions of the examination and formulated the final plan for management. HISTORY: PAST MEDICAL HISTORY Diagnosis Date Basal cell carcinoma Nose and Right cheek Depressive disorder, not elsewhere classified DVT (deep venous thrombosis) (HCC) Esophageal reflux Essential hypertension, benign Osteoarthrosis, unspecified whether generalized or localized, other specified sites Other and unspecified hyperlipidemia Pulmonary embolism (HCC) 02/2019 PAST SURGICAL HISTORY Procedure Laterality Date BIOPSY OF SKIN LESION RPR INGUN HERNIA SLIDING ANY AGE Social History Tobacco Use Smoking status: Former Current packs/day: 0.00 Types: Cigarettes Quit date: 04/15/1982 Years since quittin.3 Smokeless tobacco: Never Tobacco comments: pt stopped smoking 35yers ago Substance Use Topics Alcohol use: No Drug use: No No family history on file. MEDICATIONS: Current Outpatient Medications Medication Sig amLODIPine (NORVASC) 5 mg tablet Take 5 mg by mouth once daily. losartan (COZAAR) 100 mg tablet Take 100 mg by mouth once daily. cholecalciferol, vitamin D3, 62.5 mcg (2,500 unit) cap Take by mouth as directed. pyridoxine HCl, vitamin B6, (VITAMIN B-6 ORAL) Take by mouth. tamsulosin (FLOMAX) 0.4 mg Take 1 capsule by mouth once daily. oxybutynin ER (DITROPAN XL) 10 mg 24 hr tablet Take 1 tablet by mouth once daily. desvenlafaxine ER (PRISTIQ) 50 mg 24 hr tablet Take 50 mg by mouth once daily. losartan (COZAAR) 25 mg tablet 50 mg once daily. (Patient not taking: Reported on 02/04/2024) multivitamin (MULTIPLE VITAMINS ORAL) MULTIVITAMIN ADULT TABS [...] No current facility-administered medications for this visit. PHYSICAL EXAMINATION: VITALS: There were no vitals taken for this visit. GENERAL: alert, no distress, normal affect RESPIRATORY: normal effort, regular rate, no audible wheeze ABDOMEN: obese, soft, non-tender, non-distended GENITOURINARY: no flank tenderness HARI: deferred given PSA today INCISION/WOUND: none DRAINS/LINES: none OFFICE DATA: URINALYSIS: large blood, 100 protein OTHER DATA: Creatinine Date Value Ref Range Status 04/10/2022 1.53 (H) 0.73 - 1.22 mg/dL Final 09/13/2020 1.23 (H) 0.7 (more content not included)... Normal [facility] Free PSA [Mass/Vol]on 2024 Free PSA/Total PSA [Mass fraction] 23 % [facility] Comment on above: Total and free PSA t est methodology used is the Electrochemiluminescence Immunoassay by [employer]. Total or free PSA values by differing methodologies cannot be interchanged. The below table lists the probability of finding prostate cancer upon needle biopsy, for men 50 years or older and total PSA concentrations from 4.0-10.0 ng/mL. Results should be interpreted within the broader clinical context. Free PSA(%) 50-59 years 60-69 years >69 years <11 49.2% 57.5% 64.5% 11-18 26.9% 33.9% 40.8% 19-25 18.3% 23.9% 29.7% >25 9.1% 12.2% 15.8% Interpretation and review of laboratory results Abnormal [facility] Prostate specific Ag [Mass/Vol] 11.92 ng/mL High NINF - 2.60 ng/mL [facility] Comment on above: Total PSA test metho dology used is the Electrochemiluminescence Immunoassay by [employer]. Total PSA values by differing methodologies cannot be interchanged. For an individual patient, the significance of a PSA level should be interpreted in a broad clinical context, including age, race, family history, digital rectal exam, prostate size, results of prior testing (prostate biopsy, free PSA, PCA3), and use of 5-alpha reductase inhibitors. Considering the high incidence of asymptomatic cancer in the general population that may not pose an ultimate risk to a patient, the decision to recommend urological evaluation or prostate biopsy should be individualized after consideration of all these factors. REFERENCE: Princess Lowry M.D., M.P.H., Ranjan Sanchez M.D., Ph.D., Russel Graves M.D., Anaid Garay, M.P.H., Swati Vazquez Sc.D. Effect of Verification Bias on Screening for Prostate Cancer by Measurement of Prostatic Specific Antigen. N Engl J Med 2003,349:335-42. [facility] Free PSA/Total PSA [Mass fraction] 23 % Normal [facility] Comment on above: Order Comment: Speci men Type: BLOOD SPECIMEN Ordering Facility: [facility] Address: [address] [place] [address] Result Comment: Tota l and free PSA test methodology used is the Electrochemiluminescence Immunoassay by [employer]. Total or free PSA values by differing methodologies cannot be interchanged. The below table lists the probability of finding prostate cancer upon needle biopsy, for men 50 years or older and total PSA concentrations from 4.0-10.0 ng/mL. Results should be interpreted within the broader clinical context. Free PSA(%) 50-59 years 60-69 years >69 years <11 49.2% 57.5% 64.5% 11-18 26.9% 33.9% 40.8% 19-25 18.3% 23.9% 29.7% >25 9.1% 12.2% 15.8% Performed By: #### 1 0886-0 #### [facility] CLIA [id number] [address] [place], [place] [address] [place] [address] [place] Prostate specific Ag [Mass/Vol] 11.92 ng/mL High <2.60 [facility] Comment on above: Order Comment: Speci men Type: BLOOD SPECIMEN Ordering Facility: [facility] Address: [address] [place] [address] Result Comment: Moshe mathias PSA test methodology used is the Electrochemiluminescence Immunoassay by [employer]. Total PSA values by differing methodologies cannot be interchanged. For an individual patient, the significance of a PSA level should be interpreted in a broad clinical context, including age, race, family history, digital rectal exam, prostate size, results of prior testing (prostate biopsy, free PSA, PCA3), and use of 5-alpha reductase inhibitors. Considering the high incidence of asymptomatic cancer in the general population that may not pose an ultimate risk to a patient, the decision to recommend urological evaluation or prostate biopsy should be individualized after consideration of all these factors. REFERENCE: Princess Lowry M.D., M.P.H., Ranjan Sanchez M.D., Ph.D., Russel Graves M.D., Anaid Garay, M.P.H., Swati Vazquez, Sc.Georgi. Effect of Verification Bias on Screening for Prostate Cancer by Measurement of Prostatic Specific Antigen. N Engl J Med 2003,349:335-42. Performed By: #### 1 0886-0 #### [facility] CLIA [id number] [address] [place] [address] [place] Laboratory - Hematology and Cell countson 08-25-2024 Hemoglobin Ql (U) Large Abnormal Negative [facility] - Urinalysison Protein Ql (U) 100 mg/dL Abnormal Negative [facility] No Panel Informationon 08-25 BILIRUBIN UA (POCT) Negative Negative [facility] CLARITY UA (POCT) Clear [facility] COLOR UA (POCT) Yellow [facility] GLUCOSE UA (POCT) Negative Negative mg/dL [facility] Interpretation and review of laboratory results Abnormal [facility] KETONE UA (POCT) Negative Negative mg/dL [facility] LEUKOCYTES UA (POCT) Negative Negative [facility] NITRITE UA (POCT) Negative Negative [facility] PH UA (POCT) 5.5 4.5 - 8.0 [facility] SPECIFIC GRAVITY UA (POCT) 1.015 1.005 - 1.030 [facility] UROBILINOGEN UA (POCT) 0.2 Mariana l E.U./dL [facility] Location:[facility], [address] [place] [address], [address] [place] [address] POINT OF CARE [facility] Urinalysis complete panel (U )on 08-25-2024 Bacteria LM.HPF (Urine sed) [#/Area] Negative Negative /HPF [facility] Bilirubin Ql (U) Negative Negative [facility] Clarity (Unsp spec) Clear Clear [facility] Color (U) Yellow Yellow [facility] Epithelial cells LM.HPF (Urine sed) [#/Area] Few /HPF [facility] Glucose Test strip (U) [Mass/Vol] Negative Negative [facility] Hemoglobin Ql (U) 2+ Abnormal Negative [facility] Hyaline casts (Urine sed) [#/Area] 1-3 /LPF Abnormal 0 /LPF [facility] Interpretation and review of laboratory results Abnormal [facility] Ketones Ql (U) Negative Negative [facility] Leukocyte esterase Test strip Ql (U) Trace Abnormal Negative [facility] Nitrite Ql (U) Negative Negative [facility] pH (U) 6 [pH] NINF - 8.5 [facility] Protein (U) [Mass/Vol] 2+ Abnormal Negative [facility] RBC LM.HPF (Urine sed) [#/Area] /[HPF] Abnormal 0-2 /HPF [facility] Specific gravity (U) [Rel density] 1.018 1.005 - 1.030 [facility] Urobilinogen Ql (U) 0.2 EU/dL 0.2-1.0 EU/dL [facility] WBC LM.HPF (Urine sed) [#/Area] 6-10 /HPF Abnormal 0-5 /HPF [facility] This test was devnaboro ped and its performance characteristics determined by [facility]'s [facility] [place] ([facility]). It has not been cleared or approved by the FDA. [facility] is regulated under CLIA as qualified to perform high-complexity testing. This test is used for clinical purposes. It should not be regarded as investigational or for research. [facility] Bacteria LM.HPF (Urine sed) [#/Area] Negative Normal Negative [facility] Comment on above: Order Comment: Speci men Type: URINE SPECIMEN Ordering Facility: [facility] Address: [address] [place] [address] Performed By: #### 2 4356-8 #### [facility] CLIA [id number] [address] [place] [address] [place] Bilirubin Ql (U) Negative Normal Negative [facility] Comment on above: Order Comment: Speci men Type: URINE SPECIMEN Ordering Facility: [facility] Address: [address] [place] [address] Performed By: #### 2 4356-8 #### [facility] CLIA [id number] [address] [place] [address] [place] Clarity (Unsp spec) Clear Normal Clear [facility] Comment on above: Order Comment: Speci men Type: URINE SPECIMEN Ordering Facility[facility] Address: [address] [place] [address] Performed By: #### 2 4356-8 #### [facility] CLIA [id number] [address] [place] [address] [place] Color (U) Yellow Normal Yellow [facility] Comment on above: Order Comment: Speci men Type: URINE SPECIMEN Ordering Facility[facility] Address: [address] [place] [address] Performed By: #### 2 4356-8 #### [facility] CLIA [id number] [address] [place] [address] [place] Epithelial cells LM.HPF (Urine sed) [#/Area] Few Normal [facility] Comment on above: Order Comment: Speci men Type: URINE SPECIMEN Ordering Facility[facility] Address: [address] [place] [address] Performed By: #### 2 4356-8 #### [facility] CLIA [id number] [address] [place] [address] [place] Glucose Test strip (U) [Mass/Vol] Negative Normal Negative [facility] Comment on above: Order Comment: Speci men Type: URINE SPECIMEN Ordering Facility[facility] Address: [address] [place] [address] Performed By: #### 2 4356-8 #### [facility] CLIA [id number] [address] [place] [address] [place] Hemoglobin Ql (U) 2+ Abnormal Negative [facility] Comment on above: Order Comment: Speci men Type: URINE SPECIMEN Ordering [facility] Address: [address] [place] [address] Performed By: #### 2 4356-8 #### [facility] CLIA [id number] [address] [place] [address] [place] Hyaline casts (Urine sed) [#/Area] 1-3 /LPF Abnormal 0 /LPF [facility] Comment on above: Order Comment: Speci men Type: URINE SPECIMEN Ordering [facility] Address: [address] [place] [address] Performed By: #### 2 4356-8 #### [facility] CLIA [id number] [address] [place] [address] [place] Ketones Ql (U) Negative Normal Negative [facility] Comment on above: Order Comment: Speci men Type: URINE SPECIMEN Ordering [facility] Address: [address] [place] [address] Performed By: #### 2 4356-8 #### [facility] CLIA [id number] [address] [place] [address] [place] Leukocyte esterase Test strip Ql (U) Trace Abnormal Negative [facility] Comment on above: Order Comment: Speci men Type: URINE SPECIMEN Ordering [facility] Address: [address] [place] [address] Performed By: #### 2 4356-8 #### [facility] CLIA [id number] [address] [place] [address] [place] Nitrite Ql (U) Negative Normal Negative [facility] Comment on above: Order Comment: Speci men Type: URINE SPECIMEN Ordering [facility] Address: [address] [place] [address] Performed By: #### 2 4356-8 #### [facility] CLIA [id number] [address] [place] [address] [place] pH (U) 6.0 [pH] Normal <8.5 [facility] Comment on above: Order Comment: Speci men Type: URINE SPECIMEN Ordering Facility[facility] Address: [address] [place] [address] Performed By: #### 2 4356-8 #### [facility] CLIA [id number] [address] [place] [address] [place] Protein (U) [Mass/Vol] 2+ Abnormal Negative [facility] Comment on above: Order Comment: Speci men Type: URINE SPECIMEN Ordering [facility] Address: [address] [place] [address] Performed By: #### 2 4356-8 #### [facility] CLIA [id number] [address] [place] [address] [place] RBC LM.HPF (Urine sed) [#/Area] /[HPF] Abnormal 0-2 /HPF [facility] Comment on above: Order Comment: Speci men Type: URINE SPECIMEN Ordering [facility] Address: [address] [place] [address] Performed By: #### 2 4356-8 #### [facility] CLIA [id number] [address] [place] [address] [place] Specific gravity (U) [Rel density] 1.018 Normal 1.005-1.03 0 [facility] Comment on above: Order Comment: Speci men Type: URINE SPECIMEN Ordering [facility] Address: [address] [place] [address] Performed By: #### 2 4356-8 #### [facility] CLIA [id number] [address] [place] [address] [place] Urobilinogen Ql (U) 0.2 EU/dL Normal 0.2-1.0 EU/dL [facility] Comment on above: Order Comment: Speci men Type: URINE SPECIMEN Ordering [facility] Address: [address] [place] [address] Performed By: #### 2 4356-8 #### [facility] CLIA [id number] [address] [place] [address] [place] WBC LM.HPF (Urine sed) [#/Area] 6-10 /HPF Abnormal 0-5 /HPF [facility] Comment on above: Order Comment: Speci men Type: URINE SPECIMEN Ordering [facility] Address: [address] [place] [address] Performed By: #### 2 4356-8 #### [facility] CLIA [id number] [address] [place] [address] [place] Echo Completeon 06-26-[address] [facility] [address] 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 Exam performed in department. Left Ventricle Normal LV size. The estimated ejection fraction is 65 %. No evidence for diastolic dysfunction. No regional wall motion abnormalities noted. Right Ventricle Normal RV size. Normal systolic function. Atria The left and right atria are normal. No doppler evidence for ASD. Mitral Valve There is moderate mitral annular calcification. There is no mitral valve stenosis. No mitral valve insufficiency. Tricuspid Valve There is no tricuspid stenosis. Trivial tricuspid valve insufficiency. Unable to estimate RV systolic pressure due to insufficient tricuspid regurgitant envelope. Aortic Valve Trisinus/trileaflet aortic valve. There is no aortic stenosis. No aortic valve insufficiency. Pulmonic Valve There is no pulmonic valvular stenosis. No pulmonic valve insufficiency. Great Vessels Normal sized aortic root. Pericardium/Pleural No pericardial effusion. MMode/2D Measurements Calculations LVIDd: 4.8 cm IVSd: 0.99 cm LAV(MOD-bp): 51.2 ml LVIDs: 3.6 cm LVPWd: 1.4 cm LAV(MOD-bp) Indexed: 24.5 ml/m2 RVDd: 3.4 cm FS: 23.6 % LAV(MOD-sp2): 47.2 ml LAV(MOD-sp4): 48.7 ml SV(MOD-sp4): 44.9 ml SV(sp4-el): 50.3 ml LVAd ap4: 26.4 cm2 LVLd ap4: 8.1 cm SI(MOD-sp4): 21.5 ml/m2 EDV(MOD-sp4): 69.1 ml EDV(sp4-el): 73.4 ml LVAs ap4: 13.6 cm2 LVLs ap4: 6.8 cm ESV(MOD-sp4): 24.3 ml ESV(sp4-el): 23.2 ml EF(MOD-sp4): 64.9 % EF(sp4-el): 68.5 % LA A4 area: 18.3 cm2 LA dimension(2D): 3.3 cm RA A4 area: 15.1 cm2 Time Measurements MV dec time: 0.19 sec Doppler Measurements Calculations MV E max connie: 114.0 cm/sec Lat Peak E' Connie: 9.7 cm/sec Med Peak E' Connie: 9.4 cm/sec MV A max connie: 118.8 cm/sec E/E' lat: 11.8 E/E' med: 12.2 MV E/A: 0.96 MV V2 max: 132.7 cm/sec MV dec slope: 595.9 cm/sec2 Ao V2 max: 175.6 cm/sec MV max P.0 mmHg Ao max P.3 mmHg MV V2 mean: 79.1 cm/sec Ao V2 mean: 115.4 cm/sec MV mean P.9 mmHg Ao mean P.2 mmHg MV V2 VTI: 42.6 cm Ao V2 VTI: 41.2 cm AV (velocity ratio): 0.64 LV V1 max: 119.1 cm/sec LV V1 max P.7 mmHg LV V1 mean P.7 mmHg LV V1 mean: 71.9 cm/sec LV V1 VTI: 26.3 cm ECHO/Echo Complete Interpretation Summary The estimated ejection fraction is 65 %. No evidence for diastolic dysfunction. ___ Ordering Physician: Blaine Pizarro Referring Physician: Blaine Pizarro Performed By: Jojo Faye RCS 06/26/24 1246 Date Malinda Casarez MD CC: REPEAT PHOTOCOMPOSING MACHINE OPERATOR-C Blaine Pizarro; Dr. Deanne Kohli MD Date Dictated: 06/26/24 1010 Date Transcribed: 06/26/24 1246 Environmental Studies Professor: Signed Normal [facility] Echocardiogram study reportO rdered By: Malinda Casarez on 06-26-[address] [facility] [address] [place] [address] Echo Complete 06/26/24 1010 MR#: [id number] Acct: [id number] Name: SULEMAN VAZQUEZ Rep #:[id number] : 1945 79 From: Malinda bradley MD Attending Dr: SHIVANI Crowder Sta tus: REG CLI Ordering Dr: Blaine Pizarro NP Date: 06/26/24 Location: [facility] Sex: M C Admitted: Reason For Study Reason For Study: PVC Procedure This was a 2D Doppler, Color Flow transthoracic echocardiogram. Exam performed in department. Left Ventricle Normal LV size. The estimated ejection fraction is 65 %. No evidence for diastolic dysfunction. No regional wall motion abnormalities noted. Right Ventricle Normal RV size. Normal systolic function. Atria The left and right atria are normal. No doppler evidence for ASD. Mitral Valve There is moderate mitral annular calcification. There is no mitral valve stenosis. No mitral valve insufficiency. Tricuspid Valve There is no tricuspid stenosis. Trivial tricuspid valve insufficiency. Unable toestimate RV systolic pressure due to insufficient tricuspid regurgitant envelope. Aortic Valve Trisinus/trileaflet aortic valve. There is no aortic stenosis. No aortic valve insufficiency. Pulmonic Valve There is no pulmonic valvular stenosis. No pulmonic valve insufficiency. Great Vessels Normal sized aortic root. Pericardium/Pleural No pericardial effusion. MMode/2D Measurements & Calculations LVIDd: 4.8 cm IVSd: 0.99 cm LAV(MOD-bp): 51.2 ml LVIDs: 3.6 cm LVPWd: 1.4 cm LAV(MOD-bp) Indexed: 24.5 ml/m2 RVDd: 3.4 cm FS: 23.6 % LAV(MOD-sp2): 47.2 ml LAV(MOD-sp4): 48.7 ml SV(MOD-sp4): 44.9 ml SV(sp4-el): 50.3 ml LVAd ap4: 26.4 cm2 LVLd ap4: 8.1 cm SI(MOD-sp4): 21.5 ml/m2 EDV(MOD-sp4): 69.1 ml EDV(sp4-el): 73.4 ml LVAs ap4: 13.6 cm2 LVLs ap4: 6.8 cm ESV(MOD-sp4): 24.3 ml ESV(sp4-el): 23.2 ml EF(MOD-sp4): 64.9 % EF(sp4-el): 68.5 % LA A4 area: 18.3 cm2 LA dimension(2D): 3.3 cm RA A4 area: 15.1 cm2 Time Measurements MV dec time: 0.19 sec Doppler Measurements & Calculations MV E max connie: 114.0 cm/sec Lat Peak E' Connie: 9.7 cm/sec Med Peak E' Connie: 9.4 cm/sec MV A max connie: 118.8 cm/sec E/E' lat: 11.8 E/E' med: 12.2 MV E/A: 0.96 MV V2 max: 132.7 cm/sec MV dec slope: 595.9 cm/sec2 Ao V2 max: 175.6 cm/sec MV max P.0 mmHg Ao max P.3 mmHg MV V2 mean: 79.1 cm/sec Ao V2 mean: 115.4 cm/sec MV mean P.9 mmHg Ao mean P.2 mmHg MV V2 VTI: 42.6 cm Ao V2 VTI: 41.2 cm AV (velocity ratio): 0.64 LV V1 max: 119.1 cm/sec LV V1 max P.7 mmHg LV V1 mean P.7 mmHg LV V1 mean: 71.9 cm/sec LV V1 VTI: 26.3 cm ECHO/Echo Complete Interpretation Summary The estimated ejection fraction is 65 %. No evidence for diastolic dysfunction. 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 Deanne Kohli MD ~ Date Dictated: 06/26/24 1010 Date Transcribed: 06/26/24 1246 Environmental Studies Professor: Signed [facility] Work Phone: 12 Lead EKG performed by [facility] on 06-17-2024 12 Lead EKG performed by [facility] [address] [place] [id number] 12 Lead EKG performed by [facility] 06/17/24 1022 MR#: [id number] Acct: [id number] Name: SULEMAN VAZQUEZ Rep #: [id number] : 1945 79 From: Obed Scott MD Attending Dr: Dr. Obed Scott MD Status: DE P REINA Ordering Dr: Obed Scott MD Date: 06/17/24 Location: [facility] [place] [facility] Sex: M C Admitted: BMS/12 Lead EKG performed by [facility] ECG Report Interpretation -Sinus Rhythm - frequent ectopic ventricular beat s # VECs = 4-Right bundle branch block. ABNORMAL Electronically signed on 06/17/2024 at 11:[address] Obed Tello Software Version [id number] 06/17/24 1128 Date Obed Scott MD CC: Dr. Deanne Kohli MD Date Dictated: 06/17/24 1022 Date Transcribed: 06/17/24 102 Environmental Studies Professor: Signed Normal [facility] Cardiology Visit Reporton Cardiology Visit Report [facility] [address] [place] [address] OFFICE VISIT Date of Service: 05/29/24 MR#: [id number] Acct: [id number] Name: SULEMAN VAZQUEZ Rep #: [id number] : 1945 Provider: SHIVANI kohler Age/Sex: 79/M Location: [facility] Status: Signed HPI HPI History of Present Illness Details: SULEMAN VAZQUEZ, is a 79 year old white male who presents to the office today for cardiovascular outpatient follow-up visit. He has a history of sinus bradycardia, PACs, PVCs, mitral valve prolapse, hypertension, hyperlipidemia, NATHAN with CPAP therapy, DVT/PE with factor V Leiden abnormality. He underwent left heart catheterization in October 2021 which showed minimal coronary artery disease. He had a Holter monitor done April 2023 which showed 33% PVCs. He was subsequent placed on metoprolol 25 mg twice daily but this was decreased to 12.5 mg twice daily due to bradycardia. He is totally asymptomatic and does not feel any palpitations. The patient is on Eliquis at 2.5 mg twice daily for his factor V Leiden. He acknowledges intermittent chest soreness. This is worse with palpation. He denies ongoing palpitations, bilateral lower extremity BRIANA, or claudication. He acknowledges shortness of breath with activity such as walking on a treadmill. He feels that his endurance is reduced compared to previous. He denies shortness of breath at rest, orthopnea, or cough. He denies lightheadedness, dizziness, near-syncope, or syncope. He denies fatigue. 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 Accompanied by: Self Is patient in pain?: No Allergies fosinopril (From Monopril) Allergy (Severe, Verified 05/29/24 09:44) unknown insect venom Allergy (Severe, Verified 05/29/24 09:44) PT UNSURE OF REACTION amoxicillin Allergy (Intermediate, Verified 05/29/24 09:44) Other benazepril (From Lotensin) Adverse Reaction (Severe, Verified 05/29/24 09:44) unknown penicillin G Adverse Reaction (Severe, Verified 05/29/24 09:44) unknown Medications ???Medication ???Instructions ???Recorded ???Confirmed ???Type ascorbic acid (vitamin C) 500 mg 500 mg PO QDAY 04/25/17 05/29/24 H istory tablet levothyroxine 50 mcg tablet 50 mcg PO QDAY 04/25/17 05/29/24 H istory multivitamin 1 tab PO QDAY 04/25/17 05/29/24 Hi story oxybutynin chloride 5 mg tablet 10 mg PO QDAY 04/25/17 05/29/24 Hi story rosuvastatin 20 mg tablet (Crestor) 20 mg PO QDAY 04/25/17 05/29/24 History tamsulosin 0.4 mg capsule 0.4 mg PO QDAY 04/25/17 05/29/24 H istory cholecalciferol (vitamin D3) 25 1,000 unit PO DAILY 02/01/1905/29 History mcg (1,000 unit) capsule desvenlafaxine succinate 25 mg 25 mg PO DAILY 06/17/19 05/29/24 H istory tablet,extended release 24 hr (Pristiq) lactase 3,000 unit tablet (Lactaid) 3,000 unit PO DAILY 09/22/20 History pyridoxine (vitamin B6) 50 mg 50 mg PO DAILY 02/15/21 05/29/24 H istory capsule (Vitamin B-6) betamethasone, augmented 0.05 % 1 applic topical DAILY PRN skin 05/29/24 History topical cream irritation hydrochlorothiazide 25 mg tablet 25 mg PO DAILY 04/19/23 05/29/24 H istory losartan 100 mg tablet 100 mg PO DAILY 04/19/23 05/29/24 History metoprolol tartrate 25 mg tablet 12.5 mg (1/2 x 25 mg) PO BID #60 0 08/15/23 05/29/24 Rx tabs pantoprazole 40 mg tablet,delayed 40 mg PO DAILY #90 TABLETS 05/29/24 Rx release amlodipine 5 mg tablet 5 mg PO DAILY #90 tabs 12/10/23 Rx apixaban 2.5 mg tablet (Eliquis) 2.5 mg PO BID 30 days #60 tabs 09/0505/29/24 Rx Ejection fraction %: 65 Have you fallen in the past year?: No PFSH Medical History Anxiety Cancer History of steroid therapy Diabetes Thyroid disease Arthritis History of renal disease High cholesterol Excessive bleeding DVT (deep venous thrombosis) Back pain Dietary restriction Gastric reflux Former smoker CPAP (continuous positive airway pressure) dependence Sleep apnea On home oxygen therapy History of edema History of echocardiogram History of stress test Cardiology follow-up encounter Colon polyps History of left heart catheterization (LHC) ( 11/07/21) Factor V deficiency Fatigue CKD (chronic kidney disease) stage 3, GFR 30-59 ml/min BPH (benign prostatic hyperplasia) History of thromboembolism IBS (irritable bowel syndrome) Basal cell carcinoma (BC (more content not included)... Normal [facility] Albumin to globulin ratioOrd ered By: Lesa Lara on 05-19-2024 Albumin/Globulin [Mass ratio] 0.9 {ratio} 0.9-2.4 [facility] Bilirubin, totalOrdered By: Lesa Lara on 05-19-2024 Bilirubin [Mass/Vol] 0.70 mg/dL 0.20-1.00 [facility] Comment on above: For patients on eltr ombopag therapy, use of Dimension Ideal TBIL is not recommended. Blood urea nitrogen (BUN)/cr eatinine ratioOrdered By: Lesa Lara on 05-19-2024 Urea nitrogen/Creatinine [Mass ratio] 16.0 mg/mg 10-20 [facility] Carbon dioxide measurementOr dered By: Lesa Lara on 05-19-2024 CO2 [Moles/Vol] 26.0 mmol/L 21.0-32.0 [facility] Chloride measurementOrdered By: Lesa Ragcharlotte on 05-19-2024 Chloride [Moles/Vol] 107 mmol/L 98-107 [facility] Comprehensive Metabolic Prof ilon 05-19-2024 Albumin [Mass/Vol] 3.4 g/dL Normal 3.2-5.0 [facility] Comment on above: Performed By: #### L 502.0250, L501.9520, L506.0400, L500.4050, L500.4100, L501.74517, L501.9985 ####[facility] [address] [place], [address] Albumin/Globulin [Mass ratio] 0.9 {ratio} Normal 0.9-2.4 [facility] Comment on above: Performed By: #### L 502.0250, L501.9520, L506.0400, L500.4050, L500.4100, L501.91840, L501.9985 ####[facility] [address] [place], [address] ALK P 73 U/L Normal 45-117 [facility] Comment on above: Performed By: #### L 502.0250, L501.9520, L506.0400, L500.4050, L500.4100, L501.29660, L501.9985 ####[facility] [address] [place], [address] ALT [Catalytic activity/Vol] 25 U/L Normal 16-61 [facility] Comment on above: Performed By: #### L 502.0250, L501.9520, L506.0400, L500.4050, L500.4100, L501.28156, L501.9985 ####[facility] [address] [place], [place], [phone] AST [Catalytic activity/Vol] 19 U/L Normal 15-37 [facility] Comment on above: Performed By: #### L 502.0250, L501.9520, L506.0400, L500.4050, L500.4100, L501.00850, L501.9985 ####[facility] [address] [place], [phone] Bilirubin [Mass/Vol] 0.70 mg/dL Normal 0.20-1.00 [facility] Comment on above: Result Comment: For patients on eltrombopag therapy, use of Dimension Ideal TBIL is not recommended. Performed By: #### L 502.0250, L501.9520, L506.0400, L500.4050, L500.4100, L501.67368, L501.9985 ####[facility] [address] [place], [place], [phone] BUN/CRE 16.0 RATIO Normal 10-20 [facility] Comment on above: Performed By: #### L 502.0250, L501.9520, L506.0400, L500.4050, L500.4100, L501.56581, L501.9985 ####[facility] [address] [place], [address] CA,Total 9.6 mg/dL Normal 8.5-10.1 [facility] Comment on above: Performed By: #### L 502.0250, L501.9520, L506.0400, L500.4050, L500.4100, L501.50562, L501.9985 ####[facility] [address] [place], [address] Chloride [Moles/Vol] 107 mmol/L Normal 98-107 [facility] Comment on above: Performed By: #### L 502.0250, L501.9520, L506.0400, L500.4050, L500.4100, L501.76851, L501.9985 ####[facility] [address] [place], [address] CO2 [Moles/Vol] 26.0 mmol/L Normal 21.0-32.0 [facility] Comment on above: Performed By: #### L 502.0250, L501.9520, L506.0400, L500.4050, L500.4100, L501.51801, L501.9985 ####[facility] [address] [place], [address] Creatinine [Mass/Vol] 1.50 mg/dL High 0.70-1.30 [facility] Comment on above: Result Comment: The validity of the calculated GFR GFRAA in patients over 70 years has not been determined. Clinical correlation is essential. Performed By: #### L 502.0250, L501.9520, L506.0400, L500.4050, L500.4100, L501.31238, L501.9985 ####[facility] [address] [place], [address] EST GFR - AA 58 mL/min Low >60 [facility] Comment on above: Result Comment: Afri can Citizen Of [place] GFR Calc Performed By: #### L 502.0250, L501.9520, L506.0400, L500.4050, L500.4100, L501.75872, L501.9985 ####[facility] [address] [place], [address] GAP 8 Normal 5-15 [facility] Comment on above: Performed By: #### L 502.0250, L501.9520, L506.0400, L500.4050, L500.4100, L501.07854, L501.9985 ####[facility] [address] [place], [address] GFR/1.73 sq M.predicted among non-blacks MDRD (S/P/Bld) [Vol rate/Area] 48 mL/min/{1.73_m2} Low >60 [facility] Comment on above: Result Comment: Non- GFR Calc Performed By: #### L 502.0250, L501.9520, L506.0400, L500.4050, L500.4100, L501.34833, L501.9985 ####[facility] [address] [place], [address] Globulin (S) [Mass/Vol] 3.9 g/dL Normal 2.2-4.2 [facility] Comment on above: Performed By: #### L 502.0250, L501.9520, L506.0400, L500.4050, L500.4100, L501.89904, L501.9985 ####[facility] [address] [place], [address] Glucose [Mass/Vol] 111 mg/dL High 74-106 [facility] Comment on above: Result Comment: Fast ing Glucose result from 100 to 125 mg/dL suggests IMPAIRED HOMEOSTASIS per A.D.A. criteria. Performed By: #### L 502.0250, L501.9520, L506.0400, L500.4050, L500.4100, L501.77271, L501.9985 ####[facility] [address] [place], [address] Potassium [Moles/Vol] 3.8 mmol/L Normal 3.5-5.1 [facility] Comment on above: Performed By: #### L 502.0250, L501.9520, L506.0400, L500.4050, L500.4100, L501.71465, L501.9985 ####[facility] [address] [place], [address] Sodium [Moles/Vol] 142 mmol/L Normal 136-145 [facility] Comment on above: Performed By: #### L 502.0250, L501.9520, L506.0400, L500.4050, L500.4100, L501.27859, L501.9985 ####[facility] [address] [place], [address] T PROT 7.3 g/dL Normal 6.4-8.2 [facility] Comment on above: Performed By: #### L 502.0250, L501.9520, L506.0400, L500.4050, L500.4100, L501.53545, L501.9985 ####[facility] [address] [place], [address] Urea nitrogen [Mass/Vol] 24 mg/dL High 7-18 [facility] Comment on above: Performed By: #### L 502.0250, L501.9520, L506.0400, L500.4050, L500.4100, L501.35243, L501.9985 ####[facility] [address] [place], [address] Direct serum free thyroxine (FT4) measurementOrdered By: Lesa Lara on 05-19-2024 Free T4 [Mass/Vol] 1.03 ng/dL 0.76-1.46 [facility] Estimated glomerular filtrat ion rate (GFR) AmericanOrdered By: Lesa Lara on 05-19-2024 Estimated GFR (MDRD) Amer 58 mL/min Low >60 [facility] Comment on above: GFR Calc Free T3on 05-19-2024 Free T3 [Mass/Vol] 2.3 pg/mL Normal 2.18-3.98 [facility] Comment on above: Order Comment: N Performed By: #### L 502.0250, L501.9520, L506.0400, L500.4050, L500.4100, L501.05963, L501.9985 ####[facility] [address] [place], [place], [phone] Free C2Zeorxud By: Lesa buck on 05-19-2024 Free Triiodothyronine (T3) pg/dL 2.3 pg/mL 2.18-3.98 [facility] Glomerular filtration rate ( GFR) estimationOrdered By: Lesa Lara on 05-19-2024 Estimated GFR (MDRD) Non-Af Amer 48 mL/min Low >60 [facility] Comment on above: Non- GFR Calc Glucose measurementOrdered B y: Lesa Lara on 05-19-2024 Glucose [Mass/Vol] 111 mg/dL High 74-106 [facility] Comment on above: Fasting Glucose resu lt from 100 to 125 mg/dL suggests IMPAIRED HOMEOSTASIS per A.D.A. criteria. Hemoglobin A1con 05-19-2024 HbA1c (Bld) [Mass fraction] 5.9 % High 3.8-5.6 [facility] Comment on above: Result Comment: Norm al < 5.7 % Prediabetic 5.7 - 6.4 % Diabetic >or= 6.5 % Please note range changes. Performed By: #### L 502.0250, L501.9520, L506.0400, L500.4050, L500.4100, L501.87114, L501.9985 ####[facility] [address] [place], [place], [phone] Hemoglobin A1c percentageOrd ered By: Lesa Lara on 05-19-2024 HbA1c (Bld) [Mass fraction] 5.9 % High 3.8-5.6 [facility] Comment on above: Normal < 5.7 % Predi abetic 5.7 - 6.4 % Diabetic >or= 6.5 % Please note range changes. High density lipoprotein (HD L) measurementOrdered By: Lesa Lara on 05-19-2024 Cholesterol in HDL [Mass/Vol] 65 mg/dL >40 [facility] Comment on above: The drugs N-Acetylcy steine and Metamizole may falsely depress this assay. Reference Range HDL <40 mg/dL Low HDL Cholesterol HDL >or= 60 mg/dL High HDL Cholesterol Laboratory - Chemistry and C hemistry - challengeOrdered By: Lesa Lara on 05-19-2024 AST [Catalytic activity/Vol] 19 U/L 15-37 [facility] Lipid Profileon 05-19-2024 Cholesterol [Mass/Vol] 173 mg/dL Normal 200 [facility] Comment on above: Result Comment: <200 mg/dL Desirable 200-240 mg/dL Borderline >240 mg/dL High Risk Performed By: #### L 502.0250, L501.9520, L506.0400, L500.4050, L500.4100, L501.07387, L501.9985 ####[facility] [address] [place], [address] Cholesterol in HDL [Mass/Vol] 65 mg/dL Normal [facility] Comment on above: Result Comment: The drugs N-Acetylcysteine and Metamizole may falsely depress this assay. Reference Range HDL <40 mg/dL Low HDL Cholesterol HDL >or= 60 mg/dL High HDL Cholesterol Performed By: #### L 502.0250, L501.9520, L506.0400, L500.4050, L500.4100, L501.41868, L501.9985 ####[facility] [address] [place], [address] Cholesterol in LDL [Mass/Vol] 83 mg/dL Normal 0-130 [facility] Comment on above: Performed By: #### L 502.0250, L501.9520, L506.0400, L500.4050, L500.4100, L501.26450, L501.9985 ####[facility] [address] [place], [place], [phone] Cholesterol in VLDL [Mass/Vol] 25 mg/dL Normal 5-40 [facility] Comment on above: Performed By: #### L 502.0250, L501.9520, L506.0400, L500.4050, L500.4100, L501.18931, L501.9985 ####[facility] [address] [place], [address](974) Triglyceride [Mass/Vol] 126 mg/dL Normal [facility] Comment on above: Result Comment: The drugs N-Acetylcysteine and Metamizole may falsely depress this assay. Serum Triglycerides Reference Interval Normal <150 mg/dL Borderline high 150 - 199 mg/dL High 200 - 499 mg/dL Very High > or = 500 mg/dL Performed By: #### L 502.0250, L501.9520, L506.0400, L500.4050, L500.4100, L501.62889, L501.9985 ####[facility] [address] [place], [place], [phone] Low density lipoprotein (LDL ) cholesterol measurementOrdered By: Lesa Lara on 05-19-2024 Cholesterol in LDL [Mass/Vol] 83 mg/dL 0-130 [facility] Microalb:Creat Ratio,Random URon 05-19-2024 Creatinine [Mass/Vol] 117.00 mg/dL Normal NO RAN GE EST. [facility] Comment on above: Performed By: #### L 502.0250, L501.9520, L506.0400, L500.4050, L500.4100, L501.39309, L501.9985 ####[facility] [address] [place], [address] MALB:CRE 117.9 mg/g CRE High <30 mg/g CRE [facility] Comment on above: Performed By: #### L 502.0250, L501.9520, L506.0400, L500.4050, L500.4100, L501.63438, L501.9985 ####[facility] [address] [place], [address] MICROALBUMIN,UR 138.0 mg/L Normal NO RANGE EST. [facility] Comment on above: Performed By: #### L 502.0250, L501.9520, L506.0400, L500.4050, L500.4100, L501.60821, L501.9985 ####[facility] [address] [place], [place], [phone] Potassium measurementOrdered By: Lesa Lara on 05-19-2024 Potassium [Moles/Vol] 3.8 mmol/L 3.5-5.1 [facility] Random urine microalbumin me asurementOrdered By: Lesa Lara on 05-19-2024 Urine Random Microalbumin 138.0 mg/L NO RANGE EST. [facility] Serum anion gap measurementO rdered By: Lesa Lara on 05-19-2024 Anion gap [Moles/Vol] 8 mmol/L 5-15 [facility] Serum globulin measurementOr dered By: Lesa Lara on 05-19-2024 Globulin (S) [Mass/Vol] 3.9 g/dL 2.2-4.2 [facility] Serum or plasma alanine urena otransferase (ALT) measurementOrdered By: Lesa Lara on 05-19-2024 ALT [Catalytic activity/Vol] 25 U/L 16-61 [facility] Serum or plasma albumin shannon urement (mass/volume)Ordered By: Lesa Lara on 05-19-2024 Albumin [Mass/Vol] 3.4 g/dL 3.2-5.0 [facility] Serum or plasma alkaline ivette sphatase measurementOrdered By: Lsea Lara on 05-19-2024 ALP [Catalytic activity/Vol] 73 U/L 45-117 [facility] Serum or plasma calcium shannon urement (mass/volume)Ordered By: Lesa Lara on 05-19-2024 Calcium [Mass/Vol] 9.6 mg/dL 8.5-10.1 [facility] Serum or plasma cholesterol measurement (mass/volume)Ordered By: Lesa Lara on 05-19-2024 Cholesterol [Mass/Vol] 173 mg/dL <200 [facility] Comment on above: <200 mg/dL Desirable 200-240 mg/dL Borderline >240 mg/dL High Risk Serum or plasma creatinine m easurement (mass/volume)Ordered By: Lesa Lara on 05-19-2024 Creatinine [Mass/Vol] 1.50 mg/dL High 0.70-1.30 [facility] Comment on above: The validity of the calculated GFR & GFRAA in patients over 70 years has not been determined. Clinical correlation is essential. Serum or plasma urea nitroge n measurement (mass/volume)Ordered By: Lesa Lara on 05-19-2024 Urea nitrogen [Mass/Vol] 24 mg/dL High 7-18 [facility] Sodium levelOrdered By: Samira Lara on 05-19-2024 Sodium [Moles/Vol] 142 mmol/L 136-145 [facility] T4 Free Directon 05-19-2024 T4 FREE DIRECT 1.03 ng/dL Normal 0.76-1.46 [facility] Comment on above: Order Comment: N Performed By: #### L 502.0250, L501.9520, L506.0400, L500.4050, L500.4100, L501.38494, L501.9985 ####[facility] [address] [place], [place], [phone] TSH QnOrdered By: Lesa cormier on 05-19-2024 Thyroid Stimulating Hormone (TSH) 2.000 uIU/mL 0.358-3.74 0 [facility] Thyroid Stim Hormone (TSH)on 05-19-2024 TSH 2.000 uIU/mL Normal 0.358-3.74 0 [facility] Comment on above: Performed By: #### L 502.0250, L501.9520, L506.0400, L500.4050, L500.4100, L501.60310, L501.9985 ####[facility] [address] [place], [address] Total proteinOrdered By: Sterling Lara on 05-19-2024 Protein [Mass/Vol] 7.3 g/dL 6.4-8.2 [facility] Triglycerides measurementOrd ered By: Lesa Lara on 05-19-2024 Triglyceride [Mass/Vol] 126 mg/dL <199 [facility] Comment on above: The drugs N-Acetylcy steine and Metamizole may falsely depress this assay.Serum Triglycerides Reference Interval Normal <150 mg/dL Borderline high 150 - 199 mg/dL High 200 - 499 mg/dL Very High > or = 500 mg/dL Urine albumin/creatinine rat io for detection of microalbuminuriaOrdered By: Lesa Lara on 05-19-2024 Urine Microalbumin/Creatinine Ratio 117.9 mg/g CRE High <30 [facility] Urine creatinine measurement (mass/volume)Ordered By: Lesa Lara on 05-19-2024 Creatinine (U) [Mass/Vol] 117.00 mg/dL NO RANGE EST. [facility] Very low density lipoprotein (VLDL) cholesterol measurementOrdered By: Lesa Lara on 05-19-2024 VLDL Cholesterol 25 mg/dL 5-40 [facility] CBC W/Diff, Automatedon 11-0 Absolute Lymph 0.97 X10 3/uL Normal 0.83-4.51 [facility] Comment on above: Performed By: #### L 504.2610, L100.0100, L500.4050 #### [facility] [address] [place], [address] Absolute Neut 3.5 X10 3/uL Normal 2.0-7.7 [facility] Comment on above: Performed By: #### L 504.2610, L100.0100, L500.4050 #### [facility] [address] [place], [address] Basophils/100 WBC (Bld) 0.8 % Normal 0-1 [facility] Comment on above: Performed By: #### L 504.2610, L100.0100, L500.4050 #### [facility] [address] [place], [address] Eosinophils/100 WBC (Bld) 1.7 % Normal 0-5 [facility] Comment on above: Performed By: #### L 504.2610, L100.0100, L500.4050 #### [facility] [address] [place], [address] Erythrocyte distribution width (RBC) [Ratio] 13.3 % Normal 11.6-14.6 [facility] Comment on above: Performed By: #### L 504.2610, L100.0100, L500.4050 #### [facility] [address] [place], [address] Hematocrit (Bld) [Volume fraction] 43.9 % Normal 40-54 [facility] Comment on above: Performed By: #### L 504.2610, L100.0100, L500.4050 #### [facility] [address] [place], [address] Hemoglobin (Bld) [Mass/Vol] 13.9 g/dL Normal 13.0-16.5 [facility] Comment on above: Performed By: #### L 504.2610, L100.0100, L500.4050 #### [facility] [address] [place], [address] IG% 0.400 Normal 0.0-0.9 [facility] Comment on above: Result Comment: IG% - Immature Granulocytes (promyelocytes, myelocytes and metamyelocytes) > 1% indicates that a LEFT SHIFT is Present. Performed By: #### L 504.2610, L100.0100, L500.4050 #### [facility] [address] [place], [address] Lymphocytes/100 WBC (Bld) 18.8 % Low 19-41 [facility] Comment on above: Performed By: #### L 504.2610, L100.0100, L500.4050 #### [facility] [address] [place], [address] MCH (RBC) [Entitic mass] 29.3 pg Normal 27.0-32.0 [facility] Comment on above: Performed By: #### L 504.2610, L100.0100, L500.4050 #### [facility] [address] [place], [address] MCHC (RBC) [Mass/Vol] 31.7 g/dL Low 32-36 [facility] Comment on above: Performed By: #### L 504.2610, L100.0100, L500.4050 #### [facility] [address] [place], [address] MCV (RBC) [Entitic vol] 92.6 fL Normal 80-94 [facility] Comment on above: Performed By: #### L 504.2610, L100.0100, L500.4050 #### [facility] [address] [place], [address] Monocytes/100 WBC (Bld) 10.9 % High 0-10 [facility] Comment on above: Performed By: #### L 504.2610, L100.0100, L500.4050 #### [facility] [address] [place], [address] Neutrophils/100 WBC (Bld) 67.4 % Normal 47-70 [facility] Comment on above: Performed By: #### L 504.2610, L100.0100, L500.4050 #### [facility] [address] [place], [address] Nucleated RBC (Bld) [#/Vol] 0 10*3/uL Normal 0-5 [facility] Comment on above: Performed By: #### L 504.2610, L100.0100, L500.4050 #### [facility] [address] [place], [address] Platelet mean volume (Bld) [Entitic vol] 11.7 fL Normal 6.2-12.0 [facility] Comment on above: Performed By: #### L 504.2610, L100.0100, L500.4050 #### [facility] [address] [place], [address] Platelets (Bld) [#/Vol] 175 10*3/uL Normal 150-450 [facility] Comment on above: Performed By: #### L 504.2610, L100.0100, L500.4050 #### [facility] [address] [place], [address] RBC (Bld) [#/Vol] 4.74 10*6/uL Normal 4.6-6.[address] [facility] Comment on above: Performed By: #### L 504.2610, L100.0100, L500.4050 #### [facility] [address] [place], [address] RDW SD 45.2 fl High 35.1-43.9 [facility] Comment on above: Performed By: #### L 504.2610, L100.0100, L500.4050 #### [facility] [address] [place], [address] WBC (Bld) [#/Vol] 5.2 10*3/uL Normal 4.4-11.0 [facility] Comment on above: Performed By: #### L 504.2610, L100.0100, L500.4050 #### [facility] [address] [place], [address] Comprehensive Metabolic Prof khurram 02-18-2024 Albumin [Mass/Vol] 3.6 g/dL Normal 3.2-5.0 [facility] Comment on above: Order Comment: 1 Performed By: #### L 504.2610, L100.0100, L500.4050 #### [facility] [address] [place], [address] Albumin/Globulin [Mass ratio] 0.9 {ratio} Normal 0.9-2.4 [facility] Comment on above: Order Comment: 1 Performed By: #### L 504.2610, L100.0100, L500.4050 #### [facility] [address] [place], [address] ALK P 83 U/L Normal 45-117 [facility] Comment on above: Order Comment: 1 Performed By: #### L 504.2610, L100.0100, L500.4050 #### [facility] [address] [place], [address] ALT [Catalytic activity/Vol] 37 U/L Normal 16-61 [facility] Comment on above: Order Comment: 1 Performed By: #### L 504.2610, L100.0100, L500.4050 #### [facility] [address] [place], [address] AST [Catalytic activity/Vol] 38 U/L High 15-37 [facility] Comment on above: Order Comment: 1 Performed By: #### L 504.2610, L100.0100, L500.4050 #### [facility] [address] [place], [address] Bilirubin [Mass/Vol] 0.50 mg/dL Normal 0.20-1.00 [facility] Comment on above: Order Comment: 1 Result Comment: For patients on eltrombopag therapy, use of Dimension Ideal TBIL is not recommended. Performed By: #### L 504.2610, L100.0100, L500.4050 #### [facility] [address] [place], [address] BUN/CRE 18.5 RATIO Normal 10-20 [facility] Comment on above: Order Comment: 1 Performed By: #### L 504.2610, L100.0100, L500.4050 #### [facility] [address] [place], [address] CA,Total 9.3 mg/dL Normal 8.5-10.1 [facility] Comment on above: Order Comment: 1 Performed By: #### L 504.2610, L100.0100, L500.4050 #### [facility] [address] [place], [address] Chloride [Moles/Vol] 107 mmol/L Normal 98-107 [facility] Comment on above: Order Comment: 1 Performed By: #### L 504.2610, L100.0100, L500.4050 #### [facility] [address] [place], [address] CO2 [Moles/Vol] 28.0 mmol/L Normal 21.0-32.0 [facility] Comment on above: Order Comment: 1 Performed By: #### L 504.2610, L100.0100, L500.4050 #### [facility] [address] [place], [address] Creatinine [Mass/Vol] 1.51 mg/dL High 0.70-1.30 [facility] Comment on above: Order Comment: 1 Result Comment: The validity of the calculated GFR GFRAA in patients over 70 years has not been determined. Clinical correlation is essential. Performed By: #### L 504.2610, L100.0100, L500.4050 #### [facility] [address] [place], [address] ECRCL 45.57 ml/min Normal [facility] Comment on above: Order Comment: 1 Performed By: #### L 504.2610, L100.0100, L500.4050 #### [facility] [address] [place], [address] EST GFR - AA 58 mL/min Low >60 [facility] Comment on above: Order Comment: 1 Result Comment: Afri can Citizen [place] GFR Calc Performed By: #### L 504.2610, L100.0100, L500.4050 #### [facility] [address] [place], [address] GAP 6 Normal 5-15 [facility] Comment on above: Order Comment: 1 Performed By: #### L 504.2610, L100.0100, L500.4050 #### [facility] [address] [place], [address] GFR/1.73 sq M.predicted among non-blacks MDRD (S/P/Bld) [Vol rate/Area] 48 mL/min/{1.73_m2} Low >60 [facility] Comment on above: Order Comment: 1 Result Comment: Non- GFR Calc Performed By: #### L 504.2610, L100.0100, L500.4050 #### [facility] [address] [place], [address] Globulin (S) [Mass/Vol] 3.9 g/dL Normal 2.2-4.2 [facility] Comment on above: Order Comment: 1 Performed By: #### L 504.2610, L100.0100, L500.4050 #### [facility] [address] [place], [address] Glucose [Mass/Vol] 114 mg/dL High 74-106 [facility] Comment on above: Order Comment: 1 Result Comment: Fast ing Glucose result from 100 to 125 mg/dL suggests IMPAIRED HOMEOSTASIS per A.D.A. criteria. Performed By: #### L 504.2610, L100.0100, L500.4050 #### [facility] [address] [place], [address] Potassium [Moles/Vol] 3.9 mmol/L Normal 3.5-5.1 [facility] Comment on above: Order Comment: 1 Performed By: #### L 504.2610, L100.0100, L500.4050 #### [facility] [address] [place], [address] Sodium [Moles/Vol] 141 mmol/L Normal 136-145 [facility] Comment on above: Order Comment: 1 Performed By: #### L 504.2610, L100.0100, L500.4050 #### [facility] [address] [place], [address] T PROT 7.5 g/dL Normal 6.4-8.2 [facility] Comment on above: Order Comment: 1 Performed By: #### L 504.2610, L100.0100, L500.4050 #### [facility] [address] [place], [address] Urea nitrogen [Mass/Vol] 28 mg/dL High 7-18 [facility] Comment on above: Order Comment: 1 Performed By: #### L 504.2610, L100.0100, L500.4050 #### [facility] [address] [place], [address] LDHon 02-18-2024 LDH 224 U/L Normal 87-241 [facility] Comment on above: Order Comment: 1 Performed By: #### L 504.2610, L100.0100, L500.4050 #### [facility] [address] [place], [address] Oncology Visit Reporton Oncology Visit Report [facility] [place] [facility] [address] [place] [address] OFFICE VISIT Date of Service: 02/18/24 1435 MR#: [id number] Acct: [id number] Name: SULEMAN VAZQUEZ Rep #: [id number] : 1945 From: Paulino iMtchell MD Age/Sex: 78/M Location: [facility] Status: Signed HPI Subjective Date of Service 02/18/24 Chief Complaint F/U for DVT and PE. History of Present Illness 78y.o.man was found Leukopenia and referred for evaluation. On 04/16/2018, WBC was 3.4, Hgb 13.1, Plt 116, Monocytes 13%, Basophils 3%, ANC 1.3. He thinks he has had a viral illness with general weakness for about 2-3 weeks. He was thought to have a viral syndrome. He developed DVT L leg and PE on 02/24/2019, Doppler showed Distal DVT R lower extremity, L proximal femoral vein DVT. CTA showed multisegment PE also on 02/24/2019. He was started on Eliquis 5mg bid for his 2nd episode. 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 Remains on Eliquis, now on 2.5mg bid. Comes for follow up. Feels well. [facility] Medical History Anxiety Cancer History of steroid therapy Diabetes Thyroid disease Arthritis History of renal disease High cholesterol Excessive bleeding DVT (deep venous thrombosis) Back pain Dietary restriction Gastric reflux Former smoker CPAP (continuous positive airway pressure) dependence Sleep apnea On home oxygen therapy History of edema History of echocardiogram History of stress test Cardiology follow-up encounter Colon polyps History of left heart catheterization (LHC) ( 11/07/21) Factor V deficiency Fatigue CKD (chronic kidney disease) stage 3, GFR 30-59 ml/min BPH (benign prostatic hyperplasia) History of thromboembolism IBS (irritable bowel syndrome) Basal cell carcinoma (BCC) History of pulmonary embolism Renal cyst Nonrheumatic mitral (valve) prolapse Premature ventricular contraction Premature atrial contraction Essential hypertension SOB (shortness of breath) on exertion Venous insufficiency GERD (gastroesophageal reflux disease) Mitral valve prolapse Graves disease Prostate CA Hyperlipidemia Hypertension NATHAN (obstructive sleep apnea) Sinus bradycardia Hypothyroidism Other nonrheumatic mitral valve disorders Hepatic cyst Surgical History History of cardiac catheterization History of endoscopy Status post Mohs surgery History of hernia surgery History of bilateral hip replacements Family History Father Myositis Skin cancer Myocardial infarction Mother CVA (cerebral vascular accident) Colon cancer Hypertension Pacemaker Social History Smoking Status: Former smoker alcohol intake: never substance use type: does not use Intake Vital Signs 10/15/23 13:16 02/18/24 14:35 Height 5 ft 8 in 5 ft 8 in Weight: 97.154 kg BMI 32.5 BP 132/68 H Blood Pressure Location Lt brachial Position Sitting Respiration 18 Pulse 56 L Pulse Source Monitor Temp 98.5 F Temperature Source Temporal Artery Pulse Oximetry (%) 97 Oxygen Delivery Method room air Intake Is patient in pain?: No Allergies fosinopril (From Monopril) Allergy (Severe, Verified 02/18/24 14:41) unknown insect venom Allergy (Severe, Verified 02/18/24 14:41) PT UNSURE OF REACTION amoxicillin Allergy (Intermediate, Verified 02/18/24 14:41) Other benazepril (From Lotensin) Adverse Reaction (Severe, Verified 02/18/24 14:41) unknown penicillin G Adverse Reaction (Severe, Verified 02/18/24 14:41) unknown Medications ???Medication ???Instructions ???Recorded ???Confirmed ???Type ascorbic acid (vitamin C) 500 mg 500 mg PO QDAY 04/25/17 02/18/24 History tablet levothyroxine 50 mcg tablet 50 mcg PO QDAY 04/25/17 02/18/24 History multivitamin 1 tab PO QDAY 04/25/17 02/18/24 History oxybutynin chloride 5 mg tablet 10 mg PO QDAY 04/25/17 02/18/24 History rosuvastatin 20 mg tablet (Crestor) 20 mg PO QDAY 04/25/17 02/18/24 History tamsulosin 0.4 mg capsule 0.4 mg PO QDAY 04/25/17 02/18/24 History cholecalciferol (vitamin D3) 25 1,000 unit PO DAILY 02/01/19 02/18/24 History mcg (1,000 unit) capsule desvenlafaxine succinate 25 mg 25 mg PO DAILY 06/17/19 02/18/24 History tablet,extended release 24 hr (Pristiq) lactase 3,000 unit tablet (Lactaid) 3,000 unit PO DAILY 09/22/20 02/18/24 History pyridoxine (vitamin B6) 50 mg 50 mg PO DAILY 02/15/21 02/18/24 History capsule (Vitamin B-6) betamethasone, augmented 0.05 % 1 applic topical DAILY PRN skin 10/13/21 02/18/24 (more content not included)... Normal [facility] CNOVon 02-04-2024 CNOV Office Visit (UROLMN ) ----- SULEMAN VAZQUEZ ([id number]) 1945 M Date Time Provider Department 02/04/24 10:45 AM EVELIO BRYAN During your visit today, we recorded the following information about you: Evelio Bryan MD 02/04/2024 11:30 AM Signed [facility] MALE PATIENT - FOLLOWUP EXAMINATION PATIENT: Suleman Vazquez (78 year old) PCP: Deanne Kohli MD CHIEF COMPLAINT: prostate cancer HISTORY OF PRESENT ILLNESS: Suleamn Vazquez is a 78 year old male presenting today for follow up of prostate cancer. 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 He has had repeat biopsies in 2011 (GG1), 2013 (GG1), and 2016 (benign) He underwent PAE 09/[address] Quispe (prostate 229 g) MRI 01/23/2022 - PI-RADS 2, volume 152 cc PSA (ng/mL) Date Value 01/29/2024 11.22 04/03/2023 11.72 09/26/2022 11.68 03/27/2022 12.23 05/30/2021 12.14 04/04/2021 6.84 05/12/2020 22.95 11/19/2019 16.99 Interval Hx: No longer taking Jardiance Denies gross hematuria or dysuria. Content with urinary symptoms on Flomax. He is also taking Oxybutinin, on this for years, has not tried to discontinue. Reports soreness on the tip of his penis ongoing for 2 months. Fluconazole for 10 days without improvement. Per records, at last office visit 09/2022 he mentioned this as well. Recommended to try Vaseline or come in person for office visit. REVIEW OF SYSTEMS: CONSTITUTIONAL: no recent illnesses, normal energy levels, no pain GASTROINTESTINAL: no constipation, no diarrhea, no bloody stool GENITOURINARY: see history of present illness HISTORY: PAST MEDICAL HISTORY Diagnosis Date Basal cell carcinoma Nose and Right cheek Depressive disorder, not elsewhere classified DVT (deep venous thrombosis) (HCC) Esophageal reflux Essential hypertension, benign Osteoarthrosis, unspecified whether generalized or localized, other specified sites Other and unspecified hyperlipidemia Pulmonary embolism (HCC) 02/2019 PAST SURGICAL HISTORY Procedure Laterality Date BIOPSY OF SKIN LESION RPR INGUN HERNIA SLIDING ANY AGE Social History Tobacco Use Smoking status: Former Current packs/day: 0.00 Types: Cigarettes Quit date: 04/15/1982 Years since quittin.8 Smokeless tobacco: Never Tobacco comments: pt stopped smoking 35yers ago Substance Use Topics Alcohol use: No Drug use: No No family history on file. MEDICATIONS: Current Outpatient Medications Medication Sig amLODIPine (NORVASC) 5 mg tablet Take 5 mg by mouth once daily. losartan (COZAAR) 100 mg tablet Take 100 mg by mouth once daily. cholecalciferol, vitamin D3, 62.5 mcg (2,500 unit) cap Take by mouth as directed. oxybutynin ER (DITROPAN XL) 10 mg 24 hr tablet Take 1 tablet by mouth once daily. tamsulosin (FLOMAX) 0.4 mg Take 1 capsule by mouth once daily. desvenlafaxine ER (PRISTIQ) 50 mg 24 hr tablet Take 50 mg by mouth once daily. multivitamin (MULTIPLE VITAMINS ORAL) MULTIVITAMIN ADULT TABS levothyroxine (SYNTHROID) 25 mcg tablet Take 1 tablet by mouth daily before breakfast. LACTASE (LACTAID ORAL) Take by mouth once daily. rosuvastatin (CRESTOR) 20 mg tablet Take 20 mg by mouth once daily. metoprolol tartrate, short acting, 50 mg ORAL tablet Take 25 mg by mouth twice daily. ascorbic acid, vitamin C, (VITAMIN C) 500 mg tablet Take 500 mg by mouth once daily. MULTIVITAMIN/IRON/FOLIC ACID (CENTRUM COMPLETE ORAL) Take by mouth once daily. pyridoxine HCl, vitamin B6, (VITAMIN B-6 ORAL) Take by mouth. losartan (COZAAR) 25 mg tablet 50 mg once daily. (Patient not taking: Reported on 02/04/2024) sildenafil (VIAGRA) 100 mg tablet Take one tablet by mouth 1 hour prior to sexual activity. esomeprazole (NEXIUM) 40 mg capsule Take 40 mg by mouth once daily. Hydrochlorothiazide 12.5 mg ORAL capsule Take 12.5 mg by mouth once daily. No current facility-administered medications for this visit. PHYSICAL EXAMINATION: VITALS: There were no vitals taken for this visit. GENERAL: alert, no distress, normal affect RESPIRATORY: normal effort, regular rate, no audible wheeze ABDOMEN: soft, non-tender, non-distended GENITOURINARY: - PENIS: circumcised, no penile plaques, no skin lesions - HARI: no nodules, non-tender, enlarged prostate OFFICE DATA: URINALYSIS: in process OTHER DATA: Creatinine Date Value Ref Range Status 04/10/2022 1.53 (H) 0.73 - 1.22 mg/dL Final 09/13/2020 1.23 (H) 0.73 - 1.22 mg/dL Final 06/24/2019 1.31 (H) 0.73 - 1.22 mg/dL Final Creatinine (POCT) Date Value Ref Range Status 09/06/2017 1.30 0.7 - 1.4 mg/dL Final PSA (ng/mL) Date Value 01/29/2024 11.22 04/03/2023 11.72 09/26/2022 11.68 03/27/2022 12.23 05/30/2021 12.14 04/04/2021 6.84 05/12/2020 22.95 11/19/2019 16.99 Maria Luisa Triplett APRN.[facility] ATTENDING (more content not included)... Normal [facility] URINALYSIS, REFLEX MICROSCOP ICon 02-04-2024 Bilirubin Ql (U) Negative Negative [facility] Clarity (Unsp spec) Clear Clear [facility] Color (U) Yellow Yellow [facility] Glucose Test strip (U) [Mass/Vol] Negative Negative [facility] Hemoglobin Ql (U) Negative Negative [facility] Interpretation and review of laboratory results Abnormal [facility] Ketones Ql (U) Negative Negative [facility] Leukocyte esterase Test strip Ql (U) Trace Abnormal Negative [facility] Nitrite Ql (U) Negative Negative [facility] pH (U) 5.5 [pH] NINF - 8.5 [facility] Protein (U) [Mass/Vol] 1+ Abnormal Negative [facility] Specific gravity (U) [Rel density] 1.017 1.005 - 1.030 [facility] Urobilinogen Ql (U) 0.2 EU/dL 0.2-1.0 EU/dL [facility] Bilirubin Ql (U) Negative Normal Negative [facility] Comment on above: Order Comment: Speci men Type: URINE SPECIMEN Ordering Facility: [facility] Address: [address] [place] [address] Performed By: #### L [id number] #### [facility] CLIA [id number] [address] [place] [address] [place] Clarity (Unsp spec) Clear Normal Clear [facility] Comment on above: Order Comment: Speci men Type: URINE SPECIMEN Ordering Facility: [facility] Address: [address] [place] [address] Performed By: #### L [id number] #### [facility] CLIA [id number] [address] [id number] [place] Color (U) Yellow Normal Yellow [facility] Comment on above: Order Comment: Speci men Type: URINE SPECIMEN Ordering Facility: [facility] Address: [address] [id number] Performed By: #### L [id number] #### [facility] CLIA [id number] [address] [id number] [place] Glucose Test strip (U) [Mass/Vol] Negative Normal Negative [facility] Comment on above: Order Comment: Speci men Type: URINE SPECIMEN Ordering Facility: [facility] Address: [address] [place], [place] [address] Performed By: #### L [id number] #### [facility] CLIA [id number] [address] [place], [place] [id number] [place] Hemoglobin Ql (U) Negative Normal Negative [facility] Comment on above: Order Comment: Speci men Type: URINE SPECIMEN Ordering Facility: [facility] Address: [address] [place], [place] [address] Performed By: #### L [id number] #### [facility] CLIA [id number] [address] [place] [address] [place] Ketones Ql (U) Negative Normal Negative [facility] Comment on above: Order Comment: Speci men Type: URINE SPECIMEN Ordering Facility: [facility] Address: [address] [place], [place] [address] Performed By: #### L [id number] #### [facility] CLIA [id number] [address] [id number] [place] Leukocyte esterase Test strip Ql (U) Trace Abnormal Negative [facility] Comment on above: Order Comment: Speci men Type: URINE SPECIMEN Ordering Facility: [facility] Address: [address] [id number] Performed By: #### L [id number] #### [facility] CLIA [id number] [address] [place] [address] [place] Nitrite Ql (U) Negative Normal Negative [facility] Comment on above: Order Comment: Speci men Type: URINE SPECIMEN Ordering Facility: [facility] Address: [address] [place] [address] Performed By: #### L [id number] #### [facility] CLIA [id number] [address] [place] [address] [place] pH (U) 5.5 [pH] Normal <8.5 [facility] Comment on above: Order Comment: Speci men Type: URINE SPECIMEN Ordering Facility: [facility] Address: [address] [place] [address] Performed By: #### L [id number] #### [facility] CLIA [id number] [address] [place] [address] [place] Protein (U) [Mass/Vol] 1+ Abnormal Negative [facility] Comment on above: Order Comment: Speci men Type: URINE SPECIMEN Ordering Facility: [facility] Address: [address] [place] [address] Performed By: #### L [id number] #### [facility] CLIA [id number] [address] [place] [address] [place] Specific gravity (U) [Rel density] 1.017 Normal 1.005-1.03 0 [facility] Comment on above: Order Comment: Speci men Type: URINE SPECIMEN Ordering Facility: [facility] Address: [address] [place] [address] Performed By: #### L [id number] #### [facility] CLIA [id number] [address] [place] [address] [place] Urobilinogen Ql (U) 0.2 EU/dL Normal 0.2-1.0 EU/dL [facility] Comment on above: Order Comment: Speci men Type: URINE SPECIMEN Ordering Facility: [facility] Address: [address] [place] [address] Performed By: #### L [id number] #### [facility] CLIA [id number] [address] [place] [address] [place] PSA SerPl-mCncon 01-29-2024 Prostate specific Ag [Mass/Vol] 11.22 ng/mL High <2.60 [facility] Comment on above: Order Comment: Speci men Type: BLOOD SPECIMEN Ordering Facility: [facility] Address: [address] [place] [address] Result Comment: Moshe mathias PSA test methodology used is the Electrochemiluminescence Immunoassay by [employer]. Total PSA values by differing methodologies cannot be interchanged. For an individual patient, the significance of a PSA level should be interpreted in a broad clinical context, including age, race, family history, digital rectal exam, prostate size, results of prior testing (prostate biopsy, free PSA, PCA3), and use of 5-alpha reductase inhibitors. Considering the high incidence of asymptomatic cancer in the general population that may not pose an ultimate risk to a patient, the decision to recommend urological evaluation or prostate biopsy should be individualized after consideration of all these factors. REFERENCE: Princess Lowry M.D., M.P.H., Ranjan Sanchez M.D., Ph.D., Russel Graves M.D., Anaid Garay, M.P.H., Swati Vazquez, Sc.D. Effect of Verification Bias on Screening for Prostate Cancer by Measurement of Prostatic Specific Antigen. N Engl J Med 2003,349:335-42. Performed By: #### [id number] #### [facility] CLIA [id number] [address] [place] [address] [place] Basophil percentageOrdered B y: Lesa Lara on 05-21-2023 Bilirubin [Mass/Vol] 0.50 mg/dL 0.20-1.00 [facility] Comment on above: For patients on eltr ombopag therapy, use of Dimension Ideal TBIL is not recommended. Chloride [Moles/Vol] 104 mmol/L 98-107 [facility] Cholesterol [Mass/Vol] 179 mg/dL <200 [facility] Comment on above: <200 mg/dL Desirable 200-240 mg/dL Borderline >240 mg/dL High Risk Glucose [Mass/Vol] 108 mg/dL 74-106 [facility] Comment on above: Fasting Glucose resu lt from 100 to 125 mg/dL suggests IMPAIRED HOMEOSTASIS per A.D.A. criteria. Potassium [Moles/Vol] 4.1 mmol/L 3.5-5.1 [facility] Protein [Mass/Vol] 7.1 g/dL 6.4-8.2 [facility] Sodium [Moles/Vol] 136 mmol/L 136-145 [facility] Triglyceride [Mass/Vol] 111 mg/dL <199 [facility] Comment on above: The drugs N-Acetylcy steine and Metamizole may falsely depress this assay.Serum Triglycerides Reference Interval Normal <150 mg/dL Borderline high 150 - 199 mg/dL High 200 - 499 mg/dL Very High > or = 500 mg/dL Laboratory - Chemistry and C hemistry - challengeOrdered By: Lesa Lara on 05-21-2023 Albumin/Globulin [Mass ratio] 0.9 {ratio} 0.9-2.4 [facility] ALP [Catalytic activity/Vol] 85 U/L 45-117 [facility] ALT [Catalytic activity/Vol] 35 U/L 16-61 [facility] Cholesterol in HDL [Mass/Vol] 64 mg/dL >40 [facility] Comment on above: The drugs N-Acetylcy steine and Metamizole may falsely depress this assay. Reference Range HDL <40 mg/dL Low HDL Cholesterol HDL >or= 60 mg/dL High HDL Cholesterol Cholesterol in LDL [Mass/Vol] 93 mg/dL 0-130 [facility] CO2 [Moles/Vol] 32.0 mmol/L 21.0-32.0 [facility] Globulin (S) [Mass/Vol] 3.8 g/dL 2.2-4.2 [facility] Urea nitrogen/Creatinine [Mass ratio] 16.8 mg/mg 10-20 [facility] No Panel InformationOrdered By: Lesa Lara on 05-21-2023 Estimated GFR (MDRD) Amer 59 mL/min >60 [facility] Comment on above: GFR Calc Estimated GFR (MDRD) Non-Af Amer 49 mL/min >60 [facility] Comment on above: Non- GFR Calc Free Triiodothyronine (T3) pg/dL 1.7 pg/mL 2.18-3.98 [facility] Urine Microalbumin/Creatinine Ratio 140.1 mg/g CRE <30 [facility] VLDL Cholesterol 22 mg/dL 5-40 [facility] Serum or plasma calcium shannon urement (mass/volume)Ordered By: Lesaeunice Lara on 05-21-2023 Calcium [Mass/Vol] 8.9 mg/dL 8.5-10.1 [facility] Serum or plasma creatinine m easurement (mass/volume)Ordered By: Lesa Lara on 05-21-2023 Creatinine [Mass/Vol] 1.49 mg/dL 0.70-1.30 [facility] Comment on above: The validity of the calculated GFR & GFRAA in patients over 70 years has not been determined. Clinical correlation is essential. Serum or plasma thyroid stim ulating hormone (TSH) measurement (units/volume)Ordered By: Lesaeunice Lara on 05-21-2023 TSH Qn 1.07 uIU/mL 0.358-3.74 [facility] Serum or plasma urea nitroge n measurement (mass/volume)Ordered By: Lesa Lara on 05-21-2023 Urea nitrogen [Mass/Vol] 25 mg/dL 7-18 [facility] Thin prep Papanicolaou smear with manual screeningOrdered By: Lesaeunice Lara on 05-21-2023 Thin prep Papanicolaou smear with manual screening 3.3 g/dL 3.2-5.0 [facility] Thin prep Papanicolaou smear with manual screening 19 U/L 15-37 [facility] Thin prep Papanicolaou smear with manual screening 0 5-15 [facility] Thin prep Papanicolaou smear with manual screening 234.0 mg/L NO RANGE EST. [facility] Thin prep Papanicolaou smear with manual screening 1.10 ng/dL 0.76-1.46 [facility] Urine creatinine measurement (mass/volume)Ordered By: Lesa Lara on 05-21-2023 Creatinine (U) [Mass/Vol] 167.00 mg/dL NO RANGE EST. [facility] Whole blood hemoglobin A1c/t otal hemoglobin ratio (mass fraction)Ordered By: Lesa Lara on 05-21-2023 HbA1c (Bld) [Mass fraction] 6.6 % 3.8-5.6 [facility] Comment on above: Normal < 5.7 % Predi abetic 5.7 - 6.4 % Diabetic >or= 6.5 % Please note range changes. Basophil percentageOrdered B y: Liliana Ferrera on 05-14-2023 Chloride [Moles/Vol] 106 mmol/L 98-107 [facility] Glucose [Mass/Vol] 122 mg/dL 74-106 [facility] Comment on above: Fasting Glucose resu lt from 100 to 125 mg/dL suggests IMPAIRED HOMEOSTASIS per A.D.A. criteria. Potassium [Moles/Vol] 3.7 mmol/L 3.5-5.1 [facility] Sodium [Moles/Vol] 138 mmol/L 136-145 [facility] Laboratory - Chemistry and C hemistry - challengeOrdered By: Liliana Ferrera on 05-14-2023 CO2 [Moles/Vol] 26.0 mmol/L 21.0-32.0 [facility] Urea nitrogen/Creatinine [Mass ratio] 18.1 mg/mg 10-20 [facility] No Panel InformationOrdered By: Liliana Ferrera on 05-14-2023 Estimated GFR (MDRD) Amer 44 mL/min >60 [facility] Comment on above: GFR Calc Estimated GFR (MDRD) Non-Af Amer 36 mL/min >60 [facility] Comment on above: Non- GFR Calc Serum or plasma calcium shannon urement (mass/volume)Ordered By: Liliana Ferrera on 05-14-2023 Calcium [Mass/Vol] 9.1 mg/dL 8.5-10.1 [facility] Serum or plasma creatinine m easurement (mass/volume)Ordered By: Liliana Ferrera on 05-14-2023 Creatinine [Mass/Vol] 1.93 mg/dL 0.70-1.30 [facility] Comment on above: The validity of the calculated GFR & GFRAA in patients over 70 years has not been determined. Clinical correlation is essential. Serum or plasma urea nitroge n measurement (mass/volume)Ordered By: Liliana Ferrera on 05-14-2023 Urea nitrogen [Mass/Vol] 35 mg/dL 7-18 [facility] Thin prep Papanicolaou smear with manual screeningOrdered By: Liliana Ferrera on 05-14-2023 Thin prep Papanicolaou smear with manual screening 6 5-15 [facility] Absolute lymphocyte countOrd ered By: Paulino Mitchell on 02-20-2023 Lymphocytes Auto (Unsp spec) [#/Vol] 1.14 10*3/uL 0.83-4.51 [facility] Basophil percentageOrdered B y: Paulino Mitchell on 02-20-2023 Basophils/100 WBC (Bld) 0.8 % 0-1 [facility] Bilirubin [Mass/Vol] 0.40 mg/dL 0.20-1.00 [facility] Comment on above: For patients on eltr ombopag therapy, use of Dimension Ideal TBIL is not recommended. Chloride [Moles/Vol] 106 mmol/L 98-107 [facility] Eosinophils/100 WBC (Bld) 1.4 % 0-5 [facility] Glucose [Mass/Vol] 130 mg/dL 74-106 [facility] Comment on above: Fasting Glucose resu lt greater than or equal to 126 mg/dL suggests DIABETES MELLITUS per A.D.A. criteria. LDH [Catalytic activity/Vol] 194 U/L 87-241 [facility] Neutrophils (Bld) [#/Vol] 4.3 10*3/uL 2.0-7.7 [facility] Neutrophils/100 WBC (Bld) 68.4 % 47-70 [facility] Potassium [Moles/Vol] 4.0 mmol/L 3.5-5.1 [facility] Protein [Mass/Vol] 7.3 g/dL 6.4-8.2 [facility] Sodium [Moles/Vol] 140 mmol/L 136-145 [facility] WBC (Bld) [#/Vol] 6.3 10*3/uL 4.4-11.0 [facility] Blood erythrocytes count (nu mber/volume)Ordered By: Paulino Mitchell on 02-20-2023 RBC (Bld) [#/Vol] 4.86 10*6/uL 4.6-6.[address] [facility] Blood hemoglobin measurement (mass/volume)Ordered By: Paulino Mitchell on 02-20-2023 Hemoglobin (Bld) [Mass/Vol] 13.8 g/dL 13.0-16.5 [facility] Blood lymphocytes/100 leukoc ytesOrdered By: Paulino Mitchell on 02-20-2023 Lymphocytes/100 WBC (Bld) 18.2 % 19-41 [facility] Blood monocytes/100 leukocyt esOrdered By: Paulino Mitchell on 02-20-2023 Monocytes/100 WBC (Bld) 10.7 % 0-10 [facility] Blood platelet mean volumeOr dered By: Paulino Mitchell on 02-20-2023 Platelet mean volume (Bld) [Entitic vol] 11.2 fL 6.2-12.0 [facility] Determination of erythrocyte mean corpuscular volume (MCV)Ordered By: Paulino Mitchell on 02-20-2023 MCV (RBC) [Entitic vol] 92.2 fL 80-94 [facility] Hematocrit Auto (Bld) [Volum e fraction]Ordered By: Paulino Mitchell on 02-20-2023 Hematocrit (Bld) [Volume fraction] 44.8 % 40-54 [facility] Laboratory - Chemistry and C hemistry - challengeOrdered By: Paulino Mitchell on 02-20-2023 ALP [Catalytic activity/Vol] 88 U/L 45-117 [facility] ALT [Catalytic activity/Vol] 28 U/L 16-61 [facility] CO2 [Moles/Vol] 30.0 mmol/L 21.0-32.0 [facility] Globulin (S) [Mass/Vol] 4.0 g/dL 2.2-4.2 [facility] Urea nitrogen/Creatinine [Mass ratio] 14.5 mg/mg 10-20 [facility] Laboratory - Hematology and Cell countsOrdered By: Paulino Mitchell on 02-20-2023 Erythrocyte distribution width (RBC) [Entitic vol] 46.0 fL 35.1-43.9 [facility] Erythrocyte distribution width (RBC) [Ratio] 13.6 % 11.6-14.6 [facility] Immature granulocytes/100 WBC (Bld) 0.500 % 0.0-0.9 [facility] Comment on above: IG% - Immature Granu locytes (promyelocytes, myelocytes and metamyelocytes) > 1% indicates that a LEFT SHIFT is Present. MCH (RBC) [Entitic mass] 28.4 pg 27.0-32.0 [facility] Nucleated RBC/100 WBC (Bld) [Ratio] 0 % 0-5 [facility] MCHC Auto (RBC) [Mass/Vol]Or dered By: Paulino Mitchell on 02-20-2023 MCHC (RBC) [Mass/Vol] 30.8 g/dL 32-36 [facility] No Panel InformationOrdered By: Paulino Mitchell on 02-20-2023 Estimated Creatinine Clearance Calc 37.64 ml/min [facility] Estimated GFR (MDRD) Amer 55 mL/min >60 [facility] Comment on above: GFR Calc Estimated GFR (MDRD) Non-Af Amer 45 mL/min >60 [facility] Comment on above: Non- GFR Calc Platelets bldOrdered By: Richie Mitchell on 02-20-2023 Platelets (Bld) [#/Vol] 174 10*3/uL 150-450 [facility] Serum or plasma albumin shannon urement (mass/volume)Ordered By: Paulino Mitchell on 02-20-2023 Albumin [Mass/Vol] 3.3 g/dL 3.2-5.0 [facility] Serum or plasma albumin/glob ulin mass ratioOrdered By: Paulino Mitchell on 02-20-2023 Albumin/Globulin [Mass ratio] 0.8 {ratio} 0.9-2.4 [facility] Serum or plasma calcium shannon urement (mass/volume)Ordered By: Paulino Mitchell on 02-20-2023 Calcium [Mass/Vol] 8.7 mg/dL 8.5-10.1 [facility] Serum or plasma creatinine m easurement (mass/volume)Ordered By: Paulino Mitchell on 02-20-2023 Creatinine [Mass/Vol] 1.59 mg/dL 0.70-1.30 [facility] Comment on above: The validity of the calculated GFR & GFRAA in patients over 70 years has not been determined. Clinical correlation is essential. Serum or plasma urea nitroge n measurement (mass/volume)Ordered By: Paulino Mitchell on 02-20-2023 Urea nitrogen [Mass/Vol] 23 mg/dL 7-18 [facility] Thin prep Papanicolaou smear with manual screeningOrdered By: Paulino Mitchell on 02-20-2023 Thin prep Papanicolaou smear with manual screening 21 U/L 15-37 [facility] Thin prep Papanicolaou smear with manual screening 4 5-15 [facility] Basophil percentageOrdered B y: Lesa Lara on 01-29-2023 Bilirubin [Mass/Vol] 0.40 mg/dL 0.20-1.00 [facility] Comment on above: For patients on eltr ombopag therapy, use of Dimension Ideal TBIL is not recommended. Chloride [Moles/Vol] 109 mmol/L 98-107 [facility] Glucose [Mass/Vol] 113 mg/dL 74-106 [facility] Comment on above: Fasting Glucose resu lt from 100 to 125 mg/dL suggests IMPAIRED HOMEOSTASIS per A.D.A. criteria. Potassium [Moles/Vol] 3.9 mmol/L 3.5-5.1 [facility] Protein [Mass/Vol] 7.3 g/dL 6.4-8.2 [facility] Sodium [Moles/Vol] 141 mmol/L 136-145 [facility] Laboratory - Chemistry and C hemistry - challengeOrdered By: eLsa Lara on 01-29-2023 ALP [Catalytic activity/Vol] 91 U/L 45-117 [facility] ALT [Catalytic activity/Vol] 27 U/L 16-61 [facility] CO2 [Moles/Vol] 27.0 mmol/L 21.0-32.0 [facility] Free T4 [Mass/Vol] 0.94 ng/dL 0.76-1.46 [facility] Globulin (S) [Mass/Vol] 4.1 g/dL 2.2-4.2 [facility] Urea nitrogen/Creatinine [Mass ratio] 14.8 mg/mg 10-20 [facility] No Panel InformationOrdered By: Lesa Lara on 01-29-2023 Estimated GFR (MDRD) Amer 56 mL/min >60 [facility] Comment on above: GFR Calc Estimated GFR (MDRD) Non-Af Amer 46 mL/min >60 [facility] Comment on above: Non- GFR Calc Free Triiodothyronine (T3) pg/dL 2.0 pg/mL 2.18-3.98 [facility] Thyroid Stimulating Hormone (TSH) 1.99 uIU/mL 0.358-3.74 [facility] Urine Microalbumin/Creatinine Ratio 58.7 mg/g CRE <30 [facility] Vitamin D 25-Hydroxy 50.9 ng/mL [facility] Comment on above: Vitamin D 25(OH) Sta tus Range Deficiency <20 ng/mL (50nmol/L) Insufficiency 20 - 30 ng/mL (50 - 75 nmol/L) Sufficiency 30 - 100 ng/mL (75 - 250 nmol/L) Toxicity >100 ng/mL (>250 nmol/L) Serum or plasma albumin shannon urement (mass/volume)Ordered By: Lesaeunice Lara on 01-29-2023 Albumin [Mass/Vol] 3.2 g/dL 3.2-5.0 [facility] Serum or plasma albumin/glob ulin mass ratioOrdered By: Lesaeunice Lara on 01-29-2023 Albumin/Globulin [Mass ratio] 0.8 {ratio} 0.9-2.4 [facility] Serum or plasma calcium shannon urement (mass/volume)Ordered By: Lesa Lara on 01-29-2023 Calcium [Mass/Vol] 8.7 mg/dL 8.5-10.1 [facility] Serum or plasma creatinine m easurement (mass/volume)Ordered By: Lesa Lara on 01-29-2023 Creatinine [Mass/Vol] 1.55 mg/dL 0.70-1.30 [facility] Comment on above: The validity of the calculated GFR & GFRAA in patients over 70 years has not been determined. Clinical correlation is essential. Serum or plasma urea nitroge n measurement (mass/volume)Ordered By: Lesa Lara on 01-29-2023 Urea nitrogen [Mass/Vol] 23 mg/dL 7-18 [facility] Thin prep Papanicolaou smear with manual screeningOrdered By: Lesa Lara on 01-29-2023 Thin prep Papanicolaou smear with manual screening 23 U/L 15-37 [facility] Thin prep Papanicolaou smear with manual screening 5 5-15 [facility] Thin prep Papanicolaou smear with manual screening 74.0 mg/L NO RANGE EST. [facility] Urine creatinine measurement (mass/volume)Ordered By: Lesa aLra on 01-29-2023 Creatinine (U) [Mass/Vol] 126.00 mg/dL NO RANGE EST. [facility] Whole blood hemoglobin A1c/t otal hemoglobin ratio (mass fraction)Ordered By: Lesa Lara on 01-29-2023 HbA1c (Bld) [Mass fraction] 6.3 % 3.8-5.6 [facility] Comment on above: Normal < 5.7 % Predi abetic 5.7 - 6.4 % Diabetic >or= 6.5 % Please note range changes. No Panel InformationOrdered By: Jude Baptiste on 11-21-2022 Troponin I High Sensitivity 9 pg/mL 3.0-78.0 [facility] Comment on above: Please Note: New Melvin t Units and Gender Specific Reference Ranges. For more information see Policy Stat Procedure Ideal High Sensitivity Troponin (TNIH) and attachments. Glucose Glucometer (BldC) [M ass/Vol]Ordered By: Russell Das on 10-03-2022 Glucose [Mass/Vol] 106 mg/dL 74-106 [facility] Comment on above: MANAGEMENT OF PATIEN T CARE PER NURSING PROTOCOL Basophil percentageOrdered B y: Dr. Lara on 09-18-2022 Bilirubin [Mass/Vol] 0.50 mg/dL 0.20-1.00 [facility] Comment on above: For patients on eltr ombopag therapy, use of Dimension Ideal TBIL is not recommended. Chloride [Moles/Vol] 108 mmol/L 98-107 [facility] Cholesterol [Mass/Vol] 176 mg/dL <200 [facility] Comment on above: <200 mg/dL Desirable 200-240 mg/dL Borderline >240 mg/dL High Risk Glucose [Mass/Vol] 114 mg/dL 74-106 [facility] Comment on above: Fasting Glucose resu lt from 100 to 125 mg/dL suggests IMPAIRED HOMEOSTASIS per A.D.A. criteria. Potassium [Moles/Vol] 3.8 mmol/L 3.5-5.1 [facility] Protein [Mass/Vol] 7.4 g/dL 6.4-8.2 [facility] Sodium [Moles/Vol] 139 mmol/L 136-145 [facility] Triglyceride [Mass/Vol] 217 mg/dL <199 [facility] Comment on above: The drugs N-Acetylcy steine and Metamizole may falsely depress this assay.Serum Triglycerides Reference Interval Normal <150 mg/dL Borderline high 150 - 199 mg/dL High 200 - 499 mg/dL Very High > or = 500 mg/dL Laboratory - Chemistry and C hemistry - challengeOrdered By: Dr. Lara on 09-18-2022 ALP [Catalytic activity/Vol] 86 U/L 45-117 [facility] ALT [Catalytic activity/Vol] 28 U/L 16-61 [facility] CO2 [Moles/Vol] 25.0 mmol/L 21.0-32.0 [facility] Free T4 [Mass/Vol] 0.99 ng/dL 0.76-1.46 [facility] Globulin (S) [Mass/Vol] 3.9 g/dL 2.2-4.2 [facility] Urea nitrogen/Creatinine [Mass ratio] 17.6 mg/mg 10-20 [facility] No Panel InformationOrdered By: Dr. Lara on 09-18-2022 Estimated GFR (MDRD) Amer 59 mL/min >60 [facility] Comment on above: GFR Calc Estimated GFR (MDRD) Non-Af Amer 49 mL/min >60 [facility] Comment on above: Non- GFR Calc Thyroid Stimulating Hormone (TSH) 1.39 uIU/mL 0.358-3.74 [facility] Serum or plasma albumin shannon urement (mass/volume)Ordered By: Dr. Lara on 09-18-2022 Albumin [Mass/Vol] 3.5 g/dL 3.2-5.0 [facility] Serum or plasma albumin/glob ulin mass ratioOrdered By: Dr. Lara on 09-18-2022 Albumin/Globulin [Mass ratio] 0.9 {ratio} 0.9-2.4 [facility] Serum or plasma calcium shannon urement (mass/volume)Ordered By: Dr. Lara on 09-18-2022 Calcium [Mass/Vol] 9.1 mg/dL 8.5-10.1 [facility] Serum or plasma cholesterol in HDL measurement (mass/volume)Ordered By: Dr. Lara on 09-18-2022 Cholesterol in HDL [Mass/Vol] 56 mg/dL >40 [facility] Comment on above: The drugs N-Acetylcy steine and Metamizole may falsely depress this assay. Reference Range HDL <40 mg/dL Low HDL Cholesterol HDL >or= 60 mg/dL High HDL Cholesterol Serum or plasma cholesterol in VLDL measurement (mass/volume)Ordered By: Dr. Lara on 09-18-2022 Cholesterol in VLDL [Mass/Vol] 43 mg/dL 5-40 [facility] Serum or plasma creatinine m easurement (mass/volume)Ordered By: Dr. Lara on 09-18-2022 Creatinine [Mass/Vol] 1.48 mg/dL 0.70-1.30 [facility] Comment on above: The validity of the calculated GFR & GFRAA in patients over 70 years has not been determined. Clinical correlation is essential. Serum or plasma low density lipoprotein (LDL) cholesterol measurement (mass/volume)Ordered By: Dr. Lara on 09-18-2022 Cholesterol in LDL [Mass/Vol] 77 mg/dL 0-130 [facility] Serum or plasma urea nitroge n measurement (mass/volume)Ordered By: Dr. Lara on 09-18-2022 Urea nitrogen [Mass/Vol] 26 mg/dL 7-18 [facility] Thin prep Papanicolaou smear with manual screeningOrdered By: Dr. Lara on 09-18-2022 Thin prep Papanicolaou smear with manual screening 31 U/L 15-37 [facility] Thin prep Papanicolaou smear with manual screening 6 5-15 [facility] Thin prep Papanicolaou smear with manual screening 77.5 mg/L NO RANGE EST. [facility] Whole blood hemoglobin A1c/t otal hemoglobin ratio (mass fraction)Ordered By: Dr. Lara on 09-18-2022 HbA1c (Bld) [Mass fraction] 6.2 % 3.8-5.6 [facility] Comment on above: Normal < 5.7 % Predi abetic 5.7 - 6.4 % Diabetic >or= 6.5 % Please note range changes. Absolute lymphocyte countOrd ered By: Dr. Mitchell on 08-15-2022 Lymphocytes Auto (Unsp spec) [#/Vol] 1.06 10*3/uL 0.83-4.51 [facility] Basophil percentageOrdered B y: Dr. Mitchell on 08-15-2022 Basophils/100 WBC (Bld) 0.8 % 0-1 [facility] Bilirubin [Mass/Vol] 0.40 mg/dL 0.20-1.00 [facility] Comment on above: For patients on eltr ombopag therapy, use of Dimension Ideal TBIL is not recommended. Chloride [Moles/Vol] 106 mmol/L 98-107 [facility] Eosinophils/100 WBC (Bld) 1.8 % 0-5 [facility] Glucose [Mass/Vol] 123 mg/dL 74-106 [facility] Comment on above: Fasting Glucose resu lt from 100 to 125 mg/dL suggests IMPAIRED HOMEOSTASIS per A.D.A. criteria. LDH [Catalytic activity/Vol] 222 U/L 87-241 [facility] Neutrophils (Bld) [#/Vol] 3.3 10*3/uL 2.0-7.7 [facility] Neutrophils/100 WBC (Bld) 66.2 % 47-70 [facility] Potassium [Moles/Vol] 3.7 mmol/L 3.5-5.1 [facility] Protein [Mass/Vol] 7.8 g/dL 6.4-8.2 [facility] Sodium [Moles/Vol] 141 mmol/L 136-145 [facility] WBC (Bld) [#/Vol] 5.0 10*3/uL 4.4-11.0 [facility] Blood erythrocytes count (nu mber/volume)Ordered By: Dr. Mitchell on 08-15-2022 RBC (Bld) [#/Vol] 4.81 10*6/uL 4.6-6.[address] [facility] Blood hemoglobin measurement (mass/volume)Ordered By: Dr. Mitchell on 08-15-2022 Hemoglobin (Bld) [Mass/Vol] 14.2 g/dL 13.0-16.5 [facility] Blood lymphocytes/100 leukoc ytesOrdered By: Dr. Mitchell on 08-15-2022 Lymphocytes/100 WBC (Bld) 21.1 % 19-41 [facility] Blood monocytes/100 leukocyt esOrdered By: Dr. Mitchell on 08-15-2022 Monocytes/100 WBC (Bld) 9.9 % 0-10 [facility] Blood platelet mean volumeOr dered By: Dr. Mitchell on 08-15-2022 Platelet mean volume (Bld) [Entitic vol] 11.5 fL 6.2-12.0 [facility] Determination of erythrocyte mean corpuscular volume (MCV)Ordered By: Dr. Mitchell on 08-15-2022 MCV (RBC) [Entitic vol] 92.1 fL 80-94 [facility] Hematocrit Auto (Bld) [Volum e fraction]Ordered By: Dr. Mitchell on 08-15-2022 Hematocrit (Bld) [Volume fraction] 44.3 % 40-54 [facility] INR in Blood by Coagulation assayOrdered By: Dr. Mitchell on 08-15-2022 INR Coag (Bld) [Relative time] 1.1 {INR} [facility] Laboratory - Chemistry and C hemistry - challengeOrdered By: Dr. Mitchell on 08-15-2022 ALP [Catalytic activity/Vol] 94 U/L 45-117 [facility] ALT [Catalytic activity/Vol] 33 U/L 16-61 [facility] CO2 [Moles/Vol] 28.0 mmol/L 21.0-32.0 [facility] Globulin (S) [Mass/Vol] 4.2 g/dL 2.2-4.2 [facility] Urea nitrogen/Creatinine [Mass ratio] 10.7 mg/mg 10-20 [facility] Laboratory - CoagulationOrde red By: Dr. Mitchell on 08-15-2022 aPTT Coag (Bld) [Time] 30.7 s 24.1-36.2 [facility] PT Coag (PPP) [Time] 14.3 s 11.7-14.9 [facility] Laboratory - Hematology and Cell countsOrdered By: Dr. Mitchell on 08-15-2022 Erythrocyte distribution width (RBC) [Entitic vol] 47.1 fL 35.1-43.9 [facility] Erythrocyte distribution width (RBC) [Ratio] 13.9 % 11.6-14.6 [facility] Immature granulocytes/100 WBC (Bld) 0.200 % 0.0-0.9 [facility] Comment on above: IG% - Immature Granu locytes (promyelocytes, myelocytes and metamyelocytes) > 1% indicates that a LEFT SHIFT is Present. MCH (RBC) [Entitic mass] 29.5 pg 27.0-32.0 [facility] Nucleated RBC/100 WBC (Bld) [Ratio] 0 % 0-5 [facility] MCHC Auto (RBC) [Mass/Vol]Or dered By: Dr. Mitchell on 08-15-2022 MCHC (RBC) [Mass/Vol] 32.1 g/dL 32-36 [facility] No Panel InformationOrdered By: Dr. Mitchell on 08-15-2022 D-Dimer Quantitative (PE/DVT) 0.62 FEU/ug/m 0.27-0.49 [facility] Comment on above: D-Dimer ELEVATED (>0 .49): Additional studies and clinicalassessments are indicated to conclude diagnosis of:Deep Vein Thrombosis (DVT) or Pulmonary Embolism (PE)CRITICAL VALUE VERIFIED. CALLED TO [id number] Alma Kerr.RESULTS READ BACK BY SAME . Estimated Creatinine Clearance Calc 33.81 ml/min [facility] Estimated GFR (MDRD) Amer 48 mL/min >60 [facility] Comment on above: GFR Calc Estimated GFR (MDRD) Non-Af Amer 40 mL/min >60 [facility] Comment on above: Non- GFR Calc Platelets bldOrdered By: Dr. Mitchell on 08-15-2022 Platelets (Bld) [#/Vol] 175 10*3/uL 150-450 [facility] Serum or plasma albumin shannon urement (mass/volume)Ordered By: Dr. Mitchell on 08-15-2022 Albumin [Mass/Vol] 3.6 g/dL 3.2-5.0 [facility] Serum or plasma albumin/glob ulin mass ratioOrdered By: Dr. Mitchell on 08-15-2022 Albumin/Globulin [Mass ratio] 0.9 {ratio} 0.9-2.4 [facility] Serum or plasma calcium shannon urement (mass/volume)Ordered By: Dr. Mitchell on 08-15-2022 Calcium [Mass/Vol] 9.1 mg/dL 8.5-10.1 [facility] Serum or plasma creatinine m easurement (mass/volume)Ordered By: Dr. Mitchell on 08-15-2022 Creatinine [Mass/Vol] 1.77 mg/dL 0.70-1.30 [facility] Comment on above: The validity of the calculated GFR & GFRAA in patients over 70 years has not been determined. Clinical correlation is essential. Serum or plasma urea nitroge n measurement (mass/volume)Ordered By: Dr. Mitchell on 08-15-2022 Urea nitrogen [Mass/Vol] 19 mg/dL 7-18 [facility] Thin prep Papanicolaou smear with manual screeningOrdered By: Dr. Mitchell on 08-15-2022 Thin prep Papanicolaou smear with manual screening 31 U/L 15-37 [facility] Thin prep Papanicolaou smear with manual screening 7 5-15 [facility] Absolute lymphocyte countOrd ered By: Dr. Fishman on 08-10-2022 Lymphocytes Auto (Unsp spec) [#/Vol] 1.05 10*3/uL 0.83-4.51 [facility] Basophil percentageOrdered B y: Dr. Fishman on 08-10-2022 Basophils/100 WBC (Bld) 1.0 % 0-1 [facility] Chloride [Moles/Vol] 106 mmol/L 98-107 [facility] Eosinophils/100 WBC (Bld) 2.5 % 0-5 [facility] Glucose [Mass/Vol] 108 mg/dL 74-106 [facility] Comment on above: Fasting Glucose resu lt from 100 to 125 mg/dL suggests IMPAIRED HOMEOSTASIS per A.D.A. criteria. Neutrophils (Bld) [#/Vol] 3.1 10*3/uL 2.0-7.7 [facility] Neutrophils/100 WBC (Bld) 64.0 % 47-70 [facility] Potassium [Moles/Vol] 3.8 mmol/L 3.5-5.1 [facility] Sodium [Moles/Vol] 137 mmol/L 136-145 [facility] WBC (Bld) [#/Vol] 4.8 10*3/uL 4.4-11.0 [facility] Blood erythrocytes count (nu mber/volume)Ordered By: Dr. Fishman on 08-10-2022 RBC (Bld) [#/Vol] 4.85 10*6/uL 4.6-6.[address] [facility] Blood hemoglobin measurement (mass/volume)Ordered By: Dr. Fishman on 08-10-2022 Hemoglobin (Bld) [Mass/Vol] 13.9 g/dL 13.0-16.5 [facility] Blood lymphocytes/100 leukoc ytesOrdered By: Dr. Fishman on 08-10-2022 Lymphocytes/100 WBC (Bld) 21.7 % 19-41 [facility] Blood monocytes/100 leukocyt esOrdered By: Dr. Fishman on 08-10-2022 Monocytes/100 WBC (Bld) 10.4 % 0-10 [facility] Blood platelet mean volumeOr dered By: Dr. Fishman on 08-10-2022 Platelet mean volume (Bld) [Entitic vol] 12.2 fL 6.2-12.0 [facility] Determination of erythrocyte mean corpuscular volume (MCV)Ordered By: Dr. Fishman on 08-10-2022 MCV (RBC) [Entitic vol] 93.0 fL 80-94 [facility] Hematocrit Auto (Bld) [Volum e fraction]Ordered By: Dr. Fishman on 08-10-2022 Hematocrit (Bld) [Volume fraction] 45.1 % 40-54 [facility] Laboratory - Chemistry and C hemistry - challengeOrdered By: Dr. Fishman on 08-10-2022 CO2 [Moles/Vol] 28.0 mmol/L 21.0-32.0 [facility] Urea nitrogen/Creatinine [Mass ratio] 16.5 mg/mg 10-20 [facility] Laboratory - Hematology and Cell countsOrdered By: Dr. Fishman on 08-10-2022 Erythrocyte distribution width (RBC) [Entitic vol] 47.0 fL 35.1-43.9 [facility] Erythrocyte distribution width (RBC) [Ratio] 13.9 % 11.6-14.6 [facility] Immature granulocytes/100 WBC (Bld) 0.400 % 0.0-0.9 [facility] Comment on above: IG% - Immature Granu locytes (promyelocytes, myelocytes and metamyelocytes) > 1% indicates that a LEFT SHIFT is Present. MCH (RBC) [Entitic mass] 28.7 pg 27.0-32.0 [facility] Nucleated RBC/100 WBC (Bld) [Ratio] 0 % 0-5 [facility] MCHC Auto (RBC) [Mass/Vol]Or dered By: Dr. Fishman on 08-10-2022 MCHC (RBC) [Mass/Vol] 30.8 g/dL 32-36 [facility] No Panel InformationOrdered By: Dr. Fishman on 08-10-2022 Estimated GFR (MDRD) Amer 53 mL/min >60 [facility] Comment on above: GFR Calc Estimated GFR (MDRD) Non-Af Amer 44 mL/min >60 [facility] Comment on above: Non- GFR Calc Platelets bldOrdered By: Dr. Fishman on 08-10-2022 Platelets (Bld) [#/Vol] 170 10*3/uL 150-450 [facility] Serum or plasma calcium shannon urement (mass/volume)Ordered By: Dr. Fishman on 08-10-2022 Calcium [Mass/Vol] 9.4 mg/dL 8.5-10.1 [facility] Serum or plasma creatinine m easurement (mass/volume)Ordered By: Dr. Fishman on 08-10-2022 Creatinine [Mass/Vol] 1.64 mg/dL 0.70-1.30 [facility] Comment on above: The validity of the calculated GFR & GFRAA in patients over 70 years has not been determined. Clinical correlation is essential. Serum or plasma urea nitroge n measurement (mass/volume)Ordered By: Dr. Fishman on 08-10-2022 Urea nitrogen [Mass/Vol] 27 mg/dL 7-18 [facility] Thin prep Papanicolaou smear with manual screeningOrdered By: Dr. Fishman on 08-10-2022 Thin prep Papanicolaou smear with manual screening 3 5-15 [facility] Culture, urineOrdered By: Dr Denise Lara on 07-29-2022 Bacteria identified Cx Nom (U) Positive [facility] Bilirubin Test strip Ql (U)O rdered By: Dr. Lara on 07-27-2022 Bilirubin Ql (U) Negative Negative [facility] Ketones Test strip Ql (U)Ord ered By: Dr. Lara on 07-27-2022 Ketones Ql (U) Negative Negative [facility] Nitrite Test strip Ql (U)Ord ered By: Dr. Laar on 07-27-2022 Nitrite Ql (U) Negative Negative [facility] Protein Test strip Ql (U)Ord ered By: Dr. Lara on 07-27-2022 Protein Ql (U) 15 mg/dl Negative [facility] Urine blood detectionOrdered By: Dr. Lara on 07-27-2022 RBC Ql (U) Negative Negative [facility] Urine clarityOrdered By: Dr. Lara on 07-27-2022 Clarity (U) Clear Clear [facility] Urine color determinationOrd ered By: Dr. Lara on 07-27-2022 Color (U) Yellow Yellow [facility] Urine glucose detectionOrder ed By: Dr. Lara on 07-27-2022 Glucose Ql (U) 1000 mg/dl Normal [facility] Urine leukocyte esterase det ection by dipstickOrdered By: Dr. Lara on 07-27-2022 Leukocyte esterase Test strip Ql (U) Negative Negative [facility] Urine pHOrdered By: Dr. Yasmeen murdock on 07-27-2022 pH (U) 5.0 [pH] 5.0 - 8.0 [facility] Urine specific gravity measu rementOrdered By: Dr. Lara on 07-27-2022 Specific gravity (U) [Rel density] 1.010 1.002-1.03 0 [facility] Urobilinogen Auto test strip Ql (U)Ordered By: Dr. Lara on 07-27-2022 Urobilinogen Ql (U) Normal mg/dl Normal [facility] Culture, urineOrdered By: Dr Denise Singh on 07-08-2022 Bacteria identified Cx Nom (U) Positive [facility] Basophil percentageOrdered B y: Dr. Lara on 06-15-2022 Bilirubin [Mass/Vol] 0.50 mg/dL 0.20-1.00 [facility] Comment on above: For patients on eltr ombopag therapy, use of Dimension Ideal TBIL is not recommended. Chloride [Moles/Vol] 103 mmol/L 98-107 [facility] Cholesterol [Mass/Vol] 176 mg/dL <200 [facility] Comment on above: <200 mg/dL Desirable 200-240 mg/dL Borderline >240 mg/dL High Risk Glucose [Mass/Vol] 116 mg/dL 74-106 [facility] Comment on above: Fasting Glucose resu lt from 100 to 125 mg/dL suggests IMPAIRED HOMEOSTASIS per A.D.A. criteria. Potassium [Moles/Vol] 3.9 mmol/L 3.5-5.1 [facility] Protein [Mass/Vol] 7.1 g/dL 6.4-8.2 [facility] Sodium [Moles/Vol] 140 mmol/L 136-145 [facility] Triglyceride [Mass/Vol] 204 mg/dL <199 [facility] Comment on above: The drugs N-Acetylcy steine and Metamizole may falsely depress this assay.Serum Triglycerides Reference Interval Normal <150 mg/dL Borderline high 150 - 199 mg/dL High 200 - 499 mg/dL Very High > or = 500 mg/dL Laboratory - Chemistry and C hemistry - challengeOrdered By: Dr. Lara on 06-15-2022 ALP [Catalytic activity/Vol] 84 U/L 45-117 [facility] ALT [Catalytic activity/Vol] 25 U/L 16-61 [facility] CO2 [Moles/Vol] 30.0 mmol/L 21.0-32.0 [facility] Free T4 [Mass/Vol] 0.91 ng/dL 0.76-1.46 [facility] Globulin (S) [Mass/Vol] 3.7 g/dL 2.2-4.2 [facility] Urea nitrogen/Creatinine [Mass ratio] 13.4 mg/mg 10-20 [facility] No Panel InformationOrdered By: Dr. Lara on 06-15-2022 Estimated GFR (MDRD) Amer 55 mL/min >60 [facility] Comment on above: GFR Calc Estimated GFR (MDRD) Non-Af Amer 46 mL/min >60 [facility] Comment on above: Non- GFR Calc Thyroid Stimulating Hormone (TSH) 2.34 uIU/mL 0.358-3.74 [facility] Vitamin D 25-Hydroxy 47.8 ng/mL [facility] Comment on above: Vitamin D 25(OH) Sta tus Range Deficiency <20 ng/mL (50nmol/L) Insufficiency 20 - 30 ng/mL (50 - 75 nmol/L) Sufficiency 30 - 100 ng/mL (75 - 250 nmol/L) Toxicity >100 ng/mL (>250 nmol/L) Serum or plasma albumin shannon urement (mass/volume)Ordered By: Dr. Lara on 06-15-2022 Albumin [Mass/Vol] 3.4 g/dL 3.2-5.0 [facility] Serum or plasma albumin/glob ulin mass ratioOrdered By: Dr. Lara on 06-15-2022 Albumin/Globulin [Mass ratio] 0.9 {ratio} 0.9-2.4 [facility] Serum or plasma calcium shannon urement (mass/volume)Ordered By: Dr. Lara on 06-15-2022 Calcium [Mass/Vol] 9.2 mg/dL 8.5-10.1 [facility] Serum or plasma cholesterol in HDL measurement (mass/volume)Ordered By: Dr. Lara on 06-15-2022 Cholesterol in HDL [Mass/Vol] 52 mg/dL >40 [facility] Comment on above: The drugs N-Acetylcy steine and Metamizole may falsely depress this assay. Reference Range HDL <40 mg/dL Low HDL Cholesterol HDL >or= 60 mg/dL High HDL Cholesterol Serum or plasma cholesterol in VLDL measurement (mass/volume)Ordered By: Dr. Lara on 06-15-2022 Cholesterol in VLDL [Mass/Vol] 41 mg/dL 5-40 [facility] Serum or plasma creatinine m easurement (mass/volume)Ordered By: Dr. Lara on 06-15-2022 Creatinine [Mass/Vol] 1.57 mg/dL 0.70-1.30 [facility] Comment on above: The validity of the calculated GFR & GFRAA in patients over 70 years has not been determined. Clinical correlation is essential. Serum or plasma low density lipoprotein (LDL) cholesterol measurement (mass/volume)Ordered By: Dr. Lara on 06-15-2022 Cholesterol in LDL [Mass/Vol] 83 mg/dL 0-130 [facility] Serum or plasma urea nitroge n measurement (mass/volume)Ordered By: Dr. Lara on 06-15-2022 Urea nitrogen [Mass/Vol] 21 mg/dL 7-18 [facility] Thin prep Papanicolaou smear with manual screeningOrdered By: Dr. Lara on 06-15-2022 Thin prep Papanicolaou smear with manual screening 21 U/L 15-37 [facility] Thin prep Papanicolaou smear with manual screening 7 5-15 [facility] Thin prep Papanicolaou smear with manual screening 277.0 mg/L NO RANGE EST. [facility] Whole blood hemoglobin A1c/t otal hemoglobin ratio (mass fraction)Ordered By: Dr. Lara on 06-15-2022 HbA1c (Bld) [Mass fraction] 6.2 % 3.8-5.6 [facility] Comment on above: Normal < 5.7 % Predi abetic 5.7 - 6.4 % Diabetic >or= 6.5 % Please note range changes. PROTEIN CREATININE RATIOon 1 06-11-2021 Protein/Creatinine (U) [Mass ratio] 0.22 mg/mg High <0.15 mg/mg [facility] Prot/Creat Uron 04-10-2022 Protein/Creatinine (U) [Mass ratio] 0.22 mg/mg High <0.15 [facility] Comment on above: Order Comment: Speci men Type: URINE SPECIMEN Ordering Facility: [facility] Address: [address] [place] [address] Result Comment: Adul t Proteinuria Categories: <0.15 mg/mg is considered normal to mildly increased 0.15 - 0.50 mg/mg is considered moderately increased >0.50 mg/mg is considered severely increased KDIGO. (2013). KDIGO 2012 Clinical Practice Guideline for the Evaluation and Management of Chronic Kidney Disease. Official Journal of the International Society of Nephrology, 3(1), 1-150. Performed By: #### 2 890-2 #### [facility] CLIA [id number] [address] [place] [address] [place] Protein/Creatinine (U) [Mass ratio]on 04-10-2022 Creatinine (U) [Mass/Vol] 92.9 mg/dL 20.0 - 300.0 mg/dL [facility] Protein (U) [Mass/Vol] 20 mg/dL 0 - 2 0 mg/dL [facility] Creatinine (U) [Mass/Vol] 92.9 mg/dL Normal 20.0-300.0 [facility] Comment on above: Order Comment: Speci men Type: URINE SPECIMEN Ordering Facility: [facility] Address: [address] [place] [address] Performed By: #### 2 890-2 #### [facility] CLIA [id number] [address] [place] [address] [place] Protein (U) [Mass/Vol] 20 mg/dL Normal 0-20 [facility] Comment on above: Order Comment: Speci men Type: URINE SPECIMEN Ordering Facility: [facility] Address: [address] [place] [address] Performed By: #### 2 890-2 #### [facility] CLIA [id number] [place] [address] [place] Renal function 2000 panelon 04-10-2022 Albumin [Mass/Vol] 4.0 g/dL Normal 3.9-4.9 [facility] Comment on above: Order Comment: Speci men Type: BLOOD SPECIMEN Ordering Facility: [facility] Address: [address] [place] [address] Performed By: #### 2 4362-6 #### [facility] CLIA [id number] [address] [place] [address] [place] Anion gap [Moles/Vol] 15 mmol/L Normal 9-18 [facility] Comment on above: Order Comment: Speci men Type: BLOOD SPECIMEN Ordering Facility: [facility] Address: [address] [address] Performed By: #### 2 4362-6 #### [facility] CLIA [id number] [address] [place] [address] [place] Calcium [Mass/Vol] 9.3 mg/dL Normal 8.5-10.2 [facility] Comment on above: Order Comment: Speci men Type: BLOOD SPECIMEN Ordering Facility: [facility] Address: [address] [place] [address] Performed By: #### 2 4362-6 #### [facility] CLIA [id number] [address] [place] [address] [place] Chloride [Moles/Vol] 105 mmol/L Normal 97-105 [facility] Comment on above: Order Comment: Speci men Type: BLOOD SPECIMEN Ordering Facility: [facility] Address: [address] [place] [address] Performed By: #### 2 4362-6 #### [facility] CLIA [id number] [address] [place] [address] [place] CO2 [Moles/Vol] 23 mmol/L Normal 22-30 [facility] Comment on above: Order Comment: Speci men Type: BLOOD SPECIMEN Ordering Facility: [facility] Address: [address] [place] [address] Performed By: #### 2 4362-6 #### [facility] CLIA [id number] [address] [place] [address] [place] Creatinine [Mass/Vol] 1.53 mg/dL High 0.73-1.22 [facility] Comment on above: Order Comment: Eric isabel Type: BLOOD SPECIMEN Ordering Facility: [facility] Address: [address] [place] [address] Performed By: #### 2 4362-6 #### [facility] CLIA [id number] [place] [address] [place] ESTIMATED GLOMERULAR FILTRATION RATE 47 mL/min/1.73m??? Low >=60 [facility] Comment on above: Order Comment: Eric maame Type: BLOOD SPECIMEN Ordering Facility: [facility] Address: [place] [address] Result Comment: Estefani mated Glomerular Filtration Rate (eGFR) is calculated using the 2020 CKD-EPI creatinine equation. This equation utilizes serum creatinine, sex, and age as parameters. The creatinine assay has traceable calibration to isotope dilution-mass spectrometry. Refer to KDIGO guidelines for clinical interpretation. In patients with unstable renal function, e.g. those with acute kidney injury, the eGFR may not accurately reflect actual GFR. Performed By: #### 2 4362-6 #### [facility] CLIA [id number] [address] [place] [address] [place] Glucose [Mass/Vol] 126 mg/dL High 74-99 [facility] Comment on above: Order Comment: Eric isabel Type: BLOOD SPECIMEN Ordering Facility: [facility] Address: [place] [facility] [place] [address] Result Comment: The [place] Diabetes Association (ADA) provides guidance for cutoff values for fasting glucose and random glucose. The ADA defines fasting as no caloric intake for at least 8 hours. Fasting plasma glucose results between 100 to 125 mg/dL indicate increased risk for diabetes (prediabetes). Fasting plasma glucose results greater than or equal to 126 mg/dL meet the criteria for diagnosis of diabetes. In the absence of unequivocal hyperglycemia, results should be confirmed by repeat testing. In a patient with classic symptoms of hyperglycemia or hyperglycemic crisis, random plasma glucose results greater than or equal to 200 mg/dL meet the criteria for diagnosis of diabetes. Reference: Standards of Medical Care in Diabetes 2016, [place] Diabetes Association. Diabetes Care. 2016.39(Suppl 1). Performed By: #### 2 4362-6 #### [facility] CLIA [id number] [address] [place] [address] [place] Phosphate [Mass/Vol] 3.0 mg/dL Normal 2.7-4.8 [facility] Comment on above: Order Comment: Speci men Type: BLOOD SPECIMEN Ordering Facility: [facility] Address: [address] [place] [address] Performed By: #### 2 4362-6 #### [facility] CLIA [id number] [address] [place] [address] [place] Potassium [Moles/Vol] 4.2 mmol/L Normal 3.7-5.1 [facility] Comment on above: Order Comment: Speci men Type: BLOOD SPECIMEN Ordering Facility: [facility] Address: [address] [place] [address] Performed By: #### 2 4362-6 #### [facility] CLIA [id number] [address] [place] [address] [place] Sodium [Moles/Vol] 143 mmol/L Normal 136-144 [facility] Comment on above: Order Comment: Speci men Type: BLOOD SPECIMEN Ordering Facility[facility] Address: [address] [place] [address] Performed By: #### 2 4362-6 #### [facility] CLIA [id number] [address] [place] [address] [place] Urea nitrogen [Mass/Vol] 23 mg/dL Normal 9-24 [facility] Comment on above: Order Comment: Speci men Type: BLOOD SPECIMEN Ordering Facility: [facility] Address: [address] [place] [address] Performed By: #### 2 4362-6 #### [facility] CLIA [id number] [address] [place] [address] [place] Albumin [Mass/Vol] 4.0 g/dL 3.9 - 4.9 g/dL [facility] Anion gap [Moles/Vol] 15 mmol/L 9 - 18 mmol/L [facility] Calcium [Mass/Vol] 9.3 mg/dL 8.5 - 10. 2 mg/dL [facility] Chloride [Moles/Vol] 105 mmol/L 97 - 10 5 mmol/L [facility] CO2 [Moles/Vol] 23 mmol/L 22 - 30 mmol/L [facility] Creatinine [Mass/Vol] 1.53 mg/dL High 0.73 - 1.22 mg/dL [facility] Estimated Glomerular Filtration Rate 47 mL/min/1.73m Low >=60 mL/min/1.7 3m [facility] Glucose [Mass/Vol] 126 mg/dL High 74 - 99 mg/dL [facility] Phosphate [Mass/Vol] 3.0 mg/dL 2.7 - 4 .8 mg/dL [facility] Potassium [Moles/Vol] 4.2 mmol/L 3.7 - 5.1 mmol/L [facility] Sodium [Moles/Vol] 143 mmol/L 136 - 144 mmol/L [facility] Urea nitrogen [Mass/Vol] 23 mg/dL 9 - 24 mg/dL [facility] Urinalysis complete panel (U )on 04-10-2022 Bilirubin Ql (U) Negative Negative [facility] Clarity (Unsp spec) Clear Clear [facility] Color (U) Light Yellow Yellow [facility] Epithelial cells LM.HPF (Urine sed) [#/Area] Few [facility] Glucose Test strip (U) [Mass/Vol] Negative Trace, Negative [facility] Hemoglobin Ql (U) Negative Negative, Trace [facility] Ketones Ql (U) Negative Negative, Trace [facility] Leukocyte esterase Test strip Ql (U) Negative Negative, 25 Murali/mL [facility] Nitrite Ql (U) Negative Negative [facility] pH (U) 6.0 [pH] 5.0 - 8.0 [facility] Protein (U) [Mass/Vol] Trace Trace , Negative [facility] RBC LM.HPF (Urine sed) [#/Area] 0-3 /HPF 0-3 /HPF [facility] Specific gravity (U) [Rel density] 1.015 1.005 - 1.030 [facility] Urobilinogen Ql (U) Negative Negative [facility] WBC LM.HPF (Urine sed) [#/Area] 0-5 /HPF 0-5 /HPF [facility] Bilirubin Ql (U) Negative Normal Negative [facility] Comment on above: Order Comment: Speci men Type: URINE SPECIMEN Ordering Facility: [facility] Address: [address] [address] Performed By: #### 2 4356-8 #### [facility] CLIA [id number] [address] [place] [address] [place] Clarity (Unsp spec) Clear Normal Clear [facility] Comment on above: Order Comment: Speci men Type: URINE SPECIMEN Ordering Facility: [facility] Address: [address] [place] [address] Performed By: #### 2 4356-8 #### [facility] CLIA [id number] [address] [place] [address] [place] Color (U) Light Yellow Normal Yellow [facility] Comment on above: Order Comment: Speci men Type: URINE SPECIMEN Ordering Facility: [facility] Address: [address] [place] [address] Performed By: #### 2 4356-8 #### [facility] CLIA [id number] [address] [place] [address] [place] Epithelial cells LM.HPF (Urine sed) [#/Area] Few Normal [facility] Comment on above: Order Comment: Speci men Type: URINE SPECIMEN Ordering Facility: [facility] Address: [address] [place] [address] Performed By: #### 2 4356-8 #### [facility] CLIA [id number] [address] [place] [address] [place] Glucose Test strip (U) [Mass/Vol] Negative Normal Trace, Negative [facility] Comment on above: Order Comment: Speci men Type: URINE SPECIMEN Ordering Facility: [facility] Address: [address] [place] [address] Performed By: #### 2 4356-8 #### [facility] CLIA [id number] [address] [place] [address] [place] Hemoglobin Ql (U) Negative Normal Negative, Trace [facility] Comment on above: Order Comment: Speci men Type: URINE SPECIMEN Ordering Facility: [facility] Address: [address] [place] [address] Performed By: #### 2 4356-8 #### [facility] CLIA [id number] [address] [place] [address] [place] Ketones Ql (U) Negative Normal Negative, Trace [facility] Comment on above: Order Comment: Speci men Type: URINE SPECIMEN Ordering Facility: [facility] Address: [address] [address] Performed By: #### 2 4356-8 #### [facility] CLIA [id number] [address] [place] [address] [place] Leukocyte esterase Test strip Ql (U) Negative Normal Negative, 25 Murali/mL [facility] Comment on above: Order Comment: Speci men Type: URINE SPECIMEN Ordering Facility: [facility] Address: [address] [place] [address] Performed By: #### 2 4356-8 #### [facility] CLIA [id number] [address] [place] [address] [place] Nitrite Ql (U) Negative Normal Negative [facility] Comment on above: Order Comment: Speci men Type: URINE SPECIMEN Ordering Facility: [facility] Address: [address] [place] [address] Performed By: #### 2 4356-8 #### [facility] CLIA [id number] [address] [place] [address] [place] pH (U) 6.0 [pH] Normal 5.0-8.0 [facility] Comment on above: Order Comment: Speci men Type: URINE SPECIMEN Ordering Facility: [facility] Address: [address] [address] Performed By: #### 2 4356-8 #### [facility] CLIA [id number] [address] [place] [address] [place] Protein (U) [Mass/Vol] Trace Normal Trace , Negative [facility] Comment on above: Order Comment: Speci men Type: URINE SPECIMEN Ordering Facility: [facility] Address: [address] [address] Performed By: #### 2 4356-8 #### [facility] CLIA [id number] [address] [place] [address] [place] RBC LM.HPF (Urine sed) [#/Area] 0-3 /HPF Normal 0-3 /HPF [facility] Comment on above: Order Comment: Speci men Type: URINE SPECIMEN Ordering Facility: [facility] Address: [address] [place] [address] Performed By: #### 2 4356-8 #### [facility] CLIA [id number] [address] [place] [address] [place] Specific gravity (U) [Rel density] 1.015 Normal 1.005-1.03 0 [facility] Comment on above: Order Comment: Speci men Type: URINE SPECIMEN Ordering Facility: [facility] Address: [address] [place] [address] Performed By: #### 2 4356-8 #### [facility] CLIA [id number] [address] [place] [address] [place] Urobilinogen Ql (U) Negative Normal Negative [facility] Comment on above: Order Comment: Speci men Type: URINE SPECIMEN Ordering Facility: [facility] Address: [address] [place] [address] Performed By: #### 2 4356-8 #### [facility] CLIA [id number] [address] [place] [address] [place] WBC LM.HPF (Urine sed) [#/Area] 0-5 /HPF Normal 0-5 /HPF [facility] Comment on above: Order Comment: Speci men Type: URINE SPECIMEN Ordering Facility: [facility] Address: [address] [place] [address] Performed By: #### 2 4356-8 #### [facility] CLIA [id number] [address] [place] [address] OF [place] MRI PROSTATE WO/W IVCONon MRI PROSTATE WO/W IVCON * * *Final Repor t* * * DATE OF EXAM: Jan 23 2022 10:31AM [facility] 0751 - MRI PROSTATE WO/W IVCON / PROCEDURE REASON: Malignant neoplasm of prostate (HCC) * * * * Physician Interpretation * * * * EXAMINATION: MRI PELVIS WITHOUT AND WITH IV CONTRAST (MULTIPARAMETRIC PROSTATE MRI) CLINICAL HISTORY: 76 years old being evaluated for prostate cancer with prior negative biopsy Previous biopsy: Negative, Not apply 08/08/2016 PSA: 9.26 ng/mL (10/03/2021) ; Prior therapy: Embolization 09/19/2020 TECHNIQUE: Multiparametric MRI of the prostate and pelvis performed on a 3T scanner utilizing phase pelvic coil. Sequences obtained: multiplanar T2-WI with small FOV; Axial DWI with multiple B-values and creation of ADC-maps; DCE T1-weighted images through the prostate obtained before, during and after the administration of intravenous gadolinium; prostate dimensions and volume were obtained using a semi-automated software (Juristat). CONTRAST: IV: 19 cc of Dotarem. COMPARISON: 08/08/2020; 09/06/2017 RESULT: Limitations: Essentially non-diagnostic diffusion-weighted sequences secondary to susceptibility artifact generated from bilateral hip arthroplasty. Prostate: Dimensions: 7.1 x 6.5 x 6.7 cm corresponding to a volume of approximately 152 cc. Post biopsy hemorrhage: Absent Peripheral zone: Linear and/or wedge-shaped T2/ADC map hypointensities (PI-RADS 2). Findings are most pronounced at the left apex (8:29), unchanged from 08/08/2020. No focal lesion present. Transition zone: There is transition zone hypertrophy, without focal abnormalities suspicious for clinically significant disease (PI-RADS 2). No focal lesion present. Neurovascular bundle: Unremarkable. Seminal vesicles: Unremarkable. Adjacent Organ Involvement: Not applicable. Lymph nodes: No enlarged pelvic lymph nodes. Bladder: Unremarkable. Pelvic bones: Bilateral hip arthroplasty. Degenerative changes. No suspicious pelvic osseous lesions. Other Findings: None. IMPRESSION: No focal prostatic lesions concerning for clinically significant prostate cancer (PI-RADS 2). No pelvic david or osseous metastasis. Transition zone hypertrophy with overall decrease in prostate volume since 08/08/2020. Number of targets created for MR/US fusion biopsy: Peripheral zone: 0 Transition zone: 0 If present, targets were numbered in order of level of suspicion for clinically significant prostate cancer (Holloway score 3 + 4 or higher). PI-RADS v2.1 Assessment Categories: PI-RADS 1: Clinically significant cancer is highly unlikely PI-RADS 2: Clinically significant cancer is unlikely PI-RADS 3: Clinically significant cancer is equivocal PI-RADS 4: Clinically significant cancer is likely PI-RADS 5: Clinically significant cancer is highly likely Environmental Studies Professor: KATIE Transcribe Date/Time: Jan 23 2022 3:33P Dictated by : CAPO ONEAL MD This examination was interpreted and the report reviewed and electronically signed by: CAPO ONEAL MD on Jan 23 2022 3:45PM EST [id number] [facility] NURSING PROGon 01-23-2022 NURSING PROG HNO ID: [id number] Author: Yessi Lemus RN Service: Nursing Author Type: Registered Nurse Type: Nursing Progress Note Filed: 01/23/2022 9:10 AM Note Text: Radiology Service Progress Note DATE OF SERVICE: January 23, 2022 TIME: 9:06 AM PATIENT WEIGHT: 204 LBS PATIENT IDENTITY VERIFICATION COMPLETED USING TWO (2) STANDARD IDENTIFIERS: Name and Date of confirmed by patient verbally. FALL SCREENING: Has the patient had 2 falls in the last year or 1 fall with injury or currently using an Ambulatory Assistive Device (Walker, Cane, Wheelchair, Crutches, etc.)? No PATIENT GENDER DATA: Male ALLERGIES: Reviewed and unchanged CONTRAST ALLERGY: No EXAM: MRI - CONTRAST TYPE: GROUP II IV SITE: Ambulatory: A peripheral IV was started in the Right antecubital site with a #. and A Saline lock was inserted per protocol IV SITE APPEARANCE: Clean,Dry and Intact SIGNATURE: Yessi Lemus RN PATIENT NAME: Suleman Vazquez DATE: January 23, 2022 TIME: 9:06 AM Normal [facility] Basophil percentageon 2021 Bilirubin [Mass/Vol] 0.40 mg/dL 0.20-1.00 [facility] Work Phone: Comment on above: For patients on eltr ombopag therapy, use of Dimension Ideal TBIL is not recommended. Chloride [Moles/Vol] 106 mmol/L 98-[address] [facility] [address] [facility] Work Phone: Glucose [Mass/Vol] 104 mg/dL 74-106 [facility] Work Phone: Comment on above: Fasting Glucose resu lt from 100 to 125 mg/dL suggests IMPAIRED HOMEOSTASIS per A.D.A. criteria. Potassium [Moles/Vol] 3.8 mmol/L 3.5-5.1 [facility] Work Phone: Protein [Mass/Vol] 7.3 g/dL 6.4-8.2 [facility] Work Phone: Sodium [Moles/Vol] 140 mmol/L 136-145 [facility] Work Phone: Laboratory - Chemistry and C hemistry - challengeon 12-16-2021 ALP [Catalytic activity/Vol] 84 U/L 45-117 [facility] Work Phone: ALT [Catalytic activity/Vol] 25 U/L 16-61 [facility] Work Phone: CO2 [Moles/Vol] 25.0 mmol/L 21.0-32.0 [facility] Work Phone: Free T4 [Mass/Vol] 0.95 ng/dL 0.76-1.46 [facility] Work Phone: Globulin (S) [Mass/Vol] 4.0 g/dL 2.2-4.2 [facility] Work Phone: Urea nitrogen/Creatinine [Mass ratio] 14.6 mg/mg 10-20 [facility] Work Phone: No Panel Informationon 12-16 Estimated GFR (MDRD) Amer 55 mL/min >60 [facility] Work Phone: Comment on above: GFR Calc Estimated GFR (MDRD) Non-Af Amer 46 mL/min >60 [facility] Work Phone: Comment on above: Non- GFR Calc Thyroid Stimulating Hormone (TSH) 2.43 uIU/mL 0.358-3.74 [facility] Work Phone: Urine Microalbumin/Creatinine Ratio 61.1 mg/g CRE <30 [facility] Work Phone: Vitamin D 25-Hydroxy 51.0 ng/mL [facility] Work Phone: Comment on above: Vitamin D 25(OH) Sta tus Range Deficiency <20 ng/mL (50nmol/L) Insufficiency 20 - 30 ng/mL (50 - 75 nmol/L) Sufficiency 30 - 100 ng/mL (75 - 250 nmol/L) Toxicity >100 ng/mL (>250 nmol/L) Serum or plasma albumin shannon urement (mass/volume)on 12-16-2021 Albumin [Mass/Vol] 3.3 g/dL 3.2-5.0 [facility] Work Phone: Serum or plasma albumin/glob ulin mass ratioon 12-16-2021 Albumin/Globulin [Mass ratio] 0.8 {ratio} 0.9-2.4 [facility] Work Phone: Serum or plasma calcium shannon urement (mass/volume)on 12-16-2021 Calcium [Mass/Vol] 8.9 mg/dL 8.5-10.1 [facility] Work Phone: Serum or plasma creatinine m easurement (mass/volume)on 12-16-2021 Creatinine [Mass/Vol] 1.58 mg/dL 0.70-1.30 [facility] Work Phone: Comment on above: The validity of the calculated GFR & GFRAA in patients over 70 years has not been determined. Clinical correlation is essential. Serum or plasma urea nitroge n measurement (mass/volume)on 12-16-2021 Urea nitrogen [Mass/Vol] 23 mg/dL 7-18 [facility] Work Phone: Thin prep Papanicolaou smear with manual screeningon 12-16-2021 Thin prep Papanicolaou smear with manual screening 20 U/L 15-37 [facility] Work Phone: Thin prep Papanicolaou smear with manual screening 9 5-15 [facility] Work Phone: Thin prep Papanicolaou smear with manual screening 86.7 mg/L NO RANGE EST. [facility] Work Phone: Urine creatinine measurement (mass/volume)on 12-16-2021 Creatinine (U) [Mass/Vol] 142.00 mg/dL NO RANGE EST. [facility] Work Phone: Whole blood hemoglobin A1c/t otal hemoglobin ratio (mass fraction)on 12-16-2021 HbA1c (Bld) [Mass fraction] 6.3 % 3.8-5.6 [facility] Work Phone: Comment on above: Normal < 5.7 % Predi abetic 5.7 - 6.4 % Diabetic >or= 6.5 % Please note range changes. Final Surgical Pathology Rep [facility] 11-06-2021 Final Surgical Pathology Report . Pathology Reports Accession: Collected Date/Time: Received Date/Time: Pathologist: [id number] 11/03/2021 10:00 EDT 11/03/2021 13:48 EDT OLLIE GARCIA MD Final Surgical Pathology Report DIAGNOSIS: A) DUODENUM, BIOPSY -- DUODENAL MUCOSA WITH FOCAL SUBMUCOSAL FIBROSIS. NO EVIDENCE OF ADENOMATOUS CHANGE. B) STOMACH, BIOPSY -- SLIGHT CHRONIC INFLAMMATION. NO ACTIVE GASTRITIS OR HELICOBACTER. COMMENT: [facility] - [id number] CLINICAL INFORMATION: Procedure: ESOPHAGOGASTRODUODENOSCOP Y WITH BIOPSY AND ARGON PLASMA COAGULATION Preoperative diagnosis: DUODENAL POLYP; CONSTIPATION Postoperative diagnosis: DUODENAL POLYP; CONSTIPATION SPECIMEN: A DUODENAL MUCOSA - RULE OUT ADENOMA B GASTRIC ANTRUM - RULE OUT GASTRITIS GROSS DESCRIPTION: A. Received in formalin, labeled with the patients name, Case #[id number], and duodenal mucosa 3 bond tissue fragments ranging from less than 0.1 to 0.2 cm. TS -1 B. Received in formalin labeled gastric antrum is 1 bond-pink soft tissue fragment measuring 0.4 cm. TS -1 Dictated by HERBER ALFREDO MICROSCOPIC DESCRIPTION: A&B) Slides reviewed. Electronically Signed by Pathology Report verified by [facility] Electronically signed by OLLIE GARCIA Sign out Date: 11/06/2021 16:20 Performing Lab: [facility], [address] [place] [id number] [facility] ([place]) US KIDNEY/BLADDERon 10-21-19 [facility] Absolute lymphocyte counton 10-13-2021 Lymphocytes Auto (Unsp spec) [#/Vol] 0.87 10*3/uL 0.83-4.51 [facility] Work Phone: Basophil percentageon 2021 Basophils/100 WBC (Bld) 1.0 % 0-1 [facility] Work Phone: Chloride [Moles/Vol] 107 mmol/L 98-107 [facility] Work Phone: Eosinophils/100 WBC (Bld) 2.6 % 0-5 [facility] Work Phone: Glucose [Mass/Vol] 111 mg/dL 74-106 [facility] Work Phone: Comment on above: Fasting Glucose resu lt from 100 to 125 mg/dL suggests IMPAIRED HOMEOSTASIS per A.D.A. criteria. Neutrophils (Bld) [#/Vol] 2.7 10*3/uL 2.0-7.7 [facility] Work Phone: Neutrophils/100 WBC (Bld) 64.2 % 47-70 [facility] Work Phone: Potassium [Moles/Vol] 4.1 mmol/L 3.5-5.1 [facility] Work Phone: Sodium [Moles/Vol] 141 mmol/L 136-145 [facility] Work Phone: WBC (Bld) [#/Vol] 4.2 10*3/uL 4.4-11.0 [facility] Work Phone: Blood erythrocytes count (nu mber/volume)on 10-13-2021 RBC (Bld) [#/Vol] 4.62 10*6/uL 4.6-6.[address] [facility] Work Phone: Blood hemoglobin measurement (mass/volume)on 10-13-2021 Hemoglobin (Bld) [Mass/Vol] 13.6 g/dL 13.0-16.5 [facility] Work Phone: Blood lymphocytes/100 leukoc yteson 10-13-2021 Lymphocytes/100 WBC (Bld) 20.9 % 19-41 [facility] Work Phone: Blood monocytes/100 leukocyt eson 10-13-2021 Monocytes/100 WBC (Bld) 10.8 % 0-10 [facility] Work Phone: Blood platelet mean volumeon 10-13-2021 Platelet mean volume (Bld) [Entitic vol] 11.9 fL 6.2-12.0 [facility] Work Phone: Determination of erythrocyte mean corpuscular volume (MCV)on 10-13-2021 MCV (RBC) [Entitic vol] 92.9 fL 80-94 [facility] Work Phone: Hematocrit Auto (Bld) [Volum e fraction]on 10-13-2021 Hematocrit (Bld) [Volume fraction] 42.9 % 40-54 [facility] Work Phone: INR in Blood by Coagulation assayon 10-13-2021 INR Coag (Bld) [Relative time] 1.1 {INR} [facility] Work Phone: Laboratory - Chemistry and C hemistry - challengeon 10-13-2021 CO2 [Moles/Vol] 31.0 mmol/L 21.0-32.0 [facility] Work Phone: Urea nitrogen/Creatinine [Mass ratio] 11.5 mg/mg 10-20 [facility] Work Phone: Laboratory - Coagulationon 0 10-13-2021 aPTT Coag (Bld) [Time] 31.0 s 24.1-36.2 [facility] Work Phone: PT Coag (PPP) [Time] 14.2 s 11.7-14.9 [facility] Work Phone: Laboratory - Hematology and Cell countson 10-13-2021 Erythrocyte distribution width (RBC) [Entitic vol] 44.3 fL 35.1-43.9 [facility] Work Phone: Erythrocyte distribution width (RBC) [Ratio] 13.1 % 11.6-14.6 [facility] Work Phone: Immature granulocytes/100 WBC (Bld) 0.500 % 0.0-0.9 [facility] Work Phone: Comment on above: IG% - Immature Granu locytes (promyelocytes, myelocytes and metamyelocytes) > 1% indicates that a LEFT SHIFT is Present. MCH (RBC) [Entitic mass] 29.4 pg 27.0-32.0 [facility] Work Phone: Nucleated RBC/100 WBC (Bld) [Ratio] 0 % 0-5 [facility] Work Phone: MCHC Auto (RBC) [Mass/Vol]on 10-13-2021 MCHC (RBC) [Mass/Vol] 31.7 g/dL 32-36 [facility] Work Phone: No Panel Informationon 10-13 Estimated GFR (MDRD) Amer 64 mL/min >60 [facility] Work Phone: Comment on above: GFR Calc Estimated GFR (MDRD) Non-Af Amer 53 mL/min >60 [facility] Work Phone: Comment on above: Non- GFR Calc Platelets bldon 10-13-2021 Platelets (Bld) [#/Vol] 168 10*3/uL 150-450 [facility] Work Phone: Serum or plasma calcium shannon urement (mass/volume)on 10-13-2021 Calcium [Mass/Vol] 9.1 mg/dL 8.5-10.1 [facility] Work Phone: Serum or plasma creatinine m easurement (mass/volume)on 10-13-2021 Creatinine [Mass/Vol] 1.39 mg/dL 0.70-1.30 [facility] Work Phone: Comment on above: The validity of the calculated GFR & GFRAA in patients over 70 years has not been determined. Clinical correlation is essential. Serum or plasma urea nitroge n measurement (mass/volume)on 10-13-2021 Urea nitrogen [Mass/Vol] 16 mg/dL 7-18 [facility] Work Phone: Thin prep Papanicolaou smear with manual screeningon 10-13-2021 Thin prep Papanicolaou smear with manual screening 3 5-15 [facility] Work Phone: No Panel Informationon 08-22 D-Dimer Quantitative (PE/DVT) 0.75 FEU/ug/m 0.27-0.49 [facility] Work Phone: Comment on above: CRITICAL VALUE VERIF IED. CALLED TO JORGE LUIS POLLARD08/22/21 Mario Schroeder.RESULTS READ BACK BY SAME . D-Dimer ELEVATED (>0.49): Additional studies and clinicalassessments are indicated to conclude diagnosis of:Deep Vein Thrombosis (DVT) or Pulmonary Embolism (PE) Troponin I High Sensitivity 9 pg/mL 3.0-78.0 [facility] Work Phone: Comment on above: Please Note: New Melvin t Units and Gender Specific Reference Ranges. For more information see Policy Stat Procedure Ideal High Sensitivity Troponin (TNIH) and attachments. Absolute lymphocyte counton 08-16-2021 Lymphocytes Auto (Unsp spec) [#/Vol] 1.00 10*3/uL 0.83-4.51 [facility] Work Phone: Basophil percentageon 2021 Basophils/100 WBC (Bld) 0.7 % 0-1 [facility] Work Phone: Bilirubin [Mass/Vol] 0.50 mg/dL 0.20-1.00 [facility] Work Phone: Comment on above: For patients on eltr ombopag therapy, use of Dimension Ideal TBIL is not recommended. Chloride [Moles/Vol] 107 mmol/L 98-107 [facility] Work Phone: Eosinophils/100 WBC (Bld) 2.0 % 0-5 [facility] Work Phone: Glucose [Mass/Vol] 100 mg/dL 74-106 [facility] Work Phone: Comment on above: Fasting Glucose resu lt from 100 to 125 mg/dL suggests IMPAIRED HOMEOSTASIS per A.D.A. criteria. Neutrophils (Bld) [#/Vol] 2.7 10*3/uL 2.0-7.7 [facility] Work Phone: Neutrophils/100 WBC (Bld) 60.6 % 47-70 [facility] Work Phone: Potassium [Moles/Vol] 3.9 mmol/L 3.5-5.1 [facility] Work Phone: [phone] Protein [Mass/Vol] 7.4 g/dL 6.4-8.2 [facility] Work Phone: Sodium [Moles/Vol] 140 mmol/L 136-145 [facility] Work Phone: WBC (Bld) [#/Vol] 4.4 10*3/uL 4.4-11.0 [facility] Work Phone: Blood erythrocytes count (nu mber/volume)on 08-16-2021 RBC (Bld) [#/Vol] 4.64 10*6/uL 4.6-6.[address] [facility] Work Phone: Blood hemoglobin measurement (mass/volume)on 08-16-2021 Hemoglobin (Bld) [Mass/Vol] 13.4 g/dL 13.0-16.5 [facility] Work Phone: Blood lymphocytes/100 leukoc yteson 08-16-2021 Lymphocytes/100 WBC (Bld) 22.7 % 19-41 [facility] Work Phone: Blood monocytes/100 leukocyt eson 08-16-2021 Monocytes/100 WBC (Bld) 13.8 % 0-10 [facility] Work Phone: Blood platelet mean volumeon 08-16-2021 Platelet mean volume (Bld) [Entitic vol] 11.7 fL 6.2-12.0 [facility] Work Phone: Determination of erythrocyte mean corpuscular volume (MCV)on 08-16-2021 MCV (RBC) [Entitic vol] 91.4 fL 80-94 [facility] Work Phone: Hematocrit Auto (Bld) [Volum e fraction]on 08-16-2021 Hematocrit (Bld) [Volume fraction] 42.4 % 40-54 [facility] Work Phone: Laboratory - Chemistry and C hemistry - challengeon 08-16-2021 ALP [Catalytic activity/Vol] 95 U/L 45-117 [facility] Work Phone: ALT [Catalytic activity/Vol] 29 U/L 16-61 [facility] Work Phone: CO2 [Moles/Vol] 28.0 mmol/L 21.0-32.0 [facility] Work Phone: Globulin (S) [Mass/Vol] 4.0 g/dL 2.2-4.2 [facility] Work Phone: Urea nitrogen/Creatinine [Mass ratio] 11.7 mg/mg 10-20 [facility] Work Phone: Laboratory - Hematology and Cell countson 08-16-2021 Erythrocyte distribution width (RBC) [Entitic vol] 43.6 fL 35.1-43.9 [facility] Work Phone: Erythrocyte distribution width (RBC) [Ratio] 13.2 % 11.6-14.6 [facility] Work Phone: Immature granulocytes/100 WBC (Bld) 0.200 % 0.0-0.9 [facility] Work Phone: Comment on above: IG% - Immature Granu locytes (promyelocytes, myelocytes and metamyelocytes) > 1% indicates that a LEFT SHIFT is Present. MCH (RBC) [Entitic mass] 28.9 pg 27.0-32.0 [facility] Work Phone: Nucleated RBC/100 WBC (Bld) [Ratio] 0.7 % 0-5 [facility] Work Phone: MCHC Auto (RBC) [Mass/Vol]on 08-16-2021 MCHC (RBC) [Mass/Vol] 31.6 g/dL 32-36 [facility] Work Phone: No Panel Informationon 08-16 Estimated Creatinine Clearance Calc 41.93 ml/min [facility] Work Phone: Estimated GFR (MDRD) Amer 61 mL/min >60 [facility] Work Phone: Comment on above: GFR Calc Estimated GFR (MDRD) Non-Af Amer 50 mL/min >60 [facility] Work Phone: Comment on above: Non- GFR Calc Platelets bldon 08-16-2021 Platelets (Bld) [#/Vol] 167 10*3/uL 150-450 [facility] Work Phone: Serum or plasma albumin shannon urement (mass/volume)on 08-16-2021 Albumin [Mass/Vol] 3.4 g/dL 3.2-5.0 [facility] Work Phone: Serum or plasma albumin/glob ulin mass ratioon 08-16-2021 Albumin/Globulin [Mass ratio] 0.8 {ratio} 0.9-2.4 [facility] Work Phone: Serum or plasma calcium shannon urement (mass/volume)on 08-16-2021 Calcium [Mass/Vol] 9.2 mg/dL 8.5-10.1 [facility] Work Phone: Serum or plasma creatinine m easurement (mass/volume)on 08-16-2021 Creatinine [Mass/Vol] 1.45 mg/dL 0.70-1.30 [facility] Work Phone: Comment on above: The validity of the calculated GFR & GFRAA in patients over 70 years has not been determined. Clinical correlation is essential. Serum or plasma urea nitroge n measurement (mass/volume)on 08-16-2021 Urea nitrogen [Mass/Vol] 17 mg/dL 7-18 [facility] Work Phone: Thin prep Papanicolaou smear with manual screeningon 08-16-2021 Thin prep Papanicolaou smear with manual screening 22 U/L 15-37 [facility] Work Phone: Thin prep Papanicolaou smear with manual screening 5 5-15 [facility] Work Phone: [phone] Thin prep Papanicolaou smear with manual screening 192 U/L 87-241 [facility] Work Phone: Absolute lymphocyte counton 07-28-2021 Lymphocytes Auto (Unsp spec) [#/Vol] 1.11 10*3/uL 0.83-4.51 [facility] Work Phone: Basophil percentageon 2021 Basophils/100 WBC (Bld) 0.7 % 0-1 [facility] Work Phone: Eosinophils/100 WBC (Bld) 1.8 % 0-5 [facility] Work Phone: Neutrophils (Bld) [#/Vol] 2.7 10*3/uL 2.0-7.7 [facility] Work Phone: Neutrophils/100 WBC (Bld) 61.3 % 47-70 [facility] Work Phone: WBC (Bld) [#/Vol] 4.4 10*3/uL 4.4-11.0 [facility] Work Phone: Blood erythrocytes count (nu mber/volume)on 07-28-2021 RBC (Bld) [#/Vol] 4.44 10*6/uL 4.6-6.[address] [facility] Work Phone: Blood hemoglobin measurement (mass/volume)on 07-28-2021 Hemoglobin (Bld) [Mass/Vol] 12.9 g/dL 13.0-16.5 [facility] Work Phone: Blood lymphocytes/100 leukoc yteson 04-15-2022 Lymphocytes/100 WBC (Bld) 25.1 % 19-41 [facility] Work Phone: Blood monocytes/100 leukocyt eson 07-28-2021 Monocytes/100 WBC (Bld) 10.9 % 0-10 [facility] Work Phone: [phone] Blood platelet mean volumeon 07-28-2021 Platelet mean volume (Bld) [Entitic vol] 12.2 fL 6.2-12.0 [facility] Work Phone: Determination of erythrocyte mean corpuscular volume (MCV)on 07-28-2021 MCV (RBC) [Entitic vol] 89.2 fL 80-94 [facility] Work Phone: Hematocrit Auto (Bld) [Volum e fraction]on 07-28-2021 Hematocrit (Bld) [Volume fraction] 39.6 % 40-54 [facility] Work Phone: Laboratory - Hematology and Cell countson 07-28-2021 Erythrocyte distribution width (RBC) [Entitic vol] 41.1 fL 35.1-43.9 [facility] Work Phone: Erythrocyte distribution width (RBC) [Ratio] 12.7 % 11.6-14.6 [facility] Work Phone: Immature granulocytes/100 WBC (Bld) 0.200 % 0.0-0.9 [facility] Work Phone: Comment on above: IG% - Immature Granu locytes (promyelocytes, myelocytes and metamyelocytes) > 1% indicates that a LEFT SHIFT is Present. MCH (RBC) [Entitic mass] 29.1 pg 27.0-32.0 [facility] Work Phone: Nucleated RBC/100 WBC (Bld) [Ratio] 0 % 0-5 [facility] Work Phone: MCHC Auto (RBC) [Mass/Vol]on 07-28-2021 MCHC (RBC) [Mass/Vol] 32.6 g/dL 32-36 [facility] Work Phone: Platelets bldon 07-28-2021 Platelets (Bld) [#/Vol] 173 10*3/uL 150-450 [facility] Work Phone: Serum heterophile antibody d etectionon 07-28-2021 Heterophile Ab Ql (S) Negative Negative [facility] Work Phone: Basophil percentageon 2021 Bilirubin [Mass/Vol] 0.40 mg/dL 0.20-1.00 [facility] Work Phone: Comment on above: For patients on eltr ombopag therapy, use of Dimension Ideal TBIL is not recommended. Chloride [Moles/Vol] 109 mmol/L 98-107 [facility] Work Phone: Cholesterol [Mass/Vol] 181 mg/dL <200 [facility] Work Phone: Comment on above: <200 mg/dL Desirable 200-240 mg/dL Borderline >240 mg/dL High Risk Glucose [Mass/Vol] 129 mg/dL 74-106 [facility] Work Phone: Comment on above: Fasting Glucose resu lt greater than or equal to 126 mg/dL suggests DIABETES MELLITUS per A.D.A. criteria. Potassium [Moles/Vol] 4.0 mmol/L 3.5-5.1 [facility] Work Phone: Protein [Mass/Vol] 6.9 g/dL 6.4-8.2 [facility] Work Phone: Sodium [Moles/Vol] 141 mmol/L 136-145 [facility] Work Phone: Triglyceride [Mass/Vol] 158 mg/dL [facility] Work Phone: Comment on above: The drugs N-Acetylcy steine and Metamizole may falsely depress this assay.Serum Triglycerides Reference Interval Normal <150 mg/dL Borderline high 150 - 199 mg/dL High 200 - 499 mg/dL Very High > or = 500 mg/dL Laboratory - Chemistry and C hemistry - challengeon 06-13-2021 ALP [Catalytic activity/Vol] 86 U/L 45-117 [facility] Work Phone: ALT [Catalytic activity/Vol] 26 U/L 16-61 [facility] Work Phone: CO2 [Moles/Vol] 27.0 mmol/L 21.0-32.0 [facility] Work Phone: Free T4 [Mass/Vol] 0.91 ng/dL 0.76-1.46 [facility] Work Phone: Globulin (S) [Mass/Vol] 3.7 g/dL 2.2-4.2 [facility] Work Phone: Urea nitrogen/Creatinine [Mass ratio] 11.8 mg/mg 10-20 [facility] Work Phone: No Panel Informationon 06-13 Estimated GFR (MDRD) Amer 58 mL/min >60 [facility] Work Phone: Comment on above: GFR Calc Estimated GFR (MDRD) Non-Af Amer 48 mL/min >60 [facility] Work Phone: Comment on above: Non- GFR Calc Thyroid Stimulating Hormone (TSH) 2.03 uIU/mL 0.358-3.74 [facility] Work Phone: Urine Microalbumin/Creatinine Ratio 163.2 mg/g CRE <30 [facility] Work Phone: Vitamin D 25-Hydroxy 41.7 ng/mL [facility] Work Phone: Comment on above: Vitamin D 25(OH) Sta tus Range Deficiency <20 ng/mL (50nmol/L) Insufficiency 20 - 30 ng/mL (50 - 75 nmol/L) Sufficiency 30 - 100 ng/mL (75 - 250 nmol/L) Toxicity >100 ng/mL (>250 nmol/L) Serum or plasma albumin shannon urement (mass/volume)on 06-13-2021 Albumin [Mass/Vol] 3.2 g/dL 3.2-5.0 [facility] Work Phone: Serum or plasma albumin/glob ulin mass ratioon 06-13-2021 Albumin/Globulin [Mass ratio] 0.9 {ratio} 0.9-2.4 [facility] Work Phone: Serum or plasma calcium shannon urement (mass/volume)on 06-13-2021 Calcium [Mass/Vol] 9.1 mg/dL 8.5-10.1 [facility] Work Phone: Serum or plasma cholesterol in HDL measurement (mass/volume)on 06-13-2021 Cholesterol in HDL [Mass/Vol] 55 mg/dL [facility] Work Phone: Comment on above: The drugs N-Acetylcy steine and Metamizole may falsely depress this assay. Reference Range HDL <40 mg/dL Low HDL Cholesterol HDL >or= 60 mg/dL High HDL Cholesterol Serum or plasma cholesterol in VLDL measurement (mass/volume)on 06-13-2021 Cholesterol in VLDL [Mass/Vol] 32 mg/dL 5-40 [facility] Work Phone: Serum or plasma creatinine m easurement (mass/volume)on 06-13-2021 Creatinine [Mass/Vol] 1.52 mg/dL 0.70-1.30 [facility] Work Phone: Comment on above: The validity of the calculated GFR & GFRAA in patients over 70 years has not been determined. Clinical correlation is essential. Serum or plasma low density lipoprotein (LDL) cholesterol measurement (mass/volume)on 06-13-2021 Cholesterol in LDL [Mass/Vol] 94 mg/dL 0-130 [facility] Work Phone: Serum or plasma urea nitroge n measurement (mass/volume)on 06-13-2021 Urea nitrogen [Mass/Vol] 18 mg/dL 7-18 [facility] Work Phone: Thin prep Papanicolaou smear with manual screeningon 06-13-2021 Thin prep Papanicolaou smear with manual screening 22 U/L 15-37 [facility] Work Phone: Thin prep Papanicolaou smear with manual screening 5 5-15 [facility] Work Phone: Thin prep Papanicolaou smear with manual screening 328.0 mg/L NO RANGE EST. [facility] Work Phone: Urine creatinine measurement (mass/volume)on 06-13-2021 Creatinine (U) [Mass/Vol] 201.00 mg/dL NO RANGE EST. [facility] Work Phone: Urine protein measurement (m ass/volume)on 06-13-2021 Protein (U) [Mass/Vol] 68.1 mg/dL 0.0-11.8 [facility] Work Phone: Urine protein/creatinine mas s ratioon 06-13-2021 Protein/Creatinine (U) [Mass ratio] 339 mg/g CRE 0-200 [facility] Work Phone: Whole blood hemoglobin A1c/t otal hemoglobin ratio (mass fraction)on 06-13-2021 HbA1c (Bld) [Mass fraction] 6.2 % 3.8-5.6 [facility] Work Phone: Comment on above: Normal < 5.7 % Predi abetic 5.7 - 6.4 % Diabetic >or= 6.5 % Please note range changes. Laboratory - Microbiology an d Antimicrobial susceptibilityon 04-11-2021 SARS-CoV-2 (COVID-19) RNA ADA+probe Ql (Unsp spec) Not detected Not Detect [facility] Work Phone: Comment on above: Normal Reference Ran ge: Not DetectedMethod:(RT-PCR) real-time reverse transcriptase PCRLuminex ROSAMARIA Instrument*The Food and Drug Administration (FDA) has issued an Emergency Use Authorization (EAU) for the ROSAMARIA SARS-CoV-2 Assay for the rapid detection of the virus that causes COVID-19. This test has been validated, but the FDAs independent review of this validation is pending.*Negative results do not preclude infection and should not be used as the sole basis for treatment or patient management. Optimum specimen types and timing for peak viral levels during infections caused by SARS-CoV-2 have not been determined. Collection of multiple specimens from the same patient may be necessary to detect the virus. The possibility of a false negative result should be considered if the patient has clinical presentation or has had recent exposure. No Panel Informationon 04-11 Respiratory Panel (PCR) [facility] Work Phone: Erythrocyte sedimentation ra maximus 02-10-2020 ESR (Bld) [Velocity] 25 mm/h 0-20 [facility] No Panel Informationon 02-09 Addendum Document Comment . [facility] Comment on above: Protein electrophore sis scan will follow via computer,mail, or sneller hand delivery. Erfir-3-Gdziogjkf (NAY) 0.9 g/dL 0.4-1.0 [facility] Beta-Globulins (NAY) 1.1 g/dL 0.7-1.3 [facility] Free [place] Light Chains, Quant 28.8 mg/L 3.3-19.4 [facility] Free [place]/Lambda Light Chain Ratio 1.57 0.26-1.65 [facility] Comment on above: Performed at: [address] Director: Corky Carbajal PhD, Phone: [phone] Free Lambda Light Chains, Quant 18.4 mg/L 5.7-26.3 [facility] Immunofixation Screen Comment . [facility] Comment on above: No monoclonality det ected. Protein electrophoresis pane jennifer 02-10-2020 Protein [Mass/Vol] 6.4 g/dL 6.0-8.5 [facility] Serum xvjpq-4-vsqkfpep measu rement by electrophoresison 02-10-2020 Alpha 1 globulin Elph [Mass/Vol] 0.2 g/dL 0.0-0.4 [facility] Serum or plasma IgA measurem ent (mass/volume)on 02-10-2020 IgA [Mass/Vol] 316 mg/dL 61-437 [facility] Serum or plasma IgG measurem ent (mass/volume)on 02-10-2020 IgG [Mass/Vol] 896 mg/dL [phone] [facility] Serum or plasma IgM measurem ent (mass/volume)on 02-10-2020 IgM [Mass/Vol] 63 mg/dL 15-143 [facility] Serum or plasma albumin shannon urement (moles/volume)on 02-10-2020 Albumin [Moles/Vol] 3.4 g/dL 2.9-4.[address] [facility] Serum or plasma gamma globul in measurement by electrophoresis (mass/volume)on 02-10-2020 Gamma globulin Elph [Mass/Vol] 0.8 g/dL 0.4-1.8 [facility] Thin prep Papanicolaou smear with manual screeningon 02-10-2020 Thin prep Papanicolaou smear with manual screening 0 g/dL Not Observed [facility] Thin prep Papanicolaou smear with manual screening 1.2 0.7-1.7 [facility] Erythrocyte distribution wid th standard deviationon 04-29-2018 Erythrocyte distribution width (RBC) [Entitic vol] 48.2 fL 35.1-43.9 [facility] Hemoglobin in reticulocytes (mass per reticulocyte)on 04-29-2018 Hemoglobin (Reticulocytes) [Entitic mass] 30.1 pg 30-35 [facility] Iron measurement (mass/mass) on 04-29-2018 Iron (Unsp spec) [Mass/Mass] 74 ug/dL 65-175 [facility] Laboratory - Hematology and Cell countson 04-29-2018 Erythrocyte distribution width (RBC) [Ratio] 14.6 % 11.6-14.6 [facility] No Panel Informationon 04-29 Addendum Document Comment . [facility] Comment on above: The SPE pattern demo nstrates a single peak (M-spike) in thegamma region which may represent monoclonal protein. Thispeak may also be caused by circulating immune complexes,cryoglobulins, C-reactive protein, fibrinogen or hemolysis. If clinically indicated, the presence of a monoclonalgammopathy may be confirmed by immuno-fixation, as well asan evaluation of the urine for the presence of Bence-Jonesprotein. Fzsgm-9-Ywhdutwlt 0.2 g/dL 0.0-0.4 [facility] Yihlb-3-Bxybtvviy 0.6 g/dL 0.4-1.0 [facility] Beta Globulins 1.3 g/dL 0.7-1.3 [facility] Folate 24.90 ng/mL 3.1-55.4 [facility] Comment on above: Slight Hemolysis, Re sult may be falsely increased. Gamma Globulins 1.3 g/dL 0.4-1.8 [facility] Globulin (PEP) 3.3 g/dL 2.2-3.9 [facility] Immature Platelet Fraction 5.2 % 1.0-7.9 [facility] Comment on above: Low PLT + Low IPF leong ggest a bone marrow production disorderLow PLT + high IPF suggests peripheral destruction(e.g.ITP, TTP, HIT, DIC, autoimmune) or bone marrow recoveryTrending of serial IPF measurements is recommended when evaluating for bone marrow responesValue above normal range indicates an increase in RBC cellular response from bone marrow. Immature Reticulocyte Fraction 14.40 % 3.00-15.90 [facility] Miscellaneous Test See comment [facility] Comment on above: TEST RESULT LIMITSCh romosome, Leukemia/LymphomaSpecimen Type Comment: BLOODCells Counted 0 Cells Analyzed 0 Cells Karyotyped 0 GTG Band Resolution Achieved N/A Cytogenetic Result Comment: NO MITOTIC ACTIVITYInterpetation Comment: Cytogenetic analysis of unstimulated culturesrevealed no mitotic activity. The sample submitted appearedto be blood. Generally 5% blasts in the peripheralcirculation are necessary to obtain cytogenetic results*.Bone marrow is recommended for the analysis of disorderswith blasts below that percentage.Interphase FISH (fluorescence in situ hybridization)or a chromosome microarray ANNEALER), however, can be performedon this sample. FISH panels available targeting specificdisease associated alterations are: AML (#[id number]), MDS(#[id number]), CLL (#[id number]), MM (#[id number]), ALL (#[id number],pediatric panel; #[id number], adult panel), and aggressiveB-cell lymphoma (#[id number]). The array (#[id number]) targets bothcopy number changes throughout the genome and copy neutralLOH. (If desired, please call the number below ([phone]) andtesting can be performed on available residual sample..*In small cell B-lymphoid disorders some leukemic clonescan be stimulated by B mitogens, eliminating the necessityfor peripheral blood blasts. These disorders include mostB-LPD.Director Review: Comment: Olga Meade, PhD., [facility] _ TESTING PERFORMED AT [facility]. ORIGINAL REPORT ON FILE IN LAB CONTAINS ADDITIONAL TEST SITE INFORMATION. Reticulocyte Count 2.02 % 0.5-1.5 [facility] Total Iron Binding Capacity 343 ug/dL 250-450 [facility] Protein Fractions Elph [Inte rp]on 04-29-2018 Protein Fractions [Interp] Comment . [facility] Comment on above: Protein electrophore sis scan will follow via computer,mail, or sneller hand delivery. Serum albumin to globulin ra jeffrey by protein electrophoresison 04-29-2018 Albumin/Globulin Elph [Mass ratio] 1.2 0.7-1.7 [facility] Serum or plasma ferritin juan surement (mass/volume)on 04-29-2018 Ferritin [Mass/Vol] 234 ng/mL 26-[address] [facility] Serum or plasma iron saturat ion measurement (mass fraction)on 04-29-2018 Iron saturation [Mass fraction] 21.6 % 15.0-55.0 [facility] Serum or plasma vitamin B12 measurement (mass/volume)on 04-29-2018 Cobalamin (Vitamin B12) [Mass/Vol] 786 pg/mL 211-911 [facility] Thin prep Papanicolaou smear with manual screeningon 04-29-2018 Thin prep Papanicolaou smear with manual screening 3.8 g/dL 2.9-4.4 [facility] Thin prep Papanicolaou smear with manual screening 0.1 g/dL Not Observed [facility] Total cell counton 9 Cells counted Molgen (Bld/Tiss) [#] Not Reportable [facility] Vital Signs Date Time Vital Sign Value Performing Clinician Facility 10-27-2024 [id number] Body height 172.[address] Deanne Kohli MD Work Phone: [facility] 10-27-2024 11:01-0400 Body mass index (BMI) [Ratio] 33.1 kg/m2 Dr. Deanne Kohli MD Work Phone: [facility] 10-27-2024 11:01-0400 Body weight 98.[address] Deanne Kohli MD Work Phone: [facility] 10-27-2024 11:01-0400 Diastolic blood pressure 62 mm[Hg] Dr. Deanne Kohli MD Work Phone: [facility] 10-27-2024 11:01-0400 Heart rate 35 /min Dr. Deanne Kohli MD Work Phone: [facility] 10-27-2024 11:01-0400 Respiratory rate 18 /min Dr. Deanne Kohli MD Work Phone: [facility] 10-27-2024 11:01-0400 SaO2% (BldA) [Mass fraction] 96 % Dr. Deanne Kohli MD Work Phone: [facility] 10-27-2024 11:01-0400 Systolic blood pressure 133 mm[Hg] Dr. Deanne Kohli MD Work Phone: [facility] 08-25-2024 11:37-0400 Body height 171.5 cm Evelio Bryan MD Work Phone: [facility] 08-25-2024 11:37-0400 Body mass index (BMI) [Ratio] 33.68 kg/m2 Evelio Bryan MD Work Phone: [facility] 08-25-2024 11:37-0400 Body weight 99 kg Evelio Bryan MD Work Phone: [facility] 08-25-2024 11:37-0400 Diastolic blood pressure 65 mm[Hg] Evelio Bryan MD Work Phone: [facility] 08-25-2024 11:37-0400 Heart rate 59 /min Evelio Bryan MD Work Phone: [facility] 08-25-2024 11:37-0400 Systolic blood pressure 126 mm[Hg] Evelio Bryan MD Work Phone: [facility] 05-29-2024 09:43-0500 Body height 172.[address] Deanne Kohli MD Work Phone: [facility] 05-29-2024 09:43-0500 Body mass index (BMI) [Ratio] 33.1 kg/m2 Dr. Deanne Kohli MD Work Phone: [facility] 05-29-2024 09:43-0500 Body weight 98.[address] Deanne Kohli MD Work Phone: [facility] 05-29-2024 09:43-0500 Diastolic blood pressure 61 mm[Hg] Dr. Deanne Kohli MD Work Phone: [facility] 05-29-2024 09:43-0500 Heart rate 57 /min Dr. Deanne Kohli MD Work Phone: [facility] 05-29-2024 09:43-0500 Respiratory rate 16 /min Dr. Deanne Kohli MD Work Phone: [facility] 05-29-2024 09:43-0500 SaO2% (BldA) [Mass fraction] 99 % Dr. Deanne Kohli MD Work Phone: [facility] 05-29-2024 09:43-0500 Systolic blood pressure 93 mm[Hg] Dr. Deanne Kohli MD Work Phone: [facility] 05-15-2023 13:05-0500 Body height 172.[address] Deanne Kohli Work Phone: [facility] 05-15-2023 13:05-0500 Body mass index (BMI) [Ratio] 32.6 kg/m2 Dr. Deanne Kohli Work Phone: [facility] 05-15-2023 13:05-0500 Body weight 97.[address] Deanne Kohli Work Phone: [facility] 05-15-2023 13:05-0500 Diastolic blood pressure 62 mm[Hg] Dr. Deanne Kohli Work Phone: [facility] 05-15-2023 13:05-0500 Heart rate 52 /min Dr. Deanne Kohli Work Phone: [facility] 05-15-2023 13:05-0500 Respiratory rate 18 /min Dr. Deanne Kohli Work Phone: [facility] 05-15-2023 13:05-0500 SaO2% (BldA) [Mass fraction] 96 % Dr. Deanne Kohli Work Phone: [facility] 05-15-2023 13:05-0500 Systolic blood pressure 125 mm[Hg] Dr. Deanne Kohli Work Phone: [facility] 02-20-2023 15:59-0500 Body height 172.[address] Deanne Kohli Work Phone: [facility] 02-20-2023 15:57-0500 Body mass index (BMI) [Ratio] 32.7 kg/m2 Dr. Deanne Kohli Work Phone: [facility] 02-20-2023 15:57-0500 Body temperature 98.7 [degF] Dr. Deanne Kohli Work Phone: [facility] 02-20-2023 15:57-0500 Body weight 97.[address] Deanne Kohli Work Phone: [facility] 02-20-2023 15:57-0500 Diastolic blood pressure 84 mm[Hg] Dr. Deanne Kohli Work Phone: [facility] 02-20-2023 15:57-0500 Heart rate 52 /min Dr. Deanne Kohli Work Phone: [facility] 02-20-2023 15:57-0500 Respiratory rate 18 /min Dr. Deanne Kohli Work Phone: [facility] 02-20-2023 15:57-0500 SaO2% (BldA) [Mass fraction] 96 % Dr. Deanne Kohli Work Phone: [facility] 02-20-2023 15:57-0500 Systolic blood pressure 148 mm[Hg] Dr. Deanne Kohli Work Phone: [facility] 10-03-2022 11:55-0400 Body temperature 97.5 [degF] Dr. Deanne Kohli Work Phone: [facility] 10-03-2022 11:55-0400 Diastolic blood pressure 74 mm[Hg] Dr. Deanne Kohli Work Phone: 4(063)[phone] [place] [address] 10-03-2022 11:55-0400 Heart rate 67 /min Dr. Deanne Kohli Work Phone: 5(872)[phone] [address] 10-03-2022 11:55-0400 Respiratory rate 16 /min Dr. Deanne Kohli Work Phone: 5(000)[phone] [address] 10-03-2022 11:55-0400 SaO2% (BldA) [Mass fraction] 96 % Dr. Deanne Kohli Work Phone: [facility] 10-03-2022 11:55-0400 Systolic blood pressure 127 mm[Hg] Dr. Deanne Kohli Work Phone: 2(367)[phone] [address] 10-03-2022 09:54-0400 Body height 172.[address] Deanne Kohli Work Phone: [facility] 10-03-2022 09:54-0400 Body mass index (BMI) [Ratio] 31.5 kg/m2 Dr. Deanne Kohli Work Phone: [facility] 10-03-2022 09:54-0400 Body weight [address] Deanne Kohli Work Phone: 3(481)[phone] [place] [address] 08-15-2022 15:52-0400 Body mass index (BMI) [Ratio] 32.3 kg/m2 Dr. Deanne Kohli Work Phone: 4(882)[phone] [place] [address] 08-15-2022 15:52-0400 Body temperature 98.2 [degF] Dr. Deanne Kohli Work Phone: [facility] 08-15-2022 15:52-0400 Body weight 96.[address] Deanne Kohli Work Phone: [facility] 08-15-2022 15:52-0400 Diastolic blood pressure 72 mm[Hg] Dr. Deanne Kohli Work Phone: [facility] 08-15-2022 15:52-0400 Heart rate 58 /min Dr. Deanne Kohli Work Phone: [facility] 08-15-2022 15:52-0400 Respiratory rate 16 /min Dr. Deanne Kohli Work Phone: [facility] 08-15-2022 15:52-0400 SaO2% (BldA) [Mass fraction] 97 % Dr. Deanne Kohli Work Phone: [facility] 08-15-2022 15:52-0400 Systolic blood pressure 131 mm[Hg] Dr. Deanne Kohli Work Phone: [facility] 04-10-2022 14:15-0500 Body height 172.7 cm Daisha Maditz DO Work Phone: [facility] 04-10-2022 14:15-0500 Body weight 94.8 kg Daisha Maditz DO Work Phone: [facility] 04-10-2022 14:15-0500 Diastolic blood pressure 75 mm[Hg] Daisha Maditz DO Work Phone: [facility] 04-10-2022 14:15-0500 Heart rate 65 /min Daisha Maditz DO Work Phone: [facility] 04-10-2022 14:15-0500 Systolic blood pressure 147 mm[Hg] Daisha Maditz DO Work Phone: [facility] 11-07-2021 09:00-0400 Body height 172.[address] Deanne Kohli Work Phone: [facility] Work Phone: 11-07-2021 09:00-0400 Body weight 96.[address] Deanne Kohli Work Phone: [facility] Work Phone: 11-06-2021 15:46-0400 Body mass index (BMI) [Ratio] 32.2 kg/m2 Dr. Deanne Kohli Work Phone: [facility] Work Phone: 11-03-2021 10:51-0400 Diastolic Blood Pressure NBP [address] CORKY LILLY MD [facility] 11-03-2021 10:51-0400 Heart rate 59 /min DR CORKY LILLY MD [facility] 11-03-2021 10:51-0400 Respiratory rate 18 /min DR CORKY LILLY MD [facility] 11-03-2021 10:51-0400 Systolic Blood Pressure NBP [address] CORKY LILLY MD [facility] 11-03-2021 10:34-0400 Diastolic Blood Pressure NBP [address] CORKY LILLY MD [facility] 11-03-2021 10:34-0400 Heart rate 60 /min DR CORKY LILLY MD [facility] 11-03-2021 10:34-0400 Respiratory rate 17 /min DR CORKY LILLY MD [facility] 11-03-2021 10:34-0400 Systolic Blood Pressure NBP [address] CORKY LILLY MD [facility] 11-03-2021 10:28-0400 Diastolic Blood Pressure NBP [address] CORKY LILLY MD [facility] 11-03-2021 10:28-0400 Heart rate 53 /min DR CORKY LILLY MD [facility] 11-03-2021 10:28-0400 Respiratory rate 18 /min DR CORKY LILLY MD [facility] 11-03-2021 10:28-0400 Systolic Blood Pressure NBP [address] CORKY LILLY MD [facility] 11-03-2021 10:11-0400 Body temperature 97.34 [degF] DR CORKY LILLY MD [facility] 11-03-2021 08:04-0400 Body height 172.[address] CORKY LILLY MD [facility] 11-03-2021 08:04-0400 Body temperature 97.88 [degF] DR CORKY LILLY MD [facility] 11-03-2021 08:04-0400 Body weight 92.[address] CORKY LILLY MD [facility] 11-03-2021 08:04-0400 Heart rate 46 /min DR CORKY LILLY MD [facility] 10-13-2021 08:48-0400 Body height 172.[address] Deanne Kohli Work Phone: [facility] Work Phone: 10-13-2021 08:48-0400 Body mass index (BMI) [Ratio] 32.3 kg/m2 Dr. Deanne Kohli Work Phone: [facility] Work Phone: 10-13-2021 08:48-0400 Body weight 96.[address] Deanne Kohli Work Phone: [facility] Work Phone: 10-13-2021 08:48-0400 Diastolic blood pressure 70 mm[Hg] Dr. Deanne Kohli Work Phone: [facility] Work Phone: 10-13-2021 08:48-0400 Heart rate 64 /min Dr. Deanne Kohli Work Phone: [facility] Work Phone: 10-13-2021 08:48-0400 Respiratory rate 16 /min Dr. Deanne Kohli Work Phone: [facility] Work Phone: 10-13-2021 08:48-0400 Systolic blood pressure 122 mm[Hg] Dr. Deanne Kohli Work Phone: [facility] Work Phone: 10-06-2021 13:17-0400 Body height 172.7 cm Daisha Maditz DO Work Phone: [facility] 10-06-2021 13:17-0400 Body weight 94.8 kg Daisha Maditz DO Work Phone: [facility] 10-06-2021 13:17-0400 Diastolic blood pressure 79 mm[Hg] Daisha Maditz DO Work Phone: [facility] 10-06-2021 13:17-0400 Heart rate 55 /min Daisha Maditz DO Work Phone: [facility] 10-06-2021 13:17-0400 Systolic blood pressure 160 mm[Hg] Daisha Maditz DO Work Phone: [facility] 08-16-2021 15:15-0400 Body mass index (BMI) [Ratio] 32.6 kg/m2 Dr. Deanne Kohli Work Phone: [facility] Work Phone: 08-16-2021 15:15-0400 Body temperature 98.4 [degF] Dr. Deanne Kohli Work Phone: [facility] Work Phone: 08-16-2021 15:15-0400 Body weight 97.[address] Deanne Kohli Work Phone: [facility] Work Phone: 08-16-2021 15:15-0400 Diastolic blood pressure 83 mm[Hg] Dr. Deanne Kohli Work Phone: [facility] Work Phone: 08-16-2021 15:15-0400 Heart rate 47 /min Dr. Deanne Kohli Work Phone: [facility] Work Phone: 08-16-2021 15:15-0400 Respiratory rate 15 /min Dr. Deanne Kohli Work Phone: [facility] Work Phone: 08-16-2021 15:15-0400 SaO2% (BldA) [Mass fraction] 97 % Dr. Deanne Kohli Work Phone: [facility] Work Phone: 08-16-2021 15:15-0400 Systolic blood pressure 164 mm[Hg] Dr. Deanne Kohli Work Phone: [facility] Work Phone: 08-16-2021 15:15-0400 Body height 172.[address] Deanne Kohli Work Phone: [facility] Work Phone: 08-16-2021 15:15-0400 Body mass index (BMI) [Ratio] 32.6 kg/m2 Dr. Deanne Kohli Work Phone: [facility] Work Phone: 08-16-2021 15:15-0400 Body temperature 98.4 [degF] Dr. Deanne Kohli Work Phone: [facility] Work Phone: 08-16-2021 15:15-0400 Body weight 97.[address] Deanne Kohli Work Phone: [facility] Work Phone: 08-16-2021 15:15-0400 Diastolic blood pressure 83 mm[Hg] Dr. Deanne Kohli Work Phone: [facility] Work Phone: 08-16-2021 15:15-0400 Heart rate 47 /min Dr. Deanne Kohli Work Phone: [facility] Work Phone: 08-16-2021 15:15-0400 Respiratory rate 15 /min Dr. Deanne Kohli Work Phone: [facility] Work Phone: 08-16-2021 15:15-0400 SaO2% (BldA) [Mass fraction] 97 % Dr. Deanne Kohli Work Phone: [facility] Work Phone: 08-16-2021 15:15-0400 Systolic blood pressure 164 mm[Hg] Dr. Deanne Kohli Work Phone: [facility] Work Phone: 02-17-2020 15:16-0500 Body mass index (BMI) [Ratio] 32 kg/m2 Dr. Deanne Kohli Work Phone: [facility] 02-17-2020 15:16-0500 Body temperature 97.7 [degF] Dr. Deanne Kohli Work Phone: [facility] 02-17-2020 15:16-0500 Body weight 95.[address] Deanne Kohli Work Phone: [facility] 02-17-2020 15:16-0500 Diastolic blood pressure 62 mm[Hg] Dr. Deanne Kohli Work Phone: [facility] 02-17-2020 15:16-0500 Heart rate 82 /min Dr. Deanne Kohli Work Phone: [facility] 02-17-2020 15:16-0500 Respiratory rate 15 /min Dr. Deanne Kohli Work Phone: [facility] 02-17-2020 15:16-0500 SaO2% (BldA) [Mass fraction] 94 % Dr. Deanne Kohli Work Phone: [facility] 02-17-2020 15:16-0500 Systolic blood pressure 108 mm[Hg] Dr. Deanne Kohli Work Phone: [facility] 02-17-2020 14:16-0500 Body mass index (BMI) [Ratio] 32 kg/m2 Dr. Deanne Kohli Work Phone: [facility] Work Phone: 02-17-2020 14:16-0500 Body temperature 97.7 [degF] Dr. Deanne Kohli Work Phone: [facility] Work Phone: 02-17-2020 14:16-0500 Body weight 95.[address] Deanne Kohli Work Phone: [facility] Work Phone: 02-17-2020 14:16-0500 Diastolic blood pressure 62 mm[Hg] Dr. Deanne Kohli Work Phone: [facility] Work Phone: 02-17-2020 14:16-0500 Heart rate 82 /min Dr. Deanne Kohli Work Phone: [facility] Work Phone: 02-17-2020 14:16-0500 Respiratory rate 15 /min Dr. Deanne Kohli Work Phone: [facility] Work Phone: 02-17-2020 14:16-0500 SaO2% (BldA) [Mass fraction] 94 % Dr. Deanne Kohli Work Phone: [facility] Work Phone: 02-17-2020 14:16-0500 Systolic blood pressure 108 mm[Hg] Dr. Deanne Kohli Work Phone: [facility] Work Phone: Encounters Encounter Date Encounter Type Care Provider Facility Start: 12-23-2024 ambulatory Obed [place] Facility :[facility] Start: 12-18-2024 ambulatory Lesa Lara Facility:[facility] Start: 11-26-2024 Encounter for genera l adult medical examination without abnormal findings Obed Scott [facility] Start: 11-20-2024 End: 11-20-[address] Deanne Kohli MD Work Phone: -Cardiovascular Services Start: 11-20-2024 End: 11-20-[address] Obed Scott MD -Cardiovascular Services Work Phone: Start: 11-20-2024 End: 11-20-2024 ambulatory Obed [place] Facility:[facility] Start: 10-27-2024 End: 10-27-[address] Obed Scott MD -[facility] Work Phone: Start: 10-27-2024 End: 10-27-[address] Deanne Kohli MD Work Phone: -[facility] Start: 08-26-2024 End: 10-26-2024 Follow-up encounter Evelio Bryan MD Work Phone: Urology Start: 08-25-2024 End: 08-25-2024 Office outpatient visit 25 minutes Evelio Bryan MD Work Phone: Urology Comment on above: Malignant neoplasm o f prostate (HCC) (Primary Dx); Screening for genitourinary condition; Penile pain; BPH with urinary obstruction; Urinary urgency; Microhematuria Start: 08-25-2024 End: 08-28-2024 Refill Evelio Bryan MD Work Phone: Urology Start: 06-26-2024 Non-patient / Non-visit Dr. Malinda Casarez MD -[facility] Start: 06-26-2024 End: 06-26-[address] 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 Obed Scott MD -[facility] Work Phone: Start: 06-17-2024 End: 06-17-2024 ambulatory Obed Scott Facility:[facility] Start: 06-02-2024 ambulatory Obed Scott Facility :[facility] Start: 06-02-2024 Non-patient / Non-visit Dr. 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 Lesa Lara MD -Laboratory Work Phone: Start: 05-19-2024 End: 05-19-2024 ambulatory Lesa Lara Facility:[facility] Start: 02-18-2024 End: 02-18-2024 ambulatory Deanne Kohli Facility:[facility] Start: 02-04-2024 End: 02-04-2024 Office outpatient visit 25 minutes Evelio Bryan MD Work Phone: Urology Comment on above: Malignant neoplasm o f prostate (HCC) (Primary Dx); Penile pain; BPH with urinary obstruction Start: 02-04-2024 End: 02-07-2024 ambulatory Evelio Bryan MD Work Phone: Urology Start: 01-29-2024 End: 01-29-2024 ambulatory DEANNE KOHLI Facility:[facility] Start: 11-19-2023 Refill Evelio Bryan MD Work Phone: Urology Comment on above: Refill Request Start: 11-08-2023 Orders Only Yesenia Hernandezshruti shaw APRN.CNP Work Phone: Urology Comment on above: Malignant neoplasm o f prostate (HCC) (Primary Dx) Start: 05-21-2023 End: 05-21-[address] Deanne Kohli Work Phone: [facility] Work Phone: Start: 05-21-2023 End: 05-21-[address] Deanne Kohli Work Phone: [facility]-Laboratory Work Phone: Start: 05-15-2023 End: 05-15-[address] Deanne Kohli Work Phone: [facility] Work Phone: Start: 05-14-2023 End: 05-14-[address] Deanne Kohli Work Phone: [facility] Work Phone: Start: 05-14-2023 End: 05-14-[address] Deanne Kohli Work Phone: [facility]-Laboratory Work Phone: Start: 04-19-2023 End: 04-19-[address] Deanne Kohli Work Phone: [facility] Work Phone: Start: 04-19-2023 End: 04-19-[address] Deanne Kohli Work Phone: [facility]-Pulmonary Services/Neurology Work Phone: Start: 02-20-2023 End: 02-20-[address] Deanne Kohli Work Phone: [facility] Work Phone: Start: 02-20-[address] Deanne carpio Work Phone: [facility] Start: 01-29-2023 End: 01-29-[address] Deanne Kohli Work Phone: [facility] Work Phone: Start: 01-29-2023 End: 01-29-[address] Deanne Kohli Work Phone: [facility]-Laboratory Work Phone: Start: 01-26-2023 End: 01-26-2023 ambulatory [facility] Work Phone: [facility] Start: 11-21-2022 End: 11-21-[address] Deanne Kohli Work Phone: [facility] Work Phone: Start: 11-21-2022 End: 11-21-[address] Deanne Kohli Work Phone: [facility]-Laboratory Work Phone: Start: 10-24-2022 End: 10-24-[address] Deanne Kohli Work Phone: [facility] Gastroenterology Work Phone: Start: 10-03-2022 Non-patient / Non-visit Dr. Deanne Kohli Work Phone: [facility] Start: 10-03-2022 End: 10-03-2022 Admission to same day surgery center Dr. Deanne Kohli Work Phone: [facility]-Endoscopy Start: 10-03-2022 End: 10-03-[address] Deanne Kohli Work Phone: [facility] Work Phone: Start: 10-02-2022 End: 10-02-2022 ambulatory Evelio Bryan MD Work Phone: Urology Comment on above: Malignant neoplasm o f prostate (HCC) (Primary Dx); BPH with urinary obstruction; Penile pain Start: 10-02-2022 End: 10-02-2022 Telemedicine consultation with patient Evelio Bryan MD Work Phone: [facility] Start: 09-18-2022 End: 09-18-[address] [facility] Start: 08-15-2022 End: 08-15-[address] Deanne Kohli Work Phone: [facility] Start: 08-15-[address] Deanne carpio Work Phone: [facility] Start: 08-14-2022 Refill Evelio Bryan MD Work Phone: Urology Comment on above: Refill Request Start: 08-10-2022 End: 08-10-[address] Deanne Kohli Work Phone: [facility] Work Phone: Start: 08-10-2022 End: 08-10-[address] Deanne Kohli Work Phone: [facility] Start: 07-27-2022 End: 07-27-[address] Deanne Kohli Work Phone: [facility] G[facility] Start: 07-06-2022 End: 07-06-2022 ambulatory [facility] Work Phone: Start: 07-06-2022 End: 07-06-2022 Patient encounter procedure [facility]-Laboratory, Specimen Start: 06-15-2022 End: 06-15-2022 ambulatory [facility] Work Phone: Start: 06-15-2022 End: 06-15-2022 Patient encounter procedure [facility]-Laboratory Start: 04-10-2022 End: 04-11-2022 ambulatory DEANNE KOHLI Facility:[facility] Start: 04-10-2022 End: 04-10-2022 Patient encounter procedure Daisha Villegas DO Work Phone: Kidney Medicine Comment on above: Stage 3a chronic kid jaswinder disease (HCC) (Primary Dx); Persistent proteinuria; Primary hypertension Start: 01-30-2022 End: 01-30-2022 ambulatory Evelio Bryan MD Work Phone: Urology Comment on above: Malignant neoplasm o f prostate (HCC) (Primary Dx); BPH with urinary obstruction Start: 01-30-2022 End: 01-30-2022 Telemedicine consultation with patient Evelio Bryan MD Work Phone: [facility] Start: 01-24-2022 Refill Evelio Bryan MD Work Phone: Urology Comment on above: Refill Request Start: 01-23-2022 ambulatory DEANNE KOHLI [facility] Start: 12-16-2021 End: 12-16-[address] Deanne Kohli Work Phone: [facility] Work Phone: Start: 12-16-2021 End: 12-16-[address] Deanne Kohli Work Phone: [facility]-Laboratory Start: 11-07-2021 End: 11-07-2021 Admission to same day surgery center Dr. Deanne Kohli Work Phone: [facility]-Bearing Grinder/Special Procedures Start: 11-03-2021 Non-patient / Non-visit Dr. Deanne Kohli Work Phone: [facility] Start: 11-03-2021 End: 11-03-[address] CORKY LILLY MD [facility] Start: 10-31-2021 Non-patient / Non-visit Dr. Deanne Kohli Work Phone: [facility] Start: 10-31-2021 End: 10-31-[address] Deanne Kohli Work Phone: [facility]-Cardiovascular Services Start: 10-24-2021 End: 10-24-[address] Deanne Kohli Work Phone: [facility] Start: 10-20-2021 End: 10-20-2021 Subsequent hospital visit by physician [facility] Work Phone: Radiology Comment on above: Stage 3a chronic kid jaswinder disease (HCC) [N18.31] Start: 10-13-2021 End: 10-13-[address] Deanne Kohli Work Phone: [facility] Start: 10-13-2021 End: 10-13-[address] 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 Deanne Kohli Work Phone: [facility] Start: 09-05-2021 End: 09-05-[address] Deanne Kohli Work Phone: [facility]-Cardiovascular Services Start: 08-23-2021 End: 08-23-[address] Deanne Kohli Work Phone: [facility] Start: 08-22-2021 End: 08-22-[address] Deanne Kohli Work Phone: [facility] Start: 08-16-[address] Deanne carpio Work Phone: [facility] Start: 08-16-2021 End: 08-16-[address] Deanne Kohli Work Phone: [facility] Start: 08-01-2021 Refill Evelio Bryan MD Work Phone: Urology Comment on above: Refill Request Start: 07-28-2021 End: 07-28-2021 Patient encounter procedure [facility] Start: 06-13-2021 End: 06-13-2021 Patient encounter procedure [facility] Start: 04-11-2021 [facility] Date Procedure Procedure Detail Performing Clinician Start: 08-25-2024 Urnls dip stick/tablet reagent auto microscopy Evelio Bryan MD Work Phone: Start: 08-25-2024 Urnls dip stick/tablet rgnt auto w/o microscopy Bulk Order Provider Start: 06-17-2024 Evaluation of diagnostic study results Dr. Deanne Kohli MD Work Phone: Start: 02-04-2024 Urnls dip stick/tablet rgnt auto w/o microscopy Bulk Order Provider Start: 01-26-2023 [employer] COVID-19 VACCINE ( SEASON) AGE 12+ YR Luis Daniel Hankins MD Work Phone: Start: 01-26-2023 INFLUENZA VACCINE, PRSV FREE, AGE 65+ YR, HIGH DOSE, QUADRIVALENT (FLUZONE HIGH-DOSE) Angy Avitia MD Work Phone: Start: 10-03-[address] Deanne Kohli Work Phone: Start: 08-10-2022 Plain chest X-ray Dr. Deanne Kohli Work Phone: Start: 10-20-2021 Us retroperitoneal real time w/image complete Daisha Villegas Work Phone: Start: 10-13-2021 Plain chest X-ray Dr. Deanne Kohli Work Phone: Start: 09-05-2021 Radionuclide imaging of perfusion of myocardium under exercise stress Dr. Deanne Kohli Work Phone: Start: 08-23-2021 CT angiography of chest with contrast Dr. Deanne Kohli Work Phone: Start: 04-11-2021 Respiratory Panel (PCR) Start: 04-15-2020 Prostatic structure (body structure) DR CORKY LILLY MD Comment on above: PROSTATE EMPOLIZATION. Start: 06-01-[address] CORKY KINCAID MD Comment on above: with argon plasma coagulation Start: 05-09-[address] CORKY KINCAID MD Comment on above: WITH APC AND BIOPSY Bilateral inguinal h ernia (disorder) DR CORKY LILLY MD Colonoscopy DR CORKY MORRISSEY MD Esophagogastroduodenoscopy Georgi LILLY MD Prosthetic arthroplasty of the hip DR CORKY LILLY MD Comment on above: bilateral Urine culture Urine culture Dr. Deanne kohler Work Phone: Plan of Treatment Date Care Activity Detail Author Start: 02-26-2033 Urine microalbumin profile DTaP,Tdap,Td Vaccine (3 - Td or Tdap) [facility] Start: 02-03-2025 End: 05-05-2025 Prostate Specific Ag Free [Mass/volume] in Serum or Plasma PROSTATE SPECIFIC ANTIGEN, FREE Lab Routine Malignant neoplasm of prostate (HCC) Expected: 02/03/2025 (Approximate), Expires: 05/05/2025 [facility] Work Phone: Comment on above: Expected: 02/03/2025 (Approximate), Expi res: 05/05/2025 Start: 01-21-2025 End: 01-21-2025 Patient encounter procedure 01/21/2025 10:45 AM EDT Office Visit Urology [address] [address] Evelio Bryan MD [address] [place] [address] 1 year follow up per cc'd chart Urology Comment on above: 1 year follow up per cc'd chart Start: 01-19-2025 End: 01-19-2025 Patient encounter procedure 01/19/2025 11:15 AM EDT Office Visit Urology [address] [address] Evelio Bryan MD [address] [place] [address] 1 year follow up per cc'd chart Urology Comment on above: 1 year follow up per cc'd chart Start: 12-14-2024 Influenza vaccination Influenza Vaccine (#1) [facility] Start: 04-15-2024 Advance Directive Discussion Advance Directive Discussion [facility] Start: 04-15-2024 Medicare Advantage Annual Wellness Visit Medicare Advantage Annual Wellness Visit [facility] Start: 02-08-2024 End: 05-09-2024 Prostate specific Ag [Mass/volume] in Serum or Plasma PROSTATE-SPECIFIC ANTIGEN DIAGNOSTIC Lab Routine Malignant neoplasm of prostate (HCC) Expected: 02/08/2024 (Approximate), Expires: 05/09/2024 [facility] Work Phone: Comment on above: Expected: 02/08/2024 (Approximate), Expi res: 05/09/2024 Start: 02-04-2024 End: 02-04-2024 Patient encounter procedure 02/04/2024 10:45 AM EDT Office Visit Urology [address] [id number] Evelio Bryan MD [address] [place] [address] F/U FOR PROSTATE CX AND PSA Urology Comment on above: F/U FOR PROSTATE CX AND PSA Start: 12-15-2023 Influenza vaccination Influenza Vaccine (#1) [facility] Start: 09-14-2023 DIABETES SCREEN DIABETES SCREEN [facility] Start: 09-14-2023 Diabetes Screening Diabetes Screening [facility] Start: 05-29-2023 Covid-19 Vaccine () Covid-19 Vaccine () [facility] Start: 04-15-2023 Advance Directive Discussion Advance Directive Discussion [facility] Start: 04-10-2023 Creatinine measurement Serum Creatinine [facility] Start: 04-10-2023 SERUM CREATININE SERUM CREATININE [facility] [facility] Start: 04-03-2023 End: 06-03-2023 Prostate Specific Ag Free [Mass/volume] in Serum or Plasma PSA FREE Lab Routine Malignant neoplasm of prostate (HCC) Expected: 04/03/2023 (Approximate), Expires: 06/03/2023 [facility] Work Phone: Comment on above: Expected: 04/03/2023 (Approximate), Expi res: 06/03/2023 Start: 10-03-2022 Colsc flx w/rmvl of tumor polyp lesion snare tq COLONOSCOPY W/LESION REMOVAL [facility] Start: 10-03-2022 Esophagogastroduodenoscopy transoral diagnostic EGD DIAGNOSTIC BRUSH WASH [facility] Start: 10-03-2022 Patient discharge [facility] Start: 08-13-2022 End: 10-13-2022 CBC panel - Blood by Automated count CBC Lab Routine Stage 3a chronic kidney disease (HCC) Expected: 08/13/2022, Expires: 10/13/2022 [facility] Work Phone: Comment on above: Expected: 08/13/2022, Expires: 3 Start: 08-13-2022 End: 10-13-2022 Protein/Creatinine [Mass Ratio] in Urine PROTEIN CREATININE RATIO Lab Routine Stage 3a chronic kidney disease (HCC) Expected: 08/13/2022, Expires: 10/13/2022 [facility] Work Phone: Comment on above: Expected: 08/13/2022, Expires: 3 Start: 08-13-2022 End: 10-13-2022 Renal function 2000 panel - Serum or Plasma RENAL FUNCTION PANEL Lab Routine Stage 3a chronic kidney disease (HCC) Expected: 08/13/2022, Expires: 10/13/2022 [facility] Work Phone: Comment on above: Expected: 08/13/2022, Expires: 3 Start: 08-13-2022 End: 10-13-2022 Urinalysis complete panel - Urine URINALYSIS, WITH MICROSCOPIC Lab Routine Stage 3a chronic kidney disease (HCC) Expected: 08/13/2022, Expires: 10/13/2022 [facility] Work Phone: Comment on above: Expected: 08/13/2022, Expires: 3 Start: 07-22-2022 Urine microalbumin profile DTaP,Tdap,Td Vaccine (2 - Td or Tdap) [facility] Start: 04-15-2022 ADVANCE DIRECTIVE DISCUSSION ADVANCE DIRECTIVE DISCUSSION [facility] Start: 04-15-2022 DEPRESSION ASSESSMENT DEPRESSION ASSESSMENT [facility] Start: 03-28-2022 End: 05-28-2022 Prostate specific Ag [Mass/volume] in Serum or Plasma PSA/PROSTSPECAG DIAG Lab Routine Malignant neoplasm of prostate (HCC) Expected: 03/28/2022, Expires: 05/28/2022 [facility] Work Phone: Comment on above: Expected: 03/28/2022, Expires: 3 Start: 01-10-2022 End: 11-09-2022 Mri pelvis w/o & w/contrast material MRI PROSTATE WO/W IVCON Radiology Routine Malignant neoplasm of prostate (HCC) Expected: 01/10/2022, Expires: 11/09/2022 [facility] Work Phone: Comment on above: Expected: 01/10/2022, Expires: 3 Start: 12-14-2021 Influenza vaccination INFLUENZA (#1) [facility] Start: 10-17-2021 COVID-19 VACCINE (5 - Booster for Moderna series) COVID-19 VACCINE (5 - Booster for Moderna series) [facility] Start: 10-06-2021 End: 12-06-2021 Complement C3 [Mass/volume] in Serum or Plasma C3 COMPLEMENT BLD Lab Routine Stage 3a chronic kidney disease (HCC) Expected: 10/06/2021, Expires: 12/06/2021 [facility] Work Phone: Comment on above: Expected: 10/06/2021, Expires: 2 Start: 10-06-2021 End: 12-06-2021 Complement C4 [Mass/volume] in Serum or Plasma C4 COMPLEMENT BLD Lab Routine Stage 3a chronic kidney disease (HCC) Expected: 10/06/2021, Expires: 12/06/2021 [facility] Work Phone: Comment on above: Expected: 10/06/2021, Expires: 2 Start: 10-06-2021 End: 12-06-2021 MONOCLONAL PROTEIN, SERUM (BLOOD) MONOCLONAL PROTEIN, SERUM (BLOOD) Lab Routine Stage 3a chronic kidney disease (HCC) Expected: 10/06/2021, Expires: 12/06/2021 [facility] Work Phone: Comment on above: Expected: 10/06/2021, Expires: 2 Start: 09-13-2021 Complete blood count Hemoglobin/Hematocr it [facility] Start: 09-13-2021 HEMOGLOBIN/HEMATOCRIT HEMOGLOBIN/HEMATOCR IT [facility] Start: 09-13-2021 SERUM CREATININE SERUM CREATININE [facility] Start: 04-15-2021 ADVANCE DIRECTIVE DISCUSSION ADVANCE DIRECTIVE DISCUSSION [facility] Start: 04-15-2021 DEPRESSION ASSESSMENT DEPRESSION ASSESSMENT [facility] Start: 12-07-2020 COVID-19 VACCINE (3 - Booster for Moderna series) COVID-19 VACCINE (3 - Booster for Moderna series) [facility] Start: 08-17-2015 Pneumococcal Vaccine: 50+ (2 of 2 - PPSV23) Pneumococcal Vaccine: 50+ (2 of 2 - PPSV23) [facility] Start: 08-17-2015 Pneumococcal Vaccine: 65+ (2 of 2 - PPSV23 or PCV20) Pneumococcal Vaccine: 65+ (2 of 2 - PPSV23 or PCV20) [facility] Start: 2010 Pneumococcal Vaccine: 65+ (1 - PCV) Pneumococcal Vaccine: 65+ (1 - PCV) [facility] Start: 2010 PNEUMOCOCCAL: 65+ (1 - PCV) PNEUMOCOCCAL: 65+ (1 - PCV) [facility] Start: 2010 PNEUMOVAX AGE 65 AND OVER WITH 5YR LOOKBACK (#1) PNEUMOVAX AGE 65 AND OVER WITH 5YR LOOKBACK (#1) [facility] Start: 2005 RSV Vaccine (1 - 1-dose 60+ series) RSV Vaccine (1 - 1-dose 60+ series) [facility] Start: 1995 SHINGRIX VACCINE (1 of 2) SHINGRIX VACCINE (1 of 2) [facility] Start: 1964 SHINGRIX VACCINE (1 of 2) SHINGRIX VACCINE (1 of 2) [facility] Start: 1964 Urine microalbumin profile [place] [facility] Start: 1963 ANNUAL PCP TEAM CHRONIC DISEASE VISIT ANNUAL PCP TEAM CHRONIC DISEASE VISIT [facility] Start: 1963 Anxiety Screening Anxiety Screening [facility] Start: 1963 Depression Screening Depression Screening [facility] Start: 1963 HEPATITIS C SCREENING HEPATITIS C SCREENING [facility] Start: 1963 Hepatitis C screening Hepatitis C Screening [facility] Start: 1957 Adult depression screening assessment DEPRESSION SCREENING [facility] Start: 1951 PNEUMOCOCCAL: 65+ (1 - PCV) PNEUMOCOCCAL: 65+ (1 - PCV) [facility] Catheterization of left heart [facility] Work Phone: End: 10-06-2022 CBC panel - Blood by Automated count CBC Lab Routine Stage 3a chronic kidney disease (HCC) Every 6 months for 3 Occurrences starting 10/06/2021 until 10/06/2022 [facility] Work Phone: Comment on above: Every 6 months for 3 Occurrences startin g 10/06/2021 until 10/06/2022 CBC W Auto Different ial panel - Blood [facility] Evaluation of diagno stic study results [facility] Lactate dehydrogenase measurement [facility] Patient referral [facility] Work Phone: End: 10-06-2022 Protein/Creatinine [Mass Ratio] in Urine PROTEIN CREATININE RATIO Lab Routine Stage 3a chronic kidney disease (HCC) Every 6 months for 3 Occurrences starting 10/06/2021 until 10/06/2022 [facility] Work Phone: Comment on above: Every 6 months for 3 Occurrences startin g 10/06/2021 until 10/06/2022 End: 10-06-2022 Renal function 2000 panel - Serum or Plasma RENAL FUNCTION PANEL Lab Routine Stage 3a chronic kidney disease (HCC) Every 6 months for 3 Occurrences starting 10/06/2021 until 10/06/2022 [facility] Work Phone: Comment on above: Every 6 months for 3 Occurrences startin g 10/06/2021 until 10/06/2022 Stress echocardiography [facility] End: 10-06-2022 Urinalysis complete panel - Urine URINALYSIS, WITH MICROSCOPIC Lab Routine Stage 3a chronic kidney disease (HCC) Every 6 months for 3 Occurrences starting 10/06/2021 until 10/06/2022 [facility] Work Phone: Comment on above: Every 6 months for 3 Occurrences startin g 10/06/2021 until 10/06/2022 [facility] Work Phone: End: 11-05-2022 US KIDNEY/BLADDER US KIDNEY/BLADDER Radiology Routine Stage 3a chronic kidney disease (HCC) 1 Occurrences starting 10/06/2021 until 11/05/2022 [facility] Work Phone: Comment on above: 1 Occurrences starting 10/06/2021 until 11/05/2022 [facility] Immunizations Immunization Date Immunization Notes Care Provider Fa [facility] 12-13-2023 influenza virus vaccine, unspecified formulation Evelio Bryan MD Work Phone: [facility] 01-26-2023 COVID-19 vaccine, ag e 12+ yr, 2022- season (Babelgum-Amootoon) Immunization Ranger Work Phone: [facility] Work Phone: 01-26-2023 influenza (HD-IIV4) vaccine, age 65+ yr, high dose, quadrivalent, PF (FLUZONE HIGH-DOSE) Immunization Ranger Work Phone: [facility] 01-26-2023 influenza virus vaccine, unspecified formulation Yesenia Schultz [employer] TE[employer]ER.DEHAIRER Work Phone: [facility] 01-21-2021 influenza, high-dose , quadrivalent vaccine (FLUZONE HIGH DOSE QUADRIVALENT) Evelio Bryan MD Work Phone: [facility] Work Phone: Payers Date Payer Category Payer Medicare (Managed Care) MMO [employer] O [id number] 2020 Medicare MMO MEDICARE MMO MEDADVANTAGE O [id number] 2020-Present [phone] [address] [place] [address] O [id number] 2020 Medicare [id number] 2018 Medicare [id number] Self-pay [id number] 2014 Unknown [id number] Medicare [id number] Unknown [id number] Unknown [id number] Unknown [id number] Unknown [id number] Unknown [id number] Unknown [id number] Unknown [id number] Unknown [id number] Unknown [id number] Unknown [id number] Unknown [id number] Unknown [id number] Unknown [id number] Social History Date Type Detail Facility Start: 10-26-2011 End: 05-15-2023 Tobacco smoking status NHIS Ex-smoker [facility] Comment on above: pt states he quit 37 years ago End: 04-15-1982 History of tobacco use Current smoker [facility] Start: 10-26-2011 End: 04-10-2022 Tobacco use and exposure Smokeless tobacco non-user [facility] Start: 01-21-2021 End: 04-10-2022 Alcohol intake Current non-drinker of alcohol (finding) [facility] Start: 02-06-2017 End: 04-10-2022 Tobacco Comment pt stopped smoking 35yers ago [facility] Start: 1945 Sex Assigned At Male C [facility] Start: 10-18-2020 End: 10-24-2022 Tobacco smoking status [facility] Unknown if ever smoked [facility] Start: 02-24-2019 None [facility] Start: 09-26-2021 End: 01-23-2022 Exposure to SARS-CoV-2 (event) Not sure [facility] Sex Assigned At Sex [facility] End: 04-15-1982 History of tobacco use Cigarette Smoker [facility] Start: 04-10-2022 End: 01-26-2023 History of Social function [facility] Start: 04-10-2022 End: 01-26-2023 Tobacco use panel [facility] National Score (1-10 0), lower number is lower risk 62 [facility] Start: 06-24-2020 Gender identity Identifies as male gender (finding) [facility] Start: 06-24-2020 Sexual orientation Heterosexual (fin ding) [facility] Start: 07-07-2024 Sex Male (finding) [facility] Medical Equipment Procedure Code Equipment Code Equipment Origin al Text Equipment Identifier Dates Coil Concerto Latticefx 2mm Helical Nylon Polypropylene 4cm [facility] - [id number] Start: 09-19-2020 Coil Vortx 3mm . 18mm [place] Fiber 22mm 20.5mm Embolization Occlusion - [id number] Start: 09-19-2020 Coil Tornado 3-2 mm .018in [place] 2cm Embolization Microcoil Malformation - [id number] Start: 09-19-2020 Coil Concerto Latticefx 2mm Helical Nylon Polypropylene 4cm Embolization - [id number] Start: 09-19-2020 Coil Concerto Latticefx 2mm Helical Nylon Polypropylene 4cm Embolization - [id number] Start: 09-19-2020 Coil Concerto Latticefx 2mm Helical Nylon Polypropylene 4cm Embolization - [id number] Start: 09-19-2020 Sphere Embospher e 100-300um Microsphere Round Yellow Normal Saline - [id number] Start: 09-19-2020 Coil Vortx 3mm . 18mm [place] Fiber 22mm 20.5mm Embolization Occlusion - [id number] Start: 09-19-2020 Device Angio-Sea l Vip 6fr .035in Collagen 70cm Closure Valuelink Guidewire - [id number] Start: 09-19-2020 Coil Tornado 3-2 mm .018in [place] 2cm Embolization Microcoil Malformation - [id number] Start: 09-19-2020 Coil Tornado 3-2 mm .018in [place] 2cm Embolization Microcoil Malformation - [id number] Start: 09-19-2020 See Instructions , onetouch delica lancets, 1 lancet daily and as needed #100 for 90 days 3 refills., # 1 EA, 0 Refill(s), Pharmacy: [facility]/pharmacy #[id number], Diabetes type 2, controlled, 172.7, cm, 06/22/21 8:36:00 EST, Height, 96.8, kg, 06/22/21 8:36:00 ES... Start: 06-22-2021 See Instructions , one touch ultra blue test strips, one strip daily and as needed #150strips/90days, # 1 EA, 3 Refill(s), Pharmacy: [facility]/pharmacy #[id number], Controlled type 2 diabetes mellitus, 172.72, cm, 06/01/19 9:08:00 EST, Height, 94.55, kg, 06/01/19... Start: 11-17-2019 Goals Date Patient Goal Desired Activity /State Functional Status Date Assessment Result Facility 11-03-2021 Functional Status Awake [facility] [place] 11-03-2021 Functional Status [facility] [place] 05-21-2014 Are you deaf, or do you have serious difficulty hearing No 05/21/2014 8:57 AM Candelaria Thompson [facility] Work Phone: 05-21-2014 Are you blind, or do you have serious difficulty seeing, even when wearing glasses No 05/21/2014 8:57 AM EST Sushma Candelaria [facility] 05-21-2014 Do you have serious difficulty walking or climbing stairs No 05/21/2014 8:57 AM Candelaria Thompson [facility] 05-21-2014 Do you have difficul ty dressing or bathing No 05/21/2014 8:57 AM AMILCAR Ordaz Candelaria [facility] 05-21-2014 Because of a physica l, mental, or emotional condition, do you have difficulty doing errands alone such as visiting a physician's office or shopping No 05/21/2014 8:57 AM EST Candelaria Ordaz [facility] Mental Status Date Assessment Result Facility 10-03-2022 Cognitive function Voice/Name [facility] Work Phone: 11-03-2021 Mental Status Oriented x [facility] 05-21-2014 Because of a physica l, mental, or emotional condition, do you have serious difficulty concentrating, remembering, or making decisions No 05/21/2014 8:57 AM Candelaria Thompson [facility] Clinical Notes 08-01-2021 to 10-27-2024 Note Date & Type Note Facility 10-27-2024 Evaluation note Diagnosis Onset Date Resolution Chest pain acute October 27 10:58am Factor V deficiency acute October 27, 2024 10:58am Sinus bradycardia acute October 272024 10:58am Essential hypertension chronic Ju 2024 10:58am Hyperlipidemia chronic October 27, 2024 10:58am Nonrheumatic mitral (valve) prolapse chronic October 27, 2024 10:58am Premature ventricular contraction chronic October 27, 2024 10:58am [facility] Work Phone: 1(902) 393-941905-13-2025 NoteHNO ID: [id number] Author: EVELIO BRYAN MD Service: ? Author Type: Physician Type: Progress Notes Filed: 08/25/2024 11:55 Note Text: [facility] MALE PATIENT - FOLLOWUP EXAMINATION PATIENT: Suleman Vazquez (79 year old) PCP: Deanne Kohli MD CHIEF COMPLAINT: f/u prostate cancer and penile pain HISTORY OF PRESENT ILLNESS: Suleman Vazquez is a 69 year old male who presents in follow up for prostate cancer He was diagnosed in 2010 with GG1 CaP. He has had repeat biopsies in 2011 (GG1), 2013 (GG1), and 2016 (benign) He underwent PAE 09/[address] Quispe (prostate 229 g) MRI 01/23/2022 - PI-RADS 2, volume 152 cc Notably, he has c/o penile pain for at least 2-3 years Has previously been recommended bacitracin ointement and fluconazole He was last seen PSA (ng/mL) Date Value 01/29/2024 11.22 04/03/2023 11.72 09/26/2022 11.68 03/27/2022 12.23 05/30/2021 12.14 04/04/2021 6.84 05/12/2020 22.95 11/19/2019 16.99 Interval hx: Patient overall feeling well today. He endorses weekly intermittent soreness at tip of the penis, not specific to urination. Endorses recent increase of urgency with occasional small amount of incontinence that he is concerned about. Continues to take oxybutynin and flomax REVIEW OF SYSTEMS: CONSTITUTIONAL: no recent illnesses, normal energy levels, endorses penile pain, see HPI GASTROINTESTINAL: no constipation, no diarrhea, no bloody stool GENITOURINARY: see history of present illness [facility] Olivares RN UROLOGY ATTENDING ATTESTATION: The patient was personally seen and evaluated. The nurse's history and ROS were reviewed. I repeated the significant and relevant portions of the examination and formulated the final plan for management. HISTORY: PAST MEDICAL HISTORY Diagnosis Date Basal cell carcinoma Nose and Right cheek Depressive disorder, not elsewhere classified DVT (deep venous thrombosis) (HCC) Esophageal reflux Essential hypertension, benign Osteoarthrosis, unspecified whether generalized or localized, other specified sites Other and unspecified hyperlipidemia Pulmonary embolism (HCC) 02/2019 PAST SURGICAL HISTORY Procedure Laterality Date BIOPSY OF SKIN LESION RPR INGUN HERNIA SLIDING ANY AGE Social History Tobacco Use Smoking status: Former Current packs/day: 0.00 Types: Cigarettes Quit date: 04/15/1982 Years since quittin.3 Smokeless tobacco: Never Tobacco comments: pt stopped smoking 35yers ago Substance Use Topics Alcohol use: No Drug use: No No family history on file. MEDICATIONS: Current Outpatient Medications Medication Sig amLODIPine (NORVASC) 5 mg tablet Take 5 mg by mouth once daily. losartan (COZAAR) 100 mg tablet Take 100 mg by mouth once daily. cholecalciferol, vitamin D3, 62.5 mcg (2,500 unit) cap Take by mouth as directed. pyridoxine HCl, vitamin B6, (VITAMIN B-6 ORAL) Take by mouth. tamsulosin (FLOMAX) 0.4 mg Take 1 capsule by mouth once daily. oxybutynin ER (DITROPAN XL) 10 mg 24 hr tablet Take 1 tablet by mouth once daily. desvenlafaxine ER (PRISTIQ) 50 mg 24 hr tablet Take 50 mg by mouth once daily. losartan (COZAAR) 25 mg tablet 50 mg once daily. (Patient not taking: Reported on 02/04/2024) multivitamin (MULTIPLE VITAMINS ORAL) MULTIVITAMIN ADULT TABS [...] No current facility-administered medications for this visit. PHYSICAL EXAMINATION: VITALS: There were no vitals taken for this visit. GENERAL: alert, no distress, normal affect RESPIRATORY: normal effort, regular rate, no audible wheeze ABDOMEN: obese, soft, non-tender, non-distended GENITOURINARY: no flank tenderness HARI: deferred given PSA today INCISION/WOUND: none DRAINS/LINES: none OFFICE DATA: URINALYSIS: large blood, 100 protein OTHER DATA: Creatinine Date Value Ref Range Status 04/10/2022 1.53 (H) 0.73 - 1.22 mg/dL Final 09/13/2020 1.23 (H) 0.73 - 1.22 mg/dL Final 06/24/2019 1.31 (H) 0.73 - 1.22 mg/dL Final Creatinine (POCT) Date Value Ref Range Status 09/06/2017 1.30 0.7 - 1.4 mg/dL Final PSA (ng/mL) Date Value 01/29/2024 11.22 04/03/2023 11.72 09/26/2022 11.68 03/27/2022 12.23 05/30/19 (more content not included)...[facility]05-13-2025 History of Present illness Narrative* Evelio Bryan MD - 08/25/2024 11:00 AM EDT [facility] MALE PATIENT - FOLLOWUP EXAMINATION PATIENT: Suleman Vazquez (79 year old) PCP: Deanne Kohli MD CHIEF COMPLAINT: f/u prostate cancer and penile pain HISTORY OF PRESENT ILLNESS: Suleman Vazquez is a 69 year old male who presents in follow up for prostate cancer He was diagnosed in 2010 with GG1 CaP. He has had repeat biopsies in 2011 (GG1), 2013 (GG1), and 2017 (benign) He underwent PAE 09/[address] Quispe (prostate 229 g) MRI 01/23/2022 - PI-RADS 2, volume 152 cc Notably, he has c/o penile pain for at least 2-3 years Has previously been recommended bacitracin ointement and fluconazole He was last seen PSA (ng/mL) Date Value 01/29/2024 11.22 04/03/2023 11.72 09/26/2022 11.68 03/27/2022 12.23 05/30/2021 12.14 04/04/2021 6.84 05/12/2020 22.95 11/19/2019 16.99 Interval hx: Patient overall feeling well today. He endorses weekly intermittent soreness at tip of the penis, not specific to urination. Endorses recent increase of urgency with occasional small amount of incontinence that he is concerned about. Continues to take oxybutynin and flomax REVIEW OF SYSTEMS: CONSTITUTIONAL: no recent illnesses, normal energy levels, endorses penile pain, see HPI GASTROINTESTINAL: no constipation, no diarrhea, no bloody stool GENITOURINARY: see history of present illness [facility]ares RN UROLOGY ATTENDING ATTESTATION: The patient was personally seen and evaluated. The nurse's history and ROS were reviewed. I repeated the significant and relevant portions of the examination and formulated the final plan for management. HISTORY: PAST MEDICAL HISTORY Diagnosis Date Basal cell carcinoma Nose and Right cheek Depressive disorder, not elsewhere classified DVT (deep venous thrombosis) (HCC) Esophageal reflux Essential hypertension, benign Osteoarthrosis, unspecified whether generalized or localized, other specified sites Other and unspecified hyperlipidemia Pulmonary embolism (HCC) 02/2019 PAST SURGICAL HISTORY Procedure Laterality Date BIOPSY OF SKIN LESION RPR INGUN HERNIA SLIDING ANY AGE Social History Tobacco Use Smoking status: Former Current packs/day: 0.00 Types: Cigarettes Quit date: 04/15/1982 Years since quittin.3 Smokeless tobacco: Never Tobacco comments: pt stopped smoking 35yers ago Substance Use Topics Alcohol use: No Drug use: No No family history on file. MEDICATIONS: Current Outpatient Medications Medication Sig amLODIPine (NORVASC) 5 mg tablet Take 5 mg by mouth once daily. losartan (COZAAR) 100 mg tablet Take 100 mg by mouth once daily. cholecalciferol, vitamin D3, 62.5 mcg (2,500 unit) cap Take by mouth as directed. pyridoxine HCl, vitamin B6, (VITAMIN B-6 ORAL) Take by mouth. tamsulosin (FLOMAX) 0.4 mg Take 1 capsule by mouth once daily. oxybutynin ER (DITROPAN XL) 10 mg 24 hr tablet Take 1 tablet by mouth once daily. desvenlafaxine ER (PRISTIQ) 50 mg 24 hr tablet Take 50 mg by mouth once daily. losartan (COZAAR) 25 mg tablet 50 mg once daily. (Patient not taking: Reported on 02/04/2024) multivitamin (MULTIPLE VITAMINS ORAL) MULTIVITAMIN ADULT TABS [...] No current facility-administered medications for this visit. PHYSICAL EXAMINATION: VITALS: There were no vitals taken for this visit. GENERAL: alert, no distress, normal affect RESPIRATORY: normal effort, regular rate, no audible wheeze ABDOMEN: obese, soft, non-tender, non-distended GENITOURINARY: no flank tenderness HARI: deferred given PSA today INCISION/WOUND: none DRAINS/LINES: none OFFICE DATA: URINALYSIS: large blood, 100 protein OTHER DATA: Creatinine Date Value Ref Range Status 04/10/2022 1.53 (H) 0.73 - 1.22 mg/dL Final 09/13/2020 1.23 (H) 0.73 - 1.22 mg/dL Final 06/24/2019 1.31 (H) 0.73 - 1.22 mg/dL Final Creatinine (POCT) Date Value Ref Range Status 09/06/2017 1.30 0.7 - 1.4 mg/dL Final PSA (ng/mL) Date Value 01/29/2024 11.22 04/03/2023 11.72 09/26/2022 11.68 03/27/2022 12.23 05/30/2021 12.14 04/04/2021 6.84 05/12/2020 22.95 11/19/2019 16.99 ASSESSMENT: (C61) Malignant neoplasm of prostate (HCC) (primary encounter diagnosis) (N40.1, N13.8) 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 Malignant neoplasm of prostate (HCC) - ICD9: 185, ICD10: C61 (primary diagnosis) - PROSTATE SPECIFIC ANTIGEN, FREE AND TOTAL 2. Screening for genitourinary condition - ICD9: V81.6, ICD10: Z13.8 3. Penile pain - ICD9: 607.9, ICD10: N48.89 4. BPH with urinary obstruction - ICD9: 600.01, 599.69, ICD10: N40.1, N13.8 5. Urinary urgency - ICD9: 788.63, ICD10: R39.15 6. Microhematuria - ICD9: 599.72, ICD10: R31.29 - URINALYSIS, WITH MICROSCOPIC PLAN: Check PSA Offered increase dose of oxybutynin given bothersome urgency - will try 15mg. Offered PFPT for penile pain - wants to hold off at present Check UA with micro RTC January as scheduled Evelio Bryan MD Staff Department of Urology [facility] Medical Decision Making: Problems: Moderate: 2+ stable chronic illnesses Data: Unique test(s) ordered: 2 Risk: Moderate: Drug management and Moderate risk from testing/treatment Medical Decision Making Level: 4 - Moderate documented in this encounterPromedica Toledo Hospital05-13-2025 NotePatient Outreach (UROLMN) SULEMAN VAZQUEZ ([id number]) 1945 M Date Time Provider Department 08/25/24 EVELIO BRYAN During your visit today, we recorded the following information about you: Allergies As of Date: 08/25/2024 Noted Allergy Reaction BEE VENOM PROTEIN (HONEY BEE) 12/28/2016 14 - Other: See Comments BENAZEPRIL 12/28/2016 16 - Unknown FOSINOPRIL 12/28/2016 16 - Unknown PENICILLINS 12/28/2016 16 - Unknown Date Reviewed: 08/25/2024 Reviewed by: Moy Castañeda MA - Fully Assessed Visit Diagnosis:Screening for genitourinary condition [Z13.89] Order(s):UA DIP, URINE (POC) [[id number]] Order #: [id number] FUTURE Prescriptions as of 08/28/2024 - oxybutynin ER (DITROPAN XL) 15 mg 24 hr Extended Rel Tab Take 1 tablet by mouth once daily. - amLODIPine (NORVASC) 5 mg tablet Take 5 mg by mouth once daily. - losartan (COZAAR) 100 mg tablet Take 100 mg by mouth once daily. - cholecalciferol, vitamin D3, 62.5 mcg (2,500 unit) cap Take by mouth as directed. - pyridoxine HCl, vitamin B6, (VITAMIN B-6 ORAL) Take by mouth. - tamsulosin (FLOMAX) 0.4 mg Take 1 capsule by mouth once daily. - desvenlafaxine ER (PRISTIQ) 50 mg 24 hr tablet Take 50 mg by mouth once daily. - losartan (COZAAR) 25 mg tablet 50 mg once daily. - multivitamin (MULTIPLE VITAMINS ORAL) MULTIVITAMIN ADULT TABS - sildenafil (VIAGRA) 100 mg tablet Take one tablet by mouth 1 hour prior to sexual activity. - levothyroxine (SYNTHROID) 25 mcg tablet Take 1 tablet by mouth daily before breakfast. - LACTASE (LACTAID ORAL) Take by mouth once daily. - rosuvastatin (CRESTOR) 20 mg tablet Take 20 mg by mouth once daily. - Hydrochlorothiazide 12.5 mg ORAL capsule Take 12.5 mg by mouth once daily. - metoprolol tartrate, short acting, 50 mg ORAL tablet Take 25 mg by mouth twice daily. - ascorbic acid, vitamin C, (VITAMIN C) 500 mg tablet Take 500 mg by mouth once daily. - MULTIVITAMIN/IRON/FOLIC ACID (CENTRUM COMPLETE ORAL) Take by mouth once daily. Problem List As Of Date 08/25/2024 Noted Resolved Malignant neoplasm of prostate [C61] 04/25/2011 Complete tear of right rotator cuff [M75.121] 06/16/2018 BPH with urinary obstruction [N40.1, N13.8] 07/09/2019 Stage 3a chronic kidney disease (HCC) [N18.31] 10/06/2021 Encounter Status:Closed by [employer], PRODUSER on 08/28/24[facility] 05-29-2024 Evaluation note* Diagnosis Onset Date Resolution Status Admit Date Factor V deficiency acute Febru hedy 2024 9:39am History of left heart catheterization (LHC) October, acute May 162024 9:39am Essential hypertension chronic Fe bruary 2024 9:39am Hyperlipidemia chronic May 162024 9:39am Nonrheumatic mitral (valve) prolapse chronic May 29, 025 9:39am Premature ventricular contraction chronic May 29 025 9:39am [facility] Work Phone: [phone]) 545-217410-22-2024 NoteHNO ID: [id number] Author: EVELIO BRYAN MD Service: ? Author Type: Physician Type: Progress Notes Filed: 02/04/2024 11:30 Note Text: [facility] MALE PATIENT - FOLLOWUP EXAMINATION PATIENT: Suleman Vazquez (78 year old) PCP: Deanne Kohli MD CHIEF COMPLAINT: prostate cancer HISTORY OF PRESENT ILLNESS: Suleman Vazquez is a 78 year old male presenting today for follow up of prostate cancer. 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 He has had repeat biopsies in 2011 (GG1), 2013 (GG1), and 2017 (benign) He underwent PAE 09/[address] Quispe (prostate 229 g) MRI 01/23/2022 - PI-RADS 2, volume 152 cc PSA (ng/mL) Date Value 01/29/2024 11.22 04/03/2023 11.72 09/26/2022 11.68 03/27/2022 12.23 05/30/2021 12.14 04/04/2021 6.84 05/12/2020 22.95 11/19/2019 16.99 Interval Hx: No longer taking Jardiance Denies gross hematuria or dysuria. Content with urinary symptoms on Flomax. He is also taking Oxybutinin, on this for years, has not tried to discontinue. Reports soreness on the tip of his penis ongoing for 2 months. Fluconazole for 10 days without improvement. Per records, at last office visit 09/2022 he mentioned this as well. Recommended to try Vaseline or come in person for office visit. REVIEW OF SYSTEMS: CONSTITUTIONAL: no recent illnesses, normal energy levels, no pain GASTROINTESTINAL: no constipation, no diarrhea, no bloody stool GENITOURINARY: see history of present illness HISTORY: PAST MEDICAL HISTORY Diagnosis Date Basal cell carcinoma Nose and Right cheek Depressive disorder, not elsewhere classified DVT (deep venous thrombosis) (HCC) Esophageal reflux Essential hypertension, benign Osteoarthrosis, unspecified whether generalized or localized, other specified sites Other and unspecified hyperlipidemia Pulmonary embolism (HCC) 02/2019 PAST SURGICAL HISTORY Procedure Laterality Date BIOPSY OF SKIN LESION RPR INGUN HERNIA SLIDING ANY AGE Social History Tobacco Use Smoking status: Former Current packs/day: 0.00 Types: Cigarettes Quit date: 04/15/1982 Years since quittin.8 Smokeless tobacco: Never Tobacco comments: pt stopped smoking 35yers ago Substance Use Topics Alcohol use: No Drug use: No No family history on file. MEDICATIONS: Current Outpatient Medications Medication Sig amLODIPine (NORVASC) 5 mg tablet Take 5 mg by mouth once daily. losartan (COZAAR) 100 mg tablet Take 100 mg by mouth once daily. cholecalciferol, vitamin D3, 62.5 mcg (2,500 unit) cap Take by mouth as directed. oxybutynin ER (DITROPAN XL) 10 mg 24 hr tablet Take 1 tablet by mouth once daily. tamsulosin (FLOMAX) 0.4 mg Take 1 capsule by mouth once daily. desvenlafaxine ER (PRISTIQ) 50 mg 24 hr tablet Take 50 mg by mouth once daily. multivitamin (MULTIPLE VITAMINS ORAL) MULTIVITAMIN ADULT TABS levothyroxine (SYNTHROID) 25 mcg tablet Take 1 tablet by mouth daily before breakfast. LACTASE (LACTAID ORAL) Take by mouth once daily. rosuvastatin (CRESTOR) 20 mg tablet Take 20 mg by mouth once daily. metoprolol tartrate, short acting, 50 mg ORAL tablet Take 25 mg by mouth twice daily. ascorbic acid, vitamin C, (VITAMIN C) 500 mg tablet Take 500 mg by mouth once daily. MULTIVITAMIN/IRON/FOLIC ACID (CENTRUM COMPLETE ORAL) Take by mouth once daily. pyridoxine HCl, vitamin B6, (VITAMIN B-6 ORAL) Take by mouth. losartan (COZAAR) 25 mg tablet 50 mg once daily. (Patient not taking: Reported on 02/04/2024) sildenafil (VIAGRA) 100 mg tablet Take one tablet by mouth 1 hour prior to sexual activity. esomeprazole (NEXIUM) 40 mg capsule Take 40 mg by mouth once daily. Hydrochlorothiazide 12.5 mg ORAL capsule Take 12.5 mg by mouth once daily. No current facility-administered medications for this visit. PHYSICAL EXAMINATION: VITALS: There were no vitals taken for this visit. GENERAL: alert, no distress, normal affect RESPIRATORY: normal effort, regular rate, no audible wheeze ABDOMEN: soft, non-tender, non-distended GENITOURINARY: - PENIS: circumcised, no penile plaques, no skin lesions - HARI: no nodules, non-tender, enlarged prostate OFFICE DATA: URINALYSIS: in process OTHER DATA: Creatinine Date Value Ref Range Status 04/10/2022 1.53 (H) 0.73 - 1.22 mg/dL Final 09/13/2020 1.23 (H) 0.73 - 1.22 mg/dL Final 06/24/2019 1.31 (H) 0.73 - 1.22 mg/dL Final Creatinine (POCT) Date Value Ref Range Status 09/06/2017 1.30 0.7 - 1.4 mg/dL Final PSA (ng/mL) Date Value 01/29/2024 11.22 04/03/2023 11.72 09/26/2022 11.68 03/27/2022 12.23 05/30/2021 12.14 04/04/2021 6.84 05/12/2020 22.95 11/19/2019 16.99 Maria Luisa Triplett APRN.CNP UROLOGY ATTENDING ATTESTATION: The patient was personally seen and evaluated. 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 I repeated the significant and relevant portions of the examination and formu (more content not included)...[facility]10-22-2024 History of Present illness Narrative* Evelio Bryan MD - 02/04/2024 10:54 AM EDT [facility] MALE PATIENT - FOLLOWUP EXAMINATION PATIENT: Suleman Vazquez (78 year old) PCP: Deanne Kohli MD CHIEF COMPLAINT: prostate cancer HISTORY OF PRESENT ILLNESS: Suleman Vazquez is a 78 year old male presenting today for follow up of prostate cancer. 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 He has had repeat biopsies in 2011 (GG1), 2013 (GG1), and 2017 (benign) He underwent PAE 09/[address] Quispe (prostate 229 g) MRI 01/23/2022 - PI-RADS 2, volume 152 cc PSA (ng/mL) Date Value 01/29/2024 11.22 04/03/2023 11.72 09/26/2022 11.68 03/27/2022 12.23 05/30/2021 12.14 04/04/2021 6.84 05/12/2020 22.95 11/19/2019 16.99 Interval Hx: No longer taking Jardiance Denies gross hematuria or dysuria. Content with urinary symptoms on Flomax. He is also taking Oxybutinin, on this for years, has not tried to discontinue. Reports soreness on the tip of his penis ongoing for 2 months. Fluconazole for 10 days without improvement. Per records, at last office visit 09/2022 he mentioned this as well. Recommended to try Vaseline or come in person for office visit. REVIEW OF SYSTEMS: CONSTITUTIONAL: no recent illnesses, normal energy levels, no pain GASTROINTESTINAL: no constipation, no diarrhea, no bloody stool GENITOURINARY: see history of present illness HISTORY: PAST MEDICAL HISTORY Diagnosis Date Basal cell carcinoma Nose and Right cheek Depressive disorder, not elsewhere classified DVT (deep venous thrombosis) (HCC) Esophageal reflux Essential hypertension, benign Osteoarthrosis, unspecified whether generalized or localized, other specified sites Other and unspecified hyperlipidemia Pulmonary embolism (HCC) 02/2019 PAST SURGICAL HISTORY Procedure Laterality Date BIOPSY OF SKIN LESION RPR INGUN HERNIA SLIDING ANY AGE Social History Tobacco Use Smoking status: Former Current packs/day: 0.00 Types: Cigarettes Quit date: 04/15/1982 Years since quittin.8 Smokeless tobacco: Never Tobacco comments: pt stopped smoking 35yers ago Substance Use Topics Alcohol use: No Drug use: No No family history on file. MEDICATIONS: Current Outpatient Medications Medication Sig amLODIPine (NORVASC) 5 mg tablet Take 5 mg by mouth once daily. losartan (COZAAR) 100 mg tablet Take 100 mg by mouth once daily. cholecalciferol, vitamin D3, 62.5 mcg (2,500 unit) cap Take by mouth as directed. oxybutynin ER (DITROPAN XL) 10 mg 24 hr tablet Take 1 tablet by mouth once daily. tamsulosin (FLOMAX) 0.4 mg Take 1 capsule by mouth once daily. desvenlafaxine ER (PRISTIQ) 50 mg 24 hr tablet Take 50 mg by mouth once daily. multivitamin (MULTIPLE VITAMINS ORAL) MULTIVITAMIN ADULT TABS levothyroxine (SYNTHROID) 25 mcg tablet Take 1 tablet by mouth daily before breakfast. LACTASE (LACTAID ORAL) Take by mouth once daily. rosuvastatin (CRESTOR) 20 mg tablet Take 20 mg by mouth once daily. metoprolol tartrate, short acting, 50 mg ORAL tablet Take 25 mg by mouth twice daily. ascorbic acid, vitamin C, (VITAMIN C) 500 mg tablet Take 500 mg by mouth once daily. MULTIVITAMIN/IRON/FOLIC ACID (CENTRUM COMPLETE ORAL) Take by mouth once daily. pyridoxine HCl, vitamin B6, (VITAMIN B-6 ORAL) Take by mouth. losartan (COZAAR) 25 mg tablet 50 mg once daily. (Patient not taking: Reported on 02/04/2024) sildenafil (VIAGRA) 100 mg tablet Take one tablet by mouth 1 hour prior to sexual activity. esomeprazole (NEXIUM) 40 mg capsule Take 40 mg by mouth once daily. Hydrochlorothiazide 12.5 mg ORAL capsule Take 12.5 mg by mouth once daily. No current facility-administered medications for this visit. PHYSICAL EXAMINATION: VITALS: There were no vitals taken for this visit. GENERAL: alert, no distress, normal affect RESPIRATORY: normal effort, regular rate, no audible wheeze ABDOMEN: soft, non-tender, non-distended GENITOURINARY: - PENIS: circumcised, no penile plaques, no skin lesions - HARI: no nodules, non-tender, enlarged prostate OFFICE DATA: URINALYSIS: in process OTHER DATA: Creatinine Date Value Ref Range Status 04/10/2022 1.53 (H) 0.73 - 1.22 mg/dL Final 09/13/2020 1.23 (H) 0.73 - 1.22 mg/dL Final 06/24/2019 1.31 (H) 0.73 - 1.22 mg/dL Final Creatinine (POCT) Date Value Ref Range Status 09/06/2017 1.30 0.7 - 1.4 mg/dL Final PSA (ng/mL) Date Value 01/29/2024 11.22 04/03/2023 11.72 09/26/2022 11.68 03/27/2022 12.23 05/30/2021 12.14 04/04/2021 6.84 05/12/2020 22.95 11/19/2019 16.99 Maria Luisa Triplett APRN.CNP UROLOGY ATTENDING ATTESTATION: The patient was personally seen and evaluated. 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 I repeated the significant and relevant portions of the examination and formulated the final plan for management. VITALS: There were no vitals taken for this visit. GENERAL: alert, no distress, normal affect EYES: no icterus, no discharge, conjugate gaze RESPIRATORY: normal effort, regular rate, no audible wheeze ABDOMEN: nonobese, soft, non-tender, non-distended GENITOURINARY: no flank tenderness, no suprapubic tenderness - PENIS: circumcised, no penile plaques, no skin lesions SKIN: no abnormal bruising, no rashes, no cyanosis NEUROLOGIC: normal gait, good manual dexterity, no paralysis ASSESSMENT: (C61) Malignant neoplasm of prostate (HCC) (primary encounter diagnosis) (N40.1, N13.8) BPH with urinary obstruction (N48.89) Penile pain VISIT DIAGNOSES: 1. Malignant neoplasm of prostate (HCC) - ICD9: 185, ICD10: C61 (primary diagnosis) 2. Penile pain - ICD9: 607.9, ICD10: N48.89 3. BPH with LUTS PLAN: Flomax refilled today Discussed can try off oxybutynin if desired No additional interventions for discomfort at penile tip PSA 1 year RTC 1 year Evelio Bryan MD Staff Department of Urology [facility] Medical Decision Making: Problems: Moderate: 1+ chronic illnesses with change Data: Unique test result(s) reviewed: 1 Unique test(s) ordered: 1 Risk: Moderate: Moderate risk from testing/treatment Medical Decision Making Level: 4 - Moderate documented in this encounterPromedica Toledo [facility]10-22-2024 NotePatient Outreach (UROJOSHUAN) SULEMAN VAZQUEZ ([id number]) 1945 M Date Time Provider Department 02/04/24 EVELIO BRYAN During your visit today, we recorded the following information about you: Allergies As of Date: 02/04/2024 Noted Allergy Reaction BEE VENOM PROTEIN (HONEY BEE) 12/28/2016 14 - Other: See Comments BENAZEPRIL 12/28/2016 16 - Unknown FOSINOPRIL 12/28/2016 16 - Unknown PENICILLINS 12/28/2016 16 - Unknown Date Reviewed: 02/04/2024 Reviewed by: Linh Musa MA - Fully Assessed Visit Diagnosis:Screening for genitourinary condition [Z13.89] Order(s):URINALYSIS, REFLEX MICROSCOPIC [[id number]] Order #: [id number]. #:[id number] Prescriptions as of 02/07/2024 - amLODIPine (NORVASC) 5 mg tablet Take 5 mg by mouth once daily. - losartan (COZAAR) 100 mg tablet Take 100 mg by mouth once daily. - cholecalciferol, vitamin D3, 62.5 mcg (2,500 unit) cap Take by mouth as directed. - pyridoxine HCl, vitamin B6, (VITAMIN B-6 ORAL) Take by mouth. - tamsulosin (FLOMAX) 0.4 mg Take 1 capsule by mouth once daily. - oxybutynin ER (DITROPAN XL) 10 mg 24 hr tablet Take 1 tablet by mouth once daily. - desvenlafaxine ER (PRISTIQ) 50 mg 24 hr tablet Take 50 mg by mouth once daily. - losartan (COZAAR) 25 mg tablet 50 mg once daily. - multivitamin (MULTIPLE VITAMINS ORAL) MULTIVITAMIN ADULT TABS - sildenafil (VIAGRA) 100 mg tablet Take one tablet by mouth 1 hour prior to sexual activity. - levothyroxine (SYNTHROID) 25 mcg tablet Take 1 tablet by mouth daily before breakfast. - esomeprazole (NEXIUM) 40 mg capsule Take 40 mg by mouth once daily. - LACTASE (LACTAID ORAL) Take by mouth once daily. - rosuvastatin (CRESTOR) 20 mg tablet Take 20 mg by mouth once daily. - Hydrochlorothiazide 12.5 mg ORAL capsule Take 12.5 mg by mouth once daily. - metoprolol tartrate, short acting, 50 mg ORAL tablet Take 25 mg by mouth twice daily. - ascorbic acid, vitamin C, (VITAMIN C) 500 mg tablet Take 500 mg by mouth once daily. - MULTIVITAMIN/IRON/FOLIC ACID (CENTRUM COMPLETE ORAL) Take by mouth once daily. Problem List As Of Date 02/04/2024 Noted Resolved Malignant neoplasm of prostate [C61] 04/25/2011 Complete tear of right rotator cuff [M75.121] 06/16/2018 BPH with urinary obstruction [N40.1, N13.8] 07/09/2019 Stage 3a chronic kidney disease (HCC) [N18.31] 10/06/2021 Encounter Status:Closed by SABRINA SHEPHERD on 02/07/24[facility] 11-19-2023 Telephone encounter Note* Telephone Encounter - ADM Keen Jessica - 11/19/2023 4:52 PM EDT Patient phones requesting refills as follows: Requested Prescriptions Pending Prescriptions Disp Refills oxybutynin ER (DITROPAN XL) 10 mg 24 hr tablet 90 tablet 5 Sig: Take 1 tablet by mouth once daily. Please review and advise. ADM Royer [facility]08-06-2024 Miscellaneous Notes* Telephone Encounter - ADM Keen Jessica - 11/19/2023 4:52 PM EDT Patient phones requesting refills as follows: Requested Prescriptions Pending Prescriptions Disp Refills oxybutynin ER (DITROPAN XL) 10 mg 24 hr tablet 90 tablet 5 Sig: Take 1 tablet by mouth once daily. Please review and advise. ADM Royer documented in this encounterPromedica Toledo Hospital06-21-2023 History and physical note Author Russell Das [facility] October 03, 2022 10:18am Note Date/Time October 03, 2022 10:1 8am [facility] Medical Records Department [address] [place] [address] History & Physical Exam 10/03/22 1017 MR#: [id number] Acct: [id number] Name: SULEMAN VAZQUEZ Rep #:[id number] : 1945 77 From: Russell Das DO PCP: Dr. Deanne Kohli MD Status:[facility] Location: [place] [address] History and Physical Date of Admission: 10/03/22 77 M who presents to the office today to establish care. PCP OV 1.10. with recommendation for colon cancer screening. Due to his age of76 years he is no eligible for open access screening services.? ? ROS Const Constitutional: No anorexia, fatigue, fever(s), weight change or sleep problems Eyes Eyes: No change in vision ENT ENT: No abnormal hearing, difficulty swallowing, mouth lesions, tongue swelling or throat swelling Resp Respiratory: No cough or shortness of breath Cardio Cardiology: No chest pain at rest, chest pain with exertion, shortness of breathor dyspnea on exertion Gastro GI: No difficulty swallowing Genitourinary Male: No difficulty urinating or burning urination Musc Musculoskeletal: No joint pain, joint swelling, muscle weakness or decreased muscle mass Skin Skin: No hair loss in leg, yellowing of the eye, itchy eyes, rash, skin ulcer orskin swelling Neuro Neurology: No abnormal hearing, abnormal movements, confusion, unsteady gait/balance or memory loss Psych Psychiatric: No anxiety, No confusion and No memory loss Endo Endocrine: No fatigue or weight change Aller/Imm Allergy/Immunologic: No itchy eyes, throat swelling or tongue swelling Wilbert/Lymp Hematologic/Lymphatic: No easy bleeding, easy bruising or enlarged lymph nodes Exam Const General: cooperative and comfortable Nutritional Appearance: average body habitus and well nourished HENIA Head: normal to inspection Ears: hearing grossly normal bilaterally Nose: external nose normal Face and sinus: normal facial exam Mouth: oral mucosae normal Throat: posterior oropharynx normal Eyes General: appearance normal, both eyes and all related structures Neck Neck: normal visual inspection Chest Chest palpation & inspection: normal inspection of the chest and normal palpation of entire chest wall Resp Effort & Inspection: normal respiratory effort Auscultation: Bilateral: Clear to Auscultation Cardio Palpation: normal PMI Rate: regular rate Rhythm: regular rhythm GI Inspection: normal to inspection Auscultation: normal bowel sounds Percussion: normal to percussion Palpation: no hepatosplenomegaly Skin General: no rashes or lesions noted Neuro General: patient alert Extrem General: normal to inspection Psych Affect: normal affect Quality Reporting Tobacco Screening ([facility]) Smoking Status: Former smoker Assessment and Plan Assessment and Plan (1) Duodenal adenoma: ?Status:?Acute ?Plan: He has a history of gastroesophageal reflux disease.? Duodenal adenoma.? He willget an upper endoscopy to evaluate his upper GI tract. (2) Colon polyps: ?Status:?Acute ?Plan: ? He has personal history of adenomatous polyps with his last colonoscopy for very poor prep.? SPECT because of his diabetes.? We will give.? MiraLAX solutionplus stool softeners.? Hopefully he will be clean For the procedure. I have examined the patient and the H&P has been reviewed. There are no clinicalchanges since date of exam. 10/03/22 1018 <Electronically signed by Russell Das DO> Cosigner Signature (if applicable): CC: Dr. Deanne Kohli MD; Russell Das DO~ Signed [facility] Work Phone: 1(100) 952-606206-21-2023 Procedure [facility] 10-03-2022 Procedure [facility]06-21-2023 Procedure note [facility]06-21-2023 Procedure [facility] 10-02-2022 History of Present illness Narrative* Evelio Bryan MD - 10/02/2022 8:00 AM EDT VIRTUAL VISIT PROGRESS NOTE This is a virtual visit using [employer] video visit. It required patient-provider interaction for themedical decision making as documented below. I have communicated my name and active licensure. The patient's identity and physical location wereverified at the time of this visit. Either the patient or their legal sales and merchandising representative has been informed of the risks and benefits of -- and alternatives to -- treatment through a remote evaluation andconsents to proceed with the evaluation remotely. Persons Present: patient Chief Complaint:followup prostate cancer HPI: Suleman Vazquez is a 77 year old male [...] not elsewhere classified DVT (deep venous thrombosis) ([facility]) Esophageal reflux Essential hypertension, benign Osteoarthrosis, unspecified [...] which included preparing to see the patient, [id number] patient care, and completing clinical documentation Evelio Bryan MD documented in this encounterPromedica Toledo Hospital05-02-2023 Miscellaneous Notes* Telephone Encounter - Kate Childs [employer] Engineer [employer] - 08/14/2022 12:27 PM EDT Patient phones requesting refills as follows: Requested Prescriptions Pending Prescriptions Disp Refills oxybutynin ER (DITROPAN XL) 10 mg 24 hr tablet 90 tablet 5 Sig: Take 1 tablet by mouth once daily. Please review and advise. Kate Childs Oil Drilling Engineer II documented in this encounterPromedica Toledo Hospital01-02-2023 Evaluation note* Diagnosis Stage 3a chronic kidney disease (HCC)- Primary Persistent proteinuria Proteinuria Primary hypertension Unspecified essential hypertension documented in this encounter [facility]12-28-2022 Miscellaneous Notes* Addendum Note - Daisha Villegas DO - 04/11/2022 9:30 AM ESTAddended by: DAISHA VILLEGAS on: 04/11/2022 09:30 AM Modules accepted: Orders documented in this encounterPromedica Toledo Hospital12-27-2022 Instructions* Patient Instructions* Daisha Villegas DO - 04/10/2022 2:38 PM EST Your renal disease is likely secondary to hypertension. Obtain lab work today. Two options for gastroenterology: [facility] [email or web address] Continue to follow closely with your PCP. You can increase the losartan dose to 100 mg daily if needed for blood pressure control Avoid Advil, Motrin (Ibuprofen), Aleve (Naproxen), Mobic (Meloxicam), Voltaren (Diclofenac) and other pain/arthritis medications called NSAIDS. Tylenol or topical voltaren gel if necessary for pain Lab work today Follow up with Dr. Villegas as needed General nephrology recommendations: o Tight [...] will be greatly appreciated. documented in this encounterPromedica [facility]12-27-2022 History of Present illness Narrative* Daisha Villegas DO - 04/10/2022 2:[address] [facility] NEPHROLOGY & HYPERTENSION [facility] SERVICE DATE: 04/10/2022 [...] 147/75 Pulse 65 Ht 172.7 cm (5' 8) Wt 94.8 kg (209 lb) BMI 31.78 [...] UA with trace protein and otherwise bland (5002-7186) Etodolac prescribed - 2021 ultrasound with a [...] prior to CT with iodinated contrast SIGNATURE: Daisha Villegas DO PATIENT NAME: Suleman Vazquez DATE: April 10, 2022 TIME: 2:42 PM OFFICE NUMBER: [id number] CC: PRIMARY CARE PHYSICIAN: Deanne Kohli MD documented in this encounterPromedica Toledo Hospital10-18-2022 History of Present illness Narrative* Evelio Bryan MD - 01/30/2022 3:00 PM EDT DISTANCE HEALTH VISIT This Team Access Model visit is a virtual encounter. It required patient- provider interaction for the medical decision making as documented below. Suleman Vazquez is a 76 year old male seen for followup of prostate cancer. Suleman Vazquez is a 76 year old male [...] which included preparing to see the patient, lire-or-tdun patient care, and completing clinical documentation. Evelio Bryan MD documented in this encounterPromedica Toledo Hospital10-12-2022 Miscellaneous Notes* Telephone Encounter - Lola Mercedes - 01/24/2022 3:34 PM EDT Patient phones requesting refills as follows: Requested Prescriptions Pending Prescriptions Disp Refills tamsulosin (FLOMAX) 0.4 mg 90 capsule 1 Sig: Take 1 capsule by mouth once daily. Please review and advise. Lola Mercedes documented in this encounterPromedica Toledo Hospital10-11-2022 NoteHNO ID: [id number] Author: JOEL Tavarez Service: Radiology Author Type: Diamond Grinder Type: Progress Notes Filed: 01/23/2022 10:32 AM Note Text: Radiology Service Progress Note PATIENT NAME: Suleman Vazquez DATE OF SERVICE: January 23, 2022 [...] Site disposition Discontinued SIGNED BY: Ollie Jackson Cardia January 23, 2022 10:31 [facility]07-22-2022 Evaluation + Plan note Extracted from: Title:Clinical Document Author:CORKY LILLY Date:11/03/21 [place] ADMISSION HISTORY AN D PHYSICIAL CHIEF COMPLAINT: HISTORY OF PRESENT ILLNESS: REVIEW OF SYSTEMS: ACTIVE PROBLEMS: (18) Abdominal pain (00786160) Anxiety disorder (365145599) Change in bowel habits (189223627) CKD stage 3 secondary to diabetes (9142075693) Diabetes mellitus type 2, uncontrolled (9398890051) Dyspepsia (252690775) Embolism (4903819097) Epigastric pain (692934885) GERD (gastroesophageal reflux disease) ([id number]) High serum creatine (954686) Hypercholesterolemia ([id number]) Hypertension (32396498) Hypothyroid (15310837) NATHAN (obstructive sleep apnea) ([id number]) PE (pulmonary thromboembolism) (653903871) Prostate cancer (8245027360) Urinary frequency ([id number]) Vitamin D deficiency (06143731) MEDICATIONS: Active Inpt Meds: None Active PRN Meds: None One Time Meds: None Active IV Meds: Lactated Ringers Infusion 1,000 mL (LR 1,000 mL) Start: 11/03/21 8:06:00 EDT, Rate: 50 mL/hr, 11/03/21 8:06:00 EDT ALLERGIES: (4) Amoxil Bee Stings Lotensin Monopril FAMILY HISTORY: SOCIAL HISTORY: PHYSICAL EXAM: VITALS: SjzutzPykxGVKfdtzWDOkI2PBH3WqikVj(kg) 11/03 08:0436.6141/08405239GY67/22 92.7 24 Hr Tmax: 36.6 at 11/03 [...] Future Appointments Appointment Date:12/21/2021 08:45:00 AM Scheduled Provider:LESA LARA MD Location:[facility] Appointment Type:[facility] Future Scheduled Tests Laboratory* Thyroid Stimulating Hormone 12/23/21 * Free T4 12/23/21 * A1C Hemoglobin 12/23/21 * Microalbumin Level Urine 12/23/21 * Vitamin D Level 12/23/21 * Complete Metabolic Panel 12/23/21 [facility] 07-22-2022 Hospital Discharge instructions Patient Education [...] before eating solid foods. General instructions Take jxma-oia-wjtrijb and prescription medicines only as told by [...] 07/22/2016 Document Revised: 06/30/2018 Document Reviewed: 07/22/2016 [employer] Patient Education 2020 [employer]. 11/03/2021 10:42:31 9 - AO Minor Esophagogastroduodenoscopy [...] 06/23/13 Custom Follow Up Care 10/04/2021 09:46:30 With:CORKY LILLY MD Address: [address] [phone] When: Unknown Comments:YOU WILL BE CALLED BY THE OFFICE WITH YOUR RESULTS. IF YOU GO NOT HEAR FROM THE OFFICE PLEASE CALL THE OFFICE. IF YOU HAVE ANY QUESTIONS PLEASE CALL THE OFFICE. GO TO THE EMERGENCY ROOM WITH ANY URGENT ISSUES. [facility] 07-22-2022 Summary of episode note Discharge Instructions Thank you for allowing [facility] to assist you with your healthcare needs. The following is importantdischarge information regarding your hospital visit. Your Care Team DEANNE KOHLI MD, DR. Your Diagnosis DR LILLY THOUGHTT [facility] MAY HAVE BEEN COMING BACK, SO HE TOOK CARE OF THAT SITE. HE TOOK BIOPSIES. HE WILL CALL YOU WITH THOSE RESUTS ABOUT SATURDAY. IF YOU DO NOT HEAR FROM HIM PLEASE CALL THE OFFICE. CALL DR LILLY WITH ANY QUESTIONS OR CONCERNS. GO TO THE EMERGENCY ROOM WITH ANY URGENT CONCERNS. What to do next Scheduled Follow-Up Appointments Appointment Type When With Where Contact InformationAARONKurtis PIZARRO 12/21/2021 08:45 AM LESA DUGGAN MD AM Endocrinology [place] Follow Up Appointments Follow Up with CORKY LILLY MD When Why: YOU WILL BE CALLED BY THE OFFICE WITH YOUR RESULTS. IF YOU GO NOT HEAR FROM THE OFFICE PLEASE CALL THE OFFICE. IF YOU HAVE ANY QUESTIONS PLEASE CALL THE OFFICE. GO TO THE EMERGENCY ROOM WITH ANYURGENT ISSUES. Where: [address] [place] [phone] Allergies Amoxil Bee Stings Lotensin Monopril Medications [...] before eating solid foods. General instructions Take mrzx-dce-hlwszkz and prescription medicines only as told by [...] 07/22/2016 Document Revised: 06/30/2018 Document Reviewed: 07/22/2016 [employer] Patient Education 2020 Kashmi. Esophagogastroduodenoscopy This is an endoscopic procedure (a [...] to receive it can visit one of [facility] vaccine clinics. There are many vaccine clinic locations within the [facility]. For locations and available times, please visit [email or web address] It is important to note that some COVID mobile vaccine clinics are held outdoors and may be canceled in rainy or stormy conditions. To learn more about pediatric vaccinations (ages 5-11), we invite you to visit the [facility] webpage. https://www.akHomeowners [email or web address]/[email or web address]-Lwsbw-Qczbiozpaud-Cemztakgec-Xqgra-Hpc stions.htmlTo learn more about the COVID-19 vaccine, we invite you to visit the [employer] website for a list of frequently asked questions. [email or web address].pdf [email or web address] Patient Portal Access Instructions: Stay connected with your healthcare team and access your personal medical information anytime with the [facility] Patient Portal.If you would like a full copy of your medical records, please contact the [facility] Medical Records Department, Saturday through Saturday between 8a.m. and 4:30p.m. Please follow the directions below to access the portal: 1.Access the email account you provided upon registration to the hospital.2.Look for an invitation email from [facility].3.Open the email and access the invitation link: Accept Invitation to [facility]4.Fill in the required galvan to create your account. Sign into [email or web address] with your username and password that you [...] you will allow to register on the [facility] Patient Portal for access to your information. You can also access the [facility] Patient Portal on the [employer] iyv. Simply click on Health Records under [place] and then click on the [employer] logo. HOW TO SAFELY DISPOSE OF PRESCRIPTION [...] Call your local pharmacy or go to [email or web address] to find one close to you.3.Make use of household items: Use cat litter or old coffee grounds to dispose medications if other options arenot available. Mix your drugs with these household products, seal them in an airtight container andthrow it into the garbage. Call [facility]: [phone] to be sure your drugs can be [...] been reviewed and explained to me and I,SULEMAN VAZQUEZ understand my current condition and have read and understand these discharge instructions. I have received a written copy of the plan/instructions. If I have questions, I am aware that I should contactmy doctor. Patient/Nutrition Educator Signature: Date/Time: Relationship to Patient: Witness Name/Signature: Date/Time: [facility]07-22-2022 Anesthesiology Consult note Patient: SULEMAN VAZQUEZ Age: 76 years Sex: Male : 1945 Associated Diagnoses: None Author: EMILIO RYAN Assessment Postanesthesia assessment Mental status: alert & oriented x 4. Respiratory function: lungs are clear to auscultation. Respiratory support: none. CV function: Normal rate. Cardiovascular support: none. Pain. Nausea status: denies nausea. Postoperative hydration status: within normal limits. Digitally Signed by EMILIO RYAN on 11/03/2021 10:14 AM [facility]07-22-2022 Anesthesiology Consult note Patient: SULEMAN VAZQUEZ Age: 76 years Sex: Male : [...] Refill(s) betamethasone dipropionate 0.05% topical lotion: 1 ivy, Topical, BID, 60 mL, 0 Refill(s) esomeprazole [...] Medical High serum creatine / SNOMED CT 754429 / Confirmed Anxiety disorder / SNOMED CT 986512418 / Confirmed CKD stage 3 secondary to diabetes / SNOMED CT 5173477455 / Confirmed Embolism / SNOMED CT 7892476090 / Confirmed GERD (gastroesophageal reflux disease) / SNOMED CT [id number]-QY6C-ZX340SS97ER9 / Confirmed Hypercholesterolemia / SNOMED CT 0ZY6FT5R-[id number]-15AW7IAKW32F / Confirmed Hypertension / SNOMED CT 01571765 / Confirmed Hypothyroid / SNOMED CT 74109281 / Confirmed Dyspepsia / SNOMED CT 043093269 / Confirmed NATHAN (obstructive sleep apnea) / SNOMED CT [id number] / Confirmed Diabetes mellitus type 2, uncontrolled / SNOMED CT 0315646603 / Confirmed Urinary frequency / SNOMED CT QIJJ79W3-W2V6-4OGT-[id number] / Confirmed Vitamin D deficiency / SNOMED CT 23934633 / Confirmed, Active Problems (18) Abdominal pain Anxiety disorder Change in bowel habits CKD stage 3 secondary to diabetes Diabetes mellitus type 2, uncontrolled Dyspepsia Embolism Epigastric pain GERD (gastroesophageal reflux disease) High serum creatine Hypercholesterolemia Hypertension Hypothyroid NATHAN (obstructive sleep apnea) PE (pulmonary thromboembolism) Prostate cancer Urinary frequency Vitamin D deficiency Histories Past Medical History: Active Hypercholesterolemia (4GM1YH2X-4QX1-0824-9C9Q-71IB8KRGR77M) Urinary frequency (YMGK42O3-[id number]-[id number]) Hypertension (68842980) GERD (gastroesophageal reflux disease) (04PJM5N5-53P7-9638-CR1V-NP930AW63KO0) Anxiety disorder (987039151) Embolism (2106413661) Comments: 10/29/2014 EDT 12:58 MARIANNE JOSHI RN pulmonary embolism 1998 NATHAN (obstructive sleep apnea) (7XG63964-Q4M1-179P-MGLX-7775SMR7I820) Family History: Heart disease Mother Father Malignant tumor of colon Mother Procedure history: Prostate (11831399) in 2020 at 75 Years. Comments: 11/03/2021 8:28 Vera Cooper RN PROSTATE EMPOLIZATION. Esophagogastroduodenoscopy (224006580) on 06/01/2019 at 74 Years. Comments: 06/01/2019 9:43 HANSEL BARRAGAN RN with argon plasma coagulation Upper GI endoscopy (6581086179) on 05/09/2015 at 69 Years. Comments: 05/09/2015 9:53 PHIL ARIAS WITH APC AND BIOPSY Hernia, inguinal, bilateral ([id number]). Hip replacement (3996867424). Comments: 10/29/2014 13:00 PHIL JOSHI bilateral Upper gastrointestinal endoscopy (103056951). Colonoscopy (012230935). Social History Social & Psychosocial Habits Alcohol 12/28/2019 Use: Never Substance Abuse 12/28/2019 Use: Never Tobacco 12/28/2019 Tobacco Use: Former smoker, quit more Exposure to Tobacco Smoke Lives in non-smoking home Comment: pt states he quit 37 years ago - 12/28/2019 08:17 - Vear Doshi RN Home/Environment 06/01/2019 Domestic Concerns None [...] Admission Weight 92.7 kg Weight Method Stated [place] Body Weight 68.38 kg Admission Body Mass [...] Cul - Kind Specimen 11/03/2021 9:53 EDT [place] History and Physical 11/03/2021 9:49 EDT Lactated [...] Surgeon SN - CAt - Role Performed CLINICAL PSYCHOLOGIST PRIVATE PRACTICE SN - CAt - Role Performed Anthropology Department Chair 1 SN - CAt - Role Performed Video Tape Transferrer 11/03/2021 8:04 EDT Designated Person #1 We May Share NOAH MARIE [phone] Designated Person #1 Relationship Spouse Privacy Restrictions Requested None Height 172.7 cm Admission Weight 92.7 kg Weight Method Stated [place] Body Weight 68.38 kg Admission Body Mass Index 31.08 m2 Temperature Oral 36.6 DegC Peripheral Pulse Rate 46 bpm Respiratory Rate 18 br/min Systolic Blood Pressure NBP 141 mmHg HI Diastolic Blood Pressure NBP 84 mmHg Primary Pain Intensity 0 Pain Scale Type 0-10 Pain scale Nail Bed Color [place] Capillary Refill < 2 seconds All Lobes Breath Sounds Clear Oxygen Therapy Room air Oxygen Saturation 94 % Abdomen Description Rounded Bowel Sounds All Quadrants Hyperactive Urinary Elimination Voiding, no difficulties Status N/A Skin Temperature Warm Skin Description [place], Normal for ethnicity, Dry Skin Moisture General [...] Weeks No Weight Loss No Allergies Yes Tab Machine Operator On Yes Consent Form Signed Yes Patient Dressed In Hospital gown Pre-op Preparation Glasses removed History & Physical Update On Chart Yes History & Physical On Chart Yes Obstructive Sleep Apnea Assess Completed Yes Arrival Mode Ambulatory Position Supine Glasses Yes Dentures N/A Accompanied By On Arrival Family Orientation Assessment Oriented x 4 Safety Brochure Information Reviewed Unable to complete [employer] Video Viewed No Barriers to Learning None evident Teaching Method Explanation Teaching Evaluation No further teaching needed Preferred Written Language New Zealander Preferred Spoken Language New Zealander Information Given by Patient Patient's Current Physicians [...] Day Patient History . Assessment and Plan Citizen Of [place] Society of Anesthesiologists (ASA) physical status classification: Class III. Anesthetic Preoperative Plan Anesthetic technique: MAC. Postoperative pain management: Per surgeon. Informed consent: signed by patient. Digitally Signed by EMILIO RYAN on 11/03/2021 10:02 AM [facility]07-22-2022 Note [place] ADMISSION HISTORY AND PHYSICIAL CHIEF COMPLAINT: HISTORY OF PRESENT ILLNESS: REVIEW OF SYSTEMS: ACTIVE PROBLEMS: (18) Abdominal pain (80677063) Anxiety disorder (311873149) Change in bowel habits (137743225) CKD stage 3 secondary to diabetes (9569954677) Diabetes mellitus type 2, uncontrolled (6517255037) Dyspepsia (263644033) Embolism (8582157820) Epigastric pain (890019477) GERD (gastroesophageal reflux disease) (61VJH3A2-10J9-7854-XR0O-MT643XX76GT9) High serum creatine (028895) Hypercholesterolemia (2HM4DO4E-[id number]-72BT0XARH64H) Hypertension (05045177) Hypothyroid (95898917) NATHAN (obstructive sleep apnea) (6BL81867-N1H5-389D-BKEF-5447BUE9H504) PE (pulmonary thromboembolism) (366994162) Prostate cancer (1031501951) Urinary frequency (QEYT51C5-I6N7-0PUL-WR78-82769173P7HT) Vitamin D deficiency (86681606) MEDICATIONS: Active Inpt Meds: None Active PRN Meds: None One Time Meds: None Active IV Meds: Lactated Ringers Infusion 1,000 mL (LR 1,000 mL) Start: 11/03/21 8:06:00 EDT, Rate: 50 mL/hr, 11/03/21 8:06:00 EDT ALLERGIES: (4) Amoxil Bee Stings Lotensin Monopril FAMILY HISTORY: SOCIAL HISTORY: PHYSICAL EXAM: VITALS: EpxwqwVwoyQQKtcfgKNToM0WLR5ImyzJh(kg) 11/03 08:0436.6141/92945462FX05/22 92.7 24 Hr Tmax: 36.6 at 11/03 [...] H&P unless noted below. Digitally Signed by CORKY LILLY MD on 11/03/2021 09:55 AM [facility]07-09-2022 Evaluation note* Diagnosis Stage 3a chronic kidney disease (HCC) documented in this encounter [facility]07[facility] Reason for referral (narrative)* Diagnostic Procedure Only (Routine) - Closed Specialty Diagnoses / Procedures Referred By Herson kinney Referred To Contact US IMAGING Diagnoses Stage 3a chronic kidney disease (HCC) Procedures US KIDNEY/BLADDER US RETROPERITONEAL REAL TIME W/[place] [address] [place] [address] Us Imaging Referral ID Status Reason Start Date Expiration Date V isits Requested Visits Authorized [id number] Closed Auto-Generate d Referral 10/06/2021 11/05/2022 1 1 [facility]07-08-2022 History of Present illness Narrative* RT Vidal(R) - 10/20/2021 10:00 AM EDT Radiology Service Progress Note PATIENT NAME: Suleman Vazquez DATE OF SERVICE: October 20, 2021 [...] 20, 2021 10:32 AM documented in this encounterPromedica Toledo Hospital06-28-2022 History of Present illness Narrative* Evelio Bryan MD - 10/10/2021 2:53 PM EDT DISTANCE HEALTH VISIT This Team Access Model visit is a virtual encounter. It required patient- provider interaction for the medical decision making as documented below. Suleman Vazquez is a 76 year old male [...] oxybutynin Wakes 1/night to urinate Saw Dr. Villegas in nephrology last week for CKD - [...] which included preparing to see the patient, nhsu-xm-obxp patient care and completing clinical documentation. Evelio Bryan MD documented in this encounterPromedica Toledo Hospital06-24-2022 Instructions* Patient Instructions* Daisha Villegas DO - 10/06/2021 1:48 PM EDT Avoid Advil, Ibuprofen(Motrin), Aleve(Naproxen), Meloxicam(Mobic) and other pain/arthritis medications called NSAIDS. Tylenol if necessary for pain Follow low salt diet. (1/2 tsp salt) <2 grams Lab work today and in 2 days before next visit Follow up with Dr. Villegas in 6 months. Please bring a complete [...] will be greatly appreciated. documented in this encounterPromedica Toledo Hospital06-24-2022 History of Present illness Narrative* Daisha Villegas DO - 10/06/2021 1:[address] [facility] NEPHROLOGY & HYPERTENSION [facility] SERVICE DATE: 10/06/2021 [...] UA with trace protein and otherwise bland (6119-6056) No kidney imaging Etodolac prescribed historically NSAIDs [...] Pulse (!) 55 Ht 172.7 cm (5' 8) Wt 94.8 kg (209 lb) BMI 31.78 [...] UA with trace protein and otherwise bland (0272-5913) No kidney imaging Etodolac prescribed historically 2. Persistent proteinuria PLAN: - Renal labs today - US kidney/bladder - Avoid NSAIDs - Follow up based on results SIGNATURE: Daisha Villegas DO PATIENT NAME: Suleman Vazquez DATE: October 06, 2021 TIME: 1:52 PM OFFICE NUMBER: [id number] CC: REFERRING PROVIDER: Self PRIMARY CARE PHYSICIAN: Deanne Kohli MD documented in this encounterPromedica Toledo Hospital06-24-2022 Evaluation note* Diagnosis Stage 3a chronic kidney disease (HCC)- Primary Persistent proteinuria Proteinuria documented in this encounter [facility] Reason for referral (narrative)* Diagnostic Procedure Only (Routine) - Authorized Specialty Diagnoses / Procedures Referred By Contac t Referred To Contact US IMAGING Diagnoses Stage 3a chronic kidney disease (HCC) Procedures US KIDNEY/BLADDER US RETROPERITONEAL REAL TIME W/[place] [address] [place] [address] Us Imaging Referral ID Status Reason Start Date Expiration Date Visits Requested Visits Authorized [id number] Authorized Auto-Generat ed Referral 10/06/2021 11/05/2022 1 1 [facility] Miscellaneous Notes* Telephone Encounter - Marce Sutton PA-C - 10/03/2021 5:14 PM EDT Telephone Encounter~ Person of Contact: Suleman Vazquez Reason for Call: follow up s/p [...] encounter Marce Sutton PA-C documented in this encounterPromedica Toledo Hospital04-19-2022 Miscellaneous Notes* Telephone Encounter - ADM Royer - 08/01/2021 11:22 AM EDT Patient phones requesting refills as follows: Pending Prescriptions Disp Refills TAMSULOSIN 0.4 MG CAPSULE 90 capsule 1 Sig: Take 1 capsule by mouth once daily. KATE: No Please review and advise. ADM Royer documented in this encounterK[facility] [place] noteNo assessment information availableWBrown Memorial Hospital Work Phone: Evaluation note* Diagnosis Onset Date Resolution Status History of venous thromboembolism acute Monocytosis acute Neutropenia acute DVT of lower extremity (deep venous thrombosis) chronic MGUS (monoclonal gammopathy of unknown significance) chronic Pulmonary embolism chronic Leukopenia resolved [facility] Work Phone: Evaluation note* Diagnosis Malignant neoplasm of prostate (HCC)- Primary 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 and other lower urinary tract symptoms (LUTS) documented in this encounter [facility] [place] note* Diagnosis Onset Date Resolution Status History of venous thromboembolism acute Monocytosis acute Neutropenia acute DVT of lower extremity (deep venous thrombosis) chronic MGUS (monoclonal gammopathy of unknown significance) chronic Pulmonary embolism chronic Leukopenia resolved Abnormal stress test acute History of thromboembolism a cute Sinus bradycardia acute Essential hypertension chron ic Hyperlipidemia chronic Nonrheumatic mitral (valve) prolapse chronic Premature atrial contraction chronic Premature ventricular contraction chronic [facility] Work Phone: Evaluation note* Diagnosis Onset Date Resolution Status Abnormal stress test acute History of thromboembolism a cute Sinus bradycardia acute Essential hypertension chron ic Hyperlipidemia chronic Nonrheumatic mitral (valve) prolapse chronic Premature atrial contraction chronic Premature ventricular contraction chronic [facility] Work Phone: Evaluation note* Diagnosis Malignant neoplasm of prostate (HCC)- Primary 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 and other lower urinary tract symptoms (LUTS) documented in this encounter [facility] HospitalEvalun[facility] [place] [facility]* Diagnosis Onset Date Resolution Status Colon polyps acute Duodenal adenoma acute [facility] Work Phone: Evaluation note* Diagnosis Malignant neoplasm of prostate (HCC)- Primary 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 and other lower urinary tract symptoms (LUTS) Penile pain Unspecified disorder of penis documented in this encounter [facility] HospitalEvalunem[facility] [place] note* Diagnosis Onset Date Resolution Status Colon polyps acute Duodenal adenoma acute Monocytosis acute Neutropenia acute DVT of lower extremity (deep venous thrombosis) chronic MGUS (monoclonal gammopathy of unknown significance) chronic Pulmonary embolism chronic Leukopenia resolved History of venous thromboembolism acute SOB (shortness of breath) ac pietro [facility] Work Phone: Evaluation note* Diagnosis Onset Date Resolution Status Monocytosis acute Neutropenia acute DVT of lower extremity (deep venous thrombosis) chronic MGUS (monoclonal gammopathy of unknown significance) chronic Pulmonary embolism chronic Leukopenia resolved History of venous thromboembolism acute SOB (shortness of breath) ac pietro Colon polyps acute [facility] Work Phone: Evaluation note* Diagnosis Onset Date Resolution Status Colon polyps acute [facility] Work Phone: Evaluation note* Diagnosis Onset Date Resolution Status Monocytosis acute Neutropenia acute DVT of lower extremity (deep venous thrombosis) chronic MGUS (monoclonal gammopathy of unknown significance) chronic Pulmonary embolism chronic Leukopenia resolved History of venous thromboembolism acute Sinus bradycardia acute Essential hypertension chron ic Hyperlipidemia chronic Nonrheumatic mitral (valve) prolapse chronic Premature ventricular contraction chronic [facility] Work Phone: Evaluation note* Diagnosis Onset Date Resolution Status Monocytosis acute Neutropenia acute DVT of lower extremity (deep venous thrombosis) chronic MGUS (monoclonal gammopathy of unknown significance) chronic Pulmonary embolism chronic Leukopenia resolved History of venous thromboembolism acute [facility] Work Phone: Evaluation note* Diagnosis Malignant neoplasm of prostate (HCC)- Primary Malignant neoplasm of prostate [facility] [place] [facility] Diagnosis Malignant neoplasm of prostate (HCC)- Primary Malignant neoplasm of prostate Penile pain Unspecified disorder of penis 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 with urinary obstruction and other lower urinary tract symptoms (LUTS) [facility] [place] [facility]* Diagnosis Screening for genitourinary condition Screening for other and unspecified genitourinary condition [facility] [place] [facility]* Diagnosis Malignant neoplasm of prostate (HCC)- Primary Malignant neoplasm of prostate Screening for genitourinary condition Screening for other and unspecified genitourinary condition Penile pain Unspecified disorder of penis 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 with urinary obstruction and other lower urinary tract symptoms (LUTS) Urinary urgency Urgency of urination Microhematuria Microscopic hematuria [facility] [place] [facility]* Diagnosis Malignant neoplasm of prostate (HCC)- Primary Malignant neoplasm of prostate Screening for genitourinary condition Screening for other and unspecified genitourinary condition Penile pain Unspecified disorder of penis 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 with urinary obstruction and other lower urinary tract symptoms (LUTS) Urinary urgency Urgency of urination Microhematuria Microscopic hematuria Screening for genitourinary condition Screening for other and unspecified genitourinary condition [facility] [place] [facility]* Diagnosis Onset Date Resolution Status Admit Date Chest pain acute October 27 10:58am Premature ventricular contraction chronic October 27, 2024 10:58am [facility] Work Phone: Hospital course Narrative No data available for this section [facility] Reason for referral (narrative)No reason for referral [facility]: Advance Directives No Advanced Directives Records FoundDocuments on File Type Date Recorded Patient Nutrition Educator Expl anation Advance Directive(s) 09/07/2020 4:10 PM Advance Directive Response Recorded Date/ Time Living Will Yes October 18, 2020 3 :53pm Power of Loss Prevention Auditor Yes October 18, 2020 3:53pm Documents on File Type Date Recorded Patient Nutrition Educator Expl anation Advance Directive(s) 09/07/2020 4:10 PM Advance Directive Response Recorded Date/ Time Advance Directives on File Yes November 07, 2021 9:00am Name of Medical Power of Loss Prevention Auditor Yamileth Vazquez-w nay November 07, 2021 9:00am Advance Directives Yes November 07 9:00am Living Will Yes November 07, 2021 9:00am Power of Loss Prevention Auditor Yes November 07 9:00am Advance Directive Response Recorded Date/ Time Advance Directives Yes November 07 8:00am Living Will Yes November 07, 2021 8:00am Power of Loss Prevention Auditor Yes November 07 8:00am Advance Directive Response Recorded Date/ Time Advance Directives Yes November 07 9:00am Living Will Yes November 07, 2021 9:00am Power of Loss Prevention Auditor Yes November 07 9:00am Advance Directive Response Recorded Date/ Time Name of Medical Power of Loss Prevention Auditor YAMILETH VAZQUEZ October 02, 2022 12:13pm Advance Directives Yes November 07 9:00am Living Will Yes October 02, 2022 12:13pm Power of Loss Prevention Auditor Yes October 02 12:13pm Advance Directive Response Recorded Date/ Time Advance Directives Yes November 07 9:00am Living Will Yes October 02, 2022 12:13pm Power of Loss Prevention Auditor Yes October 02 12:13pm Advance Directive Response Recorded Date/ Time Advance Directives Yes November 07 8:00am Living Will Yes October 02, 2022 11:13am Power of Loss Prevention Auditor Yes October 02 11:13am Advance Directive Response Recorded Date/ Time Living Will Yes October 02, 2022 12:13pm Do you have a Healthcare Power of Loss Prevention Auditor? Yes October 02, 2022 12:13pm Advance Directives Yes November 07 9:00am Advance Directive Response Recorded Date/ Time Advance Directives Yes November 07 9:00am Family History No Family History Records Found Relationship Condition Age at Onset Recorded Date/T beena father Myositis Unknown Malignant neoplasm of skin Unknown Myocardial infarction Unknown mother Cerebrovascular accident (CVA) Unknown Malignant neoplasm of colon Unknown Hypertension Unknown Presence of cardiac pacemaker Unknown Chief Complaint and Reason for Visit Chief Complaint 6MO LABS ONC/HEM ELEVATED D DIMER Reason for Visit History of venous th romboembolism Monocytosis Neutropenia DVT of lower extremity (deep venous thrombosis) MGUS (monoclonal gammopathy of unknown significance) Pulmonary embolism Leukopenia Chief Complaint 6MO LABS ONC/HEM ELEVATED D DIMER CHEST PRESSURE WITH EXERTION CHEST PRESSURE WITH EXERTION Reason for Visit History of venous th romboembolism Monocytosis Neutropenia DVT of lower extremity (deep venous thrombosis) MGUS (monoclonal gammopathy of unknown significance) Pulmonary embolism Leukopenia Chief Complaint 6MO LABS ONC/HEM ELEVATED D DIMER CHEST PRESSURE WITH EXERTION CHEST PRESSURE WITH EXERTION PER PCP ABN CARDIOVASCULAR STRESS TEST; SOB Reason for Visit History of venous th romboembolism Monocytosis Neutropenia DVT of lower extremity (deep venous thrombosis) MGUS (monoclonal gammopathy of unknown significance) Pulmonary embolism Leukopenia Abnormal stress test History of thromboembolism Sinus bradycardia Essential hypertension Hyperlipidemia Nonrheumatic mitral (valve) prolapse Premature atrial contraction Premature ventricular contraction Chief Complaint 6MO LABS ONC/HEM ELEVATED D DIMER CHEST PRESSURE WITH EXERTION CHEST PRESSURE WITH EXERTION PER PCP ABN CARDIOVASCULAR STRESS TEST; SOB CATH TEACHING Nonrheumatic mitral (valve) prolapse, ABN STRESS Reason for Visit History of venous th romboembolism Monocytosis Neutropenia DVT of lower extremity (deep venous thrombosis) MGUS (monoclonal gammopathy of unknown significance) Pulmonary embolism Leukopenia Abnormal stress test History of thromboembolism Sinus bradycardia Essential hypertension Hyperlipidemia Nonrheumatic mitral (valve) prolapse Premature atrial contraction Premature ventricular contraction Chief Complaint 6MO LABS ONC/HEM ELEVATED D DIMER CHEST PRESSURE WITH EXERTION CHEST PRESSURE WITH EXERTION PER PCP ABN CARDIOVASCULAR STRESS TEST; SOB CATH TEACHING Nonrheumatic mitral (valve) prolapse, ABN STRESS ABN STRESS TEST, CP, FATIGUE, SOB ABN STRESS TEST, CP, FATIGUE, SOB Reason for Visit History of venous th romboembolism Monocytosis Neutropenia DVT of lower extremity (deep venous thrombosis) MGUS (monoclonal gammopathy of unknown significance) Pulmonary embolism Leukopenia Abnormal stress test History of thromboembolism Sinus bradycardia Essential hypertension Hyperlipidemia Nonrheumatic mitral (valve) prolapse Premature atrial contraction Premature ventricular contraction Chief Complaint ELEVATED D DIMER CHEST PRESSURE WITH EXERTION CHEST PRESSURE WITH EXERTION PER PCP ABN CARDIOVASCULAR STRESS TEST; SOB CATH TEACHING Nonrheumatic mitral (valve) prolapse, ABN STRESS ABN STRESS TEST, CP, FATIGUE, SOB ABN STRESS TEST, CP, FATIGUE, SOB Reason for Visit Abnormal stress test History of thromboembolism Sinus bradycardia Essential hypertension Hyperlipidemia Nonrheumatic mitral (valve) prolapse Premature atrial contraction Premature ventricular contraction Chief Complaint Consult LABS AND XRAY- SHORTNESS OF BREATH Reason for Visit Colon polyps Duodenal adenoma Chief Complaint Consult LABS AND XRAY- SHORTNESS OF BREATH ONC/HEM 1YR LABS Reason for Visit Colon polyps Duodenal adenoma Monocytosis Neutropenia DVT of lower extremity (deep venous thrombosis) MGUS (monoclonal gammopathy of unknown significance) Pulmonary embolism Leukopenia History of venous thromboembolism SOB (shortness of breath) Chief Complaint LABS AND XRAY- SHORT NESS OF BREATH ONC/HEM 1YR LABS 2 WK FU Reason for Visit Monocytosis Neutropenia DVT of lower extremity (deep venous thrombosis) MGUS (monoclonal gammopathy of unknown significance) Pulmonary embolism Leukopenia History of venous thromboembolism SOB (shortness of breath) Colon polyps Chief Complaint 2 WK FU Reason for Visit Colon polyps Chief Complaint ONC/HEM 6MO LABS BRADYCARDIA; RECHECK HR AFTER STOP BETA HERLINDA OVERDUE FOR OV/PREV PFM Reason for Visit Monocytosis Neutropenia DVT of lower extremity (deep venous thrombosis) MGUS (monoclonal gammopathy of unknown significance) Pulmonary embolism Leukopenia History of venous thromboembolism Sinus bradycardia Essential hypertension Hyperlipidemia Nonrheumatic mitral (valve) prolapse Premature ventricular contraction Chief Complaint ONC/HEM 6MO LABS BRADYCARDIA; RECHECK HR AFTER STOP BETA HERLINDA Reason for Visit Monocytosis Neutropenia DVT of lower extremity (deep venous thrombosis) MGUS (monoclonal gammopathy of unknown significance) Pulmonary embolism Leukopenia History of venous thromboembolism Chief Complaint Admit Date 6 M FU May 29, 2024 9:39am POST OP June 02, 2024 11:05am PVC/PAC June 02, 2024 11:18am Check PVC vs Vitor per Blaine Pizarro June 172024 10:19am PVC BURDEN AND EF EVAL June 26, 2024 10:06am Reason for Visit Admit Date 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, 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 History of left heart catheterization (L HC) May 29, 2024 9:39am Essential hypertension May 29 9:39am Hyperlipidemia February 14th, 2025 9:39am Nonrheumatic mitral (valve) prolapse Feb ruary 2024 9:39am Premature ventricular contraction Februa ry 2024 9:39am Chief Complaint Admit Date 5 M FU October 27, 2024 10:5 8am Reason for Visit Admit Date Chest pain October 27, 2024 10:5 8am Premature ventricular contraction October 132024 10:58am Chief Complaint Admit Date 5 M FU October 27, 2024 10:5 8am CP, ARRHYTHMIA November 20, 2024 1:3 3pm Reason for Visit Admit Date Chest pain October 27, 2024 10:5 8am Factor V deficiency October 27, 2024 10:5 8am Sinus bradycardia October 27, 2024 10:5 8am Essential hypertension October 27, 2024 1 0:58am Hyperlipidemia October 27, 2024 10:5 8am Nonrheumatic mitral (valve) prolapse Oct 10:58am Premature ventricular contraction October 132024 10:58am Reason for Referral Specialty Diagnoses / Procedures Referred By Herson kinney Referred To Contact MR IMAGING Diagnoses Malignant neoplasm of prostate (HCC) Procedures MRI PROSTATE WO/W IVCON MRI PELVIS W/O & W/CONTRAST MATERIAL Evelio Bryan MD [address] [place] [address] Mr Imaging Referral ID Status Reason Start Date Expiration Date Visits Requested Visits Authorized [id number] Pending Review Auto-Generat ed Referral 01/10/2022 11/09/2022 1 1 Summary Purpose Additional Source Comments Source Comments (unrecognize d section and content) In the event this informatio n is protected by the Federal Confidentiality of Alcohol and Drug Abuse Patient Records regulations: The Federal rules restrict any use of the information to criminally investigate or prosecute any alcohol or drug abuse patient.[facility] the event this information is protected by the Federal Confidentiality of Alcohol and Drug Abuse Patient Records regulations: The Federal rules restrict any use of the information to criminally investigate or prosecute any alcohol or drug abuse patient.[facility] the event this information is protected by the Federal Confidentiality of Alcohol and Drug Abuse Patient Records regulations: The Federal rules restrict any use of the information to criminally investigate or prosecute any alcohol or drug abuse patient.[facility] the event this information is protected by the Federal Confidentiality of Alcohol and Drug Abuse Patient Records regulations: The Federal rules restrict any use of the information to criminally investigate or prosecute any alcohol or drug abuse patient.[facility] the event this information is protected by the Federal Confidentiality of Alcohol and Drug Abuse Patient Records regulations: The Federal rules restrict any use of the information to criminally investigate or prosecute any alcohol or drug abuse patient.[facility] the event this information is protected by the Federal Confidentiality of Alcohol and Drug Abuse Patient Records regulations: The Federal rules restrict any use of the information to criminally investigate or prosecute any alcohol or drug abuse patient.[facility] the event this information is protected by the Federal Confidentiality of Alcohol and Drug Abuse Patient Records regulations: The Federal rules restrict any use of the information to criminally investigate or prosecute any alcohol or drug abuse patient.[facility] the event this information is protected by the Federal Confidentiality of Alcohol and Drug Abuse Patient Records regulations: The Federal rules restrict any use of the information to criminally investigate or prosecute any alcohol or drug abuse patient.[facility] the event this information is protected by the Federal Confidentiality of Alcohol and Drug Abuse Patient Records regulations: The Federal rules restrict any use of the information to criminally investigate or prosecute any alcohol or drug abuse patient.[facility] the event this information is protected by the Federal Confidentiality of Alcohol and Drug Abuse Patient Records regulations: The Federal rules restrict any use of the information to criminally investigate or prosecute any alcohol or drug abuse patient.[facility] the event this information is protected by the Federal Confidentiality of Alcohol and Drug Abuse Patient Records regulations: The Federal rules restrict any use of the information to criminally investigate or prosecute any alcohol or drug abuse patient.[facility] the event this information is protected by the Federal Confidentiality of Alcohol and Drug Abuse Patient Records regulations: The Federal rules restrict any use of the information to criminally investigate or prosecute any alcohol or drug abuse patient.[facility] the event this information is protected by the Federal Confidentiality of Alcohol and Drug Abuse Patient Records regulations: The Federal rules restrict any use of the information to criminally investigate or prosecute any alcohol or drug abuse patient.[facility] the event this information is protected by the Federal Confidentiality of Alcohol and Drug Abuse Patient Records regulations: The Federal rules restrict any use of the information to criminally investigate or prosecute any alcohol or drug abuse patient.[facility] the event this information is protected by the Federal Confidentiality of Alcohol and Drug Abuse Patient Records regulations: The Federal rules restrict any use of the information to criminally investigate or prosecute any alcohol or drug abuse patient.[facility] the event this information is protected by the Federal Confidentiality of Alcohol and Drug Abuse Patient Records regulations: The Federal rules restrict any use of the information to criminally investigate or prosecute any alcohol or drug abuse patient.[facility] the event this information is protected by the Federal Confidentiality of Alcohol and Drug Abuse Patient Records regulations: The Federal rules restrict any use of the information to criminally investigate or prosecute any alcohol or drug abuse patient.[facility] the event this information is protected by the Federal Confidentiality of Alcohol and Drug Abuse Patient Records regulations: The Federal rules restrict any use of the information to criminally investigate or prosecute any alcohol or drug abuse patient.[facility] the event this information is protected by the Federal Confidentiality of Alcohol and Drug Abuse Patient Records regulations: The Federal rules restrict any use of the information to criminally investigate or prosecute any alcohol or drug abuse patient.[facility] the event this information is protected by the Federal Confidentiality of Alcohol and Drug Abuse Patient Records regulations: The Federal rules restrict any use of the information to criminally investigate or prosecute any alcohol or drug abuse patient.[facility] Reason for Visit (unrecogniz ed section and content) Reason Onset Date Comments Refill Request 08/01/2021 Reason Comments Follow Up Reason Comments New Patient Reason Comments Follow Up Reason Comments Radiology US Specialty Diagnoses / Procedures Referred By Herson t Referred To Contact US IMAGING Diagnoses Stage 3a chronic kidney disease (HCC) Procedures US KIDNEY/BLADDER US RETROPERITONEAL REAL TIME W/IMAGE COMPLETE Daisha Villegas DO [address] [place] [address] Us Imaging Referral ID Status Reason Start Date Expiration Date V isits Requested Visits Authorized [id number] Closed Auto-Generate d Referral 10/06/2021 11/05/2022 1 1 Reason Onset Date Comments Refill Request 01/24/2022 Reason Onset Date Comments Refill Request 08/14/2022 Reason Onset Date Comments Refill Request 11/19/2023 Reason Comments Established Patient Reason Comments Established Patient Penile Problem Urinary Frequency Care Teams (unrecognized sec tion and content) Boat Master Relationship Specialty Start Date End Date Deanne Kohli PCP - General 12/06/04 Boat Master Relationship Specialty Start Date End Date Deanne Kohli PCP - General 12/06/04 Boat Master Relationship Specialty Start Date End Date Deanne Kohli PCP - General 12/06/04 Boat Master Relationship Specialty Start Date End Date Deanne Kohli PCP - General 12/06/04 Boat Master Relationship Specialty Start Date End Date Deanne Kohli PCP - General 12/06/04 Boat Master Relationship Specialty Start Date End Date Deanne Kohli PCP - General 12/06/04 Boat Master Relationship Specialty Start Date End Date Deanne Kohli PCP - General 12/06/04 Boat Master Relationship Specialty Start Date End Date Deanne Kohli PCP - General 12/06/04 Team Status: Active Member Role Status Dates Dr. Deanne Kohli MD Family Provider Active Dr. Deanne Kohli MD Primary Care Provider Active Team Status: Inactive Member Role Status Dates Dr. Deanne Kohli MD Primary Care Provider Active Dr. Lesa Lara MD Attending Provider, Re ferring Provider Active Team Status: Inactive Member Role Status Dates Dr. Deanne Kohli MD Primary Care Provider Active Dr. Blaine Singh MD Attending Provider Active Team Status: Inactive Member Role Status Dates Dr. Deanne Kohli MD Primary Care Provider, Referrin g Provider Active Dr. Russell Das DO Attending Provider Active Team Status: Inactive Member Role Status Dates Dr. Deanne Kohli MD Primary Care Provider Active Dr. Fredy Fishman MD Attending Provider, Referring Pr ovider Active Boat Master Relationship Specialty Start Date End Date Deanne Kohli PCP - General 12/06/04 Boat Master Relationship Specialty Start Date End Date Deanne Kohli PCP - General 12/06/04 Team Status: Inactive Member Role Status Dates Dr. Deanne Kohli MD Primary Care Provider, Referrin g Provider Active Dr. Paulino Mitchell MD Attending Provider Active Team Status: Active Member Role Status Dates Dr. Deanne Kohli MD Primary Care Provider, Referrin g Provider Active Dr. Russell Das DO Attending Provider, Other Prov ider Active Team Status: Active Member Role Status Dates Dr. Deanne Kohli MD Primary Care Prov ider, Family Provider, Referring Provider Active Dr. Paulino Mitchell MD Attending Provider Active Team Status: Inactive Member Role Status Dates Dr. Deanne Kohli MD Primary Care Provider Active Jude Baptiste MD Attending Provider, Referring Provide r Active Boat Master Relationship Specialty Start Date End Date Deanne Kohli PCP - General 12/06/04 Team Status: Inactive Member Role Status Dates Dr. Deanne Kohli MD Primary Care Provider, Referrin g Provider Active Liliana Ferrera REPEAT PHOTOCOMPOSING MACHINE OPERATOR, REPEAT PHOTOCOMPOSING MACHINE OPERATOR-C Attending Provider Active Team Status: Inactive Member Role Status Dates Dr. Deanne Kohli MD Primary Care Provider Active Liliana Ferrera REPEAT PHOTOCOMPOSING MACHINE OPERATOR, REPEAT PHOTOCOMPOSING MACHINE OPERATOR-C Attending Provider, Referring Ivett fernandez Active Boat Master Relationship Specialty Start Date End Date Deanne Kohli PCP - General 12/06/04 Boat Master Relationship Specialty Start Date End Date Deanne Kohli PCP - General 12/06/04 Boat Master Relationship Specialty Start Date End Date Deanne Kohli PCP - General 12/06/04 Boat Master Relationship Specialty Start Date End Date Deanne Kohli PCP - General 12/06/04 Team Status: Active Member Role Status Dates Dr. Deanne Kohli MD Primary Care Provider Active Team Status: Inactive Member Role Status Dates Dr. Deanne Kohli MD Primary Care Provider Active Start: May 19, 2024 End: May 19, 2024 Dr. Lesa Lara MD Attending Provider Active Start: May 19, 2024 End: May 19, 2024 Dr. Lesa Lara MD Referring Provider Active Start: May 19, 2024 End: May 19, 2024 Team Status: Inactive Member Role Status Dates Dr. Deanne Kohli MD Primary Care Provider Active Start: May 29, 2024 End: May 29, 2024 Dr. Deanne Kohli MD Referring Provider Active Start: May 29, 2024 End: May 29, 2024 Blaine Pizarro REPEAT PHOTOCOMPOSING MACHINE OPERATOR, REPEAT PHOTOCOMPOSING MACHINE OPERATOR-C Attending Provider Active S tart: May 29, 2024 End: May 29, 2024 Team Status: Inactive Member Role Status Dates Dr. Deanne Kohli MD Primary Care Provider Active Start: June 02, 2024 End: June 02, 2024 Blaine Pizarro REPEAT PHOTOCOMPOSING MACHINE OPERATOR, REPEAT PHOTOCOMPOSING MACHINE OPERATOR-C Attending Provider Active S tart: June 02, 2024 End: June 02, 2024 Blaine Pizarro REPEAT PHOTOCOMPOSING MACHINE OPERATOR, REPEAT PHOTOCOMPOSING MACHINE OPERATOR-C Referring Provider Active S tart: June 02, 2024 End: June 02, 2024 Team Status: Active Member Role Status Dates Dr. Deanne Kohli MD Primary Care Provider Active Start: June 02, 2024 Dr. Obed Scott MD Attending Provider Active Start: June 02, 2024 Blaine Pizarro REPEAT PHOTOCOMPOSING MACHINE OPERATOR, REPEAT PHOTOCOMPOSING MACHINE OPERATOR-C Referring Provider Active S tart: June 02, 2024 Team Status: Inactive Member Role Status Dates Dr. Deanne Kohli MD Primary Care Provider Active Start: June 17, 2024 End: June 17, 2024 Dr. Deanne Kohli MD Referring Provider Active Start: June 17, 2024 End: June 17, 2024 Dr. Obed Scott MD Attending Provider Active Start: June 17, 2024 End: June 17, 2024 Team Status: Inactive Member Role Status Dates Dr. Deanne Kohli MD Primary Care Provider Active Start: June 26, 2024 End: June 26, 2024 Blaine Pizarro REPEAT PHOTOCOMPOSING MACHINE OPERATOR, REPEAT PHOTOCOMPOSING MACHINE OPERATOR-C Attending Provider Active S tart: June 26, 2024 End: June 26, 2024 Blaine Pizarro REPEAT PHOTOCOMPOSING MACHINE OPERATOR, REPEAT PHOTOCOMPOSING MACHINE OPERATOR-C Referring Provider Active S tart: June 26, 2024 End: June 26, 2024 Team Status: Active Member Role Status Dates Dr. Deanne Kohli MD Primary Care Provider Active Start: June 26, 2024 Dr. Malinda Casarez MD Attending Provider Activ e Start: June 26, 2024 Boat Master Relationship Specialty Start Date End Date NicolakevanDeanne PCP - General 12/06/04 Boat Master Relationship Specialty Start Date End Date Deanne Kohli PCP - General 12/06/04 Boat Master Relationship Specialty Start Date End Date YovanaDeanne winchester PCP - General 12/06/04 Team Status: Active Member Role/Relationship Status Dates Dr. Dre Martinez MD Primary Care Provider Acti ve Team Status: Inactive Member Role/Relationship Status Dates Dr. Deanne Kohli MD Referring Provider Active Start: October 27, 2024 End: October 27, 2024 Dr. Obed Scott MD Attending Provider Active Start: October 27, 2024 End: October 27, 2024 Dr. Dre Martinez MD Primary Care Provider Acti ve Start: October 27, 2024 End: October 27, 2024 Team Status: Inactive Member Role/Relationship Status Dates Dr. Dre Martinez MD Primary Care Provider Acti ve Start: November 20, 2024 End: November 20, 2024 Dr. Obed Scott MD Attending Provider Active Start: November 20, 2024 End: November 20, 2024 Dr. Obed Scott MD Referring Provider Active Start: November 20, 2024 End: November 20, 2024 Goals (unrecognized section and content) Goals may be documented in a n alternate sectionGoals may be documented in an alternate sectionGoals may be documented in an alternate sectionGoals may be documented in an alternate sectionGoals may be documented in an alternate sectionGoals may be documented in an alternate section No data available for this sectionGoals may be documented in an alternate sectionGoals may be documented in an alternate sectionGoals may be documented in an alternate sectionGoals may be documented in an alternate sectionGoals may be documented in an alternate sectionGoals may be documented in an alternate sectionGoals may be documented in an alternate sectionGoals may be documented in an alternate sectionGoals may be documented in an alternate sectionGoals may be documented in an alternate sectionGoals may be documented in an alternate sectionGoals may be documented in an alternate section Care Team (unrecognized sect ion and content) Care Team Personnel Name: DEANNE KOHLI MD Member Role: Primary Care Physician Address: Address: [address] [place] [id number]- Care Team Related Persons Name: JAKOB YAMILETH Address: [place] [address] [place] [id number] (unrecognized sect ion and content) No Status Records FoundNo Status Records FoundNo Status Records FoundNo Status Records Found INFORMATION SOURCE (unrecogn ized section and content) DATE CREATED AUTHOR 11/20/2021 [facility] [place] [facility] DATE CREATED AUTHOR AUTHOR'S ORGANIZ ATION 04/11/2022 [facility] DATE CREATED AUTHOR AUTHOR'S ORGANIZ ATION 08/30/2024 [facility] DATE CREATED AUTHOR AUTHOR'S ORGANIZ ATION 12/20/2024 [facility] FOR RECORDS PERTAINING TO PATIENTS WHO ARE [...] BE BASED ON THE PRIMARY CLINICAL RECORDS. [facility]. provides no warranty or guarantee of the accuracy or completeness of information in this document.
--- NOTE | 2024-12-23 12:44 | STRESSREP_ITS ---
Stress Test Report Date: 12/23/2024 Procedure: Pharmacologic stress nuclear imaging study Indications: Chest pain Consent: Per the patient Procedure: The patient underwent pharmacologic (Regadenoson 0.4mg ) evaluation with a peak heart rate of 77 beats per minute (54%predicted maximal heart rate) and a peak blood pressure of 134/58 mmHg. The baseline ECG demonstrated sinus rhythm with right bundle branch block. The peak pharmacologic ECG failed to show any ischemic changes. Occasional PVCs in recovery. There was no complaint of chest discomfort during pharmacologic infusion or recovery. The patient was injected with 11.4 millicuries of technetium 99m Cardiolite and subsequently rest SPECT Cardiolite nuclear imaging was obtained in the horizontal long, vertical long, and short axis views. The patient underwent pharmacologic (Regadenoson) evaluation. The patient was injected with 33.6 millicuries of technetium 99m Cardiolite and subsequently stress SPECT Cardiolite nuclear imaging was obtained in the horizontal long, vertical long, and short axis views. A gated Cardiolite study at peak stress was obtained. The examination was stopped secondary to completion of protocol. Rest and stress SPECT Cardiolite nuclear imaging status post realignment, normalization, and attenuation correction demonstrate no fixed or reversible pe rfusion defects. There is end systolic thickening and brightening. The gated Cardiolite study demonstrates myocardial thickening and inward wall motion. The reported LVEF is 69%. Impression: 1. Pharmacologic (Regadenoson) evaluation 2. Peak pharmacologic ECG with no ischemic changes. 3. Occasional PVCs in recovery.. 5. Rest and stress SPECT Cardiolite nuclear imaging demonstrate relative uniform tracer uptake and myocardial perfusion appearing within normal limits. 6. The gated Cardiolite study reports an LVEF of 69%. This note was generated with [employer] software. It may contain incorrect words, spelling, and punctuation that were not noted in checking the note before signing.
== END | disposition home or self-care (01) ==
LOC: CVS 06:45
PROVIDERS: PCP Family Medicine; Referring Provider Internal Medicine Cardiovascular Disease; Visit Provider Internal Medicine Cardiovascular Disease
DX: R07.9 Chest pain, unspecified (principal); I49.3 Ventricular premature depolarization
CPT/HCPCS: 78452; 93017; A9500; A4216; J2785

== ENCOUNTER 2025-02-14 04:02 | Emergency (ER) | payer MEDICARE, SELFPAY ==
[2025-02-14 04:03] VITALS: BP 173/80; PULSE 75; RESP 18; TEMP 37.1; O2SAT 96; BMI 33.3
[2025-02-14 04:06] VITALS: BP 173/80; PULSE 70; RESP 18; TEMP 37.1; O2SAT 97
[2025-02-14] MEDS: Lidocaine Jelly 2% 20 ML Syringe (URO-JET) 1 APPLIC TOPICAL (04:29)
--- NOTE | 2025-02-14 04:32 | EX.ED.DYSGE1 ---
HPI History of Present Illness Chief Complaint: Cash C/O Informant: patient and spouse/S.O. Narrative Narrative: Patient is a 79-year-old male with past medical history of hypertension hyperlipidemia hypothyroidism as well as recent diagnosis of bladder cancer. He states that he had lesions from his bladder removed approximately 2 days ago and then had a Cash catheter placed to prevent urinary retention which he has had in the past. He states this evening he was sleeping and then awoke covered in urine. As the urine was leaking around the catheter and not traveling through it he has concerned that the catheter has become dislodged and secondary to this comes in for evaluation [facility] Medical History Anxiety Cancer History of steroid therapy Diabetes Thyroid disease Arthritis History of renal disease High cholesterol Excessive bleeding DVT (deep venous thrombosis) Back pain Dietary restriction Gastric reflux Former smoker CPAP (continuous positive airway pressure) dependence Sleep apnea On home oxygen therapy History of edema History of echocardiogram History of stress test Cardiology follow-up encounter Colon polyps History of left heart catheterization (LHC) (~11/07/21) Factor V deficiency Fatigue CKD (chronic kidney disease) stage 3, GFR 30-59 ml/min BPH (benign prostatic hyperplasia) History of thromboembolism IBS (irritable bowel syndrome) Basal cell carcinoma (BCC) History of pulmonary embolism Renal cyst Nonrheumatic mitral (valve) prolapse Premature ventricular contraction Premature atrial contraction Essential hypertension SOB (shortness of breath) on exertion Venous insufficiency GERD (gastroesophageal reflux disease) Mitral valve prolapse Graves disease Prostate CA Hyperlipidemia Hypertension NATHAN (obstructive sleep apnea) Sinus bradycardia Hypothyroidism Other nonrheumatic mitral valve disorders Hepatic cyst Home Medications ?Medication ?Instructions ?Recorded ?Last Taken ?Type ascorbic acid (vitamin C) 500 mg 500 mg PO QDAY 04/25/17 Unknown History tablet levothyroxine 50 mcg tablet 50 mcg PO QDAY 04/25/17 10/03/22 History multivitamin 1 tab PO QDAY 04/25/17 Unknown History rosuvastatin 20 mg tablet (Crestor) 20 mg PO QDAY 04/25/17 Unknown History tamsulosin 0.4 mg capsule 0.4 mg PO QDAY 04/25/17 Unknown History cholecalciferol (vitamin D3) 25 1,000 unit PO DAILY 02/01/19 Unknown History mcg (1,000 unit) capsule desvenlafaxine succinate 25 mg 25 mg PO DAILY 06/17/19 Unknown History tablet,extended release 24 hr (Pristiq) lactase 3,000 unit tablet (Lactaid) 3,000 unit PO DAILY 09/22/20 Unknown History pyridoxine (vitamin B6) 50 mg 50 mg PO DAILY 02/15/21 Unknown History capsule (Vitamin B-6) betamethasone, augmented 0.05 % 1 applic topical DAILY PRN skin 10/13/21 Unknown History topical cream irritation hydrochlorothiazide 25 mg tablet 25 mg PO DAILY 04/19/23 Unknown History losartan 100 mg tablet 100 mg PO DAILY 04/19/23 Unknown History pantoprazole 40 mg tablet,delayed 40 mg PO DAILY #90 TABLETS 09/17/24 Unknown Rx release metoprolol tartrate 25 mg tablet 12.5 mg (1/2 x 25 mg) PO BID #45 10/06/24 Unknown Rx TABLETS oxybutynin chloride 5 mg tablet 15 mg PO QDAY 10/27/24 Unknown History amlodipine 5 mg tablet 5 mg PO DAILY #90 tabs 01/01/25 Unknown Rx apixaban 2.5 mg tablet (Eliquis) 2.5 mg PO BID 30 days #60 tabs 02/10/25 Unknown Rx Held on 02/14/25. Instructions: restart 02/16/2025 Allergy/AdvReac Type Severity Reaction Status Date / Time fosinopril (From Monopril) Allergy Severe unknown Verified 02/14/25 04:03 insect venom Allergy Severe PT UNSURE Verified 02/14/25 04:03 OF REACTION amoxicillin Allergy Intermediate Other Verified 02/14/25 04:03 benazepril (From Lotensin) AdvReac Severe unknown Verified 02/14/25 04:03 penicillin G AdvReac Severe unknown Verified 02/14/25 04:03 Family History Father Myositis Skin cancer Myocardial infarction Mother CVA (cerebral vascular accident) Colon cancer Hypertension Pacemaker Surgical History History of cardiac catheterization History of endoscopy Status post Mohs surgery History of hernia surgery History of bilateral hip replacements Social History Smoking Status: Former smoker alcohol intake: never substance use type: does not use ROS ROS ED Constitutional Constitutional ED: Denies chills or fever(s) ENT ENT ED: Denies sore throat Cardiovascular Cardiovascular: Denies chest pain Respiratory/Chest Respiratory/Chest: Denies cough or dyspnea Gastrointestinal Gastrointestinal: Reports abdominal pain and constipation; Denies diarrhea, nausea or vomiting Genitourinary Genitourinary ED: Reports hematuria; Denies dysuria Musculoskeletal Musculoskeletal: Denies back pain or myalgias Integumentary Denies rash Neurologic Neurologic: Denies headache(s) Hematologic/Lymphatic Hematologic/Lymphatic: Reports easy bleeding and easy bruising EXAM Physical Exam Const Vital Signs: 02/14/25 04:03 02/14/25 04:06 02/14/25 05:37 Temperature 98.7 F 98.7 F Temperature Source Oral Oral Pulse Rate 75 70 73 Respiratory Rate 18 18 18 Blood Pressure 173/80 H 173/80 H 170/70 H Blood Pressure Mean 111 111 103 Pulse Ox 96 97 95 Oxygen Delivery Method Room Air Room Air Room Air Positive well nourished and well developed General Appearance ED: well developed; Negative for pallor HEENT HEENT Narrative: Normocephalic atraumatic Eyes PERRL and EOMs intact bilaterally General Eye ED: Negative for scleral icterus Neck supple Resp normal respiratory effort and clear to auscultation bilaterally Cardio regular rate and regular rhythm GI non-distended and no masses GI Narrative: Abdomen is soft and nondistended with hypoactive bowel sounds. There is pain on palpation in the suprapubic region without voluntary guarding or rigidity or pulsatile mass. No obvious organomegaly noted to suggest urinary retention. No peritoneal signs Auscultation: hypoactive bowel sounds Palpation: soft Narrative: Cash catheter is noted at the urethral meatus. There is no blood or discharge present at the insertion site. There is mild leakage of urine around the catheter at the meatus consistent with patient's report. No testicular masses or swelling noted No soft tissue changes to suggest secondary infection Extremity normal to inspection Neuro oriented x3, CN's II-XII intact bilaterally and no sensory deficits noted Sensorium / Orientation: alert Psych mental status grossly normal Skin no rashes or lesions noted and no wounds General Skin Exam: Negative for jaundice or pallor MDM MDM MDM Narrative Medical decision making narrative: Patient arrived to ER hypertensive but has a past medical history of this. He reported waking up covered in urine and was concerned his catheter had become dislodged. By exam the Cash catheter balloon is still inflated and would indicate that it is still within the bladder. However as he is now leaking around the insertion site of the catheter he most likely has blockage from clots at the catheter opening. Therefore I elected to remove the catheter and it was replaced with a similar 24 English three-way. Upon insertion of the new catheter there was return of bloody urine with multiple clots which would correlate with the cause for the catheter malfunction earlier this morning. The bladder was then irrigated with 3 L. During this time the urine turned pinkish/clear consistent with flushing out blood. The patient was then watched once the irrigation was completed. After approximately 30 minutes the patient still was producing pink-tinged urine indicating no active bleeding and therefore he is otherwise safe for discharge and can follow-up with his urologist for repeat evaluation. History & Record Review Discussion w/independent historian: Patient and Significant other Discharge Plan Triage Chief Complaint: Cash C/O ED Provider: Barrington Nicholson Dx/Rx/DC Orders Clinical Impression: Complication of Cash catheter, Hematuria, Essential hypertension, Hyperlipidemia, Factor V deficiency Instructions: ED Cash Catheter, Care, ED Hematuria Prescriptions: No Action levothyroxine 50 mcg tablet 50 mcg PO QDAY Patient Comments: 1 tablet daily; Mondays and take 1.5 tablets tamsulosin 0.4 mg capsule,extended release 24hr 0.4 mg PO QDAY multivitamin tablet 1 tab PO QDAY ascorbic acid (vitamin C) 500 mg tablet 500 mg PO QDAY rosuvastatin [Crestor] 20 mg tablet 20 mg PO QDAY oxybutynin chloride 5 mg tablet 15 mg PO QDAY desvenlafaxine succinate [Pristiq] 25 mg tablet extended release 24 hr 25 mg PO DAILY Vitamin B-6 50 mg capsule 50 mg PO DAILY betamethasone, augmented 0.05 % cream 1 applic topical DAILY PRN (Reason: skin irritation) Eliquis 2.5 mg tablet 2.5 mg PO BID 30 Days Qty: 60 11RF cholecalciferol (vitamin D3) 1,000 UNIT capsule 1,000 unit PO DAILY lactase [Lactaid] 3,000 unit Tablet 3,000 unit PO DAILY hydrochlorothiazide 25 mg tablet 25 mg PO DAILY losartan 100 mg tablet 100 mg PO DAILY pantoprazole 40 mg tablet,delayed release (DR/EC) 40 mg PO DAILY Qty: 90 3RF metoprolol tartrate 25 mg tablet 12.5 mg PO BID Qty: 45 3RF amlodipine 5 mg tablet 5 mg PO DAILY Qty: 90 3RF Primary Care Provider: Dre Martinez Referrals: Dre Martinez MD [Primary Care Provider, [facility]] Activity Restrictions/Additional Instructions: Please follow-up with your urologist as directed. Continue all of your medication as directed by your doctor as well. If there is any further concerns or repeat catheter malfunction/obstruction please return to the ER for repeat evaluation. To help with constipation please stop the pain pill you were prescribed as this will continue to make bowel movements difficult and just use Tylenol. coupon collection clerk the Colace that was prescribed for you as well and begin taking this but add MiraLAX once a day and together this should help stimulate a bowel movement over the next few days. Print Language: Trinidadian Disposition Disposition: Home, Self Care
[2025-02-14 05:37] VITALS: BP 170/70; PULSE 73; RESP 18; O2SAT 95
[2025-02-14 07:00] VITALS: BP 144/65; PULSE 67; RESP 18; TEMP 36.6; O2SAT 96
== END 2025-02-14 07:43 | disposition home or self-care (01) ==
PROVIDERS: Emergency Provider Emergency Medicine; PCP Family Medicine; Visit Provider Emergency Medicine
DX: T83.031A Leakage of indwelling urethral catheter, initial encounter (principal); D68.2 Hereditary deficiency of other clotting factors; C67.9 Malignant neoplasm of bladder, unspecified; E11.22 Type 2 diabetes mellitus with diabetic chronic kidney disease; N18.30 Chronic kidney disease, stage 3 unspecified; T83.83XA Hemorrhage due to genitourinary prosthetic devices, implants and grafts, initial encounter; E03.9 Hypothyroidism, unspecified; Y73.8 Miscellaneous gastroenterology and urology devices associated with adverse incidents, not elsewhere classified; I12.9 Hypertensive chronic kidney disease with stage 1 through stage 4 chronic kidney disease, or unspecified chronic kidney disease; R31.9 Hematuria, unspecified; E78.5 Hyperlipidemia, unspecified; Z86.718 Personal history of other venous thrombosis and embolism; Z86.711 Personal history of pulmonary embolism; Z87.891 Personal history of nicotine dependence
CPT/HCPCS: 51702; 99285; A4216

== ENCOUNTER → 2025-03-09 | Outpatient (CLI) | payer MEDICARE, SELFPAY ==
[2025-03-09 18:03] LABS: Creatinine, Urine (random) 178.00 mg/dL (39.00-259.00); Microalbumin,Random Urine 344.0 mg/L (<20 mg/L)
== END | disposition home or self-care (01) ==
LOC: LABSPEC 16:45
PROVIDERS: PCP Family Medicine; Referring Provider Family Medicine; Visit Provider Family Medicine
DX: E11.8 Type 2 diabetes mellitus with unspecified complications (principal)
CPT/HCPCS: 82043; 82570